=== PATIENT | female | born 1970 | race Caucasian/White ===

== ENCOUNTER 2019-07-05 15:54 | Emergency (ER) | payer OTHER, SELFPAY ==
--- NOTE | 2019-07-05 16:00 | ED.FEMALEGU ---
HPI - Female Genitourinary General Chief complaint: Urogenital-Female Stated complaint: lower back pain/burning urination Time Seen by Provider: 07/05/19 16:00 Source: patient and RN notes reviewed History of Present Illness HPI Narrative: Patient is a 48-year-old female that presents the urgent care with complaints of low back pain and burning with urination. Patient states she is also had intermittent nausea since Thursday. Patient does have a history of urosepsis pyelonephritis with hospitalization. Patient also has a history of kidney stones however removal was unnecessary and patient was able to pass them on her own while in the hospital. Patient denies any blood in the urine, vomiting, abdominal pain, fever. No other acute complaints. No acute distress noted. Patient aware of the plan of care. Related Data Home Medications Medication Instructions Recorded Confirmed lisinopril-hydrochlorothiazide tablet 07/05/19 Allergies Allergy/AdvReac Type Severity Reaction Status Date / Time azithromycin Allergy Unknown N/V Verified 04/20/18 15:54 Review of Systems Review of Systems: Narrative: CONSTITUTIONAL: Denies fever, chills, or sweats. EYES: Denies visual changes, redness, or discharge. ENT: Denies rhinorrhea, congestion, sore throat, or otalgia. CARDIOVASCULAR: Denies chest pain, palpitations, or edema. RESPIRATORY: Denies cough or dyspnea. GASTROINTESTINAL: Denies abdominal pain, nausea, vomiting, or diarrhea. GENITOURINARY: Reports of flank pain and dysuria SKIN: Denies rash or itching. MUSCULOSKELETAL: Denies back pain, joint pain, or myalgia. NEUROLOGIC: Denies headache, numbness, or weakness. All other systems reviewed are negative, except as documented in HPI. PMFSH Social History Social History Smoking status: Never smoker Second hand tobacco smoke exposure: No Smoking end date: 03/16/06 Alcohol intake: current Comments At the time of my signature, I reviewed and agree with the nursing past medical, surgical, social, and family history. There is no relevant family history pertinent to the patient complaint. Exam Narrative: Exam Narrative: GENERAL: This is a well-nourished, well-developed patient, in no apparent distress. HEAD: normocephalic, atraumatic. EYES: PERRL. Sclera clear/white. Vision is grossly intact. EARS: External ears normal NOSE: External nose normal with no obvious nasal discharge THROAT: Mucous membranes moist NECK: Neck supple CARDIOVASCULAR: Regular rate and rhythm without murmurs, gallops, or rubs. RESPIRATORY: Clear to auscultation. Breath sounds equal bilaterally. No wheezes, rales, or rhonchi. GASTROINTESTINAL: Abdomen soft, non-tender, nondistended. No guarding. SKIN: warm, intact with no suspicious lesions or rash, good texture and turgor. NEURO: awake, alert, and oriented to person, place and time. There were no obvious focal neurologic abnormalities. EXTREMITIES: No clubbing, cyanosis, or edema. BACK: Mild bilateral CVA tenderness Course Vital Signs Vital signs: Vital Signs Temperature 97.9 F 07/05/19 16:07 Pulse Rate 101 H 07/05/19 16:07 Respiratory Rate 18 07/05/19 16:07 Blood Pressure 143/79 H 07/05/19 16:07 Pulse Oximetry 97 07/05/19 16:07 Temperature 97.9 F 07/05/19 16:07 Pulse Rate 101 H 07/05/19 16:07 Respiratory Rate 18 07/05/19 16:07 Blood Pressure 143/79 H 07/05/19 16:07 Pulse Oximetry 97 07/05/19 16:07 Reviewed?patient is informed that they may have pre-hypertension or hypertension based on a blood pressure reading in the department. I recommend the patient call the primary care provider listed on their discharge instructions or a physician of their choice this week to arrange follow-up for further evaluation of possible pre-hypertension or hypertension. MDM - Female Genitourinary MDM Narrative Medical decision making narrative: Reviewed lab results the patient. She is aware that urine does not indicate any bacter
[2019-07-05 16:07] VITALS: BP 143/79; PULSE 101; RESP 18; TEMP 36.6; O2SAT 97
== END 2019-07-05 16:33 | disposition left against medical advice (07) ==
PROVIDERS: Emergency Provider Nurse Practitioner Family; PCP Family Medicine
DX: R30.0 Dysuria (principal); Z87.442 Personal history of urinary calculi
CPT/HCPCS: 81003; 87086; 99213; G0463

== ENCOUNTER 2020-07-10 12:34 | Emergency (ER) | payer OTHER, SELFPAY ==
[2020-07-10 12:40] VITALS: BP 124/88; PULSE 96; RESP 18; TEMP 36.7; O2SAT 98
--- NOTE | 2020-07-10 12:43 | ED.FEMALEGU ---
HPI - Female Genitourinary General Chief complaint: Urogenital-Female Stated complaint: lower back pain and blood in urine Time Seen by Provider: 07/10/20 12:43 Source: patient and RN notes reviewed History of Present Illness HPI Narrative: Patient is a 49-year-old female who presents the urgent care with complaints of 5-day intermittent nausea. Patient states that yesterday she started with blood in the urine as well as low back pain. Patient states she has a history of urinary tract infections as well as hospitalization for pyelonephritis. Patient has not seen her doctor regarding her current symptoms. States that she does have an at home supply of Zofran for intermittent nausea however, has not been taking her medication. Patient denies of any fever, chills, vomiting, abdominal pain. States that she is increased her water intake but denies of any use of Azo or other at home remedies. No other acute complaints. No acute distress noted. Patient aware of the plan of care. Some parts of this dictation were generated by voice recognition software and may contain typographical and/or grammatical inaccuracies. Related Data Home Medications Medication Instructions Recorded Confirmed lisinopril-hydrochlorothiazide 1 tablet PO BID 07/10/20 07/10/20 Allergies Allergy/AdvReac Type Severity Reaction Status Date / Time azithromycin AdvReac Unknown N/V Verified 07/10/20 12:46 Review of Systems Review of Systems: Narrative: CONSTITUTIONAL: Denies fever, chills, or sweats. EYES: Denies visual changes, redness, or discharge. ENT: Denies rhinorrhea, congestion, sore throat, or otalgia. CARDIOVASCULAR: Denies chest pain, palpitations, or edema. RESPIRATORY: Denies cough or dyspnea. GASTROINTESTINAL: Reports of nausea without vomiting, diarrhea or abdominal pain GENITOURINARY: Reports of flank pain and hematuria SKIN: Denies rash or itching. MUSCULOSKELETAL: Denies back pain, joint pain, or myalgia. NEUROLOGIC: Denies headache, numbness, or weakness. All other systems reviewed are negative, except as documented in HPI. [facility] Past Medical History Medical History Anxiety Depression Hypertension Insomnia Social History Social History Smoking status: Never smoker Second hand tobacco smoke exposure: No Smoking end date: 03/16/06 Alcohol intake: current Comments At the time of my signature, I reviewed and agree with the nursing past medical, surgical, social, and family history. There is no relevant family history pertinent to the patient complaint. Exam Narrative: Exam Narrative: GENERAL: This is a well-nourished, well-developed patient, in no apparent distress. HEAD: normocephalic, atraumatic. EYES: PERRL. Sclera clear/white. Vision is grossly intact. EARS: External ears normal NOSE: External nose normal with no obvious nasal discharge, nares without redness, no rhinorrhea. THROAT: Mucous membranes moist NECK: Neck supple CARDIOVASCULAR: Regular rate and rhythm without murmurs, gallops, or rubs. RESPIRATORY: Clear to auscultation. Breath sounds equal bilaterally. No wheezes, rales, or rhonchi. GASTROINTESTINAL: Abdomen soft, non-tender, nondistended. Bowel sounds are active. SKIN: warm, intact with no suspicious lesions or rash, good texture and turgor. NEURO: awake, alert, and oriented to person, place and time. There were no obvious focal neurologic abnormalities. EXTREMITIES: No clubbing, cyanosis, or edema. BACK: Denies bilateral CVA tenderness Course Vital Signs Vital signs: Vital Signs Temperature 98.1 F 07/10/20 12:40 Pulse Rate 96 07/10/20 12:40 Respiratory Rate 18 07/10/20 12:40 Blood Pressure 124/88 07/10/20 12:40 Pulse Oximetry 98 07/10/20 12:40 Temperature 98.1 F 07/10/20 12:47 Pulse Rate 96 07/10/20 12:47 Respiratory Rate 18 07/10/20 12:47 Blood Press
[2020-07-10 12:47] VITALS: BP 124/88; PULSE 96; RESP 18; TEMP 36.7; O2SAT 98
--- NOTE | 2020-07-10 13:41 | PC.NURSE ---
during stay pt unable to provide enough urine to send for culture, provider aware
--- NOTE | 2020-07-10 13:50 | PC.NURSE ---
NO URINE CULTURE PER PROVIDER, PT. AMA.
== END 2020-07-10 13:10 | disposition left against medical advice (07) ==
PROVIDERS: Emergency Provider Nurse Practitioner Family; PCP Family Medicine
DX: R11.0 Nausea (principal); R31.9 Hematuria, unspecified; I10 Essential (primary) hypertension; F41.9 Anxiety disorder, unspecified; F32.9 Major depressive disorder, single episode, unspecified
CPT/HCPCS: 81003; 99213; G0463

== ENCOUNTER 2020-07-17 15:42 | Outpatient (CLI) | payer OTHER, SELFPAY ==
--- NOTE | ~2020-07-17 | XR_ITS ---
EXAMINATION: XR hand LT 2V DATE: 07/17/2020 15:59 INDICATION: Left hand pain and difficulty bending. TECHNIQUE: Posteroanterior, oblique and lateral views of the left hand were obtained. COMPARISON: None. FINDINGS: Alignment is normal. No fracture. Joint spaces are normal. No erosions. Soft tissue swelling over the dorsum of the hand. IMPRESSION: 1. No osseous abnormality. Reviewed, dictated and finalized at location A. IMPRESSION: 1. No osseous abnormality.
== END 2020-07-17 15:43 | disposition home or self-care (01) ==
LOC: CHSIMG 15:44
PROVIDERS: PCP Family Medicine; Visit Provider Family Medicine
DX: M79.642 Pain in left hand (principal)
CPT/HCPCS: 73120

== ENCOUNTER 2020-07-26 09:01 | Outpatient (CLI) | payer OTHER, SELFPAY ==
--- NOTE | ~2020-07-26 | US_ITS ---
EXAMINATION: US right upper quadrant DATE: 07/26/2020 09:41 INDICATION: Abnormal liver function tests. TECHNIQUE: Multiple grayscale and Doppler ultrasound images of the abdomen were obtained. COMPARISON: CT abdomen and pelvis 07/17/2016 FINDINGS: The visualized portions of the head, body, and tail of the pancreas are normal. There is di ffuse hepatic steatosis. There is normal flow in main portal vein. The gallbladder is normal in size and contains sludge. No gallstones or gallbladder wall thickening. There was no sonographic [place] si gn. The common duct is normal and measures 5 mm. IMPRESSION: 1. Diffuse hepatic steatosis. 2. Gallbladder sludge. No evidence of acute cholecystitis. Reviewed, dictated and finalized at location B.
== END 2020-07-26 09:02 | disposition home or self-care (01) ==
LOC: CHSIMG 09:02
PROVIDERS: PCP Family Medicine; Visit Provider Physician Assistant
DX: R74.8 Abnormal levels of other serum enzymes (principal)
CPT/HCPCS: 76705

== ENCOUNTER 2021-09-07 15:00 | Emergency (ER) | payer OTHER, SELFPAY ==
[2021-09-07 15:06] VITALS: BP 122/77; PULSE 89; RESP 20; TEMP 37.1; O2SAT 98
[2021-09-07 15:17] VITALS: BP 122/77; PULSE 89; RESP 20; TEMP 37.1; O2SAT 98
--- NOTE | 2021-09-07 15:21 | ED.GENADULT ---
HPI - General Adult General Chief complaint: Extremity Injury, Lower Stated complaint: left knee injury Source: patient Mode of arrival: ambulatory Limitations: no limitations History of Present Illness HPI narrative: Patient presents for evaluation of her abrasions to her bilateral knees. She indicates she fell and scraped her knees eight days ago. Bleeding was controlled quickly. She states she has scabs to the anterior aspect of both knees now and is wondering what she should do to treat them. No fever, chills, nausea, vomiting. She is not diabetic. She does not smoke. She has been applying vaseline. She has some burning in the affected area but denies significant pain and does not feel she needs any x rays. Related Data Allergies Allergy/AdvReac Type Severity Reaction Status Date / Time azithromycin AdvReac Unknown N/V Verified 09/07/21 15:12 Review of Systems Review of Systems: CONSTITUTIONAL: Denies fever, chills, or sweats. EYES: Denies visual changes, redness, or discharge. ENT: Denies rhinorrhea, congestion, sore throat, or otalgia. CARDIOVASCULAR: Denies chest pain, palpitations, or edema. RESPIRATORY: Denies cough or dyspnea. GASTROINTESTINAL: Denies abdominal pain, nausea, vomiting, or diarrhea. GENITOURINARY: Denies dysuria or hematuria. SKIN: Reports abrasions to bilateral knees MUSCULOSKELETAL: Denies back pain, joint pain, or myalgia. NEUROLOGIC: Denies headache, numbness, dizziness, or weakness. PSYCHIATRIC: Denies anxiety or depression. [facility] Past Medical History Medical History Anxiety Arthritis Depression GERD (gastroesophageal reflux disease) Hepatitis Hypertension Insomnia Surgical History Surgical History History of tubal ligation Hx of breast augmentation Hx of section Family History Family History Father Hypertension Depression Mother Hypertension Son Depression Grandparent Alcoholism Cancer Grandparent Cancer Hypertension Social History Social History Smoking status: Never smoker Second hand tobacco smoke exposure: No Smoking end date: 03/16/06 Alcohol intake: current Exam Narrative: GENERAL: Well-appearing, well-nourished, and in no acute distress. HEAD: Normocephalic, atraumatic. EYES: PERRLA and EOMI. ENT: Nares clear, no rhinorrhea or epistaxis. Mucous membranes moist. Oropharynx without tonsillar hypertrophy exudate or other lesions. Bilateral TMs pearly elena nonbulging NECK: Supple. No adenopathy or masses. No carotid bruits or JVD CHEST: Clear to auscultation. No respiratory distress. No wheezes rales or rhonchi HEART: Regular rate and rhythm. No murmur heard. Normal peripheral pulses. ABDOMEN: Soft, nontender, nondistended, normal active bowel sounds. EXTREMITIES: Normal range of motion. No edema. SKIN: Approximately 1.5 cm abrasion noted to the anterior aspect of the right knee with dried sanguinous drainage noted. There is an approximately 1 cm scabbed lesion to the anterior aspect of the left knee and a 4 cm scabbed lesion to the left knee adjacent to that. There is no purulence, underlying fluctuance or induration. Skin as warm, dry, no rash. NEURO: No focal deficits. Alert and oriented x3. PSYCH: Normal mood and affect. Course Course Emergency Course: This is a 50-year-old female who presented with complaints of abrasions to bilateral knees. She has no loss of range of motion. She was advised on wound care including washing area with antibacterial soap and water and applying neosporin thereafter. She has no evidence of cellulitis. She declined x rays which seems very reasonable. She should follow-up outpatient and return for worsening symptoms. Patient agreed with plan of care kane Moore
== END 2021-09-07 15:20 | disposition home or self-care (01) ==
PROVIDERS: Emergency Provider Nurse Practitioner; PCP Family Medicine
DX: S80.211A Abrasion, right knee, initial encounter (principal); S80.212A Abrasion, left knee, initial encounter; W19.XXXA Unspecified fall, initial encounter; Z87.891 Personal history of nicotine dependence; M19.90 Unspecified osteoarthritis, unspecified site; K21.9 Gastro-esophageal reflux disease without esophagitis; I10 Essential (primary) hypertension; F41.9 Anxiety disorder, unspecified; F32.A Depression, unspecified
CPT/HCPCS: 99213; G0463

== ENCOUNTER 2022-06-07 16:44 | Emergency (ER) | payer OTHER, SELFPAY ==
[2022-06-07 16:48] VITALS: BP 131/82; PULSE 95; RESP 20; TEMP 37.2; O2SAT 97
--- NOTE | 2022-06-07 16:55 | ED.ALLEREA ---
HPI - Allergic Reaction General Chief complaint: Allergic Reaction Stated complaint: allergic reaction/face History of Present Illness HPI narrative: patient presents with swelling to her lips. Patient feels is a reaction to her lisinopril. Patient has been on lisinopril for the last 6 years with no problems. Patient has had this swelling started last night no shortness of breath no drooling no respiratory problems. Patient did not take her lisinopril this morning. Patient has taken 125 mg Benadryl at home and presents with lip swelling and no other complaints voiced. Related Data Allergies Allergy/AdvReac Type Severity Reaction Status Date / Time azithromycin AdvReac Unknown N/V Verified 04/23/22 11:34 Review of Systems Review of Systems: CONSTITUTIONAL: Denies fever, chills, or sweats. EYES: Denies visual changes, redness, or discharge. ENT: Denies rhinorrhea, congestion, sore throat, or otalgia. CARDIOVASCULAR: Denies chest pain, palpitations, or edema. RESPIRATORY: Denies cough or dyspnea. GASTROINTESTINAL: Denies abdominal pain, nausea, vomiting, or diarrhea. GENITOURINARY: Denies dysuria or hematuria. SKIN: Denies rash or itching. MUSCULOSKELETAL: Denies back pain, joint pain, or myalgia. NEUROLOGIC: Denies headache, numbness, or weakness. PSYCHIATRIC: Denies anxiety or depression. [facility] Past Medical History Medical History Anxiety Arthritis Depression GERD (gastroesophageal reflux disease) Hepatitis Hypertension Insomnia Surgical History Surgical History History of tubal ligation Hx of breast augmentation Hx of section Family History Family History Father Hypertension Depression Mother Hypertension Son Depression Grandparent Alcoholism Cancer Grandparent Cancer Hypertension Social History Social History (Updated 04/23/22 @ 11:43 by Prabha Hatch, [facility]) Social History: Pt smoked cigarettes socially for approx. 5 yrs. One pack would last her 2 weeks. Smoking status: Former smoker Second hand tobacco smoke exposure: No Smoking end date: 03/16/06 Alcohol intake: current Alcohol use details: seldom; socially Substance use: never Substance use type: does not use Comments At time of signature, agree with nursing past medical, surgical, social and family history. There is no relevant family history pertinent to the presenting complaint Exam Narrative: GENERAL: Well-appearing, well-nourished, and in no acute distress. HEAD: Normocephalic, atraumatic. EYES: PERRLA and EOMI. ENT: Nares clear, no rhinorrhea or epistaxis. Mucous membranes moist. Swelling to lips no angioedema lungs clear NECK: Supple. CHEST: Clear to auscultation. No respiratory distress. HEART: Regular rate and rhythm. No murmur heard. Normal peripheral pulses. ABDOMEN: Soft, nontender, nondistended, normal active bowel sounds. EXTREMITIES: Normal range of motion. No edema. SKIN: Warm, dry, no rash. NEURO: No focal deficits. Alert and oriented x3. Beth Coma Scale Eye Opening: Spontaneous 4 Beth Coma Scale Motor: Obeys Commands 6 [place] Coma Scale Verbal: Oriented 5 [place] Coma Scale Total 15 Course Course Level of Care: Express Care Visit Vital Signs Vital signs: Vital Signs Temperature 37.2 C 06/07/22 16:48 Pulse Rate 95 06/07/22 16:48 Respiratory Rate 20 06/07/22 16:48 Blood Pressure 131/82 06/07/22 16:48 Pulse Oximetry 97 06/07/22 16:48 Oxygen Delivery Room Air 06/07/22 16:48 Temperature 37.2 C 06/07/22 16:48 Pulse Rate 95 06/07/22 16:48 Respiratory Rate 20 06/07/22 16:48 Blood Pressure 131/82 06/07/22 16:48 Pulse Oximetry 97 06/07/22 16:48 Oxygen Delivery Room Air 06/07/22 16:48 I reviewed all medications, tests and and results of this visit w
[2022-06-07] MEDS: methylPREDNISolone SOD SUCC 125 MG VIAL IM (17:02)
== END 2022-06-07 17:20 | disposition home or self-care (01) ==
PROVIDERS: Emergency Provider Nurse Practitioner Family; PCP Family Medicine
DX: R22.0 Localized swelling, mass and lump, head (principal); T46.4X5A Adverse effect of angiotensin-converting-enzyme inhibitors, initial encounter; M19.90 Unspecified osteoarthritis, unspecified site; K21.9 Gastro-esophageal reflux disease without esophagitis; I10 Essential (primary) hypertension; Z87.891 Personal history of nicotine dependence
CPT/HCPCS: 96372; 99213; G0463; J2930

== ENCOUNTER 2022-12-16 10:09 | Emergency (ER) | payer OTHER, SELFPAY ==
--- NOTE | ~2022-12-16 | XR_ITS ---
XR chest 2V DATE: 12/16/2022 12:41 INDICATION: Cough TECHNIQUE: 2 views COMPARISON: April 20, 2018 PA and lateral chest FINDINGS: Normal heart size. No hilar or mediastinal enlargement. Slight focal infiltrate or atelectasis at the posterior left lung base. No pulmonary infiltrate or consolidation, pleural effusion or pulmonary vascular congestion or pneumo thorax is detected otherwise. IMPRESSION: Slight focal posterior left basilar infiltrate or atelectasis; otherwise no active cardio pulmonary disease Reviewed, dictated and finalized at location L. IMPRESSION: Slight focal posterior left basilar infiltrate or atelectasis; othe rwise no active cardiopulmonary disease
--- NOTE | ~2022-12-16 | CT_ITS ---
EXAMINATION: CT abdomen pelvis w con DATE: 12/16/2022 11:31 INDICATION: Right upper quadrant abdominal pain. TECHNIQUE: Computed tomography (CT) of the abdomen and pelvis was performed with 100 mL Omnipaque-350 intravenous contrast. Automated exposure control and iterative reconstruction technique were employe d. The dose-length product was 1177.61 mGy-cm. COMPARISON: 07/17/2016 FINDINGS: Mild dependent atelectasis in the bilateral lower lobes. Heart size is normal. No pericardial or pleu ral effusion. Partially visualized bilateral breast implants which are of indeterminate integrity. Th ere are few small calcified gallstones in the dependent aspect of the gallbladder. There is subtle in flammatory stranding between the gallbladder and the hepatic flexure of the colon with no gallbladder wall thickening or inflammatory stranding along the cephalad and left sides of the gallbladder to mo re specifically suggest acute cholecystitis. There is liver surface nodularity and subtle heterogeneo us attenuation/enhancement of the liver consistent with cirrhosis. This includes an approximately 1.9 cm ill-defined hypodense region in the right hepatic lobe. There is a recanalized umbilical vein berkley ng with a dilated but atretic collateral arising from the anterior left hepatic lobe consistent with secondary portal venous hypertension. Spleen, pancreas, bilateral adrenal glands and kidneys are norm al. Normal appendix. No bowel obstruction. Bladder, anteverted uterus and bilateral adnexa are unrema rkable. There is additional retroperitoneal stranding caudal to the root of the mesentery and along t he bilateral paracolic gutters extending into the perirectal fat at the deep pelvis. Minimal free flu id in the cul-de-sac which may be reactive or physiologic. No abscess or free intraperitoneal gas. Se veral mildly enlarged periportal, portacaval and upper abdominal aorta caval lymph nodes which along with mildly prominent but still normal-sized gastrohepatic and upper abdominal periaortic lymph nodes which are likely reactive. Bones are unremarkable. IMPRESSION: 1. Cirrhosis with few portosystemic collaterals consistent with secondary portal venous hypertension. 1.9 cm centrally hypodense region in the right hepatic lobe most likely related to cirrhosis but wou ld consider further evaluation with multiphase pre and postcontrast MRI to exclude neoplasm. 2. Cholelithiasis with mild stranding along one side of the otherwise normal-appearing gallbladder. T his could be related to acute cholecystitis however there is more extensive retroperitoneal stranding in the abdomen and pelvis and this could be related to liver disease, colitis or acute interstitial pancreatitis. Correlate with lipase levels and consider further evaluation with either HIDA scan or r ight upper quadrant ultrasound as clinically indicated. 3. Likely reactive mild upper abdominal lymphadenopathy. Reviewed, dictated and finalized at location A. IMPRESSION: 1. Cirrhosis with few portosystemic collaterals consistent with secondary milagros l venous hypertension. 1.9 cm centrally hypodense region in the right hepatic l obe most likely related to cirrhosis but would consider further evaluation with multiphase pre and postcontrast MRI to exclude neoplasm. 2. Cholelithiasis with mild stranding along one side of the otherwise normal-ap pearing gallbladder. This could be related to acute cholecystitis however there is more extensive retroperitoneal stranding in the abdomen and pelvis and this could be related to liver disease, colitis or acute interstitial pancreatitis. Correlate with lipase levels and consider further evaluation with either HIDA scan or right upper quadrant ultrasound as clinically indicated. 3. Likely reactive mild upper abdominal lymphadenopathy.
[2022-12-16 10:11] VITALS: BP 140/83; PULSE 84; RESP 18; TEMP 37.1; O2SAT 98
--- NOTE | 2022-12-16 10:34 | ED.ABDPAIN ---
HPI - Abdominal Pain General Chief Complaint: Abdominal Pain Stated Complaint: abdominal pain Time Seen by Provider: 12/16/22 10:17 Source: patient Mode of arrival: ambulatory Limitations: no limitations History of Present Illness HPI narrative: patient is a 52-year-old female with right upper quadrant pain started this morning when she woke up from sleep. She has associated nausea vomiting and diarrhea for the past 3 days. MD elicited complaint: abdominal pain ( Right upper quadrant) Pertinent past history: none Onset (ago): hour(s) Pain Consistency: constant Location: RUQ Severity: moderate Pain scale (0-10): 6 Quality: cramping and sharp Radiation: RUQ Migration to: no migration Exacerbating factors: nothing Relieving factors: nothing Associated symptoms: nausea, vomiting and diarrhea Related Data Patient : No Allergies Allergy/AdvReac Type Severity Reaction Status Date / Time lisinopril Allergy Intermediate Swelling Verified 12/16/22 10:18 of Lip/Tongue/Throat azithromycin AdvReac Unknown N/V Verified 12/16/22 10:18 Review of Systems Review of Systems: All systems reviewed & are unremarkable except as noted in HPI and below Constitutional: Constitutional: Reports no additional constitutional complaints Eyes: Eyes: Reports no additional eye complaints ENT: Reports system reviewed and no additional complaints, except as documented Cardiovascular: Cardiovascular: Reports no additional cardiovascular complaints Respiratory: Respiratory: Reports no additional respiratory complaints Gastrointestinal: Gastrointestinal: Reports no additional gastrointestinal complaints Genitourinary: Genitourinary: Reports no additional female genitourinary complaints Musculoskeletal: Musculoskeletal: Reports no additional musculoskeletal complaints Integumentary/Breasts: Skin/Breast: Reports system reviewed and no additional complaints, except as docu Neurologic: Reports system reviewed and no additional complaints, except as documented Psychiatric: Psychiatric: Reports no additional psychiatric complaints Endocrine: Endocrine: Reports no additional endocrine complaints Hematologic/Lymphatic: Hematologic/Lymphatic: Reports no additional hematologic/lymphatic complaints Allergic/Immunologic: Allergic/Immunologic: Reports no additional allergic/immunologic complaints PMFSH Past Medical History Medical History Anxiety Arthritis Depression GERD (gastroesophageal reflux disease) Hepatitis Hypertension Insomnia Surgical History Surgical History History of tubal ligation Hx of breast augmentation Hx of section Family History Family History Father Hypertension Depression Mother Hypertension Son Depression Grandparent Alcoholism Cancer Grandparent Cancer Hypertension Social History Social History Social History: Pt smoked cigarettes socially for approx. 5 yrs. One pack would last her 2 weeks. Smoking status: Former smoker Second hand tobacco smoke exposure: No Smoking end date: 03/16/06 Alcohol intake: current Alcohol use details: seldom; socially Substance use: never Substance use type: does not use Exam Const: General: healthy appearing Nutritional Appearance: well nourished Orientation/consciousness: patient oriented x3 HENMT: Head: normal to inspection Ears: external ears normal Face/Nose/Sinus: Normal external nose present Eyes: Conjunctivae: conjunctivae normal Pupils: Equal, round and reactive pupils present EOM: EOMs intact bilaterally Neck: Neck: normal visual inspection Chest: Chest palpation & inspection: normal inspection of the chest Resp: Effort & Inspection: normal respiratory effort Auscultation: clear to aus
[2022-12-16] MEDS: ONDANSETRON INJ 4 MG/2 ML VIAL IV PUSH (10:40)
[2022-12-16] MEDS: MORPHINE SULFATE (*CRX) 2 MG/ML INJ IV PUSH (10:40)
[2022-12-16] MEDS: SODIUM CHLORIDE 0.9% IV 1,000 ML 999 ML IV CONT (10:41)
[2022-12-16 10:55] LABS: Appearance Urine Clear (Clear); Bilirubin Urine Negative (Negative); Blood Urine 2+ (Negative); Color Urine Light Yellow (Yellow); Glucose Urine UA Negative (Negative); Ketones Urine Negative (Negative); Leukocyte Esterase Ur Negative LEU/UL (Negative); Nitrate Urine Negative (Negative); Protein Urine Negative (Negative); Specific Grav Ur 1.015 (1.010-1.020)
[2022-12-16 10:56] LABS: Basophils Absolute Auto 0.11 K/mm3 (0.00-0.10); Basophils Percent Auto 1.5 % (0.0-1.0); Eosinophils Absolute Auto 0.23 K/mm3 (0.02-0.50); Eosinophils Percent Auto 3.1 % (1.0-6.0); Hematocrit 41.3 % (35.0-49.0); Hemoglobin 13.3 g/dL (12.0-15.0); Immature Granulocyte Absolute 0.03 K/mm3 (0.00-0.00); Immature Granulocyte Percent A 0.4 % (0.0-0.0); Immature Platelet Fraction Pct 4.6 % (1.0-7.0); Lymphocytes Absolute Auto 1.44 K/mm3 (1.10-4.50); Lymphocytes Percent Auto 19.6 % (18.0-42.0); Mean Corpuscular HGB Conc 32.2 g/dL (32.0-36.0); Mean Corpuscular Volume 99.5 fL (78.0-102.0); Mean Platelet Volume 10.8 fl (9.2-11.8); Monocytes Absolute Auto 0.91 K/mm3 (0.10-0.90); Monocytes Percent Auto 12.4 % (2.0-11.0); Neutrophils Absolute Auto 4.6 K/mm3 (1.7-7.2); Platelet Count Result 141 K/mm3 (150-420); Red Blood Count 4.15 M/mm3 (4.20-5.40); Red Cell Distribution Width 15.9 % (11.6-14.4); White Blood Count 7.4 K/mm3 (4.8-10.8)
[2022-12-16 11:03] LABS: Add Urine Microscopic? YES; Bacteria Urine 1+ /hpf; Squamous Epithelial Cell Urine Moderate /hpf (Few); WBC Urine 0-3 /hpf (0-3)
[2022-12-16 11:09] LABS: Partial Thromboplastin Time 25.7 SEC (23.90-30.70); Prothrombin Time 11.4 Seconds (9.50-12.10)
[2022-12-16 11:10] LABS: Alanine Aminotransferase 40 U/L (14-59); Alkaline Phosphatase 114 U/L (46-116); Anion Gap 10 mmol/L (8-16); Aspartate Amino Transferase 73 U/L (15-37); Bilirubin,Total 0.5 mg/dL (0.00-1.00); Blood Urea Nitrogen 10 mg/dL (7-18); Calcium 8.9 mg/dL (8.5-10.1); Carbon Dioxide 27 mmol/L (21-32); Chloride 106 mmol/L (98-108); Estimated CRCL calculation 90 ml/min; Estimated Glomerular Filt Rate > 60; Glucose 99 mg/dL (70-99); Lipase 46 U/L (16-77); Osmolality Calculated 295 mOsm/kg (285-295); Potassium 3.6 mmol/L (3.5-5.1); Sodium 143 mmol/L (136-145); Total Protein 8.4 g/dL (6.4-8.2)
[2022-12-16 11:13] LABS: Lactic Acid Reflex 1.2 mmol/L (0.4-2.0)
--- NOTE | 2022-12-16 11:48 | PC.NURSE ---
pt has returned from ct, warm blanket provided. pt is awaiting results at this time. will continue to monitor.
[2022-12-16] MEDS: PIPERACILLN/TAZ 3.375GM/NS50ML 3.375 GM/50 ML BAG IVPB (12:12)
--- NOTE | 2022-12-16 12:25 | PC.NURSE ---
PT IS REQUESTING ICE CHIPS OR WATER, ADVISED NPO UNTIL TICO DECISION. PT AMBULATORY TO [facility] WITHOUT DISTRESS. PT IS REPOSITIONED ON STRETCHER, IV ABX ARE INFUSING ORDERED WITHOUT DIFFICULTY. NAD NOTED. WILL CONTINUE TO MONITOR.
[2022-12-16 12:26] VITALS: BP 153/82; PULSE 88; RESP 18; O2SAT 100
[2022-12-16 14:00] VITALS: BP 168/88; PULSE 100; RESP 18; O2SAT 99
--- NOTE | 2022-12-16 14:04 | PC.NURSE ---
pt has family at bedside. pt is awaiting return call from [facility] at this time. no change in pt status. will continue to monitor.
--- NOTE | 2022-12-16 14:35 | PC.NURSE ---
PT AMBULATORY TO WITHOUT DIFFICULTY, FAMILY AT BEDSIDE. PT HAS BEEN ACCEPTED TO [facility] AT THIS TIME IS AWAITING ROOM ASSIGNMENT. PT AND FAMILY ARE AWARE OF PLAN OF CARE. WILL CONTINUE TO MONITOR. NO CHANGE IN PT STATUS.
[2022-12-16 15:52] VITALS: BP 170/88; PULSE 100; RESP 18; TEMP 37; O2SAT 98
--- NOTE | 2022-12-22 12:43 | PC.NURSE ---
FINAL BLOOD CULTURE REPORT, NO GROWTH AFTER 5 DAYS, NO ACTION OR FURTHER TREATMENT NEEDED.
== END 2022-12-16 16:20 | disposition short-term general hospital (02) ==
PROVIDERS: Emergency Provider Emergency Medicine; PCP Family Medicine
DX: K85.90 Acute pancreatitis without necrosis or infection, unspecified (principal); J18.9 Pneumonia, unspecified organism; K81.0 Acute cholecystitis; K74.5 Biliary cirrhosis, unspecified; I10 Essential (primary) hypertension; K21.9 Gastro-esophageal reflux disease without esophagitis; G47.00 Insomnia, unspecified; F41.9 Anxiety disorder, unspecified; F32.A Depression, unspecified; Z87.891 Personal history of nicotine dependence; Z79.51 Long term (current) use of inhaled steroids
CPT/HCPCS: 36415; 71046; 74177; 80053; 81001; 83605; 83690; 85025; 85055; 85610; 85730; 87040; 96361; 96365; 96375; 99285; J2270; J2405; J2543; J7030; Q9967

== ENCOUNTER 2023-07-27 10:35 | Emergency (ER) | payer OTHER, SELFPAY ==
[2023-07-27 10:44] VITALS: BP 138/88; PULSE 95; RESP 20; TEMP 36.8; O2SAT 94
--- NOTE | 2023-07-27 11:09 | ED.URI ---
HPI - URI/Sore Throat General Chief Complaint: Upper Respiratory Infection Stated Complaint: cough/throat Time Seen by Provider: 07/27/23 10:58 Source: patient, RN notes reviewed and old records reviewed Mode of arrival: ambulatory Limitations: no limitations History of Present Illness HPI Narrative: 52 year old female who presents to [facility] care with complaints of 2 day history of of head congestion, post nasal drainage, productive cough and sore throat. Patient reports that she has coughed so much that she has vomited several times mucous and does feel some nausea. Patient reports that she has had some nasal congestion also, denies any fevers, chills or sweats reports that he ashley taken some Enriqueta [place] cold medication for her symptoms. MD elicited complaint: cough, sore throat, rhinorrhea and nasal congestion Onset (ago): day(s) (2) Pain scale (0-10): 5 Able to tolerate fluids by mouth: Yes Treatments prior to arrival: other (Enriqueta seltzer cough and cold) Related Data Home Medications Medication Instructions Recorded Confirmed alprazolam 0.5 mg tablet 0.5 mg PO BID PRN anxiety 07/27/23 07/27/23 losartan 50 mg-hydrochlorothiazide 1 tablet PO DAILY 07/27/23 07/27/23 12.5 mg tablet metoclopramide HCl 5 mg tablet 5 mg PO Q6H PRN nausea 07/27/23 07/27/23 (Reglan) quetiapine 25 mg tablet 25 mg PO HS 07/27/23 07/27/23 venlafaxine 75 mg capsule,extended 75 mg PO BID 07/27/23 07/27/23 release 24 hr Allergies Allergy/AdvReac Type Severity Reaction Status Date / Time lisinopril Allergy Intermediate Swelling Verified 07/27/23 10:44 of Lip/Tongue/Throat azithromycin AdvReac Unknown N/V Verified 07/27/23 10:44 Review of Systems Review of Systems: CONSTITUTIONAL: Denies malaise, chills, sweats, or fever. EYES: Denies visual changes, redness, or discharge. ENT: Reports rhinorrhea, congestion, sinus pain,pressure otalgia and sore throat. CARDIOVASCULAR: Denies chest pain, palpitations, or edema. RESPIRATORY: Reports cough.? Denies dyspnea. GASTROINTESTINAL: Denies abdominal pain, nausea, vomiting, diarrhea (vomiting with cough and some nausea) SKIN: Denies rash or itching. MUSCULOSKELETAL: Denies myalgia. NEUROLOGIC: Denies headache. All systems reviewed & are unremarkable except as noted in HPI and below PMFSH Past Medical History Medical History Anxiety Arthritis Depression Fatty liver Concern for hepatic cirrhosis GERD (gastroesophageal reflux disease) Hepatitis Hypertension Insomnia IPMN (intraductal papillary mucinous neoplasm) Surgical History Surgical History History of tubal ligation Hx of breast augmentation Hx of section x2 Family History Family History Father Hypertension Depression Mother Hypertension Son Depression Grandparent Alcoholism Cancer Grandparent Cancer Hypertension Social History Social History Social History: Pt smoked cigarettes socially for approx. 5 yrs. One pack would last her 2 weeks. Smoking status: Former smoker Second hand tobacco smoke exposure: No Smoking end date: 03/16/06 Alcohol intake: current Alcohol use details: seldom; socially Substance use: never Substance use type: does not use Comments At time of signature, agree with nursing past medical, surgical, social and family history. There is no relevant family history pertinent to the presenting complaint Exam Narrative: GENERAL: Well-appearing, well-nourished, and in no acute distress. HEAD: Normocephalic EYES: PERRLA, conjunctivae clear ENT: Nares clear, turbinates edematous and erythematous, clear discharge. Mucous membranes moist. TM pearly elena with dull light reflex bilaterally; no tragal tenderness. Oropharynx e
[2023-07-27 11:29] VITALS: BP 138/88; PULSE 95; TEMP 36.8; O2SAT 94
== END 2023-07-27 11:20 | disposition home or self-care (01) ==
PROVIDERS: Emergency Provider Registered Nurse; PCP Family Medicine
DX: J02.0 Streptococcal pharyngitis (principal); R05.1 Acute cough; R11.0 Nausea; Z87.891 Personal history of nicotine dependence; F41.9 Anxiety disorder, unspecified; F32.A Depression, unspecified; M19.90 Unspecified osteoarthritis, unspecified site; K76.0 Fatty (change of) liver, not elsewhere classified; I10 Essential (primary) hypertension
CPT/HCPCS: 87880; 99213; G0463

== ENCOUNTER 2023-08-26 15:39 | Emergency (ER) | payer OTHER, SELFPAY ==
[2023-08-26 15:45] VITALS: BP 130/75; PULSE 99; RESP 18; TEMP 36.2; O2SAT 98
--- NOTE | 2023-08-26 15:56 | ED.URI ---
HPI - URI/Sore Throat General Chief Complaint: Upper Respiratory Infection Stated Complaint: Cough Time Seen by Provider: 08/26/23 15:58 Source: patient Mode of arrival: ambulatory Limitations: no limitations History of Present Illness HPI Narrative: 52-year-old female presented for complaint of persistent cough for about 4 weeks. Cough is nonproductive but forceful, Endorses body hurts from coughing and endorses a runny nose.States she has had 3 rounds of antibiotics and a course of steroids. Last antibiotic was completed about 4 days ago. She denies shortness of breath, wheezing nausea, vomiting, diarrhea, fevers or chills. She has been using rescue inhaler and steroid inhaler as prescribed. Related Data Home Medications Medication Instructions Recorded Confirmed alprazolam 0.5 mg tablet 0.5 mg PO BID PRN anxiety 07/27/23 07/27/23 losartan 50 mg-hydrochlorothiazide 1 tablet PO DAILY 07/27/23 07/27/23 12.5 mg tablet metoclopramide HCl 5 mg tablet 5 mg PO Q6H PRN nausea 07/27/23 07/27/23 (Reglan) quetiapine 25 mg tablet 25 mg PO HS 07/27/23 07/27/23 venlafaxine 75 mg capsule,extended 75 mg PO BID 07/27/23 07/27/23 release 24 hr omeprazole 20 mg capsule,delayed mg 08/26/23 release Allergies Allergy/AdvReac Type Severity Reaction Status Date / Time lisinopril Allergy Intermediate Swelling Verified 08/26/23 15:55 of Lip/Tongue/Throat azithromycin AdvReac Unknown N/V Verified 08/26/23 15:55 Review of Systems Review of Systems: CONSTITUTIONAL: Denies body aches, fever, chills, or sweats. EYES: Denies visual changes, redness, or discharge. ENT: Reports rhinorrhea, Denies sore throat, or otalgia. CARDIOVASCULAR: Denies chest pain, palpitations, or edema. RESPIRATORY: Reports cough, denies sob, wheezing. GASTROINTESTINAL: Denies abdominal pain, nausea, vomiting, or diarrhea. SKIN: Denies rash, itching, or wounds. MUSCULOSKELETAL: Denies back pain, joint pain, or myalgia. NEUROLOGIC: Denies headache, numbness, tingling, or weakness. All systems reviewed & are unremarkable except as noted in HPI and below PMFSH Past Medical History Medical History Anxiety Arthritis Depression Fatty liver Concern for hepatic cirrhosis GERD (gastroesophageal reflux disease) Hepatitis Hypertension Insomnia IPMN (intraductal papillary mucinous neoplasm) Surgical History Surgical History History of tubal ligation Hx of breast augmentation Hx of section x2 Family History Family History Father Hypertension Depression Mother Hypertension Son Depression Grandparent Alcoholism Cancer Grandparent Cancer Hypertension Social History Social History Social History: Pt smoked cigarettes socially for approx. 5 yrs. One pack would last her 2 weeks. Smoking status: Former smoker Second hand tobacco smoke exposure: No Smoking end date: 03/16/06 Alcohol intake: current Alcohol use details: seldom; socially Substance use: never Substance use type: does not use Comments At time of signature, I have reviewed and agree with nursing past medical, surgical, social and family history unless otherwise noted. Please see nursing chart for further information. There is no relevant family history pertinent to the presenting complaint Exam Narrative: GENERAL: Well-appearing, in no acute distress. EYES: EOMI. No redness or drainage. Conjunctivae normal. ENT: Mucous membranes pink and moist. No rhinorrhea. TMs normal bilaterally. Throat normal. Uvula midline. NECK: Normal AROM. Supple. CHEST: No respiratory distress. lungs clear to all shaw. frequent nonproductive cough HEART: Regular rate and rhythm. No murmur appreciated. ABDOMEN: Soft, nonte
== END 2023-08-26 16:22 | disposition home or self-care (01) ==
PROVIDERS: Emergency Provider Nurse Practitioner Family; PCP Family Medicine
DX: J40 Bronchitis, not specified as acute or chronic (principal); Z87.891 Personal history of nicotine dependence; M19.90 Unspecified osteoarthritis, unspecified site; K76.0 Fatty (change of) liver, not elsewhere classified; K21.9 Gastro-esophageal reflux disease without esophagitis; I10 Essential (primary) hypertension; F41.9 Anxiety disorder, unspecified; F32.A Depression, unspecified
CPT/HCPCS: 99213; G0463

== ENCOUNTER 2023-11-24 16:13 | Outpatient (CLI) | payer OTHER, SELFPAY ==
--- NOTE | ~2023-11-24 | XR_ITS ---
EXAM: XR lumbar spine 2-3V DATE: 11/24/2023 17:24 HISTORY: lumbar radiculopathy non trauma . COMPARISON: None available. FINDINGS: 5 nonrib-bearing lumbar-type vertebral bodies. Pedicles intact. 2 mm retrolisthesis at L4- 5. Vertebral body heights preserved. Mild disc space narrowing and marginal osteophytosis at L2-3 thr ough L5-S1. Moderate facet arthropathy at L3-4 through L5-S1. No fracture or dislocation. IMPRESSION: Minimal grade 1 anterolisthesis at L4-5. Mild multilevel degenerative disc disease. Moder ate lower lumbar facet arthropathy. Reviewed, dictated and finalized at location K. IMPRESSION: Minimal grade 1 anterolisthesis at L4-5. Mild multilevel degenerati ve disc disease. Moderate lower lumbar facet arthropathy.
== END 2023-11-24 16:14 | disposition home or self-care (01) ==
LOC: CHSIMG 16:16
PROVIDERS: PCP Physician Assistant; Visit Provider Physician Assistant
DX: M54.16 Radiculopathy, lumbar region (principal); M51.36 Other intervertebral disc degeneration, lumbar region; M43.16 Spondylolisthesis, lumbar region
CPT/HCPCS: 72100

== ENCOUNTER 2023-12-27 11:37 | Emergency (ER) | payer OTHER, SELFPAY ==
[2023-12-27] VITALS (9 sets, daily range): BP systolic 116–148; BP diastolic 81–87; PULSE 82–103; RESP 16–20; TEMP 36.5–36.9; O2SAT 93–99
--- NOTE | ~2023-12-27 | XR_ITS ---
EXAMINATION: XR knee RT 3V DATE: 12/27/2023 11:59 INDICATION: Posterior right knee pain. TECHNIQUE: 3 views of right knee were obtained. COMPARISON: None. FINDINGS: Alignment is normal. No fracture. There is mild osteoarthritis of the patellofemoral compar tment characterized by a tiny osteophyte. No knee joint effusion. IMPRESSION: 1. Mild right knee osteoarthritis. Reviewed, dictated and finalized at location A.
--- NOTE | 2023-12-27 11:43 | ED.GENADULT ---
HPI - General Adult General Chief complaint: Extremity Problem,Nontraumatic Stated complaint: leg pain Time Seen by Provider: 12/27/23 11:42 Source: patient and family Mode of arrival: ambulatory Limitations: no limitations History of Present Illness HPI narrative: 53-year-old white female complains of right lower extremity pain behind her knee radiating up the back of her leg down to her calf for the past 3 days. She has a history of rheumatoid arthritis and normally has hand and ankle pain which she also has today. She says Naprosyn helps a little bit she just got started on salicylic acid for her rheumatoid arthritis 2 weeks ago. She denies any history of venous thromboembolism but she is worried that she might have a blood clot denies any shortness of breath cough fever difficulty breathing walking talking seeing or hearing eating or drinking voiding or stooling rash or itching swelling lumps or bumps bleeding or bruising dizziness or lightheadedness cough fever sore throat runny nose or any other complaints. She denies any history of venous thromboembolism. She is not on any blood thinners. Related Data Home Medications Medication Instructions Recorded Confirmed alprazolam 0.5 mg tablet 0.5 mg PO BID PRN anxiety 07/27/23 07/27/23 losartan 50 mg-hydrochlorothiazide 1 tablet PO DAILY 07/27/23 07/27/23 12.5 mg tablet metoclopramide HCl 5 mg tablet 5 mg PO Q6H PRN nausea 07/27/23 07/27/23 (Reglan) quetiapine 25 mg tablet 25 mg PO HS 07/27/23 07/27/23 venlafaxine 75 mg capsule,extended 75 mg PO BID 07/27/23 07/27/23 release 24 hr omeprazole 20 mg capsule,delayed mg 08/26/23 release Allergies Allergy/AdvReac Type Severity Reaction Status Date / Time lisinopril Allergy Intermediate Swelling Verified 12/27/23 11:38 of Lip/Tongue/Throat azithromycin AdvReac Unknown N/V Verified 12/27/23 11:38 Review of Systems Review of Systems: All systems reviewed & are unremarkable except as noted in HPI and below PMFSH Past Medical History Medical History Anxiety Arthritis Depression Fatty liver Concern for hepatic cirrhosis GERD (gastroesophageal reflux disease) Hepatitis Hypertension Insomnia IPMN (intraductal papillary mucinous neoplasm) Surgical History Surgical History History of tubal ligation Hx of breast augmentation Hx of section x2 Family History Family History Father Hypertension Depression Mother Hypertension Son Depression Grandparent Alcoholism Cancer Grandparent Cancer Hypertension Social History Social History Social History: Pt smoked cigarettes socially for approx. 5 yrs. One pack would last her 2 weeks. Smoking status: Former smoker Second hand tobacco smoke exposure: No Smoking end date: 03/16/06 Alcohol intake: current Alcohol use details: seldom; socially Substance use: never Substance use type: does not use Exam Narrative: White female patient with mild distress.? Head normocephalic, atraumatic.? Eyes conjunctiva pink sclera nonicteric.? Extraocular movements are intact.? Ears externally normal.? Oropharynx is clear with moist mucous membranes without exudates.? Neck is supple nontender no lymphadenopathy.? Back is nontender.? no CVA tenderness. Negative straight leg raise bilaterally Lungs are clear.? Heart is regular rate and rhythm without murmurs gallops or rubs.? Chest wall nontender. Abdomen is soft and nontender no hepatosplenomegaly or masses no CVA tenderness no abdominal bruits.? Extremities: no cyanosis clubbing or edema. Right knee full range of motion tenderness posterior knee and hamstrings. Stable to all forces negative Geno's test. Calf nontender negative Homans sign. She has full ra
[2023-12-27 12:10] LABS: Hematocrit 38.9 % (35.0-49.0); Hemoglobin 13.2 g/dL (12.0-15.0); Immature Platelet Fraction Pct 8.3 % (1.0-7.0); Mean Corpuscular HGB Conc 33.9 g/dL (32-36); Mean Corpuscular Hemoglobin 31.6 pg (27.0-31.0); Mean Corpuscular Volume 93.1 fL (78.0-102.0); Mean Platelet Volume 11.9 fl (9.2-11.8); Platelet Count Result 91 K/mm3 (150-420); Red Blood Count 4.18 M/mm3 (4.20-5.40); Red Cell Distribution Width 15.4 % (11.6-14.4); White Blood Count 5.5 K/mm3 (4.8-10.8)
[2023-12-27 12:23] LABS: INR 1.2; Partial Thromboplastin Time 25.6 Sec (23.9-30.70); Prothrombin Time 12.9 Seconds (9.50-12.1)
[2023-12-27 12:24] LABS: Alanine Aminotransferase 54 U/L (14-59); Albumin Level 2.8 g/dL (3.4-5.0); Alkaline Phosphatase 142 U/L (46-116); Anion Gap 11 mmol/L (4-12); Aspartate Amino Transferase 110 U/L (15-37); Bilirubin,Total 1.8 mg/dL (0.00-1.00); Blood Urea Nitrogen 9 mg/dL (7-18); Calcium 8.8 mg/dL (8.5-10.1); Carbon Dioxide 26 mmol/L (21-32); Chloride 99 mmol/L (98-108); Estimated CRCL calculation 67 ml/min; Estimated Glomerular Filt Rate 57; Glucose 105 mg/dL (70-99); Osmolality Calculated 280 mOsm/kg (285-295); Potassium 3.3 mmol/L (3.5-5.1); Sodium 136 mmol/L (136-145); Total Protein 7.9 g/dL (6.4-8.2)
[2023-12-27 12:30] LABS: D Dimer 0.56 mg/L (0.19-0.50)
--- NOTE | 2023-12-27 12:43 | PC.NURSE ---
patient ambulatory to bathroom with steady gait. no needs at this time.
[2023-12-27] MEDS: APIXABAN 2.5 MG TABLET 10 MG PO (13:43)
== END 2023-12-27 13:58 | disposition home or self-care (01) ==
PROVIDERS: Emergency Provider Emergency Medicine; PCP Physician Assistant
DX: M17.11 Unilateral primary osteoarthritis, right knee (principal); R79.89 Other specified abnormal findings of blood chemistry; I10 Essential (primary) hypertension; Z87.891 Personal history of nicotine dependence
CPT/HCPCS: 36415; 73562; 80053; 85027; 85055; 85380; 85610; 85730; 99283; A9270

== ENCOUNTER 2023-12-28 06:57 | Outpatient (CLI) | payer OTHER, SELFPAY ==
--- NOTE | ~2023-12-28 | US_ITS ---
EXAMINATION: US venous doppler LE RT DATE: 12/28/2023 07:23 INDICATION: Right lower limb pain TECHNIQUE: Grayscale ultrasound images without and with compression and Doppler ultrasound images of the right lower extremity veins were obtained. COMPARISON: None. FINDINGS: The visualized portions of right common femoral vein, profunda (deep) femoral vein, femoral vein, pop liteal vein, peroneal trunk, posterior tibial veins, peroneal veins, gastrocnemius vein and greater s aphenous vein outflow are patent. IMPRESSION: 1. No deep venous thrombosis in the right lower limb. Reviewed, dictated and finalized at location A.
== END 2023-12-28 06:58 | disposition home or self-care (01) ==
LOC: CHSIMG 07:00
PROVIDERS: PCP Physician Assistant; Visit Provider Emergency Medicine
DX: M79.604 Pain in right leg (principal)
CPT/HCPCS: 93971

== ENCOUNTER 2024-04-08 07:22 | Inpatient (IN) | payer OTHER, SELFPAY ==
[2024-04-08] VITALS (32 sets, daily range): BP systolic 106–139; BP diastolic 13–97; PULSE 104–126; RESP 9–22; TEMP 36–37; O2SAT 94–100
--- NOTE | ~2024-04-08 | CT_ITS ---
EXAMINATION: CTA abdomen pelvis DATE: 04/08/2024 10:24 INDICATION: Gastrointestinal bleed TECHNIQUE: Computed tomographic angiography (CTA) of the abdomen and pelvis was performed with 100 mL Omnipaque-350 intravenous contrast. Additional 3D reconstructions utilizing rotating maximum intensi ty projection (MIP) were performed. Automated exposure control and iterative reconstruction technique were employed. The dose-length product was 1242.05 mGy-cm. COMPARISON: 12/16/2022 FINDINGS: Lung bases are clear. Heart size normal. No pericardial or pleural effusion. Small sliding-type hiata l hernia. Nodular liver surface with heterogeneous decreased attenuation consistent with likely combi [place] of cirrhosis and diffuse hepatic steatosis. Multiple calcified gallstones in the dependent asp ect of the gallbladder. Small amount of ascites scattered throughout the abdomen and pelvis including along the liver and gallbladder. There is however no dilation of the gallbladder or pericholecystic inflammatory change to suggest acute cholecystitis. Spleen, pancreas, bilateral adrenal glands and ki dneys are normal. There is diffuse colonic wall thickening which appears predominantly due to increas ed intramural fat likely related to patient body habitus small bowel and appendix are normal. No evid ent foci of active contrast extravasation within the bowels. Bladder, anteverted uterus and bilateral adnexa are unremarkable. No abscess or free intraperitoneal gas. No pathologically enlarged abdomina l or pelvic lymphadenopathy. Abdominal aorta is normal in caliber with no hemodynamically significant stenosis. There is no celiac axis with separate aortic origins of the left hepatic, right hepatic an d splenic arteries. Mild degenerative skeletal changes in the pelvis and visualized spine. IMPRESSION: 1. Diffuse colonic wall thickening which appears to primarily to increased intramural fat likely rela ira to body habitus. No foci of active contrast extravasation within the bowels. 2. Cirrhosis with small amount of secondary ascites. 3. Cholelithiasis without findings of acute cholecystitis. 4. Small sliding-type hiatal hernia. Reviewed, dictated and finalized at location A. ICAL PROCESS PROJECT ENGINEER IMPRESSION: 1. Diffuse colonic wall thickening which appears to primarily to increased intr amural fat likely related to body habitus. No foci of active contrast extravasa tion within the bowels. 2. Cirrhosis with small amount of secondary ascites. 3. Cholelithiasis without findings of acute cholecystitis. 4. Small sliding-type hiatal hernia.
[2024-04-08] MEDS: SODIUM CHLORIDE 0.9% IV 1,000 ML 999 ML IV CONT (07:45)
[2024-04-08] MEDS: PANTOPRAZOLE SODIUM IV 40 MG VIAL IV PUSH ×2 (07:47→16:47)
[2024-04-08 08:10] LABS: Basophils Absolute Auto 0.1 K/mm3 (0.0-0.1); Basophils Percent Auto 0.8 % (0.2-1.2); Eosinophils Percent Auto 0.1 % (0-4.4); Hemoglobin 8.9 g/dL (12.0-15.0); Immature Granulocyte Absolute 0.44 K/mm3 (0.00-0.031); Immature Granulocyte Percent A 2.8 % (0-0.5); Lymphocytes Absolute Auto 1.94 K/mm3 (0.9-3.2); Lymphocytes Percent Auto 12.4 % (18.3-44.2); Mean Corpuscular HGB Conc 31.8 g/dl (32-36); Mean Corpuscular Hemoglobin 33.5 pg (26-34); Mean Corpuscular Volume 105.3 fl (80-100); Mean Platelet Volume 11.9 fl (7.4-10.4); Monocytes Absolute Auto 1.5 K/mm3 (0.1-0.6); Monocytes Percent Auto 9.4 % (2.6-8.5); Neutrophils Absolute Auto 11.7 K/mm3 (1.3-6.7); Neutrophils Percent Auto 74.5 % (45.5-73.1); Nucleated Red Blood Cells Perc 1.1 % (0.0-0.2); Platelet Count Result 165 k/mm3 (150-375); Red Blood Count 2.66 M/mm3 (4.2-5.4); Red Cell Distribution Width 21.1 % (11.5-14.5); White Blood Count 15.7 K/mm3 (4.5-10.0)
[2024-04-08 08:18] LABS: Alanine Aminotransferase 45 U/L (6-35); Alkaline Phosphatase 121 U/L (38-126); Anion Gap 15 mmol/L (4-12); Aspartate Amino Transferase 89 U/L (14-36); Bilirubin,Total 2.4 mg/dL (0.2-1.3); Blood Urea Nitrogen 31 mg/dL (7-17); Calcium 8.5 mg/dL (8.4-10.2); Carbon Dioxide 20 mmol/L (22-30); Chloride 101 mmol/L (98-107); Estimated CRCL calculation 70 ml/min; Estimated Glomerular Filt Rate 59; Glucose 100 mg/dL (65-110); Potassium 4.4 mmol/L (3.4-5.0); Sodium 136 mmol/L (137-145)
--- OUTSIDE RECORDS SUMMARY | 2024-04-08 08:29 | XMS_ITS | Data Portability ---
Author Organization [facility] and, [facility]) Address [address] [place] [address] Assessment Encounter Date Assessment Date Assessment LastModified by Organization Details LastModified Time 11/09/2018 11/09/2018 47 y/o female with symptomatic fibroids. She has quite atypical symptoms. I am not totally convinced that this is all related to fibroids. An MRI of the pelvis will be ordered to access the fibroids and see if there is an appreciable mass. After we get the results, we can decide how to proceed. I spent a total of 30 minutes with the patient and the majority of the service (>50%) was spent in counseling the patient on treatment options. [email or web address] Not available 11/09/2018 18:17:43 Plan of Treatment Reminders Order Date Submit Date Provider Last Modified By Organization Details Last Modified Time Details Appointments None recorded. Lab creatinin e, serum or plasma - as needed. Only if needed to do the test 2018 [email or web address] [place] [address] Imaging - Creatinine Order, [address] [place], [address], 9 16:29:48 Referral None recorded. Procedures None recorded. Surgeries None recorded. Imaging MRI, pelvis, w/wo contrast - Patient has a history of fibroids. She is being referred for MRI of the pelvis to assess for the extent of Uterine fibroids and the presence of adenomyos is or endometri osis 2018 019 [email or web address] [address] [facility] Imaging Administrative Office, [facility] [id number], [place], [address], 9 14:00:03 Medication Orders None recorded. Patient TargetsNo targets recorded. Patient InstructionsNo instructions recorded. Reason for Referral None Reported. Procedures Surgical History Date Name Laterality Status Provider Name and Address Organization Details Recorded Time 08/23/2017 [place] [address], [address], [facility] 11/09/2018 16:52:07 03/16/2007 [place] [address], [address], [facility] 11/09/2018 16:52:07 03/16/1995 Other completed Kiya Mcfarland MD [id number] [place] [address], [phone], [facility] and 11/09/2018 16:52:07 03/16/1990 Other completed Kiya [place]far[place] [id number] [place] [address], [phone], [facility] 11/09/2018 16:52:07 Imaging Results None recorded. Procedure Notes None recorded. Medical Equipment None Reported. Allergies No known drug allergies Medications Name Sig Start Date Stop Date Status Note LastModified by Organization Details LastModified Time carvedilol 25 mg tablet active Not Available Not Available Not Available venlafaxine ER 75 mg capsule,extended release 24 hr active Not Available Not Availabl e Not Available lisinopril 20 mg-hydrochlorothiaz dee dee 12.5 mg tablet active Not Available Not Meghan ilable Not Available azithromycin 250 mg tablet active Not Available Not Available Not Available nifedipine ER 90 mg tablet,extended release active Not Available Not Available Not Available fluconazole 150 mg tablet active Not Available Not Available Not Available sumatriptan 100 mg tablet active Not Available Not Available Not Available fluconazole 200 mg tablet active Not Available Not Available Not Available ondansetron HCl 4 mg tablet active Not Available Not Available No t Available potassium chloride ER 10 mEq tablet,extended release active Not Available Not Available Not Available sulfamethoxazole 800 mg-trimethoprim 160 mg tablet active Not Available Not Availabl e Not Available ondansetron 8 mg disintegrating tablet active Not Available Not Available Not Available alprazolam 0.5 mg tablet active Not Available Not Available Not Available chlordiazepoxide 5 mg capsule active Not Available Not Available N ot Available amlodipine 10 mg tablet active Not Available Not Available Not Available prednisone 50 mg tablet active Not Available Not Available Not Available folic acid 1 mg tablet active Not Available Not Available Not Available hydrochlorothiazide 25 mg tablet active Not Available Not Available Not Available mupirocin 2 % topical ointment active Not Available Not Avail able Not Available lisinopril 10 mg-hydrochlorothiaz dee dee 12.5 mg tablet active Not Available Not Meghan ilable Not Available methylprednisolone 4 mg tablets in a dose pack active Not Available Not Available No t Available labetalol 100 mg tablet active Not Available Not Available Not Available hydroxyzine HCl 10 mg tablet active Not Available Not Available No t Available ondansetron 4 mg disintegrating tablet active Not Available Not Available Not Available amoxicillin 875 mg-potassium clavulanate 125 mg tablet active Not Available Not Available Not Available ProAir HFA 90 mcg/actuation aerosol inhaler active Not Available Not Availa ble Not Available Zzu-Nz-Qcartucp 0.18 mg/0.215 mg/0.25 mg-25 mcg tablet active Not Available Not Available Not Available Vitals None Recorded Social History Question Answer Notes LastModified by Organizat ion Details LastModified Time Tobacco Smoking Status Never Smoker Not Available [facility] 01/17/2020 03:44:16 What Is Your Level Of Alcohol Consumption? Occasional [id number] Information not available 01/17/2020 Which Illicit Or Recreational Drugs Have You Used? None [id number] Information not available 01/17/2020 What Is The Highest Grade Or Level Of School You Have Completed Or The Highest Degree You Have Received? [id number] Information not available 01/17/2020 What Is Your Occupation? [id number] Information not available 01/17/2020 Live Alone Or With Others? With Others [email or web address] Information not available 11/09/2018 How Much Tobacco Do You Smoke? No [id number] Information not available 01/17/2020 Sex: Unknown Functional Status None recorded. Mental Status None recorded. Family History Nothing Reported. Medical History Condition Response Hypertension Y Gynecological History Statement/Question Response N Light 03/19/2018 Sexually Active? Y N N Duration of Flow (days) 0 08/23/2017 N Current Control Method Tubal Ligat ion Obstetrics History GPAL:G 0 P 0 0 0 0 Past Encounters Encounter ID Performer Location Encounter Start Date Encounter Closed Date Diagnosis/Indication Diagnosis SNOMED-CT Code Diagnosis ICD10 Code Diagnosis Note [id number] Kiya Mcfarland MD [facility] [address] [facility],[address] [address] 11/09/2018 16:41:03 11/10/2018 16:10:17 Uterine leiomyoma 34894419 D25.9 Health Concerns Section Related Observation LastModified by Organization Detai ls LastModified Time None Recorded Concern Status LastModified by Organization Details LastModified Time None Recorded Advance Directives Directive None Recorded Payers Encounter Date Sequence Insurance Name Policy Number Policy Bravo Covered Member ID Bravo Member ID Guarantor Name 11/09/2018 1 [employer] Xin Teixeira [id number] Xin Teixeira Notes Date Note Type Note Provider Name and Address Organization Details Recorded Time 11/09/2018 text/html [facility] HPI newReported bypatient.Duration Dx with fibroids, last year Main symptomsgenital: pelvic pressure; genital: pelvic pain; constipation; morning sickness, nausea and voming, fatigue, weight gain, bloating. She also gets a lot of UTIs. Quality:quantity of flow light Prior Evaluation:prior pap smear: with negative result; She has had lots of tests, and was told that there is nothing wrong. She had a history of tubal ligation. Associated Symptoms:fatigue;[place] [address] [facility], [place] [address], [place], [address], [facility] 11/09/2018 18:18:30 OBGyn Episode No OBEpisode recorded.
[2024-04-08 08:30] LABS: Platelet Estimate Adequate (Adequate); Schistocytes None Seen
[2024-04-08 08:31] LABS: Anisocytosis 2+; Hypochromasia 1+; Ovalocytes 1+
[2024-04-08 08:32] LABS: Polychromasia 1+
[2024-04-08 08:33] LABS: INR 1.5; Prothrombin Time 18.1 Seconds (11.1-14.7)
--- NOTE | 2024-04-08 11:42 | ED.GIBLEED ---
HPI - GI Bleed General Chief complaint: GI Bleed Stated complaint: coffee ground emesis, dark tarry stool x 12 hours Time Seen by Provider: 04/08/24 07:29 Source: patient Mode of arrival: EMS Limitations: no limitations History of Present Illness HPI Narrative: 53-year-old with a history of hypertension, anxiety and depression here with a complaint of coffee-ground emesis since last night along with black tarry stools since yesterday. Patient states that she has been taking Aleve on a daily basis for the past few days. She denies any previous episodes of GI bleed. She denies being lightheaded or dizzy is no abdominal pain at this time. MD complaint: coffee ground emesis Onset (ago): day(s) (1) Relieving factors: none Exacerbating factors: none Associated symptoms: denies other symptoms Related Data Home Medications ?Medication ?Instructions ?Recorded ?Confirmed ?Last Taken ?Type alprazolam 0.5 mg tablet 0.5 mg PO BID PRN anxiety 07/27/23 07/27/23 Unknown History losartan 50 mg-hydrochlorothiazide 1 tablet PO DAILY 07/27/23 07/27/23 Unknown History 12.5 mg tablet metoclopramide HCl 5 mg tablet 5 mg PO Q6H PRN nausea 07/27/23 07/27/23 Unknown History (Reglan) quetiapine 25 mg tablet 25 mg PO HS 07/27/23 07/27/23 Unknown History venlafaxine 75 mg capsule,extended 75 mg PO BID 07/27/23 07/27/23 Unknown History release 24 hr omeprazole 20 mg capsule,delayed mg 08/26/23 Unknown History release Allergies Allergy/AdvReac Type Severity Reaction Status Date / Time lisinopril Allergy Intermediate Swelling Verified 04/08/24 07:42 of Lip/Tongue/Throat azithromycin AdvReac Unknown N/V Verified 04/08/24 07:42 Review of Systems Review of Systems: All systems reviewed & are unremarkable except as noted in HPI and below Constitutional: Constitutional: Reports no additional constitutional complaints Eyes: Eyes: Reports no additional eye complaints ENT: Reports system reviewed and no additional complaints, except as documented Cardiovascular: Cardiovascular: Reports no additional cardiovascular complaints Respiratory: Respiratory: Reports no additional respiratory complaints Gastrointestinal: Gastrointestinal: Reports as per HPI Musculoskeletal: Musculoskeletal: Reports no additional musculoskeletal complaints Integumentary/Breasts: Skin/Breast: Reports system reviewed and no additional complaints, except as docu Neurologic: Reports system reviewed and no additional complaints, except as documented Psychiatric: Psychiatric: Reports no additional psychiatric complaints Endocrine: Endocrine: Reports no additional endocrine complaints Hematologic/Lymphatic: Hematologic/Lymphatic: Reports no additional hematologic/lymphatic complaints PMFSH Past Medical History Medical History IPMN (intraductal papillary mucinous neoplasm) Fatty liver Concern for hepatic cirrhosis Hepatitis GERD (gastroesophageal reflux disease) Arthritis Insomnia Anxiety Depression Hypertension Surgical History Surgical History Hx of breast augmentation Hx of section x2 History of tubal ligation Family History Family History Father Hypertension Depression Mother Hypertension Son Depression Grandparent Alcoholism Cancer Grandparent Cancer Hypertension Social History Social History Social History: Pt smoked cigarettes socially for approx. 5 yrs. One pack would last her 2 weeks. Smoking status: Former smoker Second hand tobacco smoke exposure: No Smoking end date: 03/16/06 Alcohol intake: current Alcohol use details: seldom; socially Substance use: never Substance use type: does not use Exam Narrative: GENERAL: Well-appearing, well-nourished, and in no acute distress, anxious HEAD: Normocephalic, atraumatic. EYES: PERRLA and EOMI. ENT: Nares clear, no rhinorrhea or epistaxis. Mucous membranes moist. NECK: Supple. CHEST: Clear to auscultation. No respiratory distress. HEART: Regular rate and rhythm. No murmur heard. Normal peripheral pulses. ABDOMEN: Soft, nontender, nondistended, normal active bowel sounds. EXTREMITIES: Normal range of motion. No edema. SKIN: Warm, dry, no rash. NEURO: No focal deficits. Alert and oriented x3. PSYCH: Normal mood and affect. Course Course Emergency Course: Patient had no further episodes of coffee-ground emesis here in the ER. I did inform her about her lab work and CT findings. Discussed with Dr. Loera will do EGD this afternoon. She is agreeable with admission. I discussed with the hospitalist accepted the patient Vital Signs Vital signs: Vital Signs Temperature 36.4 C 04/08/24 07:14 Pulse Rate 121 H 04/08/24 07:14 Respiratory Rate 19 04/08/24 07:14 Blood Pressure 117/97 H 04/08/24 07:14 Pulse Oximetry 99 04/08/24 07:14 Oxygen Delivery Room Air 04/08/24 07:14 Temperature 36.4 C 04/08/24 07:14 Pulse Rate 113 H 04/08/24 08:16 Respiratory Rate 15 04/08/24 08:01 Blood Pressure 110/87 04/08/24 09:16 Pulse Oximetry 100 04/08/24 09:16 Oxygen Delivery Room Air 04/08/24 07:14 MDM - GI Bleed Differential Diagnosis Differential diagnosis: Likely esophageal varices, gastritis and Upper gastrointestinal hemorrhage Medical Records Attestation: I reviewed the patient's medical records. Lab Data Attestation: I reviewed the patient's lab results. 04/08/24 07:51 04/08/24 07:51 Labs: Lab Results 04/08/24 Range/Units 07:51 WBC 15.7 H (4.5-10.0) K/mm3 RBC 2.66 L (4.2-5.4) M/mm3 Hgb 8.9 L (12.0-15.0) g/dL Hct 28.0 L (37.0-47.0) % MCV 105.3 H (80-100) fl MCH 33.5 (26-34) pg MCHC 31.8 L (32-36) g/dl RDW 21.1 H (11.5-14.5) % Plt Count 165 (150-375) k/mm3 MPV 11.9 H (7.4-10.4) fl Immature Gran % (Auto) 2.8 H (0-0.5) % Neut % (Auto) 74.5 H (45.5-73.1) % Lymph % (Auto) 12.4 L (18.3-44.2) % [place] % (Auto) 9.4 H (2.6-8.5) % Eos % (Auto) 0.1 (0-4.4) % Baso % (Auto) 0.8 (0.2-1.2) % Lymph # (Auto) 1.94 (0.9-3.2) K/mm3 [place] # (Auto) 1.5 H (0.1-0.6) K/mm3 Eos # (Auto) 0.0 (0-0.3) K/mm3 Baso # (Auto) 0.1 (0.0-0.1) K/mm3 Abs Immat Gran (auto) 0.44 H (0.00-0.031) K/mm3 Absolute Neuts (auto) 11.7 H (1.3-6.7) K/mm3 Absolute Nucleated RBC 0.170 H (0.0-0.012) K/mm3 Nucleated RBC % 1.1 H (0.0-0.2) % Platelet Estimate Adequate (Adequate) Polychromasia 1+ Hypochromasia 1+ Anisocytosis 2+ Ovalocytes 1+ Schistocytes None seen PT 18.1 H (11.1-14.7) Seconds INR 1.5 Sodium 136 L (137-145) mmol/L Potassium 4.4 (3.4-5.0) mmol/L Chloride 101 (98-107) mmol/L Carbon Dioxide 20 L (22-30) mmol/L Anion Gap 15 H (4-12) mmol/L BUN 31 H (7-17) mg/dL Creatinine 0.98 (0.7-1.0) mg/dL Estim Creat Clear Calc 70 ml/min Estimated GFR 59 (59 - ) Glucose 100 (65-110) mg/dL Calcium 8.5 (8.4-10.2) mg/dL Total Bilirubin 2.4 H (0.2-1.3) mg/dL AST 89 H (14-36) U/L ALT 45 H (6-35) U/L Alkaline Phosphatase 121 (38-126) U/L Total Protein 6.0 L (6.3-8.2) g/dL Albumin 3.0 L (3.5-5.1) g/dL Imaging Data Radiologist's impression: ITS Impressions Abdomen/Pelvis CTA 04/08/24 10:31 IMPRESSION: 1. Diffuse colonic wall thickening which appears to primarily to increased intramural fat likely related to body habitus. No foci of active contrast extravasation within the bowels. 2. Cirrhosis with small amount of secondary ascites. 3. Cholelithiasis without findings of acute cholecystitis. 4. Small sliding-type hiatal hernia. Discharge Plan Discharge Clinical Impression: Acute GI bleeding Patient Disposition: Still a Patient Condition: Stable Patient Language: Stateless Prescriptions: No Action Eliquis 5 mg tablet 10 mg PO ONCE Qty: 1 0RF Rx Instructions: at 2:00 a.m. alprazolam 0.5 mg tablet 0.5 mg PO BID PRN (Reason: anxiety) venlafaxine 75 mg capsule,extended release 24hr 75 mg PO BID quetiapine 25 mg tablet 25 mg PO HS metoclopramide HCl [Reglan] 5 mg tablet 5 mg PO Q6H PRN (Reason: nausea) losartan-hydrochlorothiazide 50-12.5 mg tablet 1 tablet PO DAILY omeprazole 20 mg capsule,delayed release(DR/EC) sumatriptan succinate 100 mg tablet See Rx Instructions PO .COMPLEX Qty: 9 5RF Rx Instructions: take 1 tab at onset of headache; if no relief, may repeat 1 tab after at least 2 hrs; max = 2 tabs/24 hrs PO albuterol sulfate 90 mcg/actuation HFA aerosol inhaler 1 inh inhalation Q4H PRN (Reason: shortness of breath or wheezing) Qty: 8.5 5RF bupropion HCl [Wellbutrin XL] 300 mg tablet extended release 24 hr 300 mg PO QAM Qty: 30 4RF Follow-up/Referrals: Lawrence,EDGAR Whatley [Primary Care Provider] - Time of Disposition: 11:49
--- NOTE | 2024-04-08 12:41 | PM.IMHP ---
H&P: HPI History of Present Illness Date/Time: 04/08/24 12:41 Chief Complaint: coffee ground emesis, dark tarry stool x 12 hours Narrative: 53-year-old female past medical history of anxiety, hypertension, GERD and fatty liver presents the hospital with coffee-ground emesis and dark tardy stools. Patient seen after EGD with banding. Patient states she is a little drowsy however no vomiting after EGD. She does state that she has heartburn like pain and that she received a GI cocktail earlier which helped. Patient states that she has had several doses of Aleve over the last few days and does drink alcohol wine and vodka 3 to 4 times a week. Patient states that she knew she had fatty liver however she did not know that she has cirrhosis or esophageal varices. Patient with anxiety after being told she would receive blood transfusion. Patient did caused herself to vomit, vomit was bilious, no bright red or coffee-ground emesis. Patient had EGD with banding. Review of Systems Review of Systems: 12 systems were reviewed and are negative except for as per HPI. [facility] Past Medical History Medical History (Updated 04/08/24 @ 14:26 by Cyrus Jones MD) Acute blood loss anemia Hematemesis Melena IPMN (intraductal papillary mucinous neoplasm) Fatty liver Concern for hepatic cirrhosis Hepatitis GERD (gastroesophageal reflux disease) Arthritis Insomnia Anxiety Depression Hypertension Surgical History Surgical History Hx of breast augmentation Hx of section x2 History of tubal ligation Family History Family History Father Hypertension Depression Mother Hypertension Son Depression Grandparent Alcoholism Cancer Grandparent Cancer Hypertension Social History Social History Social History: Pt smoked cigarettes socially for approx. 5 yrs. One pack would last her 2 weeks. Smoking status: Never smoker Second hand tobacco smoke exposure: No Smoking end date: 03/16/06 Alcohol intake: current Drinks per week: 2 Alcohol use details: seldom; socially Substance use: never Substance use type: does not use Spiritual care concerns: No Meds Home Medications and Allergies Home Medications ?Medication ?Instructions ?Recorded ?Confirmed ?Type sumatriptan succinate 100 mg tablet See Rx Instructions PO .COMPLEX #9 01/02/20 04/08/24 Rx tabs albuterol sulfate 90 mcg/actuation 1 inh inhalation Q4H PRN shortness 05/18/22 04/08/24 Rx aerosol inhaler of breath or wheezing #8.5 grams bupropion HCl 300 mg 24 hr tablet, 300 mg PO QAM #30 tabs 12/03/22 04/08/24 Rx extended release (Wellbutrin XL) alprazolam 0.5 mg tablet 0.5 mg PO BID PRN anxiety 07/27/23 04/08/24 History losartan 50 mg-hydrochlorothiazide 1 tablet PO DAILY 07/27/23 04/08/24 History 12.5 mg tablet metoclopramide HCl 5 mg tablet 5 mg PO Q6H PRN nausea 07/27/23 04/08/24 History (Reglan) quetiapine 25 mg tablet 25 mg PO HS 07/27/23 04/08/24 History venlafaxine 75 mg capsule,extended 75 mg PO BID 07/27/23 04/08/24 History release 24 hr omeprazole 20 mg capsule,delayed 20 mg PO DAILY 08/26/23 04/08/24 History release apixaban 5 mg tablet (Eliquis) 10 mg (2 x 5 mg) PO ONCE #1 tablet 12/27/23 04/08/24 Rx Allergies Allergy/AdvReac Type Severity Reaction Status Date / Time lisinopril Allergy Intermediate Swelling Verified 04/08/24 15:06 of Lip/Tongue/Throat azithromycin AdvReac Unknown N/V Verified 04/08/24 15:06 Vital Signs Vital Signs - 24 hr 04/08/24 07:14 04/08/24 07:49 04/08/24 08:01 Temperature 97.6 F Pulse Rate 121 H 116 H 119 H Respiratory Rate 19 15 15 Blood Pressure 117/97 H 136/85 Pulse Oximetry 99 98 98 Oxygen Delivery Room Air 04/08/24 08:16 04/08/24 08:30 04/08/24 08:31 Temperature Pulse Rate 113 H Respiratory Rate Blood Pressure 122/81 122/76 Pulse Oximetry 100 98 Oxygen Delivery 04/08/24 09:01 04/08/24 09:07 04/08/24 09:15 Temperature Pulse Rate Respiratory Rate Blood Pressure 128/81 Pulse Oximetry 100 98 Oxygen Delivery 04/08/24 09:16 04/08/24 09:28 04/08/24 09:30 Temperature Pulse Rate 126 H Respiratory Rate 19 Blood Pressure 110/87 Pulse Oximetry 100 94 Oxygen Delivery 04/08/24 09:31 04/08/24 09:45 04/08/24 09:46 Temperature Pulse Rate 121 H Respiratory Rate 18 Blood Pressure 108/67 107/50 L Pulse Oximetry 100 99 99 Oxygen Delivery 04/08/24 10:00 04/08/24 10:01 04/08/24 10:27 Temperature Pulse Rate Respiratory Rate Blood Pressure 121/64 Pulse Oximetry 99 97 100 Oxygen Delivery 04/08/24 10:31 04/08/24 11:13 04/08/24 11:15 Temperature Pulse Rate 106 H Respiratory Rate 14 9 L Blood Pressure 120/64 Pulse Oximetry 100 100 100 Oxygen Delivery 04/08/24 12:24 Temperature Pulse Rate 118 H Respiratory Rate 16 Blood Pressure 117/74 Pulse Oximetry 98 Oxygen Delivery Exam Narrative: General: well appearing, appears stated age. HEENT: normocephalic, atraumatic. Mucous membranes moist. EOMI, PERRLA, bilateral sclera anicteric, no conjunctival injection. Neck supple without JVD, lymphadenopathy, or bruit. Respiratory: clear to ascultation bilaterally. No rales/rhonic/wheezes. Cardiovascular: Regular rate and rhythm, normal S1-S2 upon ascultation. No murmurs, rubs, or clicks. PMI is nondisplaced, capillary refill less than 3 second. Abdomen: Soft, round, no pulsatile masses, nondistended and nontender. No rebound, no guarding. No CVA tenderness, no hepatosplenomegaly. Bowel sounds present to all four quadrants. No high pitch or tinkling sounds, resonant to percussion. Extremities: No cyanosis, clubbing, or edema present. Pulses are palpable 2/2. Active ROM to all four extremities. Neuro: Alert and orientated x 4. PERRLA. Cranial nerves 2-12 intact without focal deficit. Skin: Warm, dry, and intact, without rash, erythema, or lesion. Psych: pleasant, cooperative, normal speech, normal affect, no hallucinations, no dysarthia H&P: Results Labs Labs: Short CBC 04/08/24 Range/Units 07:51 WBC 15.7 H (4.5-10.0) K/mm3 Hgb 8.9 L (12.0-15.0) g/dL Hct 28.0 L (37.0-47.0) % Plt Count 165 (150-375) k/mm3 BMP 04/08/24 07:51 Sodium 136 L Potassium 4.4 Chloride 101 Carbon Dioxide 20 L BUN 31 H Creatinine 0.98 Glucose 100 Calcium 8.5 Liver Function 04/08/24 Range/Units 07:51 Total Bilirubin 2.4 H (0.2-1.3) mg/dL AST 89 H (14-36) U/L ALT 45 H (6-35) U/L Alkaline Phosphatase 121 (38-126) U/L Albumin 3.0 L (3.5-5.1) g/dL Assessment and Plan Assessment and plan (1) Acute GI bleeding: Code(s): K92.2 - Gastrointestinal hemorrhage, unspecified Status: Acute Assessment and Plan: Esophageal varices banding with GI 04/08/24 GI consulted Octreotide and Protonix avoid NSAIDs including Aleve Q.6 her H&H Okay for clear liquid diet per GI GI cocktail (2) Acute blood loss anemia: Code(s): D62 - Acute posthemorrhagic anemia Status: Acute Assessment and Plan: 1 unit of RBCs ordered on 04/09/2024 Hold Eliquis Hemoglobin q.6 Transfuse for hemoglobin less than 7 or symptomatic Patient does not have signs of acute bleeding at this time likely dropped prior to EGD Continue monitor (3) Anxiety: Code(s): F41.9 - Anxiety disorder, unspecified Status: Acute Assessment and Plan: Restart home medications (4) Hypertension: Qualifiers: Hypertension type: essential hypertension Qualified Code(s): I10 - Essential (primary) hypertension Code(s): I10 - Essential (primary) hypertension Status: Acute Assessment and Plan: Patient is normotensive will hold antihypertensives tonight (5) Leukocytosis: Code(s): D72.829 - Elevated white blood cell count, unspecified Status: Acute Assessment and Plan: Could be reactive, no signs of infection UA pending (6) Alcohol use: Code(s): F10.90 - Alcohol use, unspecified, uncomplicated Status: Acute Assessment and Plan: [facility] protocol [employer] p.r.n. Quality VTE Prophylaxis VTE prophylaxis: mechanical ordered If No VTE Prophylaxis Answer both mechanical and pharmacologic: Reason no pharmacologic proph: medical contraindication Hospitalist MIPS Advance Care Plan I have confirmed that the patient's Advanced Care Plan is present, code status is documented, or surrogate decision maker is listed in patient medical record.: Yes Medication Reconciliation I have utilized all available resources to obtain, update and review the patients current medications (includes all prescriptions, OTC, herbals, cannabis, and nutritional supplements).: Yes
[2024-04-08 12:43] LABS: Iron 52 ug/dL (37-170); Percent Iron Saturation 15 % (20-50)
[2024-04-08] MEDS: ONDANSETRON INJ 4 MG/2 ML VIAL IV PUSH (12:59)
--- NOTE | 2024-04-08 12:59 | P.PNAN_ITS ---
Anes - Initial Pre Proc Eval Procedure: Operation Date: 04/08/24 15:00 Proposed Procedures p Esophagogastroduodenoscopy - Cyrus Jones MD Date/Time: 04/08/24 12:59 Surgeon: Makenna Lopez MD Pre Op Diagnosis: GI Bleed Patient Data Age: 53 Gender: F Height: 1.63 m Weight: 107.5 kg Last Vital Signs Temp 36.0 C L 04/08/24 12:54 Pulse 115 H 04/08/24 12:54 Resp 20 04/08/24 12:54 BP 109/55 L 04/08/24 12:54 Pulse Ox 100 04/08/24 12:54 O2 Del Method Room Air 04/08/24 12:54 Allergies Allergy/AdvReac Type Severity Reaction Status Date / Time lisinopril Allergy Intermediate Swelling Verified 04/08/24 12:44 of Lip/Tongue/Throat azithromycin AdvReac Unknown N/V Verified 04/08/24 12:44 Home Medications ?Medication ?Instructions ?Recorded ?Confirmed ?Type sumatriptan succinate 100 mg tablet See Rx Instructions PO .COMPLEX #9 01/02/20 07/27/23 Rx tabs albuterol sulfate 90 mcg/actuation 1 inh inhalation Q4H PRN shortness 05/18/22 07/27/23 Rx aerosol inhaler of breath or wheezing #8.5 grams bupropion HCl 300 mg 24 hr tablet, 300 mg PO QAM #30 tabs 12/03/22 07/27/23 Rx extended release (Wellbutrin XL) alprazolam 0.5 mg tablet 0.5 mg PO BID PRN anxiety 07/27/23 07/27/23 History losartan 50 mg-hydrochlorothiazide 1 tablet PO DAILY 07/27/23 07/27/23 History 12.5 mg tablet metoclopramide HCl 5 mg tablet 5 mg PO Q6H PRN nausea 07/27/23 07/27/23 History (Reglan) quetiapine 25 mg tablet 25 mg PO HS 07/27/23 07/27/23 History venlafaxine 75 mg capsule,extended 75 mg PO BID 07/27/23 07/27/23 History release 24 hr omeprazole 20 mg capsule,delayed mg 08/26/23 History release apixaban 5 mg tablet (Eliquis) 10 mg (2 x 5 mg) PO ONCE #1 tablet 12/27/23 Rx Laboratory Tests 04/08/24 04/08/24 07:51 12:07 WBC 15.7 H K/mm3 (4.5-10.0) RBC 2.66 L M/mm3 (4.2-5.4) Hgb 8.9 L g/dL (12.0-15.0) Hct 28.0 L % (37.0-47.0) MCV 105.3 H fl (80-100) MCH 33.5 pg (26-34) MCHC 31.8 L g/dl (32-36) RDW 21.1 H % (11.5-14.5) Plt Count 165 k/mm3 (150-375) MPV 11.9 H fl (7.4-10.4) Immature Gran % (Auto) 2.8 H % (0-0.5) Neut % (Auto) 74.5 H % (45.5-73.1) Lymph % (Auto) 12.4 L % (18.3-44.2) [place] % (Auto) 9.4 H % (2.6-8.5) Eos % (Auto) 0.1 % (0-4.4) Baso % (Auto) 0.8 % (0.2-1.2) Lymph # (Auto) 1.94 K/mm3 (0.9-3.2) [place] # (Auto) 1.5 H K/mm3 (0.1-0.6) Eos # (Auto) 0.0 K/mm3 (0-0.3) Baso # (Auto) 0.1 K/mm3 (0.0-0.1) Abs Immat Gran (auto) 0.44 H K/mm3 (0.00-0.031) Absolute Neuts (auto) 11.7 H K/mm3 (1.3-6.7) Absolute Nucleated RBC 0.170 H K/mm3 (0.0-0.012) Nucleated RBC % 1.1 H % (0.0-0.2) Platelet Estimate Adequate (Adequate) Polychromasia 1+ Hypochromasia 1+ Anisocytosis 2+ Ovalocytes 1+ Schistocytes None seen PT 18.1 H Seconds (11.1-14.7) INR 1.5 Sodium 136 L mmol/L (137-145) Potassium 4.4 mmol/L (3.4-5.0) Chloride 101 mmol/L (98-107) Carbon Dioxide 20 L mmol/L (22-30) Anion Gap 15 H mmol/L (4-12) BUN 31 H mg/dL (7-17) Creatinine 0.98 mg/dL (0.7-1.0) Estim Creat Clear Calc 70 ml/min Estimated GFR 59 (59 - ) Glucose 100 mg/dL (65-110) Calcium 8.5 mg/dL (8.4-10.2) Iron 52 ug/dL (37-170) TIBC 344 ug/dL (261-462) % Saturation 15 L % (20-50) Total Bilirubin 2.4 H mg/dL (0.2-1.3) AST 89 H U/L (14-36) ALT 45 H U/L (6-35) Alkaline Phosphatase 121 U/L (38-126) Total Protein 6.0 L g/dL (6.3-8.2) Albumin 3.0 L g/dL (3.5-5.1) Blood Type Pending Antibody Screen Pending Patient hx anesthesia problems: post op nausea/vomiting Family hx anesthesia problems: none Results Review: All pre-operative results and documents have been reviewed as part of the pre- operative evaluation. [facility] Past Medical History Medical History IPMN (intraductal papillary mucinous neoplasm) Fatty liver Concern for hepatic cirrhosis Hepatitis GERD (gastroesophageal reflux disease) Arthritis Insomnia Anxiety Depression Hypertension Surgical History Surgical History Hx of breast augmentation Hx of section x2 History of tubal ligation Family History Family History Father Hypertension Depression Mother Hypertension Son Depression Grandparent Alcoholism Cancer Grandparent Cancer Hypertension Social History Social History Social History: Pt smoked cigarettes socially for approx. 5 yrs. One pack would last her 2 weeks. Smoking status: Former smoker Second hand tobacco smoke exposure: No Smoking end date: 03/16/06 Alcohol intake: current Alcohol use details: seldom; socially Substance use: never Substance use type: does not use Anes - Eval Final PreProcedure Day of Procedure 04/08/24 12:59 Patient weight: morbidly obese Heart: regular rate and rhythm Lungs: clear to auscultation Airway: Mallampati scale class III Neurological: alert and oriented Last oral intake: >/= 8 hours ASA classification: III Emergent: yes Anesthetic plan: proceed Anesthesia type and monitoring: general ETT and standard monitoring Results Review: All pre-operative results and documents have been reviewed as part of the pre- operative evaluation. Informed Consent: The patient's anesthetic plan and its attendant risks and benefits were discussed with the patient/family/POA. Questions were solicited and answers provided to the satisfaction of the patient/family/POA.
[2024-04-08] MEDS: LACTATED RINGERS 1,000 ML 150 ML IV CONT (13:02)
[2024-04-08] MEDS: SCOPOLAMINE 1 MG PATCH 1 PATCH TRANSDERM (13:25)
[2024-04-08 13:42] LABS: Hematocrit 24.5 % (37.0-47.0); Hemoglobin 7.7 g/dL (12.0-15.0)
--- NOTE | 2024-04-08 13:48 | P.CONGI_ITS ---
Assessment and Plan Assessment and plan (1) Acute GI bleeding: Code(s): K92.2 - Gastrointestinal hemorrhage, unspecified Status: Acute Assessment and Plan: probably esophageal varices given history of cirrhosis, will do urgent EGD iv octreotide, antibiotics and protonix also assess if ulcer, esophagitis, etc more recommendations after egd (2) Melena: Code(s): K92.1 - Melena Status: Acute (3) Hematemesis: Code(s): K92.0 - Hematemesis Status: Acute Assessment and Plan: monitor h/h and transfuse if hgb<7 (4) Cirrhosis: Qualifiers: Hepatic cirrhosis type: unspecified hepatic cirrhosis Ascites presence: unspecified Qualified Code(s): K74.60 - Unspecified cirrhosis of liver Code(s): K74.60 - Unspecified cirrhosis of liver Status: Acute Assessment and Plan: report of HBV but will confirm with serology, also will complete work up for other chronic liver conditions ? [facility] (5) Hypertension: Qualifiers: Hypertension type: essential hypertension Qualified Code(s): I10 - Essential (primary) hypertension Code(s): I10 - Essential (primary) hypertension Status: Acute (6) Acute blood loss anemia: Code(s): D62 - Acute posthemorrhagic anemia Status: Acute GI Consult Note Consult date/time: 04/08/24 13:48 Reason for consult: melena, cirrhosis, hematemesis HPI: Xin Teixeira is a 53 year old female with h/o HTN, obesity (BMI 40), depression here with new onset of hematemesis several times that started yesterday and today noted dart tarry stool, no abdominal pain, denies previous episode. She has been told that has cirrhosis at least 2 years ago but never had formal evaluation, she drinks but socially and had fatty liver by previous imaging. Hgb 8.9 previously 13, bun 31, bili 2.4, transaminases 40-80. CT scan showed cirrhosis. Never had EGD, colonoscopy many years ago. I read in records about questionable history of HBV. Review of Systems 2 Constitutional: Constitutional: Reports weakness Eyes: Eyes: Denies blurry vision ENT: Reports Normal hearing present Cardiovascular: Cardiovascular: Denies chest pain Respiratory: Respiratory: Denies cough Gastrointestinal: Gastrointestinal: Reports melena and Reports hematemesis Genitourinary: Genitourinary: Denies hematuria Musculoskeletal: Musculoskeletal: Denies neck pain Integumentary/Breasts: Skin/Breast: Denies rash Neurologic: Denies confusion Psychiatric: Psychiatric: Denies behavioral changes [facility] Past Medical History Medical History (Updated 04/08/24 @ 14:26 by Cyrus Jones MD) Acute blood loss anemia Hematemesis Melena IPMN (intraductal papillary mucinous neoplasm) Fatty liver Concern for hepatic cirrhosis Hepatitis GERD (gastroesophageal reflux disease) Arthritis Insomnia Anxiety Depression Hypertension Surgical History Surgical History Hx of breast augmentation Hx of section x2 History of tubal ligation Family History Family History Father Hypertension Depression Mother Hypertension Son Depression Grandparent Alcoholism Cancer Grandparent Cancer Hypertension Social History Social History Social History: Pt smoked cigarettes socially for approx. 5 yrs. One pack would last her 2 weeks. Smoking status: Former smoker Second hand tobacco smoke exposure: No Smoking end date: 03/16/06 Alcohol intake: current Alcohol use details: seldom; socially Substance use: never Substance use type: does not use Meds Home Medications and Allergies Home Medications ?Medication ?Instructions ?Recorded ?Confirmed ?Type sumatriptan succinate 100 mg tablet See Rx Instructions PO .COMPLEX #9 01/02/20 07/27/23 Rx tabs albuterol sulfate 90 mcg/actuation 1 inh inhalation Q4H PRN shortness 05/18/22 07/27/23 Rx aerosol inhaler of breath or wheezing #8.5 grams bupropion HCl 300 mg 24 hr tablet, 300 mg PO QAM #30 tabs 12/03/22 07/27/23 Rx extended release (Wellbutrin XL) alprazolam 0.5 mg tablet 0.5 mg PO BID PRN anxiety 07/27/23 07/27/23 History losartan 50 mg-hydrochlorothiazide 1 tablet PO DAILY 07/27/23 07/27/23 History 12.5 mg tablet metoclopramide HCl 5 mg tablet 5 mg PO Q6H PRN nausea 07/27/23 07/27/23 History (Reglan) quetiapine 25 mg tablet 25 mg PO HS 07/27/23 07/27/23 History venlafaxine 75 mg capsule,extended 75 mg PO BID 07/27/23 07/27/23 History release 24 hr omeprazole 20 mg capsule,delayed mg 08/26/23 History release apixaban 5 mg tablet (Eliquis) 10 mg (2 x 5 mg) PO ONCE #1 tablet 12/27/23 Rx Allergies Allergy/AdvReac Type Severity Reaction Status Date / Time lisinopril Allergy Intermediate Swelling Verified 04/08/24 12:44 of Lip/Tongue/Throat azithromycin AdvReac Unknown N/V Verified 04/08/24 12:44 Vital Signs Vital Signs - 24 hr 04/08/24 07:14 04/08/24 07:49 04/08/24 08:01 Temperature 97.6 F Pulse Rate 121 H 116 H 119 H Respiratory Rate 19 15 15 Blood Pressure 117/97 H 136/85 Pulse Oximetry 99 98 98 Oxygen Delivery Room Air 04/08/24 08:16 04/08/24 08:30 04/08/24 08:31 Temperature Pulse Rate 113 H Respiratory Rate Blood Pressure 122/81 122/76 Pulse Oximetry 100 98 Oxygen Delivery 04/08/24 09:01 04/08/24 09:07 04/08/24 09:15 Temperature Pulse Rate Respiratory Rate Blood Pressure 128/81 Pulse Oximetry 100 98 Oxygen Delivery 04/08/24 09:16 04/08/24 09:28 04/08/24 09:30 Temperature Pulse Rate 126 H Respiratory Rate 19 Blood Pressure 110/87 Pulse Oximetry 100 94 Oxygen Delivery 04/08/24 09:31 04/08/24 09:45 04/08/24 09:46 Temperature Pulse Rate 121 H Respiratory Rate 18 Blood Pressure 108/67 107/50 L Pulse Oximetry 100 99 99 Oxygen Delivery 04/08/24 10:00 04/08/24 10:01 04/08/24 10:27 Temperature Pulse Rate Respiratory Rate Blood Pressure 121/64 Pulse Oximetry 99 97 100 Oxygen Delivery 04/08/24 10:31 04/08/24 11:13 04/08/24 11:15 Temperature Pulse Rate 106 H Respiratory Rate 14 9 L Blood Pressure 120/64 Pulse Oximetry 100 100 100 Oxygen Delivery 04/08/24 12:24 04/08/24 12:54 Temperature 96.8 F L Pulse Rate 118 H 115 H Respiratory Rate 16 20 Blood Pressure 117/74 109/55 L Pulse Oximetry 98 100 Oxygen Delivery Room Air Exam 2 Narrative: obese Const: General: no acute distress Other: she is sick of her stomach HENMT: Face/Nose/Sinus: Normal nares present Eyes: Other: notice icteric sclerae Neck: Neck: supple Resp: Auscultation: clear to auscultation bilaterally Cardio: Rate: regular rate Rhythm: regular rhythm GI: Inspection: non-distended GI Palp: Yes Soft to palpation and No Tenderness to palpation present (GI) Auscultation: normal bowel sounds Skin: Wounds: no wounds Neuro: Speech: normal speech Motor exam (neuro): 5/5 motor strength present throughout Extrem: General: normal to inspection Psych: Mental Status: mental status grossly normal Results Labs 04/08/24 12:06 04/08/24 07:51 Labs: Short CBC 04/08/24 04/08/24 Range/Units 07:51 12:06 WBC 15.7 H (4.5-10.0) K/mm3 Hgb 8.9 L 7.7 L (12.0-15.0) g/dL Hct 28.0 L 24.5 L (37.0-47.0) % Plt Count 165 (150-375) k/mm3 BMP 04/08/24 07:51 Sodium 136 L Potassium 4.4 Chloride 101 Carbon Dioxide 20 L BUN 31 H Creatinine 0.98 Glucose 100 Calcium 8.5 Liver Function 04/08/24 Range/Units 07:51 Total Bilirubin 2.4 H (0.2-1.3) mg/dL AST 89 H (14-36) U/L ALT 45 H (6-35) U/L Alkaline Phosphatase 121 (38-126) U/L Albumin 3.0 L (3.5-5.1) g/dL
[2024-04-08] MEDS: SODIUM CHLORIDE 0.9% IV 1,000 ML 125 ML IV CONT (15:47)
--- NOTE | 2024-04-08 16:25 | ECG_ITS ---
Test Date: 2024-04-08 16:41:18 Measurements Intervals [place] Rate: 106 P: 8 WI: 143 QRS: 15 QRSD: 94 T: 2 QT: 348 QTc: 463 Interpretive Statements SINUS TACHYCARDIA POSSIBLE ANTERIOR MYOCARDIAL INFARCTION , PROBABLY OLD [30 ms Q WAVE IN V3/V4, OR R < 0.2 mV IN V4] ABNORMAL RHYTHM ECG No previous ECG available for comparison Electronically Signed On 04-08-2024 23:51:32 [employer] by Tamiko Rizvi M.D.
[2024-04-08] MEDS: VENLAFAXINE HCL XR 75 MG CAP.ER.24H PO (16:47)
[2024-04-08] MEDS: ACETAMINOPHEN 325 MG TABLET 650 MG PO (16:48)
[2024-04-08] MEDS: OCTREOTIDE ACETATE 500 MCG in SODIUM CHLORIDE 0.9% IV 99 ML 10 MCG IV CONT (16:48)
[2024-04-08] MEDS: ALPRAZolam (*CRX) 0.5 MG TABLET PO (16:49)
[2024-04-08 17:10] LABS: Troponin I < 0.012 ng/mL (0.000-0.034)
--- NOTE | 2024-04-08 17:44 | ADMGEN ---
This patient, Xin Teixeira, was admitted to [facility] Surg Room 306-02 at 1530. Report received from [facility]. Patient/family oriented to hospital policies and general routines including ID bracelet, bed and alarms, visiting hours, pain management, procedures, bathroom and other care routines, personal items, smoking policy, room service/diet, and visiting hours. Information on how to activate the Rapid Response Team has been discussed. Patient/Family are encouraged to report perceived risks to care and to ask questions if they do not understand what they are told or what they should do.
[2024-04-08] MEDS: oxyCODONE HCL (*CRX) 5 MG TAB IR PO (20:44)
[2024-04-08] MEDS: SODIUM POLYSTYRENE SULFONONATE 15 GM/60 ML BTL PO (20:44)
[2024-04-08 22:20] LABS: Hematocrit 21.8 % (37.0-47.0)
[2024-04-08 22:26] LABS: Hemoglobin 6.6 g/dL (12.0-15.0)
[2024-04-09] VITALS (14 sets, daily range): BP systolic 106–151; BP diastolic 53–93; PULSE 80–103; RESP 12–20; TEMP 36.3–37.3; O2SAT 91–99
[2024-04-09] MEDS: ONDANSETRON INJ 4 MG/2 ML VIAL IV PUSH ×3 (00:02→09:44)
[2024-04-09] MEDS: MAG HYDROX/AL HYDROX/SIMETH 30 ML UDC (00:28)
[2024-04-09] MEDS: TUBING, BLOOD PLUM PUMP TUBING 1 EACH XX (00:28)
[2024-04-09] MEDS: LIDOCAINE 2% VISC SOLN 15 ML UDC (00:28)
[2024-04-09] MEDS: SODIUM CHLORIDE 0.9% IV 1,000 ML 125 ML IV CONT ×2 (06:54→16:47)
[2024-04-09 08:07] LABS: Basophils Absolute Auto 0.1 K/mm3 (0.0-0.1); Basophils Percent Auto 0.3 % (0.2-1.2); Hematocrit 28.3 % (37.0-47.0); Hemoglobin 9.1 g/dL (12.0-15.0); Immature Granulocyte Absolute 0.62 K/mm3 (0.00-0.031); Immature Granulocyte Percent A 4.3 % (0-0.5); Lymphocytes Absolute Auto 1.35 K/mm3 (0.9-3.2); Lymphocytes Percent Auto 9.3 % (18.3-44.2); Mean Corpuscular HGB Conc 32.2 g/dl (32-36); Mean Corpuscular Hemoglobin 31.8 pg (26-34); Mean Platelet Volume 12.2 fl (7.4-10.4); Monocytes Absolute Auto 2.3 K/mm3 (0.1-0.6); Monocytes Percent Auto 15.9 % (2.6-8.5); Neutrophils Absolute Auto 10.2 K/mm3 (1.3-6.7); Neutrophils Percent Auto 70.2 % (45.5-73.1); Nucleated Red Blood Cells Perc 1.3 % (0.0-0.2); Platelet Count Result 111 k/mm3 (150-375); Red Blood Count 2.86 M/mm3 (4.2-5.4); Red Cell Distribution Width 21.5 % (11.5-14.5); White Blood Count 14.6 K/mm3 (4.5-10.0)
[2024-04-09 08:16] LABS: Anion Gap 7 mmol/L (4-12); Blood Urea Nitrogen 36 mg/dL (7-17); Calcium 7.6 mg/dL (8.4-10.2); Carbon Dioxide 28 mmol/L (22-30); Chloride 99 mmol/L (98-107); Estimated CRCL calculation 62 ml/min; Estimated Glomerular Filt Rate 51; Glucose 123 mg/dL (65-110); Magnesium 1.8 mg/dL (1.6-2.3); Potassium 4.6 mmol/L (3.4-5.0); Sodium 134 mmol/L (137-145)
[2024-04-09 08:31] LABS: INR 1.4; Prothrombin Time 17.8 Seconds (11.1-14.7)
--- NOTE | 2024-04-09 09:17 | WPDGIPROGNO ---
Progress Note: A&P Assessment and Plan (1) Cirrhosis: Qualifiers: Hepatic cirrhosis type: unspecified hepatic cirrhosis Ascites presence: unspecified Qualified Code(s): K74.60 - Unspecified cirrhosis of liver Code(s): K74.60 - Unspecified cirrhosis of liver Status: Acute Assessment and Plan: work up in progress (? 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 (2) Esophageal varices with bleeding: Code(s): I85.01 - Esophageal varices with bleeding Status: Acute Assessment and Plan: treated with EGD with ligation of varices iv octreotide and antibiotic will monitor for more signs of bleeding, low threshold to repeat EGD and if more obvious bleeding even TIPS evaluation at another hospital when no more bleeding then will consider non-selective b-francoise egd in 6 weeks to reassess (3) Melena: Code(s): K92.1 - Melena Status: Acute (4) Hematemesis: Code(s): K92.0 - Hematemesis Status: Acute (5) Acute blood loss anemia: Code(s): D62 - Acute posthemorrhagic anemia Status: Acute Assessment and Plan: hgb up to 9 after transfusion monitor for more bleeding (6) Elevated liver enzymes: Code(s): R74.8 - Abnormal levels of other serum enzymes Status: Acute Assessment and Plan: from cirrhosis, w/u pending Subjective Date/time seen: 04/09/24 09:17 Interval history: egd yesterday with EV that had oozing, treated with banding x4 last night had episode of emesis with blood she is feeling better now on iv octreotide Review of Systems Review of Systems: All systems reviewed & are unremarkable except as noted in HPI and below Exam Narrative: obese Const: General: no acute distress HENMT: Face/Nose/Sinus: Normal nares present Eyes: Other: noted icteric sclerae Neck: Neck: supple Resp: Auscultation: clear to auscultation bilaterally Cardio: Rate: regular rate Rhythm: regular rhythm GI: Inspection: non-distended GI Palp: Yes Soft to palpation and No Tenderness to palpation present (GI) Auscultation: normal bowel sounds Skin: Wounds: no wounds Neuro: Speech: normal speech Motor exam (neuro): 5/5 motor strength present throughout Extrem: Other: trace leg edema Psych: Mental Status: mental status grossly normal Objective Data Vital Signs Vital Signs: Vital Signs - 24 hr 04/08/24 09:28 04/08/24 09:30 04/08/24 09:31 Temperature Pulse Rate 126 H 121 H Respiratory Rate 19 18 Blood Pressure 108/67 Pulse Oximetry 94 100 Oxygen Delivery Oxygen Flow Rate 04/08/24 09:45 04/08/24 09:46 04/08/24 10:00 Temperature Pulse Rate Respiratory Rate Blood Pressure 107/50 L Pulse Oximetry 99 99 99 Oxygen Delivery Oxygen Flow Rate 04/08/24 10:01 04/08/24 10:27 04/08/24 10:31 Temperature Pulse Rate Respiratory Rate Blood Pressure 121/64 Pulse Oximetry 97 100 100 Oxygen Delivery Oxygen Flow Rate 04/08/24 11:13 04/08/24 11:15 04/08/24 12:24 Temperature Pulse Rate 106 H 118 H Respiratory Rate 14 9 L 16 Blood Pressure 120/64 117/74 Pulse Oximetry 100 100 98 Oxygen Delivery Oxygen Flow Rate 04/08/24 12:54 04/08/24 14:28 04/08/24 14:38 Temperature 96.8 F L 97.7 F Pulse Rate 115 H 112 H 109 H Respiratory Rate 20 17 19 Blood Pressure 109/55 L 106/54 L 116/49 L Pulse Oximetry 100 100 100 Oxygen Delivery Room Air Simple Face Mask Simple Face Mask Oxygen Flow Rate 10 6 04/08/24 14:48 04/08/24 14:58 04/08/24 15:08 Temperature Pulse Rate 111 H 109 H 108 H Respiratory Rate 19 19 17 Blood Pressure 110/56 L 106/46 L 109/55 L Pulse Oximetry 96 98 96 Oxygen Delivery Room Air Room Air Room Air Oxygen Flow Rate 04/08/24 15:18 04/08/24 16:00 04/08/24 20:00 Temperature 97.7 F 98.6 F Pulse Rate 107 H 111 H 109 H Respiratory Rate 17 22 H 18 Blood Pressure 113/71 133/13 L 124/63 Pulse Oximetry 99 100 95 Oxygen Delivery Room Air Oxygen Flow Rate 04/08/24 23:25 04/09/24 00:31 04/09/24 00:50 Temperature 98.4 F 98.8 F 98.7 F Pulse Rate 104 H 95 102 H Respiratory Rate 20 16 16 Blood Pressure 139/85 123/59 L 106/53 L Pulse Oximetry 100 95 92 Oxygen Delivery Oxygen Flow Rate 04/09/24 01:55 04/09/24 02:55 04/09/24 03:20 Temperature 97.3 F L 98.5 F 98.1 F Pulse Rate 103 H 102 H 101 H Respiratory Rate 18 20 18 Blood Pressure 123/58 L 143/93 H 127/78 Pulse Oximetry 91 99 99 Oxygen Delivery Oxygen Flow Rate 04/09/24 03:55 04/09/24 04:08 04/09/24 04:50 Temperature 98.7 F 98.3 F 98.8 F Pulse Rate 96 100 102 H Respiratory Rate 12 16 20 Blood Pressure 151/70 H 131/75 124/77 Pulse Oximetry 97 94 95 Oxygen Delivery Oxygen Flow Rate 04/09/24 05:11 04/09/24 06:15 04/09/24 06:40 Temperature 99.1 F 98.4 F 98.3 F Pulse Rate 100 94 100 Respiratory Rate 14 18 16 Blood Pressure 129/66 140/82 129/66 Pulse Oximetry 96 97 96 Oxygen Delivery Oxygen Flow Rate Intake/Output Intake/Output: Intake & Output 04/06/24 04/07/24 04/08/24 04/09/24 23:59 23:59 23:59 23:59 Intake Total 2500 1892 Output Total 400 Balance 2500 1492 Meds/Results Medications: Active Medications Generic Name Dose Route Start Last Admin Trade Name Freq PRN Reason Stop Dose Admin Acetaminophen 650 mg 04/08/24 13:18 04/08/24 16:48 Acetaminophen 325 Mg Tablet PO 650 mg Q4H PRN Administration Mild Pain (1-3) or Fever Albuterol 1 puff 04/09/24 00:31 Albuterol Sulfate (*Sp) Aerosol 1 Puff INHALATION Q4H PRN shortness of breath or wheezing Alprazolam 0.5 mg 04/08/24 16:24 04/08/24 16:49 Alprazolam (*Crx) 0.5 Mg Tablet PO 0.5 mg BID PRN Administration anxiety Bupropion HCl 300 mg 04/09/24 09:00 Bupropion Hcl Xl (24 Hr) 150 Mg Tabcr PO QAM RAJESH Chlordiazepoxide HCl 25 mg 04/09/24 00:33 Chlordiazepoxide (*Crx) 25 Mg Capsule PO Q6H PRN Withdrawal Sodium Chloride 1,000 mls @ 100 mls/hr 04/08/24 11:55 04/09/24 06:54 Normal Saline Iv IV CONT 125 mls/hr .Q10H RAJESH Administration Octreotide Acetate 500 mcg/ 100 mls @ 10 mls/hr 04/08/24 16:00 04/08/24 16:48 Sodium Chloride IV CONT 50 mcg/hr .Q10H RAJESH 10 mls/hr Administration 50 MCG/HR Ceftriaxone Sodium 1 gm in 50 mls @ 100 mls/hr 04/08/24 16:00 04/08/24 15:47 Rocephin 1 Gm/Ns 50 Ml IVPB 100 mls/hr Q24H RAJESH Administration Magnesium Sulfate 2 gm in 50 mls @ 25 mls/hr 04/09/24 09:00 Magnesium Sulf 2 Gm/Water 50ml IVPB 04/09/24 10:59 ONCE ONE Lorazepam 2 mg 04/09/24 00:33 Lorazepam Inj (*Crx) 2 Mg/Ml Vial IV PUSH Q4H PRN CIWA 8-15 Ondansetron HCl 4 mg 04/08/24 11:51 04/09/24 05:33 Ondansetron Inj 4 Mg/2 Ml Vial IV PUSH 4 mg Q4H PRN Administration Nausea Pantoprazole Sodium 40 mg 04/08/24 17:00 04/08/24 16:47 Pantoprazole Sodium Iv 40 Mg Vial IV PUSH 40 mg BID RAJESH Administration Quetiapine Fumarate 25 mg 04/09/24 21:00 Quetiapine Fumarate 25 Mg Tablet PO HS RAJESH Sumatriptan Succinate 25 mg 04/09/24 00:35 Sumatriptan Succinate 25 Mg Tablet PO PRN PRN Migraine Headache Venlafaxine HCl 75 mg 04/08/24 17:00 04/08/24 16:47 Venlafaxine Hcl Xr 75 Mg Cap.Er.24h PO 75 mg BID RAJESH Administration Radiology Results: ITS Impressions Abdomen/Pelvis CTA 04/08/24 10:31 IMPRESSION: 1. Diffuse colonic wall thickening which appears to primarily to increased intramural fat likely related to body habitus. No foci of active contrast extravasation within the bowels. 2. Cirrhosis with small amount of secondary ascites. 3. Cholelithiasis without findings of acute cholecystitis. 4. Small sliding-type hiatal hernia. Labs Labs: Laboratory Results - last 24 hr 04/08/24 04/08/24 04/08/24 12:06 12:07 16:37 WBC RBC Hgb 7.7 L Hct 24.5 L MCV MCH MCHC RDW Plt Count MPV Immature Gran % (Auto) Neut % (Auto) Lymph % (Auto) [place] % (Auto) Eos % (Auto) Baso % (Auto) Lymph # (Auto) [place] # (Auto) Eos # (Auto) Baso # (Auto) Abs Immat Gran (auto) Absolute Neuts (auto) Absolute Nucleated RBC Nucleated RBC % PT INR Sodium Potassium Chloride Carbon Dioxide Anion Gap BUN Creatinine Estim Creat Clear Calc Estimated GFR Glucose Calcium Magnesium Iron 52 TIBC 344 % Saturation 15 L Troponin I < 0.012 Blood Type A Positive Antibody Screen Negative Crossmatch See Detail 04/08/24 04/09/24 22:15 07:42 WBC 14.6 H RBC 2.86 L Hgb 6.6 L* 9.1 L Hct 21.8 L 28.3 L MCV 99.0 D MCH 31.8 D MCHC 32.2 RDW 21.5 H Plt Count 111 L MPV 12.2 H Immature Gran % (Auto) 4.3 H Neut % (Auto) 70.2 Lymph % (Auto) 9.3 L [place] % (Auto) 15.9 H Eos % (Auto) 0.0 Baso % (Auto) 0.3 Lymph # (Auto) 1.35 [place] # (Auto) 2.3 H Eos # (Auto) 0.0 Baso # (Auto) 0.1 Abs Immat Gran (auto) 0.62 H Absolute Neuts (auto) 10.2 H Absolute Nucleated RBC 0.190 H Nucleated RBC % 1.3 H PT 17.8 H INR 1.4 Sodium 134 L Potassium 4.6 Chloride 99 Carbon Dioxide 28 Anion Gap 7 BUN 36 H Creatinine 1.11 H Estim Creat Clear Calc 62 Estimated GFR 51 L Glucose 123 H Calcium 7.6 L Magnesium 1.8 Iron TIBC % Saturation Troponin I Blood Type Antibody Screen Crossmatch
[2024-04-09] MEDS: OCTREOTIDE ACETATE 500 MCG in SODIUM CHLORIDE 0.9% IV 99 ML 10 MCG IV CONT ×2 (09:44→18:27)
[2024-04-09] MEDS: ALPRAZolam (*CRX) 0.5 MG TABLET PO (09:44)
[2024-04-09] MEDS: PANTOPRAZOLE SODIUM IV 40 MG VIAL IV PUSH ×2 (09:45→16:48)
[2024-04-09] MEDS: VENLAFAXINE HCL XR 75 MG CAP.ER.24H PO ×2 (09:45→16:48)
[2024-04-09] MEDS: buPROPion HCL XL (24 HR) 150 MG TABCR 300 MG PO (09:45)
[2024-04-09] MEDS: MAGNESIUM SULF 2 GM/WATER 50ML 2 GM/50 ML BAG IVPB (09:46)
[2024-04-09 09:50] LABS: Hepatitis B Surface Antigen Negative (Negative)
[2024-04-09 09:57] LABS: HAV RESULT Negative (Negative); Hepatitis B Core IgM Result Negative (Negative)
[2024-04-09 10:08] LABS: Hepatitis C Virus Antibody Negative (Negative)
[2024-04-09 12:11] LABS: Glucose Point of Care 119 mg/dl (65-105)
--- NOTE | 2024-04-09 13:46 | ECG_ITS ---
Test Date: 2024-04-09 14:23:16 Measurements Intervals [place] Rate: 88 P: 29 ID: [id number] QRS: 27 QRSD: 96 T: 14 QT: 380 QTc: 460 Interpretive Statements SINUS RHYTHM Compared to ECG 04/08/2024 16:41:18 Sinus tachycardia no longer present Myocardial infarct finding no longer present Electronically Signed On 04-09-2024 21:26:25 SPRAY MACHINE TENDER by Tamiko Rizvi M.D.
--- NOTE | 2024-04-09 13:48 | PM.IMPN ---
Progress Note: A&P Assessment and Plan (1) Acute GI bleeding: Code(s): K92.2 - Gastrointestinal hemorrhage, unspecified Status: Acute Assessment and Plan: Esophageal varices banding with GI 04/08/24 GI consulted Octreotide and Protonix avoid NSAIDs including Aleve Q.6 her H&H Okay for clear liquid diet per GI GI cocktail 04/09: Hematemesis overnight, non-bloody emesis this morning with persistent nausea EKG for QTC monitoring with mild improvement from 477 to 460 Restart home metoclopramide PRN QID for Nausea (2) Acute blood loss anemia: Code(s): D62 - Acute posthemorrhagic anemia Status: Acute Assessment and Plan: 1 unit of RBCs ordered on 04/09/2024 Hold Eliquis Hemoglobin q.6 Transfuse for hemoglobin less than 7 or symptomatic Patient does not have signs of acute bleeding at this time likely dropped prior to EGD Continue monitor 04/09: Stable on AM labs, repeat H&H at 1500 and CBC again in AM (3) Anxiety: Code(s): F41.9 - Anxiety disorder, unspecified Status: Acute Assessment and Plan: Restart home medications (4) Hypertension: Qualifiers: Hypertension type: essential hypertension Qualified Code(s): I10 - Essential (primary) hypertension Code(s): I10 - Essential (primary) hypertension Status: Acute Assessment and Plan: Patient is normotensive will hold antihypertensives tonight (5) Leukocytosis: Code(s): D72.829 - Elevated white blood cell count, unspecified Status: Acute Assessment and Plan: Could be reactive, no signs of infection UA pending 04/09: UA with contamination but not likely infection (6) Alcohol use: Code(s): F10.90 - Alcohol use, unspecified, uncomplicated Status: Acute Assessment and Plan: [facility] Time Spent With Patient Time with patient: 25 - 35 minutes Subjective Date/time seen: 04/09/24 13:48 Interval history: Patient admitted for GI bleeding and is s/p esophageal banding x4. New diagnosis of cirrhosis and esophageal varices. Patient had hematemesis last night and more vomiting without zoey blood this morning. She remains on IV fluids and unable to tolerate clear liquid diet. patient has history of ETOH abuse reported. Initial EKG with slightly prolonged QTC of 477 and patient has already received IV Zofran a few times. Ordered EKG for QTC monitoring and result improved at 460. Patient sleeping through much of the day today. Anxiety (which is baseline) and nausea/emesis are only potential withdrawal symptoms at this time. Patient remains on octreotide drip (72 hours planned per GI note) and getting IV Protonix twice a day. Review of Systems Review of Systems: All systems reviewed & are unremarkable except as noted in HPI and below Exam Narrative: General: Drowsy, mildly anxious when awake HEENT: normocephalic, atraumatic. Mucous membranes moist. EOMI, PERRLA, bilateral sclera anicteric, no conjunctival injection. Neck supple without JVD, lymphadenopathy, or bruit. Respiratory: clear to auscultation bilaterally. Cardiovascular: Regular rate and rhythm Abdomen: Soft, non-distended, non-tender Extremities: No cyanosis, clubbing, or edema present. Neuro: Alert and orientated when awake. PERRLA. Skin: Warm, dry, and intact, without rash, erythema, or lesion. Psych: anxious affect Objective Data Vital Signs Vital Signs: Vital Signs - 24 hr 04/08/24 14:28 04/08/24 14:38 04/08/24 14:48 Temperature 36.5 C Pulse Rate 112 H 109 H 111 H Respiratory Rate 17 19 19 Blood Pressure 106/54 L 116/49 L 110/56 L Pulse Oximetry 100 100 96 Oxygen Delivery Simple Face Mask Simple Face Mask Room Air Oxygen Flow Rate 10 6 04/08/24 14:58 04/08/24 15:08 04/08/24 15:18 Temperature Pulse Rate 109 H 108 H 107 H Respiratory Rate 19 17 17 Blood Pressure 106/46 L 109/55 L 113/71 Pulse Oximetry 98 96 99 Oxygen Delivery Room Air Room Air Room Air Oxygen Flow Rate 04/08/24 16:00 04/08/24 20:00 04/08/24 23:25 Temperature 36.5 C 37.0 C 36.9 C Pulse Rate 111 H 109 H 104 H Respiratory Rate 22 H 18 20 Blood Pressure 133/13 L 124/63 139/85 Pulse Oximetry 100 95 100 Oxygen Delivery Oxygen Flow Rate 04/09/24 00:31 04/09/24 00:50 04/09/24 01:55 Temperature 37.1 C 37.1 C 36.3 C L Pulse Rate 95 102 H 103 H Respiratory Rate 16 16 18 Blood Pressure 123/59 L 106/53 L 123/58 L Pulse Oximetry 95 92 91 Oxygen Delivery Oxygen Flow Rate 04/09/24 02:55 04/09/24 03:20 04/09/24 03:55 Temperature 36.9 C 36.7 C 37.1 C Pulse Rate 102 H 101 H 96 Respiratory Rate 20 18 12 Blood Pressure 143/93 H 127/78 151/70 H Pulse Oximetry 99 99 97 Oxygen Delivery Oxygen Flow Rate 04/09/24 04:08 04/09/24 04:50 04/09/24 05:11 Temperature 36.8 C 37.1 C 37.3 C Pulse Rate 100 102 H 100 Respiratory Rate 16 20 14 Blood Pressure 131/75 124/77 129/66 Pulse Oximetry 94 95 96 Oxygen Delivery Oxygen Flow Rate 04/09/24 06:15 04/09/24 06:40 04/09/24 10:51 Temperature 36.9 C 36.8 C 36.5 C Pulse Rate 94 100 93 Respiratory Rate 18 16 18 Blood Pressure 140/82 129/66 114/74 Pulse Oximetry 97 96 94 Oxygen Delivery Oxygen Flow Rate Intake/Output Intake/Output: Intake & Output 04/06/24 04/07/24 04/08/24 04/09/24 23:59 23:59 23:59 23:59 Intake Total 2500 1992 Output Total 400 Balance 2500 1592 Meds/Results Medications: Active Medications Generic Name Dose Route Start Last Admin Trade Name Freq PRN Reason Stop Dose Admin Acetaminophen 650 mg 04/08/24 13:18 04/08/24 16:48 Acetaminophen 325 Mg Tablet PO 650 mg Q4H PRN Administration Mild Pain (1-3) or Fever Albuterol 1 puff 04/09/24 00:31 Albuterol Sulfate (*Sp) Aerosol 1 Puff INHALATION Q4H PRN shortness of breath or wheezing Alprazolam 0.5 mg 04/08/24 16:24 04/09/24 09:44 Alprazolam (*Crx) 0.5 Mg Tablet PO 0.5 mg BID PRN Administration anxiety Bupropion HCl 300 mg 04/09/24 09:00 04/09/24 09:45 Bupropion Hcl Xl (24 Hr) 150 Mg Tabcr PO 300 mg QAM RAJESH Administration Chlordiazepoxide HCl 25 mg 04/09/24 00:33 Chlordiazepoxide (*Crx) 25 Mg Capsule PO Q6H PRN Withdrawal Sodium Chloride 1,000 mls @ 100 mls/hr 04/08/24 11:55 04/09/24 06:54 Normal Saline Iv IV CONT 125 mls/hr .Q10H RAJESH Administration Octreotide Acetate 500 mcg/ 100 mls @ 10 mls/hr 04/08/24 16:00 04/09/24 12:44 Sodium Chloride IV CONT Not Given .Q10H RAJESH 50 MCG/HR Ceftriaxone Sodium 1 gm in 50 mls @ 100 mls/hr 04/08/24 16:00 04/08/24 15:47 Rocephin 1 Gm/Ns 50 Ml IVPB 100 mls/hr Q24H RAJESH Administration Lorazepam 2 mg 04/09/24 00:33 Lorazepam Inj (*Crx) 2 Mg/Ml Vial IV PUSH Q4H PRN CIWA 8-15 Ondansetron HCl 4 mg 04/08/24 11:51 04/09/24 09:44 Ondansetron Inj 4 Mg/2 Ml Vial IV PUSH 4 mg Q4H PRN Administration Nausea Pantoprazole Sodium 40 mg 04/08/24 17:00 04/09/24 09:45 Pantoprazole Sodium Iv 40 Mg Vial IV PUSH 40 mg BID RAJESH Administration Quetiapine Fumarate 25 mg 04/09/24 21:00 Quetiapine Fumarate 25 Mg Tablet PO HS RAJESH Scopolamine 1 patch 04/09/24 13:50 Scopolamine 1 Mg Patch TRANSDERM Q72HR RAJESH Sumatriptan Succinate 25 mg 04/09/24 00:35 Sumatriptan Succinate 25 Mg Tablet PO PRN PRN Migraine Headache Venlafaxine HCl 75 mg 04/08/24 17:00 04/09/24 09:45 Venlafaxine Hcl Xr 75 Mg Cap.Er.24h PO 75 mg BID RAJESH Administration Radiology Results: ITS Impressions Abdomen/Pelvis CTA 04/08/24 10:31 IMPRESSION: 1. Diffuse colonic wall thickening which appears to primarily to increased intramural fat likely related to body habitus. No foci of active contrast extravasation within the bowels. 2. Cirrhosis with small amount of secondary ascites. 3. Cholelithiasis without findings of acute cholecystitis. 4. Small sliding-type hiatal hernia. Labs Labs: Laboratory Results - last 24 hr 04/08/24 04/08/24 04/08/24 12:07 16:37 22:15 WBC RBC Hgb 6.6 L* Hct 21.8 L MCV MCH MCHC RDW Plt Count MPV Immature Gran % (Auto) Neut % (Auto) Lymph % (Auto) [place] % (Auto) Eos % (Auto) Baso % (Auto) Lymph # (Auto) [place] # (Auto) Eos # (Auto) Baso # (Auto) Abs Immat Gran (auto) Absolute Neuts (auto) Absolute Nucleated RBC Nucleated RBC % PT INR Sodium Potassium Chloride Carbon Dioxide Anion Gap BUN Creatinine Estim Creat Clear Calc Estimated GFR Glucose POC Capillary Glucose Calcium Magnesium Ferritin Troponin I < 0.012 Hepatitis A IgM Ab Hep Bs Antigen Hep B Core IgM Ab Hepatitis C Ab Screen Blood Type A Positive Antibody Screen Negative Crossmatch See Detail 04/09/24 04/09/24 07:42 12:09 WBC 14.6 H RBC 2.86 L Hgb 9.1 L Hct 28.3 L MCV 99.0 D MCH 31.8 D MCHC 32.2 RDW 21.5 H Plt Count 111 L MPV 12.2 H Immature Gran % (Auto) 4.3 H Neut % (Auto) 70.2 Lymph % (Auto) 9.3 L [place] % (Auto) 15.9 H Eos % (Auto) 0.0 Baso % (Auto) 0.3 Lymph # (Auto) 1.35 [place] # (Auto) 2.3 H Eos # (Auto) 0.0 Baso # (Auto) 0.1 Abs Immat Gran (auto) 0.62 H Absolute Neuts (auto) 10.2 H Absolute Nucleated RBC 0.190 H Nucleated RBC % 1.3 H PT 17.8 H INR 1.4 Sodium 134 L Potassium 4.6 Chloride 99 Carbon Dioxide 28 Anion Gap 7 BUN 36 H Creatinine 1.11 H Estim Creat Clear Calc 62 Estimated GFR 51 L Glucose 123 H POC Capillary Glucose 119 H Calcium 7.6 L Magnesium 1.8 Ferritin 28.40 Troponin I Hepatitis A IgM Ab Negative Hep Bs Antigen Negative Hep B Core IgM Ab Negative Hepatitis C Ab Screen Negative Blood Type Antibody Screen Crossmatch Pulse Oximetry SpO2 results: 93-97% on room air Attestation: I personally reviewed and interpreted this pulse oximetry as follows: Interpretation: no need for supplemental oxygenation at this time Quality VTE Prophylaxis VTE prophylaxis: mechanical ordered Hospitalist MIPS Advance Care Plan I have confirmed that the patient's Advanced Care Plan is present, code status is documented, or surrogate decision maker is listed in patient medical record.: Yes Medication Reconciliation I have utilized all available resources to obtain, update and review the patients current medications (includes all prescriptions, OTC, herbals, cannabis, and nutritional supplements).: Yes
[2024-04-09] MEDS: ACETAMINOPHEN 325 MG TABLET 650 MG PO ×2 (16:48→20:58)
[2024-04-09 17:35] LABS: Hematocrit 28.1 % (37.0-47.0)
[2024-04-09 18:01] LABS: Glucose Point of Care 121 mg/dl (65-105)
[2024-04-09] MEDS: QUEtiapine FUMARATE 25 MG TABLET PO (20:02)
[2024-04-10 00:35] VITALS: BP 121/79; PULSE 81; RESP 20; TEMP 36.4; O2SAT 94
[2024-04-10 00:35] LABS: Glucose Point of Care 106 mg/dl (65-105)
[2024-04-10] MEDS: ONDANSETRON INJ 4 MG/2 ML VIAL IV PUSH ×2 (00:36→21:28)
[2024-04-10 05:05] VITALS: BP 115/70; PULSE 69; RESP 20; TEMP 36.2; O2SAT 96
[2024-04-10 05:27] LABS: Glucose Point of Care 104 mg/dl (65-105)
[2024-04-10] MEDS: OCTREOTIDE ACETATE 500 MCG in SODIUM CHLORIDE 0.9% IV 99 ML 10 MCG IV CONT ×2 (05:50→17:37)
[2024-04-10] MEDS: SODIUM CHLORIDE 0.9% IV 1,000 ML 100 ML IV CONT ×2 (05:50→12:59)
[2024-04-10 06:38] LABS: Ceruloplasmin 20 mg/dL (14-48)
[2024-04-10 06:57] LABS: Basophils Percent Auto 0.3 % (0.2-1.2); Eosinophils Percent Auto 0.1 % (0-4.4); Hematocrit 26.5 % (37.0-47.0); Hemoglobin 8.3 g/dL (12.0-15.0); Immature Granulocyte Absolute 0.13 K/mm3 (0.00-0.031); Immature Granulocyte Percent A 1.8 % (0-0.5); Lymphocytes Absolute Auto 1.19 K/mm3 (0.9-3.2); Lymphocytes Percent Auto 16.2 % (18.3-44.2); Mean Corpuscular HGB Conc 31.3 g/dl (32-36); Mean Corpuscular Hemoglobin 31.6 pg (26-34); Mean Corpuscular Volume 100.8 fl (80-100); Monocytes Absolute Auto 1.1 K/mm3 (0.1-0.6); Monocytes Percent Auto 14.5 % (2.6-8.5); Neutrophils Absolute Auto 4.9 K/mm3 (1.3-6.7); Neutrophils Percent Auto 67.1 % (45.5-73.1); Nucleated Red Blood Cells Perc 0.7 % (0.0-0.2); Platelet Count Result 88 k/mm3 (150-375); Red Blood Count 2.63 M/mm3 (4.2-5.4); Red Cell Distribution Width 21.9 % (11.5-14.5); White Blood Count 7.3 K/mm3 (4.5-10.0)
[2024-04-10 07:11] LABS: Alanine Aminotransferase 50 U/L (6-35); Albumin Level 2.6 g/dL (3.5-5.1); Alkaline Phosphatase 86 U/L (38-126); Anion Gap 7 mmol/L (4-12); Aspartate Amino Transferase 108 U/L (14-36); Bilirubin,Total 1.6 mg/dL (0.2-1.3); Blood Urea Nitrogen 30 mg/dL (7-17); Calcium 6.7 mg/dL (8.4-10.2); Carbon Dioxide 24 mmol/L (22-30); Chloride 102 mmol/L (98-107); Estimated CRCL calculation 75 ml/min; Estimated Glomerular Filt Rate > 60; Glucose 95 mg/dL (65-110); INR 1.6; Prothrombin Time 19.5 Seconds (11.1-14.7); Sodium 133 mmol/L (137-145)
[2024-04-10] MEDS: buPROPion HCL XL (24 HR) 150 MG TABCR 300 MG PO (08:16)
[2024-04-10] MEDS: VENLAFAXINE HCL XR 75 MG CAP.ER.24H PO ×2 (08:16→17:35)
[2024-04-10] MEDS: PANTOPRAZOLE SODIUM IV 40 MG VIAL IV PUSH ×2 (08:16→17:35)
[2024-04-10 08:18] LABS: Anisocytosis 1+; Burr Cells 1+; Hypochromasia 1+; Macrocytosis 1+ (NORMAL); Ovalocytes 1+; Platelet Estimate Decreased (Adequate); Polychromasia 1+
[2024-04-10 08:19] LABS: Schistocytes Rare
[2024-04-10 10:11] VITALS: BP 120/85; PULSE 74; RESP 18; TEMP 36.6; O2SAT 100
--- NOTE | 2024-04-10 11:26 | P.PNGI_ITS ---
Progress Note: A&P Assessment and Plan (1) Cirrhosis: Qualifiers: Hepatic cirrhosis type: unspecified hepatic cirrhosis Ascites presence: unspecified Qualified Code(s): K74.60 - Unspecified cirrhosis of liver Code(s): K74.60 - Unspecified cirrhosis of liver Status: Acute Assessment and Plan: work up in progress (HBV negative) MELD score 12 (2) Esophageal varices with bleeding: Code(s): I85.01 - Esophageal varices with bleeding Status: Acute Assessment and Plan: treated with EGD with ligation of varices complete total of 3 days of iv octreotide on iv antibiotic no more signs of bleeding but continue to monitor start non-selective b-francoise soon egd in 6 weeks to reassess (3) Melena: Code(s): K92.1 - Melena Status: Acute (4) Hematemesis: Code(s): K92.0 - Hematemesis Status: Acute Assessment and Plan: no more bleeding, some nausea diet as tolerated (5) Acute blood loss anemia: Code(s): D62 - Acute posthemorrhagic anemia Status: Acute Assessment and Plan: relatively stable monitor for more bleeding (6) Elevated liver enzymes: Code(s): R74.8 - Abnormal levels of other serum enzymes Status: Acute Assessment and Plan: from cirrhosis, w/u pending Subjective Date/time seen: 04/10/24 11:26 Interval history: no more bleeding, still some nausea but she is feeling better, some discomfort in epigastric Review of Systems Review of Systems: All systems reviewed & are unremarkable except as noted in HPI and below Exam Narrative: obese Const: General: no acute distress HENMT: Face/Nose/Sinus: Normal nares present Eyes: Other: noted icteric sclerae Neck: Neck: supple Resp: Auscultation: clear to auscultation bilaterally Cardio: Rate: regular rate Rhythm: regular rhythm GI: Inspection: non-distended GI Palp: Yes Soft to palpation and No Tenderness to palpation present (GI) Auscultation: normal bowel sounds Skin: Wounds: no wounds Neuro: Speech: normal speech Motor exam (neuro): 5/5 motor strength present throughout Extrem: Other: trace leg edema Psych: Mental Status: mental status grossly normal Objective Data Vital Signs Vital Signs: Vital Signs - 24 hr 04/09/24 15:25 04/09/24 20:50 04/10/24 00:35 Temperature 97.6 F 98 F 97.6 F Pulse Rate 88 80 81 Respiratory Rate 18 18 20 Blood Pressure 134/82 137/84 121/79 Pulse Oximetry 93 97 94 04/10/24 05:05 04/10/24 10:11 Temperature 97.1 F L 97.9 F Pulse Rate 69 74 Respiratory Rate 20 18 Blood Pressure 115/70 120/85 Pulse Oximetry 96 100 Intake/Output Intake/Output: Intake & Output 04/07/24 04/08/24 04/09/24 04/10/24 23:59 23:59 23:59 23:59 Intake Total 2550 3759.2 1967 Output Total 400 Balance 2550 3359.2 1967 Meds/Results Medications: Active Medications Generic Name Dose Route Start Last Admin Trade Name Freq PRN Reason Stop Dose Admin Acetaminophen 650 mg 04/08/24 13:18 04/09/24 20:58 Acetaminophen 325 Mg Tablet PO 650 mg Q4H PRN Administration Mild Pain (1-3) or Fever Albuterol 1 puff 04/09/24 00:31 Albuterol Sulfate (*Sp) Aerosol 1 Puff INHALATION Q4H PRN shortness of breath or wheezing Alprazolam 0.5 mg 04/08/24 16:24 04/09/24 09:44 Alprazolam (*Crx) 0.5 Mg Tablet PO 0.5 mg BID PRN Administration anxiety Bupropion HCl 300 mg 04/09/24 09:00 04/10/24 08:16 Bupropion Hcl Xl (24 Hr) 150 Mg Tabcr PO 300 mg QAM RAJESH Administration Chlordiazepoxide HCl 25 mg 04/09/24 00:33 Chlordiazepoxide (*Crx) 25 Mg Capsule PO Q6H PRN Withdrawal Sodium Chloride 1,000 mls @ 100 mls/hr 04/08/24 11:55 04/10/24 10:02 Normal Saline Iv IV CONT Not Given .Q10H RAJESH Octreotide Acetate 500 mcg/ 100 mls @ 10 mls/hr 04/08/24 16:00 04/10/24 05:50 Sodium Chloride IV CONT 50 mcg/hr .Q10H RAJESH 10 mls/hr Administration 50 MCG/HR Ceftriaxone Sodium 1 gm in 50 mls @ 100 mls/hr 04/08/24 16:00 04/09/24 17:17 Rocephin 1 Gm/Ns 50 Ml IVPB Infused Q24H RAJESH Infusion Lorazepam 2 mg 04/09/24 00:33 Lorazepam Inj (*Crx) 2 Mg/Ml Vial IV PUSH Q4H PRN CIWA 8-15 Metoclopramide HCl 5 mg 04/09/24 18:17 Metoclopramide Hcl 5 Mg Tablet PO QID PRN nausea Ondansetron HCl 4 mg 04/08/24 11:51 04/10/24 00:36 Ondansetron Inj 4 Mg/2 Ml Vial IV PUSH 4 mg Q4H PRN Administration Nausea Pantoprazole Sodium 40 mg 04/08/24 17:00 04/10/24 08:16 Pantoprazole Sodium Iv 40 Mg Vial IV PUSH 40 mg BID RAJESH Administration Quetiapine Fumarate 25 mg 04/09/24 21:00 04/09/24 20:02 Quetiapine Fumarate 25 Mg Tablet PO 25 mg HS RAJESH Administration Scopolamine 1 patch 04/11/24 13:00 Scopolamine 1 Mg Patch TRANSDERM Q72H RAJESH Sumatriptan Succinate 25 mg 04/09/24 00:35 Sumatriptan Succinate 25 Mg Tablet PO PRN PRN Migraine Headache Venlafaxine HCl 75 mg 04/08/24 17:00 04/10/24 08:16 Venlafaxine Hcl Xr 75 Mg Cap.Er.24h PO 75 mg BID RAJESH Administration Radiology Results: ITS Impressions Abdomen/Pelvis CTA 04/08/24 10:31 IMPRESSION: 1. Diffuse colonic wall thickening which appears to primarily to increased intramural fat likely related to body habitus. No foci of active contrast extravasation within the bowels. 2. Cirrhosis with small amount of secondary ascites. 3. Cholelithiasis without findings of acute cholecystitis. 4. Small sliding-type hiatal hernia. Labs Labs: Laboratory Results - last 24 hr 04/09/24 04/09/24 04/09/24 07:42 12:09 16:45 WBC RBC Hgb 9.0 L Hct 28.1 L MCV MCH MCHC RDW Plt Count MPV Immature Gran % (Auto) Neut % (Auto) Lymph % (Auto) [place] % (Auto) Eos % (Auto) Baso % (Auto) Lymph # (Auto) [place] # (Auto) Eos # (Auto) Baso # (Auto) Abs Immat Gran (auto) Absolute Neuts (auto) Absolute Nucleated RBC Nucleated RBC % Platelet Estimate Polychromasia Hypochromasia Anisocytosis Macrocytosis Ovalocytes [place] Cells Schistocytes PT INR Sodium Potassium Chloride Carbon Dioxide Anion Gap BUN Creatinine Estim Creat Clear Calc Estimated GFR Glucose POC Capillary Glucose 119 H Calcium Total Bilirubin AST ALT Alkaline Phosphatase Total Protein Albumin Ceruloplasmin 20 04/09/24 04/10/24 04/10/24 17:59 00:30 05:25 WBC RBC Hgb Hct MCV MCH MCHC RDW Plt Count MPV Immature Gran % (Auto) Neut % (Auto) Lymph % (Auto) [place] % (Auto) Eos % (Auto) Baso % (Auto) Lymph # (Auto) [place] # (Auto) Eos # (Auto) Baso # (Auto) Abs Immat Gran (auto) Absolute Neuts (auto) Absolute Nucleated RBC Nucleated RBC % Platelet Estimate Polychromasia Hypochromasia Anisocytosis Macrocytosis Ovalocytes [place] Cells Schistocytes PT INR Sodium Potassium Chloride Carbon Dioxide Anion Gap BUN Creatinine Estim Creat Clear Calc Estimated GFR Glucose POC Capillary Glucose 121 H 106 H 104 Calcium Total Bilirubin AST ALT Alkaline Phosphatase Total Protein Albumin Ceruloplasmin 04/10/24 06:40 WBC 7.3 RBC 2.63 L Hgb 8.3 L Hct 26.5 L MCV 100.8 H MCH 31.6 MCHC 31.3 L RDW 21.9 H Plt Count 88 L MPV 12.0 H Immature Gran % (Auto) 1.8 H Neut % (Auto) 67.1 Lymph % (Auto) 16.2 L [place] % (Auto) 14.5 H Eos % (Auto) 0.1 Baso % (Auto) 0.3 Lymph # (Auto) 1.19 [place] # (Auto) 1.1 H Eos # (Auto) 0.0 Baso # (Auto) 0.0 Abs Immat Gran (auto) 0.13 H Absolute Neuts (auto) 4.9 Absolute Nucleated RBC 0.050 H Nucleated RBC % 0.7 H Platelet Estimate Decreased Polychromasia 1+ Hypochromasia 1+ Anisocytosis 1+ Macrocytosis 1+ Ovalocytes 1+ [place] Cells 1+ Schistocytes Rare PT 19.5 H INR 1.6 Sodium 133 L Potassium 4.0 Chloride 102 Carbon Dioxide 24 Anion Gap 7 BUN 30 H Creatinine 0.91 Estim Creat Clear Calc 75 Estimated GFR > 60 Glucose 95 POC Capillary Glucose Calcium 6.7 L Total Bilirubin 1.6 H AST 108 H ALT 50 H Alkaline Phosphatase 86 Total Protein 6.0 L Albumin 2.6 L Ceruloplasmin
[2024-04-10 12:05] LABS: Glucose Point of Care 102 mg/dl (65-105)
--- NOTE | 2024-04-10 12:36 | PM.IMPN ---
Progress Note: A&P Assessment and Plan (1) Acute GI bleeding: Code(s): K92.2 - Gastrointestinal hemorrhage, unspecified Status: Acute Assessment and Plan: Esophageal varices banding with GI 04/08/24 GI consulted Octreotide and Protonix avoid NSAIDs including Aleve Q.6 her H&H Okay for clear liquid diet per GI GI cocktail 04/09: Hematemesis overnight, non-bloody emesis this morning with persistent nausea EKG for QTC monitoring with mild improvement from 477 to 460 Restart home metoclopramide PRN QID for Nausea 04/10: Full liquid diet, no further hematemesis, stop IV fluids, recheck labs in AM (2) Acute blood loss anemia: Code(s): D62 - Acute posthemorrhagic anemia Status: Acute Assessment and Plan: 1 unit of RBCs ordered on 04/09/2024 Hold Eliquis Hemoglobin q.6 Transfuse for hemoglobin less than 7 or symptomatic Patient does not have signs of acute bleeding at this time likely dropped prior to EGD Continue monitor 04/09: Stable on AM labs, repeat H&H at 1500 and CBC again in AM 04/10: Hemoglobin 8.3 this morning, down from 9 yesterday, repeat in AM (3) Anxiety: Code(s): F41.9 - Anxiety disorder, unspecified Status: Acute Assessment and Plan: Restart home medications (4) Hypertension: Qualifiers: Hypertension type: essential hypertension Qualified Code(s): I10 - Essential (primary) hypertension Code(s): I10 - Essential (primary) hypertension Status: Acute Assessment and Plan: Patient is normotensive will hold antihypertensives (5) Leukocytosis: Code(s): D72.829 - Elevated white blood cell count, unspecified Status: Acute Assessment and Plan: Could be reactive, no signs of infection UA pending 04/09: UA with contamination but not likely infection 04/10: WBC 7.3 this AM, Rocephin continuing per GI (6) Alcohol use: Code(s): F10.90 - Alcohol use, unspecified, uncomplicated Status: Acute Assessment and Plan: [facility] protocol Ativan/Librium p.r.n. Time Spent With Patient Time with patient: 25 - 35 minutes Subjective Date/time seen: 04/10/24 12:36 Interval history: Patient remains on octreotide drip, mild epigastric pain and persistent nausea but no further emesis. Will discontinue IV fluids as patient tolerating PO intake. Full liquid diet ordered. Initiate metoprolol 12.5 mg Q12 HR and titrate as tolerated for esophageal varices. Review of Systems Review of Systems: All systems reviewed & are unremarkable except as noted in HPI and below Exam Narrative: General: Awakens easily to voice, feels a bit better HEENT: normocephalic, atraumatic. Mucous membranes moist. EOMI, PERRLA, bilateral sclera anicteric, no conjunctival injection. Neck supple without JVD, lymphadenopathy, or bruit. Respiratory: clear to auscultation bilaterally. Cardiovascular: Regular rate and rhythm Abdomen: Soft, non-distended, mild epigastric tenderness Extremities: No cyanosis, clubbing, or edema present. Neuro: Alert and orientated when awake. PERRLA. Skin: Warm, dry, and intact, without rash, erythema, or lesion. Psych: calm and cooperative Objective Data Vital Signs Vital Signs: Vital Signs - 24 hr 04/09/24 15:25 04/09/24 20:50 04/10/24 00:35 Temperature 36.4 C 36.6 C 36.4 C Pulse Rate 88 80 81 Respiratory Rate 18 18 20 Blood Pressure 134/82 137/84 121/79 Pulse Oximetry 93 97 94 04/10/24 05:05 04/10/24 10:11 Temperature 36.2 C L 36.6 C Pulse Rate 69 74 Respiratory Rate 20 18 Blood Pressure 115/70 120/85 Pulse Oximetry 96 100 Intake/Output Intake/Output: Intake & Output 04/07/24 04/08/24 04/09/24 04/10/24 23:59 23:59 23:59 23:59 Intake Total 2550 3759.2 1967 Output Total 400 Balance 2550 3359.2 1967 Meds/Results Medications: Active Medications Generic Name Dose Route Start Last Admin Trade Name Freq PRN Reason Stop Dose Admin Acetaminophen 650 mg 04/08/24 13:18 04/09/24 20:58 Acetaminophen 325 Mg Tablet PO 650 mg Q4H PRN Administration Mild Pain (1-3) or Fever Albuterol 1 puff 04/09/24 00:31 Albuterol Sulfate (*Sp) Aerosol 1 Puff INHALATION Q4H PRN shortness of breath or wheezing Alprazolam 0.5 mg 04/08/24 16:24 04/09/24 09:44 Alprazolam (*Crx) 0.5 Mg Tablet PO 0.5 mg BID PRN Administration anxiety Bupropion HCl 300 mg 04/09/24 09:00 04/10/24 08:16 Bupropion Hcl Xl (24 Hr) 150 Mg Tabcr PO 300 mg QAM RAJESH Administration Chlordiazepoxide HCl 25 mg 04/09/24 00:33 Chlordiazepoxide (*Crx) 25 Mg Capsule PO Q6H PRN Withdrawal Sodium Chloride 1,000 mls @ 100 mls/hr 04/08/24 11:55 04/10/24 10:02 Normal Saline Iv IV CONT Not Given .Q10H RAJESH Octreotide Acetate 500 mcg/ 100 mls @ 10 mls/hr 04/08/24 16:00 04/10/24 05:50 Sodium Chloride IV CONT 50 mcg/hr .Q10H RAJESH 10 mls/hr Administration 50 MCG/HR Ceftriaxone Sodium 1 gm in 50 mls @ 100 mls/hr 04/08/24 16:00 04/09/24 17:17 Rocephin 1 Gm/Ns 50 Ml IVPB Infused Q24H RAJESH Infusion Lorazepam 2 mg 04/09/24 00:33 Lorazepam Inj (*Crx) 2 Mg/Ml Vial IV PUSH Q4H PRN CIWA 8-15 Metoclopramide HCl 5 mg 04/09/24 18:17 Metoclopramide Hcl 5 Mg Tablet PO QID PRN nausea Ondansetron HCl 4 mg 04/08/24 11:51 04/10/24 00:36 Ondansetron Inj 4 Mg/2 Ml Vial IV PUSH 4 mg Q4H PRN Administration Nausea Pantoprazole Sodium 40 mg 04/08/24 17:00 04/10/24 08:16 Pantoprazole Sodium Iv 40 Mg Vial IV PUSH 40 mg BID RAJESH Administration Quetiapine Fumarate 25 mg 04/09/24 21:00 04/09/24 20:02 Quetiapine Fumarate 25 Mg Tablet PO 25 mg HS RAJESH Administration Scopolamine 1 patch 04/11/24 13:00 Scopolamine 1 Mg Patch TRANSDERM Q72H RAJESH Sumatriptan Succinate 25 mg 04/09/24 00:35 Sumatriptan Succinate 25 Mg Tablet PO PRN PRN Migraine Headache Venlafaxine HCl 75 mg 04/08/24 17:00 04/10/24 08:16 Venlafaxine Hcl Xr 75 Mg Cap.Er.24h PO 75 mg BID RAJESH Administration Radiology Results: ITS Impressions Abdomen/Pelvis CTA 04/08/24 10:31 IMPRESSION: 1. Diffuse colonic wall thickening which appears to primarily to increased intramural fat likely related to body habitus. No foci of active contrast extravasation within the bowels. 2. Cirrhosis with small amount of secondary ascites. 3. Cholelithiasis without findings of acute cholecystitis. 4. Small sliding-type hiatal hernia. Labs Labs: Laboratory Results - last 24 hr 04/09/24 04/09/24 04/09/24 07:42 16:45 17:59 WBC RBC Hgb 9.0 L Hct 28.1 L MCV MCH MCHC RDW Plt Count MPV Immature Gran % (Auto) Neut % (Auto) Lymph % (Auto) [place] % (Auto) Eos % (Auto) Baso % (Auto) Lymph # (Auto) [place] # (Auto) Eos # (Auto) Baso # (Auto) Abs Immat Gran (auto) Absolute Neuts (auto) Absolute Nucleated RBC Nucleated RBC % Platelet Estimate Polychromasia Hypochromasia Anisocytosis Macrocytosis Ovalocytes [place] Cells Schistocytes PT INR Sodium Potassium Chloride Carbon Dioxide Anion Gap BUN Creatinine Estim Creat Clear Calc Estimated GFR Glucose POC Capillary Glucose 121 H Calcium Total Bilirubin AST ALT Alkaline Phosphatase Total Protein Albumin Ceruloplasmin 04/10/24 04/10/24 04/10/24 00:30 05:25 06:40 WBC 7.3 RBC 2.63 L Hgb 8.3 L Hct 26.5 L MCV 100.8 H MCH 31.6 MCHC 31.3 L RDW 21.9 H Plt Count 88 L MPV 12.0 H Immature Gran % (Auto) 1.8 H Neut % (Auto) 67.1 Lymph % (Auto) 16.2 L [place] % (Auto) 14.5 H Eos % (Auto) 0.1 Baso % (Auto) 0.3 Lymph # (Auto) 1.19 [place] # (Auto) 1.1 H Eos # (Auto) 0.0 Baso # (Auto) 0.0 Abs Immat Gran (auto) 0.13 H Absolute Neuts (auto) 4.9 Absolute Nucleated RBC 0.050 H Nucleated RBC % 0.7 H Platelet Estimate Decreased Polychromasia 1+ Hypochromasia 1+ Anisocytosis 1+ Macrocytosis 1+ Ovalocytes 1+ [place] Cells 1+ Schistocytes Rare PT 19.5 H INR 1.6 Sodium 133 L Potassium 4.0 Chloride 102 Carbon Dioxide 24 Anion Gap 7 BUN 30 H Creatinine 0.91 Estim Creat Clear Calc 75 Estimated GFR > 60 Glucose 95 POC Capillary Glucose 106 H 104 Calcium 6.7 L Total Bilirubin 1.6 H AST 108 H ALT 50 H Alkaline Phosphatase 86 Total Protein 6.0 L Albumin 2.6 L Ceruloplasmin 04/10/24 12:02 WBC RBC Hgb Hct MCV MCH MCHC RDW Plt Count MPV Immature Gran % (Auto) Neut % (Auto) Lymph % (Auto) [place] % (Auto) Eos % (Auto) Baso % (Auto) Lymph # (Auto) [place] # (Auto) Eos # (Auto) Baso # (Auto) Abs Immat Gran (auto) Absolute Neuts (auto) Absolute Nucleated RBC Nucleated RBC % Platelet Estimate Polychromasia Hypochromasia Anisocytosis Macrocytosis Ovalocytes [place] Cells Schistocytes PT INR Sodium Potassium Chloride Carbon Dioxide Anion Gap BUN Creatinine Estim Creat Clear Calc Estimated GFR Glucose POC Capillary Glucose 102 Calcium Total Bilirubin AST ALT Alkaline Phosphatase Total Protein Albumin Ceruloplasmin Pulse Oximetry SpO2 results: 93-100% on room air Attestation: I personally reviewed and interpreted this pulse oximetry as follows: Interpretation: no need for supplemental oxygenation at this time Quality VTE Prophylaxis VTE prophylaxis: mechanical ordered
[2024-04-10 15:24] VITALS: BP 125/74; PULSE 73; RESP 18; TEMP 36.9; O2SAT 100
[2024-04-10 20:00] VITALS: BP 107/68; PULSE 80; RESP 16; TEMP 37.1; O2SAT 95
[2024-04-10 21:18] VITALS: PULSE 72
[2024-04-10] MEDS: QUEtiapine FUMARATE 25 MG TABLET PO (21:18)
[2024-04-10] MEDS: METOPROLOL TARTRATE 12.5 MG TABLET PO (21:18)
[2024-04-10] MEDS: ACETAMINOPHEN 325 MG TABLET 650 MG PO (21:24)
[2024-04-11] VITALS: BP 93/55; PULSE 64; RESP 16; TEMP 36.9; O2SAT 92
[2024-04-11] MEDS: OCTREOTIDE ACETATE 500 MCG in SODIUM CHLORIDE 0.9% IV 99 ML 10 MCG IV CONT ×3 (03:08→23:53)
[2024-04-11 04:00] VITALS: BP 98/58; PULSE 65; RESP 16; TEMP 36.9; O2SAT 92
[2024-04-11 08:00] VITALS: BP 100/70; PULSE 91; RESP 18; TEMP 36.1; O2SAT 100
[2024-04-11] MEDS: PANTOPRAZOLE SODIUM IV 40 MG VIAL IV PUSH ×2 (08:32→16:52)
[2024-04-11] MEDS: buPROPion HCL XL (24 HR) 150 MG TABCR 300 MG PO (08:32)
[2024-04-11] MEDS: VENLAFAXINE HCL XR 75 MG CAP.ER.24H PO ×2 (08:32→16:52)
[2024-04-11 09:27] LABS: Hematocrit 28.4 % (37.0-47.0); Hemoglobin 8.8 g/dL (12.0-15.0); Immature Platelet Fraction Pct 9.7 % (0.9-11.2); Mean Corpuscular Volume 103.3 fl (80-100); Mean Platelet Volume 11.8 fl (7.4-10.4); Platelet Count Result 91 k/mm3 (150-375); Red Blood Count 2.75 M/mm3 (4.2-5.4); Red Cell Distribution Width 20.8 % (11.5-14.5); White Blood Count 5.9 K/mm3 (4.5-10.0)
[2024-04-11 09:33] LABS: Alanine Aminotransferase 79 U/L (6-35); Albumin Level 2.4 g/dL (3.5-5.1); Alkaline Phosphatase 87 U/L (38-126); Anion Gap 6 mmol/L (4-12); Aspartate Amino Transferase 185 U/L (14-36); Bilirubin,Total 1.8 mg/dL (0.2-1.3); Blood Urea Nitrogen 23 mg/dL (7-17); Calcium 6.9 mg/dL (8.4-10.2); Carbon Dioxide 23 mmol/L (22-30); Chloride 103 mmol/L (98-107); Estimated CRCL calculation 78 ml/min; Estimated Glomerular Filt Rate > 60; Glucose 82 mg/dL (65-110); Potassium 3.7 mmol/L (3.4-5.0); Sodium 132 mmol/L (137-145)
--- NOTE | 2024-04-11 11:31 | P.PNIM_ITS ---
Progress Note: A&P Assessment and Plan (1) Acute GI bleeding: Code(s): K92.2 - Gastrointestinal hemorrhage, unspecified Status: Acute Assessment and Plan: -GI consulted -Esophageal varices banding with GI 04/08/24 -Octreotide x3 days, on day 3 -Protonix 40 mg IV BID -avoid NSAIDs including Aleve -Clear liquid diet per GI. Advance per GI recommendations -EKG for QTC monitoring with improvement -Restart home metoclopramide PRN QID for Nausea -H&H stable (2) Acute blood loss anemia: Code(s): D62 - Acute posthemorrhagic anemia Status: Acute Assessment and Plan: -1 unit of RBCs ordered on 04/09/2024 -Hold Eliquis -Transfuse for hemoglobin less than 7 or symptomatic -Continue to monitor H&H (3) Anxiety: Code(s): F41.9 - Anxiety disorder, unspecified Status: Acute Assessment and Plan: Restart home medications (4) Hypertension: Qualifiers: Hypertension type: essential hypertension Qualified Code(s): I10 - Essential (primary) hypertension Code(s): I10 - Essential (primary) hypertension Status: Acute Assessment and Plan: Continue Metoprolol 12.5 mg BID (5) Leukocytosis: Code(s): D72.829 - Elevated white blood cell count, unspecified Status: Acute Assessment and Plan: -UA with contamination -WBC back to normal. -resolved. (6) Alcohol use: Code(s): F10.90 - Alcohol use, unspecified, uncomplicated Status: Acute Assessment and Plan: -[facility] protocol -Ativan/Librium p.r.n. Subjective Date/time seen: 04/11/24 11:31 Interval history: Patient on day 3 of octreotide drip. States that she still has some mild epigastric pain and nausea. She is tolerating her diet. Will advance diet per GIs recommendations. Will plan on discharge once cleared for discharge per GI Exam Narrative: GENERAL: Comfortable, no acute distress HENMT: moist mucous membranes EYES: EOM intact b/l RESPIRATORY: clear to auscultation, no increased respiratory effort CARDIO: Regular rate and rhythm GI: soft, nontender, bowel sounds present SKIN/EXTREMITIES: no rashes, no edema, no redness or tenderness NEURO: PROM intact, answers questions appropriately, A&O x4 Objective Data Vital Signs Vital Signs: Vital Signs - 24 hr 04/10/24 15:24 04/10/24 20:00 04/10/24 20:00 Temperature 98.5 F 98.8 F Pulse Rate 73 80 Respiratory Rate 18 16 Blood Pressure 125/74 107/68 Pulse Oximetry 100 95 Oxygen Delivery Room Air 04/10/24 21:18 04/11/24 00:00 04/11/24 04:00 Temperature 98.4 F 98.4 F Pulse Rate 72 64 65 Respiratory Rate 16 16 Blood Pressure 93/55 L 98/58 L Pulse Oximetry 92 92 Oxygen Delivery 04/11/24 08:00 04/11/24 08:30 Temperature 96.9 F L Pulse Rate 91 Respiratory Rate 18 Blood Pressure 100/70 Pulse Oximetry 100 Oxygen Delivery Room Air Intake/Output Intake/Output: Intake & Output 04/08/24 04/09/24 04/10/24 04/11/24 23:59 23:59 23:59 23:59 Intake Total 2550 3759.2 3522 95.2 Output Total 400 Balance 2550 3359.2 3522 95.2 Meds/Results Medications: Active Medications Generic Name Dose Route Start Last Admin Trade Name Freq PRN Reason Stop Dose Admin Acetaminophen 650 mg 04/08/24 13:18 04/10/24 21:24 Acetaminophen 325 Mg Tablet PO 650 mg Q4H PRN Administration Mild Pain (1-3) or Fever Albuterol 1 puff 04/09/24 00:31 Albuterol Sulfate (*Sp) Aerosol 1 Puff INHALATION Q4H PRN shortness of breath or wheezing Alprazolam 0.5 mg 04/08/24 16:24 04/09/24 09:44 Alprazolam (*Crx) 0.5 Mg Tablet PO 0.5 mg BID PRN Administration anxiety Bupropion HCl 300 mg 04/09/24 09:00 04/11/24 08:32 Bupropion Hcl Xl (24 Hr) 150 Mg Tabcr PO 300 mg QAM RAJESH Administration Chlordiazepoxide HCl 25 mg 04/09/24 00:33 Chlordiazepoxide (*Crx) 25 Mg Capsule PO Q6H PRN Withdrawal Octreotide Acetate 500 mcg/ 100 mls @ 10 mls/hr 04/08/24 16:00 04/11/24 03:08 Sodium Chloride IV CONT 50 mcg/hr .Q10H RAJESH 10 mls/hr Administration 50 MCG/HR Ceftriaxone Sodium 1 gm in 50 mls @ 100 mls/hr 04/08/24 16:00 04/10/24 15:53 Rocephin 1 Gm/Ns 50 Ml IVPB 100 mls/hr Q24H RAJESH Administration Lorazepam 2 mg 04/09/24 00:33 Lorazepam Inj (*Crx) 2 Mg/Ml Vial IV PUSH Q4H PRN CIWA 8-15 Metoclopramide HCl 5 mg 04/09/24 18:17 Metoclopramide Hcl 5 Mg Tablet PO QID PRN nausea Metoprolol Tartrate 12.5 mg 04/10/24 21:00 04/11/24 08:33 Metoprolol Tartrate 12.5 Mg Tablet PO Not Given Q12HR RAJESH Ondansetron HCl 4 mg 04/08/24 11:51 04/10/24 21:28 Ondansetron Inj 4 Mg/2 Ml Vial IV PUSH 4 mg Q4H PRN Administration Nausea Pantoprazole Sodium 40 mg 04/08/24 17:00 04/11/24 08:32 Pantoprazole Sodium Iv 40 Mg Vial IV PUSH 40 mg BID RAJESH Administration Quetiapine Fumarate 25 mg 04/09/24 21:00 04/10/24 21:18 Quetiapine Fumarate 25 Mg Tablet PO 25 mg HS RAJESH Administration Scopolamine 1 patch 04/11/24 13:00 Scopolamine 1 Mg Patch TRANSDERM Q72H RAJESH Sumatriptan Succinate 25 mg 04/09/24 00:35 Sumatriptan Succinate 25 Mg Tablet PO PRN PRN Migraine Headache Venlafaxine HCl 75 mg 04/08/24 17:00 04/11/24 08:32 Venlafaxine Hcl Xr 75 Mg Cap.Er.24h PO 75 mg BID RAJESH Administration Radiology Results: ITS Impressions Abdomen/Pelvis CTA 04/08/24 10:31 IMPRESSION: 1. Diffuse colonic wall thickening which appears to primarily to increased intramural fat likely related to body habitus. No foci of active contrast extravasation within the bowels. 2. Cirrhosis with small amount of secondary ascites. 3. Cholelithiasis without findings of acute cholecystitis. 4. Small sliding-type hiatal hernia. Labs Labs: Laboratory Results - last 24 hr 04/10/24 04/11/24 12:02 08:51 WBC 5.9 RBC 2.75 L Hgb 8.8 L Hct 28.4 L MCV 103.3 H MCH 32.0 MCHC 31.0 L RDW 20.8 H Plt Count 91 L MPV 11.8 H % Immature Plt Fraction 9.7 Sodium 132 L Potassium 3.7 Chloride 103 Carbon Dioxide 23 Anion Gap 6 BUN 23 H Creatinine 0.87 Estim Creat Clear Calc 78 Estimated GFR > 60 Glucose 82 POC Capillary Glucose 102 Calcium 6.9 L Total Bilirubin 1.8 H AST 185 H ALT 79 H Alkaline Phosphatase 87 Total Protein 6.0 L Albumin 2.4 L
[2024-04-11 12:00] VITALS: BP 98/59; PULSE 68; RESP 18; TEMP 35.9; O2SAT 96
[2024-04-11] MEDS: SCOPOLAMINE 1 MG PATCH 1 PATCH TRANSDERM (12:24)
--- NOTE | 2024-04-11 15:04 | WPDGIPROGNO ---
Progress Note: A&P Assessment and Plan (1) Cirrhosis: Qualifiers: Hepatic cirrhosis type: unspecified hepatic cirrhosis Ascites presence: unspecified Qualified Code(s): K74.60 - Unspecified cirrhosis of liver Code(s): K74.60 - Unspecified cirrhosis of liver Status: Acute Assessment and Plan: work up in progress (HBV negative) she will need follow-up in office in few more weeks (2) Esophageal varices with bleeding: Code(s): I85.01 - Esophageal varices with bleeding Status: Acute Assessment and Plan: treated with EGD with ligation of varices complete total of 3 days of iv octreotide- ok to discontinue tomorrow and probably can go home also on iv antibiotic as prophylaxis will start non-selective b-francoise egd in 6 weeks to reassess (3) Melena: Code(s): K92.1 - Melena Status: Acute Assessment and Plan: resolved (4) Hematemesis: Code(s): K92.0 - Hematemesis Status: Acute Assessment and Plan: no more bleeding, some nausea diet as tolerated (5) Acute blood loss anemia: Code(s): D62 - Acute posthemorrhagic anemia Status: Acute Assessment and Plan: relatively stable monitor for more bleeding (6) Elevated liver enzymes: Code(s): R74.8 - Abnormal levels of other serum enzymes Status: Acute Assessment and Plan: from cirrhosis, w/u pending Subjective Date/time seen: 04/11/24 15:04 Interval history: overall better, no more episodes of gib comfortable, eating more Review of Systems Review of Systems: All systems reviewed & are unremarkable except as noted in HPI and below Exam Narrative: obese Const: General: no acute distress HENMT: Face/Nose/Sinus: Normal nares present Neck: Neck: supple Resp: Auscultation: clear to auscultation bilaterally Cardio: Rate: regular rate Rhythm: regular rhythm GI: Inspection: non-distended GI Palp: Yes Soft to palpation and No Tenderness to palpation present (GI) Auscultation: normal bowel sounds Skin: Wounds: no wounds Neuro: Speech: normal speech Motor exam (neuro): 5/5 motor strength present throughout Extrem: Other: trace leg edema Psych: Mental Status: mental status grossly normal Objective Data Vital Signs Vital Signs: Vital Signs - 24 hr 04/10/24 15:24 04/10/24 20:00 04/10/24 20:00 Temperature 98.5 F 98.8 F Pulse Rate 73 80 Respiratory Rate 18 16 Blood Pressure 125/74 107/68 Pulse Oximetry 100 95 Oxygen Delivery Room Air 04/10/24 21:18 04/11/24 00:00 04/11/24 04:00 Temperature 98.4 F 98.4 F Pulse Rate 72 64 65 Respiratory Rate 16 16 Blood Pressure 93/55 L 98/58 L Pulse Oximetry 92 92 Oxygen Delivery 04/11/24 08:00 04/11/24 08:30 04/11/24 12:00 Temperature 96.9 F L 96.7 F L Pulse Rate 91 68 Respiratory Rate 18 18 Blood Pressure 100/70 98/59 L Pulse Oximetry 100 96 Oxygen Delivery Room Air Intake/Output Intake/Output: Intake & Output 04/08/24 04/09/24 04/10/24 04/11/24 23:59 23:59 23:59 23:59 Intake Total 2550 3759.2 3522 427.2 Output Total 400 Balance 2550 3359.2 3522 427.2 Meds/Results Medications: Active Medications Generic Name Dose Route Start Last Admin Trade Name Freq PRN Reason Stop Dose Admin Acetaminophen 650 mg 04/08/24 13:18 04/10/24 21:24 Acetaminophen 325 Mg Tablet PO 650 mg Q4H PRN Administration Mild Pain (1-3) or Fever Albuterol 1 puff 04/09/24 00:31 Albuterol Sulfate (*Sp) Aerosol 1 Puff INHALATION Q4H PRN shortness of breath or wheezing Alprazolam 0.5 mg 04/08/24 16:24 04/09/24 09:44 Alprazolam (*Crx) 0.5 Mg Tablet PO 0.5 mg BID PRN Administration anxiety Bupropion HCl 300 mg 04/09/24 09:00 04/11/24 08:32 Bupropion Hcl Xl (24 Hr) 150 Mg Tabcr PO 300 mg QAM RAJESH Administration Chlordiazepoxide HCl 25 mg 04/09/24 00:33 Chlordiazepoxide (*Crx) 25 Mg Capsule PO Q6H PRN Withdrawal Octreotide Acetate 500 mcg/ 100 mls @ 10 mls/hr 04/08/24 16:00 04/11/24 12:20 Sodium Chloride IV CONT 50 mcg/hr .Q10H RAJESH 10 mls/hr Administration 50 MCG/HR Ceftriaxone Sodium 1 gm in 50 mls @ 100 mls/hr 04/08/24 16:00 04/10/24 15:53 Rocephin 1 Gm/Ns 50 Ml IVPB 100 mls/hr Q24H RAJESH Administration Lorazepam 2 mg 04/09/24 00:33 Lorazepam Inj (*Crx) 2 Mg/Ml Vial IV PUSH Q4H PRN CIWA 8-15 Metoclopramide HCl 5 mg 04/09/24 18:17 Metoclopramide Hcl 5 Mg Tablet PO QID PRN nausea Metoprolol Tartrate 12.5 mg 04/10/24 21:00 04/11/24 08:33 Metoprolol Tartrate 12.5 Mg Tablet PO Not Given Q12HR RAJESH Ondansetron HCl 4 mg 04/08/24 11:51 04/10/24 21:28 Ondansetron Inj 4 Mg/2 Ml Vial IV PUSH 4 mg Q4H PRN Administration Nausea Pantoprazole Sodium 40 mg 04/08/24 17:00 04/11/24 08:32 Pantoprazole Sodium Iv 40 Mg Vial IV PUSH 40 mg BID RAJESH Administration Quetiapine Fumarate 25 mg 04/09/24 21:00 04/10/24 21:18 Quetiapine Fumarate 25 Mg Tablet PO 25 mg HS RAJESH Administration Scopolamine 1 patch 04/11/24 13:00 04/11/24 12:24 Scopolamine 1 Mg Patch TRANSDERM 1 patch Q72H RAJESH Administration Sumatriptan Succinate 25 mg 04/09/24 00:35 Sumatriptan Succinate 25 Mg Tablet PO PRN PRN Migraine Headache Venlafaxine HCl 75 mg 04/08/24 17:00 04/11/24 08:32 Venlafaxine Hcl Xr 75 Mg Cap.Er.24h PO 75 mg BID RAJESH Administration Radiology Results: ITS Impressions Abdomen/Pelvis CTA 04/08/24 10:31 IMPRESSION: 1. Diffuse colonic wall thickening which appears to primarily to increased intramural fat likely related to body habitus. No foci of active contrast extravasation within the bowels. 2. Cirrhosis with small amount of secondary ascites. 3. Cholelithiasis without findings of acute cholecystitis. 4. Small sliding-type hiatal hernia. Labs Labs: Laboratory Results - last 24 hr 04/11/24 08:51 WBC 5.9 RBC 2.75 L Hgb 8.8 L Hct 28.4 L MCV 103.3 H MCH 32.0 MCHC 31.0 L RDW 20.8 H Plt Count 91 L MPV 11.8 H % Immature Plt Fraction 9.7 Sodium 132 L Potassium 3.7 Chloride 103 Carbon Dioxide 23 Anion Gap 6 BUN 23 H Creatinine 0.87 Estim Creat Clear Calc 78 Estimated GFR > 60 Glucose 82 Calcium 6.9 L Total Bilirubin 1.8 H AST 185 H ALT 79 H Alkaline Phosphatase 87 Total Protein 6.0 L Albumin 2.4 L
[2024-04-11 16:00] VITALS: BP 93/54; PULSE 64; RESP 16; TEMP 36.3; O2SAT 96
[2024-04-11 20:00] VITALS: BP 101/63; PULSE 64; RESP 18; TEMP 36.6; O2SAT 95
[2024-04-11] MEDS: QUEtiapine FUMARATE 25 MG TABLET PO (21:02)
[2024-04-12] VITALS: BP 110/62; PULSE 63; RESP 18; TEMP 37.1; O2SAT 94
[2024-04-12 04:00] VITALS: BP 116/78; PULSE 61; RESP 18; TEMP 37.1; O2SAT 100
[2024-04-12 06:06] LABS: Basophils Percent Auto 0.4 % (0.2-1.2); Eosinophils Absolute Auto 0.2 K/mm3 (0-0.3); Eosinophils Percent Auto 3.1 % (0-4.4); Hematocrit 26.9 % (37.0-47.0); Hemoglobin 8.4 g/dL (12.0-15.0); Immature Granulocyte Absolute 0.03 K/mm3 (0.00-0.031); Immature Granulocyte Percent A 0.6 % (0-0.5); Lymphocytes Absolute Auto 1.06 K/mm3 (0.9-3.2); Lymphocytes Percent Auto 20.4 % (18.3-44.2); Mean Corpuscular HGB Conc 31.2 g/dl (32-36); Mean Corpuscular Hemoglobin 32.1 pg (26-34); Mean Corpuscular Volume 102.7 fl (80-100); Mean Platelet Volume 13.2 fl (7.4-10.4); Monocytes Absolute Auto 0.8 K/mm3 (0.1-0.6); Monocytes Percent Auto 14.6 % (2.6-8.5); Neutrophils Absolute Auto 3.2 K/mm3 (1.3-6.7); Neutrophils Percent Auto 60.9 % (45.5-73.1); Nucleated Red Blood Cells Perc 0.8 % (0.0-0.2); Platelet Count Result 84 k/mm3 (150-375); Red Blood Count 2.62 M/mm3 (4.2-5.4); Red Cell Distribution Width 19.9 % (11.5-14.5); White Blood Count 5.2 K/mm3 (4.5-10.0)
[2024-04-12 06:52] LABS: Alanine Aminotransferase 70 U/L (6-35); Albumin Level 2.2 g/dL (3.5-5.1); Alkaline Phosphatase 101 U/L (38-126); Anion Gap 5 mmol/L (4-12); Aspartate Amino Transferase 140 U/L (14-36); Bilirubin,Total 1.5 mg/dL (0.2-1.3); Blood Urea Nitrogen 20 mg/dL (7-17); Calcium 6.9 mg/dL (8.4-10.2); Carbon Dioxide 26 mmol/L (22-30); Chloride 104 mmol/L (98-107); Estimated CRCL calculation 78 ml/min; Estimated Glomerular Filt Rate > 60; Glucose 97 mg/dL (65-110); Sodium 135 mmol/L (137-145)
[2024-04-12 07:25] LABS: Hypochromasia 1+; Platelet Estimate Decreased (Adequate)
[2024-04-12 07:26] LABS: Anisocytosis 1+; Burr Cells 1+; Macrocytosis 1+ (NORMAL); Schistocytes None Seen; Target Cells 1+
[2024-04-12 08:00] VITALS: BP 100/68; PULSE 59; RESP 18; TEMP 35.7; O2SAT 99
[2024-04-12] MEDS: OCTREOTIDE ACETATE 500 MCG in SODIUM CHLORIDE 0.9% IV 99 ML 10 MCG IV CONT (10:14)
[2024-04-12] MEDS: PANTOPRAZOLE SODIUM IV 40 MG VIAL IV PUSH (10:14)
[2024-04-12 10:15] VITALS: PULSE 59
[2024-04-12] MEDS: nadoloL 10 MG TABLET PO (10:15)
[2024-04-12 10:18] VITALS: PULSE 60
[2024-04-12] MEDS: buPROPion HCL XL (24 HR) 150 MG TABCR 300 MG PO (10:18)
[2024-04-12] MEDS: VENLAFAXINE HCL XR 75 MG CAP.ER.24H PO (10:21)
[2024-04-12 12:00] VITALS: BP 103/59; PULSE 63; RESP 16; TEMP 35.9; O2SAT 95
--- NOTE | 2024-04-12 13:21 | P.DS_ITS ---
DS: Admitting Diagnosis Discharge Date 04/12/24 Admitting Diagnosis GI Bleed DS: Discharge Diagnosis Discharge Diagnosis (1) Acute GI bleeding: Code(s): K92.2 - Gastrointestinal hemorrhage, unspecified Status: Acute Assessment and Plan: -GI consulted -Esophageal varices banding with GI 04/08/24 -Octreotide x3 days, on day 3 -Protonix 40 mg IV BID -avoid NSAIDs including Aleve -Clear liquid diet per GI. Advance per GI recommendations -EKG for QTC monitoring with improvement -Restart home metoclopramide PRN QID for Nausea -H&H stable 04/12/24: * OK to stop octreotide. * No further evidence of hematemesis or lower GI bleed. * Tolerating regular diet. * Continue Reglan. * Avoid any NSAIDs * H&H stable without further drop * GI OK for discharge. Will follow up as outpt. (2) Acute blood loss anemia: Code(s): D62 - Acute posthemorrhagic anemia Status: Acute Assessment and Plan: -1 unit of RBCs ordered on 04/09/2024 -Hold Eliquis -Transfuse for hemoglobin less than 7 or symptomatic -Continue to monitor H&H 04/12/24: * Stable for discharge. * No further decline in H&H and no further bleeding. (3) Anxiety: Code(s): F41.9 - Anxiety disorder, unspecified Status: Acute Assessment and Plan: Restart home medications 04/12/24: * Continue home meds (4) Hypertension: Qualifiers: Hypertension type: essential hypertension Qualified Code(s): I10 - Essential (primary) hypertension Code(s): I10 - Essential (primary) hypertension Status: Acute Assessment and Plan: Continue Metoprolol 12.5 mg BID 04/12/24: * Continue home meds (5) Leukocytosis: Code(s): D72.829 - Elevated white blood cell count, unspecified Status: Resolved Assessment and Plan: -UA with contamination -WBC back to normal. -resolved. (6) Alcohol use: Code(s): F10.90 - Alcohol use, unspecified, uncomplicated Status: Acute Assessment and Plan: -[facility] protocol -Ativan/Librium p.r.n. 04/12/24: * Pt counseled for cessation of alcohol use. DS: Summary Hospital Course Reason for hospitalization: GI Bleed Hospital Course: This 53 year old female pt with past medical history of anxiety, hypertension, GERD and fatty liver presented to the hospital on 04/08/24 with coffee-ground emesis and dark tarry stools s/p Esophageal banding. She had reported that she had taken Aleve for several days. She was admitted to the hospital for continued workup and treatment. She had a large emesis of approximately 400 mls after admission. GI was consulted and the ordered IV Octreotide, abx and protonix. The y suggested to continue all other acute treatments. GI followed while here and advised repeat EGD in 6 weeks. Her MELD score is 12. Pt has otherwise had an unremarkable hospital course and is tolerating oral intake and hydration and is stable for discharge to home today per GI. Status at Discharge Cognitive/behavioral status at discharge: At baseline Functional status at discharge: independent ambulation Overall status at discharge: patient is back to baseline Time Spent with Patient Time attestation: Total time spent providing and/or coordinating discharge services: Time spent: Greater than 30 minutes Specific discharge activities: Medications, follow up Exam Narrative: GENERAL: Comfortable, no acute distress HENMT: moist mucous membranes EYES: EOM intact b/l RESPIRATORY: clear to auscultation, no increased respiratory effort CARDIO: Regular rate and rhythm GI: soft, nontender, bowel sounds present SKIN/EXTREMITIES: no rashes, no edema, no redness or tenderness NEURO: PROM intact, answers questions appropriately, A&O x4 DS: Data Data Completed and Pending Completed studies during hospitalization: ITS Impressions Abdomen/Pelvis CTA 04/08/24 10:31 IMPRESSION: 1. Diffuse colonic wall thickening which appears to primarily to increased intramural fat likely related to body habitus. No foci of active contrast extravasation within the bowels. 2. Cirrhosis with small amount of secondary ascites. 3. Cholelithiasis without findings of acute cholecystitis. 4. Small sliding-type hiatal hernia. Labs on day of discharge: Labs from last 24 hours 04/12/24 05:34 WBC 5.2 RBC 2.62 L Hgb 8.4 L Hct 26.9 L MCV 102.7 H MCH 32.1 MCHC 31.2 L RDW 19.9 H Plt Count 84 L MPV 13.2 H Immature Gran % (Auto) 0.6 H Neut % (Auto) 60.9 Lymph % (Auto) 20.4 [place] % (Auto) 14.6 H Eos % (Auto) 3.1 Baso % (Auto) 0.4 Lymph # (Auto) 1.06 [place] # (Auto) 0.8 H Eos # (Auto) 0.2 Baso # (Auto) 0.0 Abs Immat Gran (auto) 0.03 Absolute Neuts (auto) 3.2 Absolute Nucleated RBC 0.040 H Nucleated RBC % 0.8 H Platelet Estimate Decreased Hypochromasia 1+ Anisocytosis 1+ Macrocytosis 1+ Target Cells 1+ [place] Cells 1+ Schistocytes None seen Sodium 135 L Potassium 4.0 Chloride 104 Carbon Dioxide 26 Anion Gap 5 BUN 20 H Creatinine 0.88 Estim Creat Clear Calc 78 Estimated GFR > 60 Glucose 97 Calcium 6.9 L Total Bilirubin 1.5 H AST 140 H ALT 70 H Alkaline Phosphatase 101 Total Protein 5.0 L Albumin 2.2 L Discharge Plan Discharge Attending physician on discharge: Candy Carrillo Consulting providers: Cyrus Jones Discharging Clinician: Candy Carrillo Anticipated Discharge Date/Time: 04/12/24 13:35 Patient Disposition: Home, Self-Care Activity: as tolerated Diet: bland Discharge Instructions: Follow up with PCP, and GI as ordered. Eat a bland diet and nothing hot, spicy, fried. In addition avoid ALL ALCOHOL, NSAIDS, or SMOKING. NSAIDS includes Motrin, Ibuprofen, Aleve, Naproxen, Naprosyn or Aspirin. If you have any new or worsening symptoms, please return to the ER. Patient Language: Iranian Stand Alone Forms: General Discharge Information Follow-up/Referrals: Lawrence,EDGAR Whatley [Primary Care Provider] - Call for Appointment Cyrus Jones MD [Physician] - Call for Appointment (Follow up in 2-4 weeks) Discharge Medications: New metoprolol tartrate 25 mg tablet 12.5 mg PO BID Qty: 15 0RF Continued alprazolam 0.5 mg tablet 0.5 mg PO BID PRN (Reason: anxiety) venlafaxine 75 mg capsule,extended release 24hr 75 mg PO BID quetiapine 25 mg tablet 25 mg PO HS metoclopramide HCl [Reglan] 5 mg tablet 5 mg PO Q6H PRN (Reason: nausea) losartan-hydrochlorothiazide 50-12.5 mg tablet 1 tablet PO DAILY omeprazole 20 mg capsule,delayed release(DR/EC) 20 mg PO DAILY sumatriptan succinate 100 mg tablet See Rx Instructions PO .COMPLEX Qty: 9 5RF Patient Comments: Pt not taking Rx Instructions: take 1 tab at onset of headache; if no relief, may repeat 1 tab after at least 2 hrs; max = 2 tabs/24 hrs PO albuterol sulfate 90 mcg/actuation HFA aerosol inhaler 1 inh inhalation Q4H PRN (Reason: shortness of breath or wheezing) Qty: 8.5 5RF bupropion HCl [Wellbutrin XL] 300 mg tablet extended release 24 hr 300 mg PO QAM Qty: 30 4RF Discontinued Eliquis 5 mg tablet 10 mg PO ONCE Qty: 1 0RF Rx Instructions: at 2:00 a.m. Date of admission: 04/08/24 11:51 Primary Care Provider: LawrenceChacorta Admitting Provider: Makenna Lopez Attending physician on admission: Candy Carrillo Condition: Stable Quality VTE Prophylaxis VTE prophylaxis: mechanical ordered Hospitalist MIPS Heart Failure (Exclusion) Patient has history of Heart Transplant or Left Ventricular Assistive Device?: No IF YES, STOP HERE Heart Failure (Qualifier) Patient has current or prior documentation of LVEF less than or equal to 40%, or mod/servere depressed LVSF?: No IF NO, STOP HERE
--- NOTE | 2024-04-12 13:22 | P.PNGI_ITS ---
Progress Note: A&P Assessment and Plan (1) Cirrhosis: Qualifiers: Hepatic cirrhosis type: unspecified hepatic cirrhosis Ascites presence: unspecified Qualified Code(s): K74.60 - Unspecified cirrhosis of liver Code(s): K74.60 - Unspecified cirrhosis of liver Status: Acute Assessment and Plan: work up in progress (HBV negative) MELD score 15 on admission ? MASH related no more gib and stable ok to go home and follow-up office 2-4 weeks (2) Esophageal varices with bleeding: Code(s): I85.01 - Esophageal varices with bleeding Status: Acute Assessment and Plan: treated with EGD with ligation of varices completed octreotide gtt and also abx started on non-selective b-francoise as prophylaxis egd in 6 weeks to reassess (3) Melena: Code(s): K92.1 - Melena Status: Acute Assessment and Plan: resolved (4) Hematemesis: Code(s): K92.0 - Hematemesis Status: Acute Assessment and Plan: no more bleeding diet as tolerated (5) Acute blood loss anemia: Code(s): D62 - Acute posthemorrhagic anemia Status: Acute Assessment and Plan: no more bleeding (6) Elevated liver enzymes: Code(s): R74.8 - Abnormal levels of other serum enzymes Status: Acute Assessment and Plan: from cirrhosis, w/u pending Subjective Date/time seen: 04/12/24 13:22 Interval history: doing well, some minimal discomfort in epigastric after egd but comfortable and tolerating diet Review of Systems Review of Systems: All systems reviewed & are unremarkable except as noted in HPI and below Exam Narrative: obese Const: General: no acute distress HENMT: Face/Nose/Sinus: Normal nares present Neck: Neck: supple Resp: Auscultation: clear to auscultation bilaterally Cardio: Rate: regular rate Rhythm: regular rhythm GI: Inspection: non-distended GI Palp: Yes Soft to palpation and No Tenderness to palpation present (GI) Auscultation: normal bowel sounds Skin: Wounds: no wounds Neuro: Speech: normal speech Motor exam (neuro): 5/5 motor strength present throughout Extrem: Other: trace leg edema Psych: Mental Status: mental status grossly normal Objective Data Vital Signs Vital Signs: Vital Signs - 24 hr 04/11/24 16:00 04/11/24 20:00 04/11/24 20:00 Temperature 97.4 F L 97.8 F Pulse Rate 64 64 Respiratory Rate 16 18 Blood Pressure 93/54 L 101/63 Pulse Oximetry 96 95 Oxygen Delivery Room Air 04/12/24 00:00 04/12/24 04:00 04/12/24 08:00 Temperature 98.7 F 98.7 F 96.3 F L Pulse Rate 63 61 59 L Respiratory Rate 18 18 18 Blood Pressure 110/62 116/78 100/68 Pulse Oximetry 94 100 99 Oxygen Delivery 04/12/24 10:15 04/12/24 10:18 04/12/24 12:00 Temperature 96.7 F L Pulse Rate 59 L 60 63 Respiratory Rate 16 Blood Pressure 103/59 L Pulse Oximetry 95 Oxygen Delivery Intake/Output Intake/Output: Intake & Output 04/09/24 04/10/24 04/11/24 04/12/24 23:59 23:59 23:59 23:59 Intake Total 3759.2 3572 1053.2 540 Output Total 400 Balance 3359.2 3572 1053.2 540 Meds/Results Medications: Active Medications Generic Name Dose Route Start Last Admin Trade Name Freq PRN Reason Stop Dose Admin Acetaminophen 650 mg 04/08/24 13:18 04/10/24 21:24 Acetaminophen 325 Mg Tablet PO 650 mg Q4H PRN Administration Mild Pain (1-3) or Fever Albuterol 1 puff 04/09/24 00:31 Albuterol Sulfate (*Sp) Aerosol 1 Puff INHALATION Q4H PRN shortness of breath or wheezing Alprazolam 0.5 mg 04/08/24 16:24 04/09/24 09:44 Alprazolam (*Crx) 0.5 Mg Tablet PO 0.5 mg BID PRN Administration anxiety Bupropion HCl 300 mg 04/09/24 09:00 04/12/24 10:18 Bupropion Hcl Xl (24 Hr) 150 Mg Tabcr PO 300 mg QAM RAJESH Administration Chlordiazepoxide HCl 25 mg 04/09/24 00:33 Chlordiazepoxide (*Crx) 25 Mg Capsule PO Q6H PRN Withdrawal Octreotide Acetate 500 mcg/ 100 mls @ 10 mls/hr 04/08/24 16:00 04/12/24 10:14 Sodium Chloride IV CONT 50 mcg/hr .Q10H RAJESH 10 mls/hr Administration 50 MCG/HR Ceftriaxone Sodium 1 gm in 50 mls @ 100 mls/hr 04/08/24 16:00 04/11/24 16:03 Rocephin 1 Gm/Ns 50 Ml IVPB Infused Q24H RAJESH Infusion Lorazepam 2 mg 04/09/24 00:33 Lorazepam Inj (*Crx) 2 Mg/Ml Vial IV PUSH Q4H PRN CIWA 8-15 Metoclopramide HCl 5 mg 04/09/24 18:17 Metoclopramide Hcl 5 Mg Tablet PO QID PRN nausea Metoprolol Tartrate 12.5 mg 04/10/24 21:00 04/12/24 10:18 Metoprolol Tartrate 12.5 Mg Tablet PO Not Given Q12HR RAJESH Nadolol 10 mg 04/12/24 09:00 04/12/24 10:15 Nadolol 10 Mg Tablet PO 10 mg QAM RAJESH Administration Ondansetron HCl 4 mg 04/08/24 11:51 04/10/24 21:28 Ondansetron Inj 4 Mg/2 Ml Vial IV PUSH 4 mg Q4H PRN Administration Nausea Pantoprazole Sodium 40 mg 04/08/24 17:00 04/12/24 10:14 Pantoprazole Sodium Iv 40 Mg Vial IV PUSH 40 mg BID RAJESH Administration Quetiapine Fumarate 25 mg 04/09/24 21:00 04/11/24 21:02 Quetiapine Fumarate 25 Mg Tablet PO 25 mg HS RAJESH Administration Scopolamine 1 patch 04/11/24 13:00 04/11/24 12:24 Scopolamine 1 Mg Patch TRANSDERM 1 patch Q72H RAJESH Administration Sumatriptan Succinate 25 mg 04/09/24 00:35 Sumatriptan Succinate 25 Mg Tablet PO PRN PRN Migraine Headache Venlafaxine HCl 75 mg 04/08/24 17:00 04/12/24 10:21 Venlafaxine Hcl Xr 75 Mg Cap.Er.24h PO 75 mg BID RAJESH Administration Radiology Results: ITS Impressions Abdomen/Pelvis CTA 04/08/24 10:31 IMPRESSION: 1. Diffuse colonic wall thickening which appears to primarily to increased intramural fat likely related to body habitus. No foci of active contrast extravasation within the bowels. 2. Cirrhosis with small amount of secondary ascites. 3. Cholelithiasis without findings of acute cholecystitis. 4. Small sliding-type hiatal hernia. Labs Labs: Laboratory Results - last 24 hr 04/12/24 05:34 WBC 5.2 RBC 2.62 L Hgb 8.4 L Hct 26.9 L MCV 102.7 H MCH 32.1 MCHC 31.2 L RDW 19.9 H Plt Count 84 L MPV 13.2 H Immature Gran % (Auto) 0.6 H Neut % (Auto) 60.9 Lymph % (Auto) 20.4 [place] % (Auto) 14.6 H Eos % (Auto) 3.1 Baso % (Auto) 0.4 Lymph # (Auto) 1.06 [place] # (Auto) 0.8 H Eos # (Auto) 0.2 Baso # (Auto) 0.0 Abs Immat Gran (auto) 0.03 Absolute Neuts (auto) 3.2 Absolute Nucleated RBC 0.040 H Nucleated RBC % 0.8 H Platelet Estimate Decreased Hypochromasia 1+ Anisocytosis 1+ Macrocytosis 1+ Target Cells 1+ [place] Cells 1+ Schistocytes None seen Sodium 135 L Potassium 4.0 Chloride 104 Carbon Dioxide 26 Anion Gap 5 BUN 20 H Creatinine 0.88 Estim Creat Clear Calc 78 Estimated GFR > 60 Glucose 97 Calcium 6.9 L Total Bilirubin 1.5 H AST 140 H ALT 70 H Alkaline Phosphatase 101 Total Protein 5.0 L Albumin 2.2 L
[2024-04-12 17:14] LABS: Hepatitis B DNA PCR NOT DETECTED (NOT DETECTED); Hepatitis B DNA PCR NOT DETECTED Log IU/mL (NOT DETECTED)
[2024-04-19 09:48] LABS: Mitochondrial (M2) Ab (IgG) <20.0 U
== END 2024-04-12 15:53 | disposition home or self-care (01) ==
LOC: ANHED 11:50 → ANH3MEDSUR 12:11
PROVIDERS: Internal Medicine Critical Care Medicine; Internal Medicine Gastroenterology; Nurse Practitioner; Nurse Practitioner Gerontology; Admitting Provider Internal Medicine; Emergency Provider Family Medicine; PCP Physician Assistant; Visit Provider Nurse Practitioner Adult Health
PROC: 0DJ08ZZ Inspection of Upper Intestinal Tract, Via Natural or Artificial Opening Endoscopic (ICD-10-PCS; principal; 2024-04-08 15:00)
DX: K74.60 Unspecified cirrhosis of liver (principal); I85.11 Secondary esophageal varices with bleeding; K76.0 Fatty (change of) liver, not elsewhere classified; K92.0 Hematemesis; K92.1 Melena; K29.70 Gastritis, unspecified, without bleeding; K21.9 Gastro-esophageal reflux disease without esophagitis; D62 Acute posthemorrhagic anemia; I10 Essential (primary) hypertension; M19.90 Unspecified osteoarthritis, unspecified site; F10.90 Alcohol use, unspecified, uncomplicated; F41.9 Anxiety disorder, unspecified; F32.A Depression, unspecified; Z87.891 Personal history of nicotine dependence; Z79.01 Long term (current) use of anticoagulants
CPT/HCPCS: 36415; 36430; 74174; 80048; 80053; 80074; 82104; 82390; 82728; 82948; 83520; 83540; 83550; 83735; 84484; 85014; 85018; 85025; 85027; 85055; 85610; 86364; 86850; 86900; 86901; 86923; 87517; 93005; 96361; 96374; 96375; 99285; A9270; J0330; J0696; J1100; J2003; J2354; J2405; J2470; J2704; J3475; J7030; J7120; P9016; Q9967

== ENCOUNTER 2024-05-20 02:35 | Day surgery (SDC) | payer OTHER, SELFPAY ==
[2024-05-19 15:16] VITALS: BMI 37.0
--- OUTSIDE RECORDS SUMMARY | 2024-05-20 02:43 | XMS_ITS | Clinical Summary ---
Author Organization [id number] Tensed Address [address] [place] [id number] Care Team Providers Care Solution Specialist Name Role Phone Leesa Vidales MD Unavailable [phone] Drew Mason MD Primary Care Provider Allergies Active Allergy Reactions Criticality Noted Date Comments Azithromycin Nausea & Vomiting Low 02/18/2018 Medications ALPRAZolam (XANAX) 0.25 mg tabletIndications:a nxiety Take 0.5 mg by mouth 3 (three) times a day. Active venlafaxine (EFFEXOR) 75 mg tabletIndications:G eneralized Anxiety Disorder Take 75 mg by mouth daily. Active carvedilol (COREG) 25 mg tablet Take 1 tablet (25 mg total) by mouth 2 (two) times a day with meals. 60 tablet 8 Active folic acid (FOLVITE) 1 mg tablet Take 1 tablet (1 mg total) by mouth daily. 30 tablet 8 Active NIFEdipine (PROCARDIA XL/ADALAT CC) 90 mg 24 hr tablet Take 1 tablet (90 mg total) by mouth daily. 30 tablet 8 Active ondansetron ODT (ZOFRAN-ODT) 4 mg disintegrating tablet Dissolve 1 tablet for mild to moderate nausea or vomiting or 2 tablets for severe nausea or vomiting oral twice a day as needed. 15 tablet 0 Active lisinopril-hydroCHL OROthiazide (ZESTORETIC) 20-12.5 mg per tabletIndications:h ypertension Take 1 tablet by mouth daily Pt takes half a tablet a day. Active potassium chloride ER (potassium chloride ER) 10 mEq CR tablet Take 10 mEq by mouth daily Active multivitamin tablet,chewable Take 1 tablet/chew tab by mouth daily Active pantoprazole DR (PROTONIX) 40 mg EC tablet Take 1 tablet (40 mg total) by mouth daily 30 tablet 11 0 Active ondansetron ODT (ZOFRAN-ODT) 4 mg disintegrating tablet Take 1 tablet (4 mg total) by mouth every 8 (eight) hours as needed for nausea or vomiting 20 tablet 3 Active ALPRAZolam (XANAX) 0.5 mg tablet Take 0.5 tablets (0.25 mg total) by mouth nightly as needed for anxiety 12 tablet 3 Active Active Problems Problem Noted Date Diagnosed Date Functional dyspepsia 10/11/2019 Intractable vomiting with nausea 10/08/2019 Assessment & Plan (10/08/2019 10:14 PM CDT): Exact etiology unclear. Patient has elevated LFTs that are slightly worse than prior. Patient has hepatic steatosis and also has a history of alcohol abuse. Will continue with supportive care. P.r.n. Zofran. IV fluids. Elevated LFTs 10/08/2019 Assessment & Plan (10/08/2019 10:14 PM CDT): Acute on chronic. Will check acute hepatitis panel. Patient has a history of alcohol abuse. Will continue to monitor. Avoid any hepatotoxins. Alcohol use 10/08/2019 Assessment & Plan (10/08/2019 10:15 PM CDT): Patient states she drinks 3 to 4 times a month 5-6 drinks each time. Patient has a history of alcohol withdrawals in 2018. Patient is on multivitamin which has been resumed. Will add folic acid and thiamine. Will monitor for alcohol withdrawals. Anxiety 10/08/2019 Assessment & Plan (10/08/2019 10:15 PM CDT): Continue Effexor and p.r.n. Xanax. Sepsis 02/19/2018 Assessment & Plan (02/19/2018 3:37 AM GUEST SERVICE MANAGER): Patient meets the criteria for sepsis with elevated lactic acid levels and source of infection. Started empirically on broad-spectrum of antibiotics with vanc Zosyn and Levaquin. Blood cultures are pending Urine cultures were obtained Will get ID consult given the history of MDR/ESBL Will obtain wound cultures as well. Acute cystitis with hematuria 02/19/2018 Assessment & Plan (02/19/2018 3:37 AM GUEST SERVICE MANAGER): Urinalysis is consistent with a UTI. Patient currently on broad-spectrum antibiotics Alcohol abuse 02/19/2018 Assessment & Plan (02/19/2018 3:40 AM GUEST SERVICE MANAGER): Patient reports chronic alcohol use at least 3-4 times a week. Reported last alcohol use about a week ago however blood alcohol levels are still elevated. Patient currently is having tremors with elevated blood pressure which is concerning for alcohol with oral. Will start on DT prophylaxis per Librium protocol. Seizure precautions Fall precautions Lactic acidosis 02/19/2018 Assessment & Plan (10/08/2019 10:12 PM CDT): Likely secondary to volume depletion from vomiting. Patient receiving IV fluids. Will continue to monitor. Assessment & Plan (02/19/2018 3:41 AM GUEST SERVICE MANAGER): Trend lactic acid and CBC. Colitis 02/19/2018 Assessment & Plan (02/19/2018 3:42 AM GUEST SERVICE MANAGER): CT of the abdomen was consistent with colitis. Patient is currently on broad-spectrum antibiotics with vanc, Zosyn and Levaquin. Consider adding Flagyl. Patient with history of of MDR/ESBL Will get ID consult Hepatic steatosis 02/19/2018 Assessment & Plan (10/08/2019 10:14 PM CDT): Noted on CT scan. Assessment & Plan (02/19/2018 3:42 AM GUEST SERVICE MANAGER): Hepatic steatosis noted on CT. Discussed and encouraged to stop drinking Ruptured left breast implant 02/19/2018 Assessment & Plan (02/19/2018 3:43 AM GUEST SERVICE MANAGER): Incidental finding on the CT. Patient will need a follow up outpatient with PCP Uterine fibroid 02/19/2018 Assessment & Plan (02/19/2018 3:44 AM GUEST SERVICE MANAGER): Incidental finding. Otherwise patient is asymptomatic. Alcohol withdrawal syndrome with complication Assessment & Plan (02/19/2018 3:45 AM GUEST SERVICE MANAGER): Patient currently is a tremors and elevated blood pressure. This is highly concerning for alcohol withdrawal. Start on Librium protocol Hydralazine and clonidine as needed for blood pressure control. Acute diffuse otitis externa of left ear 018 Assessment & Plan (02/19/2018 3:54 AM GUEST SERVICE MANAGER): Patient with a history of of MDR and ESBL. Currently presents with purulent otitis externa. Will obtain wound cultures. Patient was started on broad-spectrum antibiotics with vanc Zosyn and Levaquin. Septic workup is in progress. Will get ENT and ID consult Trend CBC, lactic acid and closely monitor kidney function with daily BMP. Replete electrolytes as needed Acute superficial gastritis without hemorrhage Surgical History Surgery Date Site/Laterality Comments TUBAL LIGATION 03/16/1999 - 03/15/2000 Medical History Medical History Date Comments Hypertension Social History Tobacco Use Types Packs/Day Years Used Date Smoking Tobacco: Never Smokeless Tobacco: Never Alcohol Use Standard Drinks/Week Comments Yes 6 (1 standard drink = 0.6 oz pur e alcohol) 2 x a month PHQ-2 Answer Date Recorded PHQ-2 Total Score (If total score is 3 or more points, staff should administer the PHQ-9) 0 10/08/2019 Personal Safety Answer Date Recorded Getting School Help Needed Not on file 09/29 Comments No Sex and Gender Information Value Date Recorded Sex Assigned at Not on file Legal Sex Female 2:28 AM GUEST SERVICE MANAGER Gender Identity Not on file Sexual Orientation Not on file Obstetrics History Last Filed Vital Signs Vital Sign Reading Time Taken Comments Blood Pressure 137/85 09/26/2022 6:13 PM CDT Pulse 88 09/26/2022 6:13 PM CDT Temperature 37 C (98.6 F) 09/26/2022 1:43 PM CDT Respiratory Rate 15 09/26/2022 6:13 PM CDT Oxygen Saturation 99% 09/26/2022 6:13 PM CDT Inhaled Oxygen Concentration - - Weight 93.9 kg (207 lb) 09/26/2022 1:43 PM CDT Height 165.1 cm (5' 5 ) 10/08/2019 3:24 PM CDT Body Mass Index 34.45 10/08/2019 3:24 PM CDT Plan of Treatment Health Maintenance Due Date Last Done Comments Breast Cancer Screening-Mammogram 1970 Colon Cancer Screening-Colonoscopy 1970 DTaP/Tdap/Td Vaccine (1 - Tdap) 1981 Hepatitis B Screening 1988 Regular Well Visit/Exam 18-64 1988 Pneumococcal vaccine <65 (1 of 2 - PCV) 1989 Depression Screening 10/07/2020 10/08/2019 Zoster Vaccine (1 of 2) 2020 Covid-19 Vaccine (2 - season) 2023 Influenza Vaccine (#1) 2023 Hepatitis C Screening Completed 10/11/2019, 020 Procedures Procedure Name Priority Date/Time Associated Diagnosis Comments HEPATITIS PANEL, ACUTE Routine 10/11/2019 5:12 AM CDT from Last 3 Months or Most Recently Relevant to Health Maintenance Results * Hepatitis panel, acute (10/11/2019 5:12 AM CDT) Hep A IgM Nonreactive Nonreactive [facility] ([facility]) Comment: Interpretive Data: If Hep A IgM Ab is reported as Equivocal, a new sample should be drawn in two weeks for testing. Current interpretive data was last revised on 19. Testing performed by: [facility], [address] [place] [address], [place]., [id number] Hep B core IgM Nonreactive Nonreactive [facility] ([place]) Comment: Interpretive Data If HepB Core IgM Ab is reported as Equivocal, a new sample should be drawn in two weeks for testing. Current interpretive data was last revised on 19. Testing performed by: [facility], [address] [place] [address], [place]., [id number] Hep C Ab Nonreactive Nonreactive [facility] ([facility]) Comment: Interpretive Data Nonreactive: Antibodies to HCV not detected. Does NOT exclude the possibility of recent exposure to HCV. Equivocal: Equivocal for HCV antibodies. Supplemental molecular testing will be automatically performed to determine infection status in accordance with current CDC screening recommendations. Reactive: Positive for HCV antibodies. This may represent current or past HCV infection. Supplemental molecular testing will be automatically performed to determine current infection status in accordance with current CDC screening recommendations. Interpretive data was last revised on 2019. Testing performed by: [facility], [address] [place] [address]., [id number] HepBsAg Nonreactive Nonreactive [facility] ([place]) Comment:Testing performed by : [facility], [address] [place] [address]., [id number] Blood specimen (specimen) 10/11/2019 5:12 AM CDT 10/11/2019 9:34 AM CDT Leesa Vidales MD LAB MICROBIOLOGY - GENERAL ORDERABLES Final Result [facility] ([place]) [facility] Department [place] [address] from Last 3 Months or Most Recently Relevant to Health Maintenance Additional Health Concerns Infection Onset Date Last Indicated MDR gram neg/ESBL Comment:02/26/15 Urine E. coli ESBL+ (MDRO) 02/27/2015 02/27/2015 Insurance Advance Directives For more information, please contact: [phone] * Full Code (Latest Code Status on File) Date Activated Date Inactivated Comments 10/11/2019 11:10 AM 10/11/2019 11:17 PM * Full Code Date Activated Date Inactivated Comments 10/11/2019 11:10 AM 10/11/2019 11:10 AM * Full Code Date Activated Date Inactivated Comments 10/08/2019 10:11 PM 10/11/2019 11:10 AM * Full Code Date Activated Date Inactivated Comments 10/08/2019 3:33 PM 10/08/2019 10:11 PM * Full Code Date Activated Date Inactivated Comments 02/18/2018 10:19 PM 02/25/2018 6:41 PM Care Teams Solution Specialist Relationship Specialty Start Date End Date Drew Mason MD [address] [place] [id number] PCP - General Family Medicine 03/04/24 Leesa Vidales MD Consulting Physician Gastroenterology 10/11/19
--- OUTSIDE RECORDS SUMMARY | 2024-05-20 02:43 | XMS_ITS | Clinical Summary ---
Author Organization [facility] Address [facility] [place] [address] Care Team Providers Care Roll Weigher Name Role Phone Allyson Amato MD Primary Care Provider [phone] Allergies Active Allergy Reactions Criticality Noted Date Comments Lisinopril Unknown 12/16/2022 Azithromycin Nausea Only 12/16/2022 Medications metoclopramide (REGLAN) 5 MG tablet Take 1 tablet (5 mg total) by mouth 4 (four) times daily. Active zolpidem (AMBIEN) 5 MG tablet Take 1 tablet (5 mg total) by mouth nightly as needed for Sleep. Active ALPRAZolam (XANAX) 0.5 MG tablet Take 1 tablet (0.5 mg total) by mouth 3 (three) times daily as needed for Sleep. Active buPROPion XL (WELLBUTRIN XL) 300 MG 24 hr tablet Take 1 tablet (300 mg total) by mouth daily. Active venlafaxine XR (EFFEXOR-XR) 75 MG 24 hr capsule Take 1 capsule (75 mg total) by mouth daily. Active losartan-hydroC HLOROthiazide (HYZAAR) 50-12.5 MG tablet Take 1 tablet by mouth daily. Active fluticasone-jose meterol (ADVAIR HFA) 115-21 MCG/ACT inhaler Inhale 2 puffs into the lungs 2 (two) times daily. Active esomeprazole (NEXIUM) 20 MG capsule Take 1 capsule (20 mg total) by mouth every morning before breakfast. Active Active Problems Problem Noted Date Diagnosed Date Cholecystitis 12/16/2022 Abdominal pain 12/16/2022 Family History Medical History Relation Comments Hypertension Father Hypertension Mother Relation Status Comments Father Mother Social History Tobacco Use Types Packs/Day Years Used Date Smoking Tobacco: Never Passive Smoke Exposure: Never Smokeless Tobacco: Never Alcohol Use Standard Drinks/Week Comments Not Currently 0 (1 standard drink = 0.6 oz pur e alcohol) occasionally drinks Humiliation, Afraid, Rape, and Kick questionnair e Answer Date Recorded Within the last year, have y ou been afraid of your partner or ex-partner? No 12/19/2022 Within the last year, have y ou been humiliated or emotionally abused in other ways by your partner or ex-partner? No Within the last year, have y ou been kicked, hit, slapped, or otherwise physically hurt by your partner or ex-partner? No 12/19/2022 Within the last year, have y ou been raped or forced to have any kind of sexual activity by your partner or ex-partner? No 12/19/2022 Overall Financial Resource Strain (CARDIA) Answe r Date Recorded How hard is it for you to pa y for the very basics like food, housing, medical care, and heating? Very hard 12/19/2022 Hunger Vital Sign Answer Date Recorded Within the past 12 months, y ou worried that your food would run out before you got the money to buy more. Often true 12/20/19 23 Within the past 12 months, t he food you bought just didn't last and you didn't have money to get more. Often true 12/19/2022 PRAPARE - Transportation Answer Date Re corded In the past 12 months, has l ack of transportation kept you from medical appointments or from getting medications? Yes 08/2022 In the past 12 months, has l ack of transportation kept you from meetings, work, or from getting things needed for daily living? Yes 12/19/2022 Housing Stability Vital Sign Answer Michael e Recorded In the last 12 months, was t here a time when you were not able to pay the mortgage or rent on time? Yes 12/19/2022 In the last 12 months, how many places have you lived? 1 12/19/2022 In the last 12 months, was t here a time when you did not have a steady place to sleep or slept in a custodial (including now)? No 12/19/2022 Education Answer Date Recorded What is the highest level of school you have completed or the highest degree you have received? 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 Not on file Not on file Last Filed Vital Signs Vital Sign Reading Time Taken Comments Blood Pressure 119/58 12/20/2022 7:41 AM CDT Pulse 71 12/20/2022 7:41 AM CDT Temperature 36.8 C (98.2 F) 12/20/2022 7:41 AM CDT Respiratory Rate 18 12/20/2022 7:41 AM CDT Oxygen Saturation 99% 12/20/2022 7:41 AM CDT Inhaled Oxygen Concentration - - Weight 100.2 kg (221 lb) 12/16/2022 5:42 PM CDT Height 167.6 cm (5' 6 ) 12/16/2022 5:42 PM CDT Body Mass Index 35.67 12/16/2022 5:42 PM CDT Plan of Treatment Health Maintenance Due Date Last Done Comments Cervical Cancer Screening Pa p Smear (Age 30 to 64) Every 3 Years 1970 Colorectal Cancer Screening Colonoscopy (10 Years) 1970 Annual Physical 1973 Hepatitis C 1988 DTaP, Tdap and Td Vaccines ( 1 - Tdap) 1989 Hepatitis B Vaccines (1 of 3 - 19+ 3-dose series) 1989 Cervical Cancer Screening Pa p with HPV Testing (Age 30 to 64) Every 5 Years 2000 Cervical Cancer Screening with HPV 2000 Mammogram Screening 2010 Zoster Vaccines (1 of 2) 2020 COVID-19 Vaccine (2 - 2023-2 5 season) 2023 01/28/2021 Influenza Adult (#1) 2023 Meningococcal B Vaccine Aged Out No l onger eligible based on patient's age to complete this topic Meningococcal Vaccine Aged Out No rogerio anni eligible based on patient's age to complete this topic Pneumococcal Vaccine: Pediat rics (0 to 5 Years) and At-Risk Patients (6 to 64 Years) Aged Out No longer eligi ble based on patient's age to complete this topic RSV Immunizations Under 20 Months Aged Out No longer eligible based on patient's age to complete this topic Goals Goal Patient Goal Type Associated Problems Recent Progress Patient-Stated? Author Patient will return to prior living situation and remain independent in ADLs upon discharge from hospital Lifestyle Pat San, RN Insurance [facility] Advance Directives * Full Code (Latest Code Status on File) Date Activated Date Inactivated Comments 12/16/2022 5:30 PM 12/20/2022 6:30 PM Care Teams Roll Weigher Relationship Specialty Start Date End Date Allyson Amato MD [address] [place] [address] PCP - General FAMILY PRACTICE 12/16/22
--- OUTSIDE RECORDS SUMMARY | 2024-05-20 02:43 | XMS_ITS | Continuity of Care Document ---
Author Organization [facility] Address [address] [place] [address] [place] [address] Phone Care Team Providers Care Belt Molder Name Role Phone Harjit Houston MD Unavailable Unavailable Allergies, Adverse Reactions, Alerts Substance Reaction Status Criticality No Known Allergies Active No Inform ation Medications Medication Instructions Dosage Effective Dates (start - stop) Status Comments propranolol 40 mg tablet take 1 tablet by oral route 2 times every day 40 MG - Active Wellbutrin XL 300 mg 24 hr tablet, extended release take 1 tablet by oral route every morning 300 MG - Active Librax (with clidinium) 5 mg-2.5 mg capsule take 1 capsule by oral route 2 times every day before meals 1 capsule - Active avoid driving or operaet machines Procedures Procedure Date OFFICE/OUTPATIENT VISIT, EST OFFICE/OUTPATIENT VISIT, EST OFFICE/OUTPATIENT VISIT, EST OFFICE/OUTPATIENT VISIT, EST PREV VISIT, NEW, AGE 40-64 Advance Directives Directive Yes / No Effective Date File Name No Information Encounters Encounter Description Practice Location Reason(s) For Visit Diagnoses Date Provider Providers Copied on Encounter [facility], [address] [place], [address], [place] tel:[phone] [facility] No Information 5 Celso Lombardi. [address], [address] , [place]. tel:[phone] Referring Provider: Harjit Houston, [address], [place], [place], [address]. tel:[phone] OFFICE/OUTPA TIENT VISIT, [facility], [address], [place], [place], [address], [place] [phone] [facility] MCV (chief complaint) headache1 (chief complaint) RA (chief complaint) Rheumatoid arthritisChronic migraine without aura, not intractable, without status migrainosusAbnormal red-cell morphology 5 Celso Lombardi. [address], [place], [place], [address] , [place]. tel:[phone] Referring Provider: Payal Mireles [address], [place], [place], [address]. tel:[phone] OFFICE/OUTPA TIENT VISIT, [facility], [address], [place], [place], [address], [place] [phone] [facility] headache (chief complaint) anxiety (chief complaint) HeadacheDepressive disorder, not elsewhere classifiedBP - High blood pressure Sep- 5 Celso Lombardi. [address], [place], [place], [address] , [place]. [phone] Referring Provider: Payal Mireles [address], [place], [place], [address]. tel:[phone] OFFICE/OUTPA TIENT VISIT, [facility], [address], [place], [place], [address], [place] tel:[phone] [facility] headache (chief complaint) depression (chief complaint) IBS (chief complaint) HeadacheChronic depressionFatigueIr ritable bowel Oct- 5 Celso Lombardi. [address], [place], [place], [address] , [place]. tel:[phone] Referring Provider: Payal Mireles [address], [place], [place], [address]. tel:[phone] OFFICE/OUTPA TIENT VISIT, [facility], [address], [place], [place], [address], [place] tel:[phone] [facility] fatigue (chief complaint) headache (chief complaint) insomnia (chief complaint) depression (chief complaint) HeadacheFatigueChro petros depression 5 Celso Lombardi. [address], [place], [place], [address] , . tel:[phone] Referring Provider: Harjit Houston, [address], [place], [place], [address]. tel:[phone] PREV VISIT, NEW, AGE 40-64 [facility], [address], [place], [place], [address], [place] tel:[phone] [facility] PHysical (chief complaint) Routine medical exam 5 Celso Lombardi. [address], [place], [place], [address] , [place]. tel: [phone] Family History Family Member Type Diagnosis Age At Onset Father Problem (finding) Alive and well Mother Problem (finding) Hypertension Sister Problem (finding) Alive and well Payers Payer name Insurance type Covered democrat ID Authoriza tion(s) No Information Social History Type Description Quantity Date Captured Comments Alcohol Use Details Unknown Caffeine Use Details Unknown Tobacco Use Status No Information Smoking Status No Information Sex Female Chief Complaint And Reason For Visit No Information Plan Of Treatment Date Type Action Status Referral Ordered: Hematology (related to Rheumatoid arthritis) ordered Referral Ordered: Shama Rondon (related to Rheumatoid arthritis) ordered Referral Ordered: Referrals: Hematology. Evaluate and treat ordered Referral Referred To: Shama Rondon [address]
[facility] [address] [place], [phone] Ordered: Referrals: Shama Rondon. Evaluate and treat ordered Referral Ordered: MRI BRAIN W/O DYE ordered History Of Present Illness Encounter Date Complaint History Of Prese nt Illness MCV Pt has large MCV on recent lab. Pt has normal b12 and folate Pt is not anemic Pt only drinks alcohol socially headache1 Pt has chronic h eadache with photophobia and nausea. Pt has headache for 20 years. Pt has headache on average 10 times per month. Pt denies any head injury. Pt states that only imitrex helped. Pt could not tolerate topamax or amitriptyline. RA Pt has persistet nly elevated RA Pt has some vague hand and feet pain. Pt denies any injury. headache Pertinent negati ves include memory loss or vomiting. Additional information: Pt c/o throbbing headache with nauea and photophobia about 1-2 per week now for years. Pt states that wellbutrin made her to have less frequent headache but she still has headache. Imitrex does help. Pt dnenies any head injiury/ Pt failed topamax and amitriptyline, Pt denies any worsening headache. anxiety The patient pres ents with anxious/fearful thoughts but denies fatigue. The anxiety is associated with headache. The patient denies any nausea, vomiting and weight gain. Additional information: Pt has chronic anxiety and depression. Pt denies any suicdial thought. Pt states that wellbutrin higher dose if working very well to leve her mood. Pt feels happier and better mood. headache Additional infor mation: Pt unable to tolearte amitriptyline. Pt states that since she stated wellburin, her headache is much better. Pt denies any head injury. depression Additional infor mation: Pt has noticed much better in terms of her mood with wellbutrin, and her fatigue also improved with wellbutrin. Pt denies any suicidasl thought Pt feels emotional when wellbutrin wears off. IBS Associated sympt oms include anxiety and fatigue. Pertinent negatives include abdominal pain, fever and vomiting. Additional information: Pt has IBS and some nausea. Pt takes zofran and librex and doing ok. Pt has constipation. No diarrhea fatigue Additional infor mation: Pt feels very fatigue chronically. Pt feels like sleep all the time. Pt denies any sOB or chest pain. Pt feels exhausted all the time. headache Additional infor mation: Pt has chronic headache. Pt states that she could not tolerate topamax which made her feel like a zombie. Pt had stomach cramp with topmax. insomnia The patient pres ents for insomnia. Relevant history: a BMI of 26.61. The patient has the following risk factors for insomnia: use of alcohol. Additional information: [employer] works. pt denies any snoring or any trouble with breathing at night. Pt has on average 7 hours at night. depression The patient pres ents with fatigue but denies anxious/fearful thoughts. The depression is associated with headache. The patient denies any nausea, urinary frequency, vomiting and weight gain. Additional information: Pt feels depressed. Pt does not have any interestes for any activity. Pt feels agitated. Pt has no motivation. Pt has difficulty with focus. pt denies any suiciadl thought. PHysical PT needs annual physical. Pt has chornic migrane headache. Pt has headache frequently, worse around period. Pt has headache once per week. pt c/o throbbing and pressure headache. Pt has photophboia and nausea with headache. Pt takes imitrex PRN for headache. Pt has chronic IBS symptoms Pt has bloating, gas, constipation, nauea, No vomiting or diarrhea. Pt had colonoscopy about 5 years ago. pt had negative upper GI. Pt has insomnia and trazodone is not working Instructions Date Instruction Additional Infor mae No Information Assessments Type Assessment Date No Information
--- OUTSIDE RECORDS SUMMARY | 2024-05-20 02:43 | XMS_ITS | Data Portability ---
[facility] Address [address] [place] [address] Assessment No assessment recorded. Plan of Treatment Reminders Order Date Submit Date Provider Last Modified By Organization Details Last Modified Time Details Appointments None record ed. Lab None record ed. Referral None record ed. Procedures None record ed. Surgeries None record ed. Imaging None record ed. Medication Orders None record ed. Patient TargetsNo targets recorded. Patient Instructions Encounter Date Encounter Id Patient Instructions Last Modified By Organization Details Last Modified Time 11/19/2016 [id number] uterine fibroids : care instructions [email or web address] Not available 11/19/2016 16:15:04 Reason for Referral None Reported. Results Created Date Observation Date Name Description Value Unit Range Abnormal Flag Note LastModifiedBy Organization Detail LastModifiedTime 11/19/19 17 11/06/2016 , peldilip s, compl ete No observ ation record ed. [email or web address] Not Available 2016 09:43:52 11/19/19 17 11/06/2016 [place], peldilip s, compl ete No observ ation record ed. [email or web address] Not Available 2016 09:43:19 Result Notes None recorded. Procedures Surgical History Date Name Laterality Status Provider Name and Address Organization Details Recorded Time Tubal Ligation completed Kellen Ferguson MA [facility] 11/19/2016 15:16:03 delivery completed Kellen Ferguson MA [facility] 11/19/2016 15:16:27 Imaging Results Imaging Date Name Status LastModified by Organ [facility] Details LastModified Time 11/06/2016 US, pelvis, complete completed Information not available 11/20/2016 09:43:52 11/06/2016 US, pelvis, complete completed Information not available 11/20/2016 09:43:19 Procedure Notes None recorded. Medical Equipment None Reported. Allergies No known drug allergies Medications Name Sig Start Date Stop Date Status Note LastModified by Organization Details LastModified Time venlafaxine ER 75 mg capsule,extende d release 24 hr active Not Available Not Availa ble Not Available azithromycin 250 mg tablet active Not Available Not Availabl e Not Available sumatriptan 100 mg tablet active Not Available Not Available No t Available ondansetron HCl 4 mg tablet active Not Available Not Available Not Available topiramate 25 mg tablet active Not Available Not Available No t Available amitriptyline 10 mg tablet active Not Available Not Available Not Available Ventolin HFA 90 mcg/actuation aerosol inhaler active Not Available Not Availa ble Not Available bupropion HCl XL 300 mg 24 hr tablet, extended release active Not Available Not Available Not Available venlafaxine ER 75 mg tablet,extended release 24 hr active Not Available Not Availabl e Not Available Virtussin AC 10 mg-100 mg/5 mL oral liquid active Not Available Not Available Not Available TriNessa Lo 0.18 mg/0.215 mg/0.25 mg-25 mcg tablet active Not Available Not Available N ot Available Vitals Date Recorded Body height Body mass index (BMI) Body weight Systolic blood pressure Diastolic blood pressure Provider Name and Address Organization Details Last Updated DateTime 11/19/2016 165.1 cm 30.7 kg/m2 98866.43 g 142 mm[Hg] 98 mm[Hg] Kellen Ferguson MA [facility] 7 15:10:50 Social History Question Answer Notes LastModified by Organizat ion Details LastModified Time Tobacco Smoking Status Former Smoker Kellen Ferguson MA null, [facility] 11/19/2016 15:15:31 What Was The Date Of Your Most Recent Tobacco Screening? 11/19/2016 Information n ot available 10/07/2018 How Many Years Have You Smoked Tobacco? 15 mtitusma Information not available 11/19/2016 Sex: Unknown Functional Status None recorded. Mental Status None recorded. Family History Nothing Reported. Medical History Condition Response Headaches/Migraines Y Acid Reflux (GERD) Y GI Problems Y Gynecological History Statement/Question Response Abnormal Pap N Flow Heavy Sexually Active? Y Menses Monthly Y STIs/STDs N Duration of Flow (days) 4 Sexual Problems? Y Age at Menarche 14 Age at First Child 20 LMP Approximate Obstetrics History GPAL:G 2 P 2 0 0 2 Type Value Full Term 2 Living 2 Total 2 Past Encounters Encounter ID Performer Location Encounter Start Date Encounter Closed Date Diagnosis/Indication Diagnosis SNOMED-CT Code Diagnosis ICD10 Code Diagnosis Note [id number] MD K[facility] ([facility] [address]) 2 [facility] [address] [place] [address] 11/19/2016 14:53:57 11/19/2016 16:18:24 Uterine leiomyoma 66554002 D25.9 - Pt would like definitive treatment with a hysterecto my. Will schedule with another physician that can perform the surgery at another hospital other than [facility]. Health Concerns Section Related Observation LastModified by Organization Detai ls LastModified Time None Recorded Concern Status LastModified by Organization Details LastModified Time None Recorded Advance Directives Directive None Recorded Payers Encounter Date Sequence Insurance Name Policy Number Policy Bravo Covered Member ID Bravo Member ID Guarantor Name 11/19/2016 1 [facility] - DOS PRIOR TO 2020 (MEDICAID REPLACEMENT - HMO) Xin Teixeira [id number] Xin Teixeira Notes Date Note Type Note Provider Name and Address Organization Details Recorded Time 11/19/2016 text/html Patient presents to discuss pelvic sonogram results which showed multiple uterine leiomyoma with the largest measuring 2.1cm. She states she does have heavy menstrual bleeding that causes her to change pads 2-3 times a hour and states she feels very weak during this time. She admits to generalized SOB no chest pain or syncopal episodes. She desires definitive treatment with a hysterectomy. Benson Richmond MD Attn: Accounting,[address] [facility], [place], [address], [facility] 11/19/2016 15:33:32 OBGyn Episode No OBEpisode recorded.
--- OUTSIDE RECORDS SUMMARY | 2024-05-20 02:43 | XMS_ITS | Data Portability ---
Author Organization [facility], [facility] Address [address] [place] [address] [address] Assessment Encounter Date Assessment Date Assessment LastModified [...] to do the test 2018 [email or web address] [place] [address] Imaging - Creatinine Order, [address] [place], [address], 9 16:29:48 Referral None recorded. Procedures None recorded. Surgeries None recorded. Imaging MRI, pelvis, w/wo contrast - Patient has a history of fibroids. She is being referred for MRI of the pelvis to assess for the extent of Uterine fibroids and the presence of adenomyos is or endometri osis 2018 019 [email or web address] [address] [facility] Imaging Administrative Office, [facility] [address], [place], [address], 9 14:00:03 Medication Orders None recorded. Patient TargetsNo targets recorded. Patient InstructionsNo instructions recorded. Reason for Referral None Reported. Procedures Surgical History Date Name Laterality Status Provider Name and Address Organization Details Recorded Time 08/23/2017 [place] [address], [address], [facility] 11/09/2018 16:52:07 03/16/2007 [place] [address], [address], [facility] and 11/09/2018 16:52:07 03/16/1995 Other completed Kiya Mcfarland [place] [address] [place] [address], [phone], [facility] and 11/09/2018 16:52:07 03/16/1990 Other completed Kiya Mcfarland [place] [address] [place] [address], [phone], [facility] and 11/09/2018 16:52:07 Imaging Results [...] Not Available Not Availa ble Not Available Oxg-Jv-Mgmswbdw 0.18 mg/0.215 mg/0.25 mg-25 mcg tablet active Not Available Not Available Not Available Vitals None Recorded Social History Question Answer Notes LastModified by Organizat ion Details LastModified Time Tobacco Smoking Status Never Smoker Not Available [facility] 01/17/2020 03:44:16 What Is Your Level Of Alcohol Consumption? Occasional [id number] Information not available 01/17/2020 Which Illicit Or Recreational Drugs Have You Used? None [id number] Information not available 01/17/2020 What Is The Highest Grade Or Level Of School You Have Completed Or The Highest Degree You Have Received? GS54070-3 [id number] Information not available 01/17/2020 What Is Your Occupation? [id number] Information not available 01/17/2020 Live Alone Or With Others? With Others [email or web address] Information not available 11/09/2018 How Much Tobacco Do You Smoke? No [id number] Information not available 01/17/2020 Sex: Unknown Functional [...] MD [facility] [address] [facility],[address] [address] 11/09/2018 16:41:03 11/10/2018 16:10:17 Uterine leiomyoma 86042301 D25.9 Health Concerns Section Related Observation LastModified by Organization Detai ls LastModified Time None Recorded Concern Status LastModified by Organization Details LastModified Time None Recorded Advance Directives Directive None Recorded Payers Encounter Date Sequence Insurance Name Policy Number Policy Bravo Covered Member ID Bravo Member ID Guarantor Name 11/09/2018 1 [employer] Xin Teixeira [id number] Xin Teixeira Notes Date Note Type Note [...] ligation. Associated Symptoms:fatigue;[place] [address] [facility], [address] [address], [place], [address], [facility] 11/09/2018 18:18:30 OBGyn Episode No OBEpisode recorded.
--- OUTSIDE RECORDS SUMMARY | 2024-05-20 02:43 | XMS_ITS | Referral Summary ---
Author Organization [facility] [address] Address [address] [place] [address] Care Team Providers Care Wireless Field Technician Name Role Phone Leesa Vidales MD Unavailable [phone] Drew Mason MD Primary Care Provider Allergies [...] 02/19/2018 Assessment & Plan (02/19/2018 3:37 AM COOKING CASING AND DRYING SUPERVISOR): Patient meets the criteria for sepsis with elevated lactic acid levels and source of infection. Started empirically on broad-spectrum of antibiotics with vanc Zosyn and Levaquin. Blood cultures are pending Urine cultures were obtained Will get ID consult given the history of MDR/ESBL Will obtain wound cultures as well. Acute cystitis with hematuria 02/19/2018 Assessment & Plan (02/19/2018 3:37 AM COOKING CASING AND DRYING SUPERVISOR): Urinalysis is consistent with a UTI. Patient currently on broad-spectrum antibiotics Alcohol abuse 02/19/2018 Assessment & Plan (02/19/2018 3:40 AM COOKING CASING AND DRYING SUPERVISOR): Patient reports chronic alcohol use at least [...] monitor. Assessment & Plan (02/19/2018 3:41 AM COOKING CASING AND DRYING SUPERVISOR): Trend lactic acid and CBC. Colitis 02/19/2018 Assessment & Plan (02/19/2018 3:42 AM COOKING CASING AND DRYING SUPERVISOR): CT of the abdomen was consistent with colitis. Patient is currently on broad-spectrum antibiotics with vanc, Zosyn and Levaquin. Consider adding Flagyl. Patient with history of of MDR/ESBL Will get ID consult Hepatic steatosis 02/19/2018 Assessment & Plan (10/08/2019 10:14 PM CDT): Noted on CT scan. Assessment & Plan (02/19/2018 3:42 AM COOKING CASING AND DRYING SUPERVISOR): Hepatic steatosis noted on CT. Discussed and encouraged to stop drinking Ruptured left breast implant 02/19/2018 Assessment & Plan (02/19/2018 3:43 AM COOKING CASING AND DRYING SUPERVISOR): Incidental finding on the CT. Patient will need a follow up outpatient with PCP Uterine fibroid 02/19/2018 Assessment & Plan (02/19/2018 3:44 AM COOKING CASING AND DRYING SUPERVISOR): Incidental finding. Otherwise patient is asymptomatic. Alcohol withdrawal syndrome with complication Assessment & Plan (02/19/2018 3:45 AM COOKING CASING AND DRYING SUPERVISOR): Patient currently is a tremors and elevated blood pressure. This is highly concerning for alcohol withdrawal. Start on Librium protocol Hydralazine and clonidine as needed for blood pressure control. Acute diffuse otitis externa of left ear 018 Assessment & Plan (02/19/2018 3:54 AM COOKING CASING AND DRYING SUPERVISOR): Patient with a history of of MDR and ESBL. Currently presents with purulent otitis externa. Will obtain wound cultures. Patient was started on broad-spectrum antibiotics with vanc Zosyn and Levaquin. Septic workup is in progress. Will get ENT and ID consult Trend CBC, lactic acid and closely monitor kidney function with daily BMP. Replete electrolytes as needed Acute superficial gastritis without hemorrhage Social History Tobacco Use Types Packs/Day Years [...] on file Legal Sex Female 2:28 AM COOKING CASING AND DRYING SUPERVISOR Gender Identity Not on file Sexual Orientation Not on file Last Filed Vital Signs [...] 10/08/2019 3:24 PM CDT Plan of Treatment Not on file Procedures Procedure Name Priority Date/Time Associated Diagnosis [...] last revised on 19. Testing performed by: [address] [address] Hep B core IgM Nonreactive Nonreactive C [facility] (MIKE) Comment: Interpretive Data If HepB Core IgM Ab is reported as Equivocal, a new sample should be drawn in two weeks for testing. Current interpretive data was last revised on 19. Testing performed by: [address] [address] Hep C Ab Nonreactive Nonreactive [facility] ([place]) Comment: Interpretive Data Nonreactive: Antibodies to [...] last revised on 2019. Testing performed by: [address] [address] HepBsAg Nonreactive Nonreactive [facility] ([place]KE) Comment:Testing performed by : [address] [address] Blood specimen (specimen) 10/11/2019 5:12 AM CDT 10/11/2019 9:34 AM CDT Leesa Vidales MD LAB MICROBIOLOGY - GENERAL ORDERABLES Final Result [facility] ([place]) 1 [facility] Department [place] [address] from Last 3 Months or Most Recently Relevant to Health Maintenance Additional Health Concerns Infection Onset Date Last Indicated MDR gram neg/ESBL Comment:02/26/15 Urine E. coli ESBL+ (MDRO) 02/27/2015 02/27/2015 Insurance [facility] Advance Directives For more information, please contact: [phone] * Full Code (Latest Code Status on [...] 10:19 PM 02/25/2018 6:41 PM Care Teams Wireless Field Technician Relationship Specialty Start Date End Date Drew Mason MD [address] [place] [address] PCP - General Family Medicine 03/04/24 Leesa Vidales MD Consulting Physician Gastroenterology 10/11/19
[2024-05-20 08:31] VITALS: BP 111/76; PULSE 104; RESP 20; TEMP 36.8; O2SAT 97
[2024-05-20 08:33] VITALS: BMI 38.9
[2024-05-20] MEDS: LACTATED RINGERS 1,000 ML 150 ML IV CONT (08:39)
--- NOTE | 2024-05-20 08:47 | PM.HPGS ---
History of Present Illness History of Present Illness Consent: Risks, benefits, and alternatives have been discussed and questions answered. Patient agrees to proceed with procedure. 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 Review of Systems Review of Systems: All systems reviewed & are unremarkable except as noted in HPI and below PMFSH Past Medical History Medical History (Updated 05/20/24 @ 08:48 by Cyrus Jones MD) History of esophageal varices with bleeding Elevated liver enzymes Esophageal varices with bleeding Acute blood loss anemia Hematemesis Melena IPMN (intraductal papillary mucinous neoplasm) Fatty liver Concern for hepatic cirrhosis Hepatitis GERD (gastroesophageal reflux disease) Arthritis Insomnia Anxiety Depression Hypertension Surgical History Surgical History Hx of breast augmentation Hx of section x2 History of tubal ligation Family History Family History Father Hypertension Depression Mother Hypertension Son Depression Grandparent Alcoholism Cancer Grandparent Cancer Hypertension Social History Social History Social History: Pt smoked cigarettes socially for approx. 5 yrs. One pack would last her 2 weeks. Smoking status: Never smoker Second hand tobacco smoke exposure: No Smoking end date: 03/16/06 Alcohol intake: current Drinks per week: 2 Alcohol use details: seldom; socially Substance use: never Substance use type: does not use Spiritual care concerns: No Meds Home Medications and Allergies Home Medications ?Medication ?Instructions ?Recorded ?Confirmed ?Type sumatriptan succinate 100 mg tablet See Rx Instructions PO .COMPLEX #9 01/02/20 05/19/24 Rx tabs albuterol sulfate 90 mcg/actuation 1 inh inhalation Q4H PRN shortness 05/18/22 05/19/24 Rx aerosol inhaler of breath or wheezing #8.5 grams bupropion HCl 300 mg 24 hr tablet, 300 mg PO QAM #30 tabs 12/03/22 05/20/24 Rx extended release (Wellbutrin XL) alprazolam 0.5 mg tablet 0.5 mg PO BID PRN anxiety 07/27/23 05/19/24 History losartan 50 mg-hydrochlorothiazide 1 tablet PO DAILY 07/27/23 05/20/24 History 12.5 mg tablet metoclopramide HCl 5 mg tablet 5 mg PO Q6H PRN nausea 07/27/23 05/19/24 History (Reglan) quetiapine 25 mg tablet 25 mg PO HS 07/27/23 05/20/24 History venlafaxine 75 mg capsule,extended 75 mg PO BID 07/27/23 05/20/24 History release 24 hr omeprazole 20 mg capsule,delayed 20 mg PO DAILY 08/26/23 05/20/24 History release metoprolol tartrate 25 mg tablet 12.5 mg (1/2 x 25 mg) PO BID #15 04/12/24 05/20/24 Rx tabs Allergies Allergy/AdvReac Type Severity Reaction Status Date / Time lisinopril Allergy Intermediate Swelling Verified 05/20/24 08:30 of Lip/Tongue/Throat azithromycin AdvReac Unknown N/V Verified 05/20/24 08:30 Vital Signs Vital Signs - 24 hr 05/20/24 08:31 Temperature 98.2 F Pulse Rate 104 H Respiratory Rate 20 Blood Pressure 111/76 Pulse Oximetry 97 Oxygen Delivery Room Air Exam Const: General: comfortable and no acute distress HENMT: Face/Nose/Sinus: Normal nares present Eyes: General: appearance normal, both eyes and all related structures Neck: Neck: no JVD Resp: Auscultation: clear to auscultation bilaterally Cardio: Rate: regular rate Rhythm: regular rhythm GI: Inspection: non-distended GI Palp: Yes Soft to palpation Skin: General skin exam: normal color Neuro: Speech: normal speech Extrem: General: normal to inspection Psych: Mental Status: mental status grossly normal Assessment and Plan Assessment and plan (1) Cirrhosis: Qualifiers: Hepatic cirrhosis type: unspecified hepatic cirrhosis Ascites presence: unspecified Qualified Code(s): K74.60 - Unspecified cirrhosis of liver Code(s): K74.60 - Unspecified cirrhosis of liver Status: Acute Assessment and Plan: possible MASH related (2) History of esophageal varices with bleeding: Code(s): Z87.19 - Personal history of other diseases of the digestive system Status: Acute Assessment and Plan: will assess with egd again also will prescribe non-selective b-francoise
--- NOTE | 2024-05-20 08:48 | P.PNAN_ITS ---
Anes - Initial Pre Proc Eval Procedure: Operation Date: 05/20/24 09:30 Proposed Procedures p Esophagogastroduodenoscopy EGD - Cyrus Jones MD Date/Time: 05/20/24 08:48 Surgeon: Cyrus Jones MD Pre Op Diagnosis: Esophageal varices with bleeding, Gastritis Patient Data Age: 53 Gender: F Height: 1.6 m Weight: 99.9 kg Last Vital Signs Temp 98.2 F 05/20/24 08:31 Pulse 104 H 05/20/24 08:31 Resp 20 05/20/24 08:31 BP 111/76 05/20/24 08:31 Pulse Ox 97 05/20/24 08:31 O2 Del Method Room Air 05/20/24 08:31 Allergies Allergy/AdvReac Type Severity Reaction Status Date / Time lisinopril Allergy Intermediate Swelling Verified 05/20/24 08:30 of Lip/Tongue/Throat azithromycin AdvReac Unknown N/V Verified 05/20/24 08:30 Home Medications ?Medication ?Instructions ?Recorded ?Confirmed ?Type sumatriptan succinate 100 mg tablet See Rx Instructions PO .COMPLEX #9 01/02/20 05/19/24 Rx tabs albuterol sulfate 90 mcg/actuation 1 inh inhalation Q4H PRN shortness 05/18/22 05/19/24 Rx aerosol inhaler of breath or wheezing #8.5 grams bupropion HCl 300 mg 24 hr tablet, 300 mg PO QAM #30 tabs 12/03/22 05/20/24 Rx extended release (Wellbutrin XL) alprazolam 0.5 mg tablet 0.5 mg PO BID PRN anxiety 07/27/23 05/19/24 History losartan 50 mg-hydrochlorothiazide 1 tablet PO DAILY 07/27/23 05/20/24 History 12.5 mg tablet metoclopramide HCl 5 mg tablet 5 mg PO Q6H PRN nausea 07/27/23 05/19/24 History (Reglan) quetiapine 25 mg tablet 25 mg PO HS 07/27/23 05/20/24 History venlafaxine 75 mg capsule,extended 75 mg PO BID 07/27/23 05/20/24 History release 24 hr omeprazole 20 mg capsule,delayed 20 mg PO DAILY 08/26/23 05/20/24 History release metoprolol tartrate 25 mg tablet 12.5 mg (1/2 x 25 mg) PO BID #15 04/12/24 05/20/24 Rx tabs Patient hx anesthesia problems: none Family hx anesthesia problems: none Results Review: All pre-operative results and documents have been reviewed as part of the pre- operative evaluation. PMFSH Past Medical History Medical History Elevated liver enzymes Esophageal varices with bleeding Acute blood loss anemia Hematemesis Melena IPMN (intraductal papillary mucinous neoplasm) Fatty liver Concern for hepatic cirrhosis Hepatitis GERD (gastroesophageal reflux disease) Arthritis Insomnia Anxiety Depression Hypertension Surgical History Surgical History Hx of breast augmentation Hx of section x2 History of tubal ligation Family History Family History Father Hypertension Depression Mother Hypertension Son Depression Grandparent Alcoholism Cancer Grandparent Cancer Hypertension Social History Social History Social History: Pt smoked cigarettes socially for approx. 5 yrs. One pack would last her 2 weeks. Smoking status: Never smoker Second hand tobacco smoke exposure: No Smoking end date: 03/16/06 Alcohol intake: current Drinks per week: 2 Alcohol use details: seldom; socially Substance use: never Substance use type: does not use Spiritual care concerns: No Anes - Eval Final PreProcedure Day of Procedure 05/20/24 08:48 Patient weight: obese Lungs: normal air movement Airway: Mallampati scale and special considerations poor dentition Neurological: alert and oriented Last oral intake: >/= 8 hours ASA classification: III Emergent: no Anesthetic plan: proceed Anesthesia type and monitoring: general GIVS and standard monitoring Results Review: All pre-operative results and documents have been reviewed as part of the pre- operative evaluation. Hx Hep B, cirrhosis, ex smoker, HTN, w anemia. Informed Consent: The patient's anesthetic plan and its attendant risks and benefits were discussed with the patient/family/POA. Questions were solicited and answers provided to the satisfaction of the patient/family/POA.
[2024-05-20 09:03] VITALS: BP 116/72; PULSE 96; RESP 20; O2SAT 93
[2024-05-20 09:13] VITALS: BP 112/69; PULSE 82; RESP 14; O2SAT 98
[2024-05-20 09:23] VITALS: BP 128/83; PULSE 88; RESP 14; O2SAT 98
== END 2024-05-20 09:28 | disposition home or self-care (01) ==
PROVIDERS: PCP Physician Assistant; Referring Provider Internal Medicine Gastroenterology; Visit Provider Internal Medicine Gastroenterology
PROC: 0DJ08ZZ Inspection of Upper Intestinal Tract, Via Natural or Artificial Opening Endoscopic (ICD-10-PCS; CPT 43235; principal; 2024-05-20 09:30)
DX: I85.00 Esophageal varices without bleeding (principal); K31.84 Gastroparesis; K21.9 Gastro-esophageal reflux disease without esophagitis; K74.60 Unspecified cirrhosis of liver; I10 Essential (primary) hypertension; G47.00 Insomnia, unspecified; D62 Acute posthemorrhagic anemia; F41.9 Anxiety disorder, unspecified; F32.A Depression, unspecified; M19.90 Unspecified osteoarthritis, unspecified site; E66.9 Obesity, unspecified; Z68.39 Body mass index [BMI] 39.0-39.9, adult; Z79.51 Long term (current) use of inhaled steroids; Z98.890 Other specified postprocedural states; Z98.51 Tubal ligation status; Z87.891 Personal history of nicotine dependence; Z85.07 Personal history of malignant neoplasm of pancreas; Z87.19 Personal history of other diseases of the digestive system; Z80.9 Family history of malignant neoplasm, unspecified
CPT/HCPCS: 43235; J2704; J7120

== ENCOUNTER 2024-05-31 12:19 | Outpatient (CLI) | payer OTHER, SELFPAY ==
--- NOTE | ~2024-05-31 | US_ITS ---
US arterial ankle brachial ind INDICATION: Pins and needle sensation both legs TECHNIQUE: Segmental pressures and plethysmographic and Doppler waveforms of the brachial and lower e xtremity arteries were obtained. COMPARISON: None. FINDINGS: Right and left brachial artery pressures of 114 mm Hg and 1:15 mm Hg, respectively, are concordant (n ormal difference <= 30 mmHg). There are biphasic flow in both dorsalis pedis and posterior tibial art eries. The right ankle-brachial index (DILIA) is 1.15 (normal >= 0.9-1.0). The right great toe-brachial index (TBI) is 1.07 (normal >= 0.60). The left DILIA is 1.23. The left TBI is 1.07. IMPRESSION: 1. Normal ankle-brachial indices. Reviewed, dictated and finalized at location B.
--- OUTSIDE RECORDS SUMMARY | 2024-05-31 13:43 | XMS_ITS | Continuity of Care Document ---
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 [address] [address], [place], [address] , [place]. tel:[phone] Referring Provider: Harjit Houston, [address], [place], [place], [address]. tel:[phone] OFFICE/OUTPA TIENT VISIT, [facility], [address], [place], [place], [address], [place] [phone] [facility] MCV (chief complaint) headache1 (chief complaint) RA (chief complaint) Rheumatoid arthritisChronic migraine without aura, not intractable, without status migrainosusAbnormal red-cell morphology 5 Celso Lombardi. [address], [place], [place], [address] , [place]. [phone] Referring Provider: Payal Mireles [address], [place], [place], [address]. tel:[phone] OFFICE/OUTPA TIENT VISIT, [facility], [address], [place], [place], [address], [place] [phone] [facility] headache (chief complaint) anxiety (chief complaint) HeadacheDepressive disorder, not elsewhere classifiedBP - High blood pressure Sep- 5 Celso Lombardi. [address], [place], [place], [address] , [place]. [phone] Referring Provider: Payal Mireles [address], [place], [place], [address]. tel:[phone] OFFICE/OUTPA TIENT VISIT, [facility], [address], [place], [place], [address], [place] tel:[phone] [facility] headache (chief complaint) depression (chief complaint) IBS (chief complaint) HeadacheChronic depressionFatigueIr ritable bowel Oct- 5 Celso Lombardi. [address], [place], [place], [address] , [place]. tel:[phone] Referring Provider: Payal Mireles [address], [place], [place], [address]. tel:[phone] OFFICE/OUTPA TIENT VISIT, [facility], [address], [place], [place], [address], [place] tel:[phone] [facility] fatigue (chief complaint) headache (chief complaint) insomnia (chief complaint) depression (chief complaint) HeadacheFatigueChro petros depression 5 Celso Lmobardi. [address], [place], [place], [address] , . tel:[phone] Referring Provider: Harjit Houston [address], [place], [place], [address]. tel:[phone] PREV VISIT, NEW, AGE 40-64 [facility], [address], [place], [place], [address], [place] tel:[phone] [facility] PHysical (chief complaint) Routine medical exam 5 Celso Lombardi. [address], [place], [place], [address] , [place]. [phone] Family History Family Member Type Diagnosis Age At Onset Father Problem (finding) Alive and well Mother Problem (finding) Hypertension Sister Problem (finding) Alive and well Payers Payer name Insurance type Covered green party ID Authoriza tion(s) No Information Social History [...] treat ordered Referral Ref[facility]: [facility]ondon [address] [facility] [address] [place], [phone] Ordered: Referrals: Shama Rondon. Evaluate and treat ordered Referral Ordered: MRI BRAIN W/O DYE ordered History Of Present Illness Encounter Date Complaint History Of Prese nt Illness RA Pt has persistet nly elevated RA Pt has some vague hand and feet pain. Pt denies any injury. headache1 Pt has chronic h eadache with photophobia and nausea. Pt has headache for 20 years. Pt has headache on average 10 times per month. Pt denies any head injury. Pt states that only imitrex helped. Pt could not tolerate topamax or amitriptyline. MCV Pt has large MCV on recent lab. Pt has normal b12 and folate Pt is not anemic Pt only drinks alcohol socially anxiety The patient pres ents with anxious/fearful thoughts but denies fatigue. The anxiety is associated with headache. The patient denies any nausea, vomiting and weight gain. Additional information: Pt has chronic anxiety and depression. Pt denies any suicdial thought. Pt states that wellbutrin higher dose if working very well to leve her mood. Pt feels happier and better mood. headache Pertinent negati ves include memory loss or vomiting. Additional information: Pt c/o throbbing headache with nauea and photophobia about 1-2 per week now for years. Pt states that wellbutrin made her to have less frequent headache but she still has headache. Imitrex does help. Pt dnenies any head injiury/ Pt failed topamax and amitriptyline, Pt denies any worsening headache. IBS Associated sympt oms include anxiety and fatigue. Pertinent negatives include abdominal pain, fever and vomiting. Additional information: Pt has IBS and some nausea. Pt takes zofran and librex and doing ok. Pt has constipation. No diarrhea depression Additional infor mation: Pt has noticed much better in terms of her mood with wellbutrin, and her fatigue also improved with wellbutrin. Pt denies any suicidasl thought Pt feels emotional when wellbutrin wears off. headache Additional infor mation: Pt unable to tolearte amitriptyline. Pt states that since she stated wellburin, her headache is much better. Pt denies any head injury. depression The patient pres ents with fatigue but denies anxious/fearful thoughts. The depression is associated with headache. The patient denies any nausea, urinary frequency, vomiting and weight gain. Additional information: Pt feels depressed. Pt does not have any interestes for any activity. Pt feels agitated. Pt has no motivation. Pt has difficulty with focus. pt denies any suiciadl thought. insomnia The patient pres ents for insomnia. Relevant history: a BMI of 26.61. The patient has the following risk factors for insomnia: use of alcohol. 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 pt denies any snoring or any trouble with breathing at night. Pt has on average 7 hours at night. headache Additional infor mation: Pt has chronic headache. Pt states that she could not tolerate topamax which made her feel like a zombie. Pt had stomach cramp with topmax. fatigue Additional infor mation: Pt feels very fatigue chronically. Pt feels like sleep all the time. Pt denies any sOB or chest pain. Pt feels exhausted all the time. PHysical PT needs annual physical. Pt has [...] not working Instructions Date Instruction Additional Infor mation No Information Assessments Type Assessment Date No Information"
--- OUTSIDE RECORDS SUMMARY | 2024-05-31 13:43 | XMS_ITS | Clinical Summary ---
Author Organization [id number] [place] Address [address] [place] [id number] Care Team Providers Care Manager Equity Name Role Phone Leesa Vidales MD Unavailable [phone] Drew Mason MD Primary Care Provider Allergies [...] 02/19/2018 Assessment & Plan (02/19/2018 3:37 AM HEAD SHIPPER): Patient meets the criteria for sepsis with elevated lactic acid levels and source of infection. Started empirically on broad-spectrum of antibiotics with vanc Zosyn and Levaquin. Blood cultures are pending Urine cultures were obtained Will get ID consult given the history of MDR/ESBL Will obtain wound cultures as well. Acute cystitis with hematuria 02/19/2018 Assessment & Plan (02/19/2018 3:37 AM HEAD SHIPPER): Urinalysis is consistent with a UTI. Patient currently on broad-spectrum antibiotics Alcohol abuse 02/19/2018 Assessment & Plan (02/19/2018 3:40 AM HEAD SHIPPER): Patient reports chronic alcohol use at least [...] monitor. Assessment & Plan (02/19/2018 3:41 AM HEAD SHIPPER): Trend lactic acid and CBC. Colitis 02/19/2018 Assessment & Plan (02/19/2018 3:42 AM HEAD SHIPPER): CT of the abdomen was consistent with colitis. Patient is currently on broad-spectrum antibiotics with vanc, Zosyn and Levaquin. Consider adding Flagyl. Patient with history of of MDR/ESBL Will get ID consult Hepatic steatosis 02/19/2018 Assessment & Plan (10/08/2019 10:14 PM CDT): Noted on CT scan. Assessment & Plan (02/19/2018 3:42 AM HEAD SHIPPER): Hepatic steatosis noted on CT. Discussed and encouraged to stop drinking Ruptured left breast implant 02/19/2018 Assessment & Plan (02/19/2018 3:43 AM HEAD SHIPPER): Incidental finding on the CT. Patient will need a follow up outpatient with PCP Uterine fibroid 02/19/2018 Assessment & Plan (02/19/2018 3:44 AM HEAD SHIPPER): Incidental finding. Otherwise patient is asymptomatic. Alcohol withdrawal syndrome with complication Assessment & Plan (02/19/2018 3:45 AM HEAD SHIPPER): Patient currently is a tremors and elevated blood pressure. This is highly concerning for alcohol withdrawal. Start on Librium protocol Hydralazine and clonidine as needed for blood pressure control. Acute diffuse otitis externa of left ear 018 Assessment & Plan (02/19/2018 3:54 AM HEAD SHIPPER): Patient with a history of of MDR [...] on file Legal Sex Female 2:28 AM HEAD SHIPPER Gender Identity Not on file Sexual Orientation [...] last revised on 19. Testing performed by: [facility], [address] [place] [address], [place]., [address] Hep B core IgM Nonreactive Nonreactive Nga CRAIG ([place]) Comment: Interpretive Data If HepB Core IgM Ab is reported as Equivocal, a new sample should be drawn in two weeks for testing. Current interpretive data was last revised on 19. Testing performed by: [facility], [address] [place] [address], [place]., [address] Hep C Ab Nonreactive Nonreactive DEONTE CRAIG [...] last revised on 2019. Testing performed by: [facility], [address] [place] [address]., [address] HepBsAg Nonreactive Nonreactive [facility] ([place]) Comment:Testing performed by : [facility], [address] [place] [address]., [address] Blood specimen (specimen) 10/11/2019 5:12 AM CDT 10/11/2019 9:34 AM CDT Leesa Vidales MD LAB MICROBIOLOGY - GENERAL ORDERABLES Final Result DEONTE CRAIG ([place]) 1 [facility] Department [place] [address] from Last 3 Months or Most Recently Relevant to Health Maintenance Additional Health Concerns Infection Onset Date Last Indicated MDR gram neg/ESBL Comment:02/26/15 Urine E. coli ESBL+ (MDRO) 02/27/2015 02/27/2015 Insurance Advance Directives For more information, please contact: [phone] * Full Code (Latest Code Status on [...] 10:19 PM 02/25/2018 6:41 PM Care Teams Manager Equity Relationship Specialty Start Date End Date Drew Mason MD [address] [place] [address] PCP - General Family Medicine 03/04/24 Leesa Vidales MD Consulting Physician Gastroenterology 10/11/19
--- OUTSIDE RECORDS SUMMARY | 2024-05-31 13:43 | XMS_ITS | Clinical Summary ---
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 No 12/19/2022 Education Answer Date [...] 5:30 PM 12/20/2022 6:30 PM Care Teams Linoleum Tile Floor Layer Relationship Specialty Start Date End Date Allyson Amato MD [address] [place] [address] PCP - General FAMILY PRACTICE 12/16/22
--- OUTSIDE RECORDS SUMMARY | 2024-05-31 13:43 | XMS_ITS | Referral Summary ---
Author Organization [facility] [address] Address [address] [place] [id number] Care Team Providers Care Program Counselor Name Role Phone Leesa Vidales MD Unavailable [phone] Drew Mason MD Primary Care Provider Allergies [...] 02/19/2018 Assessment & Plan (02/19/2018 3:37 AM SHIPPING SUPPORT CLERK): Patient meets the criteria for sepsis with elevated lactic acid levels and source of infection. Started empirically on broad-spectrum of antibiotics with vanc Zosyn and Levaquin. Blood cultures are pending Urine cultures were obtained Will get ID consult given the history of MDR/ESBL Will obtain wound cultures as well. Acute cystitis with hematuria 02/19/2018 Assessment & Plan (02/19/2018 3:37 AM SHIPPING SUPPORT CLERK): Urinalysis is consistent with a UTI. Patient currently on broad-spectrum antibiotics Alcohol abuse 02/19/2018 Assessment & Plan (02/19/2018 3:40 AM SHIPPING SUPPORT CLERK): Patient reports chronic alcohol use at least [...] monitor. Assessment & Plan (02/19/2018 3:41 AM SHIPPING SUPPORT CLERK): Trend lactic acid and CBC. Colitis 02/19/2018 Assessment & Plan (02/19/2018 3:42 AM SHIPPING SUPPORT CLERK): CT of the abdomen was consistent with colitis. Patient is currently on broad-spectrum antibiotics with vanc, Zosyn and Levaquin. Consider adding Flagyl. Patient with history of of MDR/ESBL Will get ID consult Hepatic steatosis 02/19/2018 Assessment & Plan (10/08/2019 10:14 PM CDT): Noted on CT scan. Assessment & Plan (02/19/2018 3:42 AM SHIPPING SUPPORT CLERK): Hepatic steatosis noted on CT. Discussed and encouraged to stop drinking Ruptured left breast implant 02/19/2018 Assessment & Plan (02/19/2018 3:43 AM SHIPPING SUPPORT CLERK): Incidental finding on the CT. Patient will need a follow up outpatient with PCP Uterine fibroid 02/19/2018 Assessment & Plan (02/19/2018 3:44 AM SHIPPING SUPPORT CLERK): Incidental finding. Otherwise patient is asymptomatic. Alcohol withdrawal syndrome with complication Assessment & Plan (02/19/2018 3:45 AM SHIPPING SUPPORT CLERK): Patient currently is a tremors and elevated blood pressure. This is highly concerning for alcohol withdrawal. Start on Librium protocol Hydralazine and clonidine as needed for blood pressure control. Acute diffuse otitis externa of left ear 018 Assessment & Plan (02/19/2018 3:54 AM SHIPPING SUPPORT CLERK): Patient with a history of of MDR [...] on file Legal Sex Female 2:28 AM SHIPPING SUPPORT CLERK Gender Identity Not on file Sexual Orientation [...] last revised on 19. Testing performed by: [address] [address] Hep B core IgM Nonreactive Nonreactive C ERNER KIARA ([place]) Comment: Interpretive Data If HepB Core IgM Ab is reported as Equivocal, a new sample should be drawn in two weeks for testing. Current interpretive data was last revised on 19. Testing performed by: [address] [address] Hep C Ab Nonreactive Nonreactive [facility] [...] last revised on 2019. Testing performed by: [address] [address] HepBsAg Nonreactive Nonreactive [facility] ([place]) Comment:Testing performed by : [address] [address] Blood specimen (specimen) 10/11/2019 5:12 AM CDT 10/11/2019 9:34 AM CDT Leesa Vidales MD LAB MICROBIOLOGY - GENERAL ORDERABLES Final Result [facility] ([place]) 1 [facility] [place] [address] from Last 3 Months or Most Recently Relevant to Health Maintenance Additional Health Concerns Infection Onset Date Last Indicated MDR gram neg/ESBL Comment:02/26/15 Urine E. coli ESBL+ (MDRO) 02/27/2015 02/27/2015 Insurance [facility] Advance Directives For more information, please contact: [phone] * Full Code (Latest Code Status on [...] 10:19 PM 02/25/2018 6:41 PM Care Teams Program Counselor Relationship Specialty Start Date End Date Drew Mason MD [address] [place] [id number] PCP - General Family Medicine 03/04/24 Leesa Vidales MD Consulting Physician Gastroenterology 10/11/19
--- OUTSIDE RECORDS SUMMARY | 2024-05-31 13:43 | XMS_ITS | Data Portability ---
[facility] Address [address] [place] [address] Assessment No assessment recorded. Plan of Treatment [...] By Organization Details Last Modified Time 11/19/2016 [id number] uterine fibroids : care instructions bgarvinma Not [...] Time Tubal Ligation completed Kellen Ferguson MA [facility] 11/19/2016 15:16:03 delivery completed Kellen Ferguson MA [facility] 11/19/2016 15:16:27 Imaging Results Imaging Date Name Status LastModified by [facility] Details LastModified Time 11/06/2016 US, pelvis, complete [...] Updated DateTime 11/19/2016 165.1 cm 30.7 kg/m2 93092.43 g 142 mm[Hg] 98 mm[Hg] Kellen Ferguson MA [facility] 7 15:10:50 Social History Question Answer Notes LastModified by Organizat ion Details LastModified Time Tobacco Smoking Status Former Smoker Kellen Ferguson MA null, [facility] 11/19/2016 15:15:31 What Was The Date Of Your Most Recent Tobacco Screening? 11/19/2016 Information n ot available 10/07/2018 How Many Years Have You Smoked Tobacco? 15 mtitusma Information not available 11/19/2016 Sex: Unknown Functional Status None recorded. Mental Status None recorded. Family History Nothing Reported. Medical History Condition Response GI Problems Y Headaches/Migraines Y Acid Reflux (GERD) Y Gynecological History Statement/Question Response Abnormal Pap [...] SNOMED-CT Code Diagnosis ICD10 Code Diagnosis Note [id number] MD Kota Brice Womens (MAKENNA 122) 2 [facility] [address] [place] [address] 11/19/2016 14:53:57 11/19/2016 16:18:24 Uterine leiomyoma 43075123 D25.9 - Pt would like definitive treatment with a hysterecto my. Will schedule with another physician that can perform the surgery at another hospital other than [facility]. Health Concerns Section Related Observation LastModified by Organization Detai ls LastModified Time None Recorded Concern Status LastModified by Organization Details LastModified Time None Recorded Advance Directives Directive None Recorded Payers Encounter Date Sequence Insurance Name Policy Number Policy Bravo Covered Member ID Bravo Member ID Guarantor Name 11/19/2016 1 [facility] - DOS PRIOR TO 2020 (MEDICAID REPLACEMENT - HMO) Xin Teixeira [id number] Xin Teixeira Notes Date Note Type Note [...] hysterectomy. Benson Richmond MD Attn: Accounting,[address] [facility], [place], [address], [facility] 11/19/2016 15:33:32 OBGyn Episode No OBEpisode recorded.
== END 2024-05-31 12:20 | disposition home or self-care (01) ==
PROVIDERS: PCP Physician Assistant; Visit Provider Physician Assistant
DX: I73.9 Peripheral vascular disease, unspecified (principal)
CPT/HCPCS: 93922

== ENCOUNTER 2024-08-04 15:11 | Emergency (ER) | payer OTHER, SELFPAY ==
--- NOTE | ~2024-08-04 | XR_ITS ---
EXAMINATION: XR foot LT min 3V DATE: 08/04/2024 15:26 INDICATION: Left foot injury TECHNIQUE: Dorsoplantar, two oblique and lateral views of the left foot were obtained. COMPARISON: None. FINDINGS: Oblique extra-articular fracture at the proximal metadiaphyseal fracture of the left fourth proximal phalanx. There is 1.5 mm plantar/medial displacement and 15 degrees dorsal/lateral angulation. No oth er fractures identified. Joint spaces are normal. Soft tissue swelling about the forefoot. IMPRESSION: 1. Mildly displaced and angulated extra-articular fracture at the left fourth proximal phalanx. Reviewed, dictated and finalized at location A. IMPRESSION: 1. Mildly displaced and angulated extra-articular fracture at the left fourth p roximal phalanx.
[2024-08-04 15:13] VITALS: BP 185/105; PULSE 98; RESP 16; TEMP 37.2; O2SAT 99
--- NOTE | 2024-08-04 15:14 | ED.LOWEXIN ---
HPI - Extremity Injury (Lower) General Chief Complaint: Extremity Injury, Lower Stated Complaint: left foot injury Time Seen by Provider: 08/04/24 15:13 Source: patient and family Mode of arrival: ambulatory Limitations: no limitations History of Present Illness HPI Narrative: this is a 53-year-old female with history of neuropathy and depression stubbed her toe 2 nights ago and then from a injuring her left 3rd toe with some pain tenderness mild bruising has good range of motion in her foot and ankle but decreased range of motion in her 4th toe secondary to pain and swelling, no numbness or tingling. complaint: foot injury Onset (ago): day(s) Injury: Left: foot ( tender 3rd left toe) Type of Injury: blunt Place: home Severity: moderate Severity scale (1-10): 7 Relieving factors: nothing Exacerbating factors: weight bearing and movement Related Data Home Medications ?Medication ?Instructions ?Recorded ?Confirmed ?Last Taken ?Type alprazolam 0.5 mg tablet 0.5 mg PO BID PRN anxiety 07/27/23 05/19/24 Unknown History losartan 50 mg-hydrochlorothiazide 1 tablet PO DAILY 07/27/23 05/20/24 05/19/24 History 12.5 mg tablet metoclopramide HCl 5 mg tablet 5 mg PO Q6H PRN nausea 07/27/23 05/19/24 Unknown History (Reglan) quetiapine 25 mg tablet 25 mg PO HS 07/27/23 05/20/24 05/19/24 History venlafaxine 75 mg capsule,extended 75 mg PO BID 07/27/23 05/20/24 05/19/24 History release 24 hr omeprazole 20 mg capsule,delayed 20 mg PO DAILY 08/26/23 05/20/24 05/19/24 History release Allergies Allergy/AdvReac Type Severity Reaction Status Date / Time lisinopril Allergy Intermediate Swelling Verified 08/04/24 15:14 of Lip/Tongue/Throat azithromycin AdvReac Unknown N/V Verified 08/04/24 15:14 Review of Systems Review of Systems: All systems reviewed & are unremarkable except as noted in HPI and below PMFSH Past Medical History Medical History History of esophageal varices with bleeding Elevated liver enzymes Esophageal varices with bleeding Acute blood loss anemia Hematemesis Melena IPMN (intraductal papillary mucinous neoplasm) Fatty liver Concern for hepatic cirrhosis Hepatitis GERD (gastroesophageal reflux disease) Arthritis Insomnia Anxiety Depression Hypertension Surgical History Surgical History Hx of breast augmentation Hx of section x2 History of tubal ligation Family History Family History Father Hypertension Depression Mother Hypertension Son Depression Grandparent Alcoholism Cancer Grandparent Cancer Hypertension Social History Social History Social History: Pt smoked cigarettes socially for approx. 5 yrs. One pack would last her 2 weeks. Smoking status: Never smoker Second hand tobacco smoke exposure: No Smoking end date: 03/16/06 Alcohol intake: current Drinks per week: 2 Alcohol use details: seldom; socially Substance use: never Substance use type: does not use Spiritual care concerns: No Exam Const: General: healthy appearing, no acute distress and alert Nutritional Appearance: well nourished and obese Orientation/consciousness: patient oriented x3 Limitations: no limitations Neck: Neck: normal visual inspection and no lymphadenopathy Chest: Chest palpation & inspection: normal inspection of the chest Resp: Effort & Inspection: normal respiratory effort Cardio: Rate: regular rate Rhythm: regular rhythm GI: GI Palp: Yes Soft to palpation Auscultation: normal bowel sounds : General: Yes bladder normal to palpation Skin: General skin exam: normal color Rashes: no rashes Wounds: no wounds Neuro: General: patient oriented x3, moves all extremities, no meningeal signs and no focal motor deficits Extrem: Other: Tenderness left 3rd toe with movement and palpation Course Course Emergency Course: x-ray performed and reviewed with patient and family has a mildly displaced 4th left toe, patient received 60mg IM Toradol and pain level has improved after injection. Vital Signs Vital signs: Vital Signs Temperature 37.2 C 08/04/24 15:13 Pulse Rate 98 08/04/24 15:13 Respiratory Rate 16 08/04/24 15:13 Blood Pressure 185/105 H 08/04/24 15:13 Pulse Oximetry 99 08/04/24 15:13 Oxygen Delivery Room Air 08/04/24 15:13 Temperature 37.2 C 08/04/24 15:13 Pulse Rate 98 08/04/24 15:13 Respiratory Rate 16 08/04/24 15:13 Blood Pressure 185/105 H 08/04/24 15:13 Pulse Oximetry 99 08/04/24 15:13 Oxygen Delivery Room Air 08/04/24 15:13 Discharge Plan Discharge Clinical Impression: Fracture, toe Qualifiers: Encounter type: initial encounter Toe: lesser toe Fracture type: closed Phalanx: distal Fracture alignment: displaced Laterality: left Qualified Code(s): S92.532A - Displaced fracture of distal phalanx of left lesser toe(s), initial encounter for closed fracture Patient Disposition: Home Condition: Stable Instructions: Antibiotic Form Patient Language: Upper Sorbian Prescriptions: New tramadol 50 mg tablet 50 mg PO Q6H PRN (Reason: pain) Qty: 20 0RF oxycodone-acetaminophen [Percocet] 5-325 mg tablet 1 tablet PO Q6H PRN (Reason: pain) Qty: 14 0RF No Action alprazolam 0.5 mg tablet 0.5 mg PO BID PRN (Reason: anxiety) venlafaxine 75 mg capsule,extended release 24hr 75 mg PO BID quetiapine 25 mg tablet 25 mg PO HS metoclopramide HCl [Reglan] 5 mg tablet 5 mg PO Q6H PRN (Reason: nausea) losartan-hydrochlorothiazide 50-12.5 mg tablet 1 tablet PO DAILY Patient Comments: not taking omeprazole 20 mg capsule,delayed release(DR/EC) 20 mg PO DAILY sumatriptan succinate 100 mg tablet See Rx Instructions PO .COMPLEX Qty: 9 5RF Patient Comments: Pt not taking Rx Instructions: take 1 tab at onset of headache; if no relief, may repeat 1 tab after at least 2 hrs; max = 2 tabs/24 hrs PO albuterol sulfate 90 mcg/actuation HFA aerosol inhaler 1 inh inhalation Q4H PRN (Reason: shortness of breath or wheezing) Qty: 8.5 5RF bupropion HCl [Wellbutrin XL] 300 mg tablet extended release 24 hr 300 mg PO QAM Qty: 30 4RF nadolol 20 mg tablet 20 mg PO ONCE Qty: 30 5RF Follow-up/Referrals: Lawrence,EDGAR Whatley [Primary Care Provider] - Time of Disposition: 15:54
--- OUTSIDE RECORDS SUMMARY | 2024-08-04 15:14 | XMS_ITS | Clinical Summary ---
Author Organization [place] [id number] [place] Address [address] [place] [address] Care Team Providers Care Shipyard Painter Apprentice Name Role Phone Leesa Vidales MD Unavailable [phone] Drew Mason MD Primary Care Provider Allergies [...] 02/19/2018 Assessment & Plan (02/19/2018 3:37 AM NYLON MENDER): Patient meets the criteria for sepsis with elevated lactic acid levels and source of infection. Started empirically on broad-spectrum of antibiotics with vanc Zosyn and Levaquin. Blood cultures are pending Urine cultures were obtained Will get ID consult given the history of MDR/ESBL Will obtain wound cultures as well. Acute cystitis with hematuria 02/19/2018 Assessment & Plan (02/19/2018 3:37 AM NYLON MENDER): Urinalysis is consistent with a UTI. Patient currently on broad-spectrum antibiotics Alcohol abuse 02/19/2018 Assessment & Plan (02/19/2018 3:40 AM NYLON MENDER): Patient reports chronic alcohol use at least [...] monitor. Assessment & Plan (02/19/2018 3:41 AM NYLON MENDER): Trend lactic acid and CBC. Colitis 02/19/2018 Assessment & Plan (02/19/2018 3:42 AM NYLON MENDER): CT of the abdomen was consistent with colitis. Patient is currently on broad-spectrum antibiotics with vanc, Zosyn and Levaquin. Consider adding Flagyl. Patient with history of of MDR/ESBL Will get ID consult Hepatic steatosis 02/19/2018 Assessment & Plan (10/08/2019 10:14 PM CDT): Noted on CT scan. Assessment & Plan (02/19/2018 3:42 AM NYLON MENDER): Hepatic steatosis noted on CT. Discussed and encouraged to stop drinking Ruptured left breast implant 02/19/2018 Assessment & Plan (02/19/2018 3:43 AM NYLON MENDER): Incidental finding on the CT. Patient will need a follow up outpatient with PCP Uterine fibroid 02/19/2018 Assessment & Plan (02/19/2018 3:44 AM NYLON MENDER): Incidental finding. Otherwise patient is asymptomatic. Alcohol withdrawal syndrome with complication Assessment & Plan (02/19/2018 3:45 AM NYLON MENDER): Patient currently is a tremors and elevated blood pressure. This is highly concerning for alcohol withdrawal. Start on Librium protocol Hydralazine and clonidine as needed for blood pressure control. Acute diffuse otitis externa of left ear 018 Assessment & Plan (02/19/2018 3:54 AM NYLON MENDER): Patient with a history of of MDR [...] on file Legal Sex Female 2:28 AM NYLON MENDER Gender Identity Not on file Sexual Orientation [...] last revised on 19. Testing performed by: [facility], [address] [place] [address], [place]., [address] Hep B core IgM Nonreactive Nonreactive Nga CRAIG (MIKE) Comment: Interpretive Data If HepB Core IgM Ab is reported as Equivocal, a new sample should be drawn in two weeks for testing. Current interpretive data was last revised on 19. Testing performed by: [facility], [address] [place] [address], [place]., [address] Hep C Ab Nonreactive Nonreactive DEONTE CRAIG [...] last revised on 2019. Testing performed by: [facility], [address] [place] [address]., [address] HepBsAg Nonreactive Nonreactive [facility] ([facility] Comment:Testing performed by : [facility], [address] [place] [address]., [address] Blood specimen (specimen) 10/11/2019 5:12 AM CDT 10/11/2019 9:34 AM CDT Leesa Vidales MD LAB MICROBIOLOGY - GENERAL ORDERABLES Final Result DEONTE CRAIG (MIKE) 1 [facility] Department [place] [address] from Last 3 Months or Most Recently Relevant to Health Maintenance Additional Health Concerns Infection Onset Date Last Indicated MDR gram neg/ESBL Comment:02/26/15 Urine E. coli ESBL+ (MDRO) 02/27/2015 02/27/2015 Insurance Advance Directives For more information, please contact: [phone] * Full Code (Latest Code Status on [...] 10:19 PM 02/25/2018 6:41 PM Care Teams Shipyard Painter Apprentice Relationship Specialty Start Date End Date Drew Mason MD [address] [place] [address] PCP - General Family Medicine 03/04/24 Leesa Vidales MD Consulting Physician Gastroenterology 10/11/19
--- OUTSIDE RECORDS SUMMARY | 2024-08-04 15:14 | XMS_ITS | Continuity of Care Document ---
Author Organization [facility] Address [address] [place] [address] [place] [address] Phone Care Team Providers Care Wheat Buyer Name Role Phone Harjit Houston MD Unavailable [...] Diagnoses Date Provider Providers Copied on Encounter [facility], [address] [place], [place], [id number], [place] tel:[phone] [facility] No Information 5 Celso Lombardi. [address] [place], [place], [address] , [place]. tel:[phone] Referring Provider: Harjit Houston, [address], [place], [place], [id number]. tel:[phone] OFFICE/OUTPA TIENT VISIT, [facility], [address], [place], [place], [address], [place] [phone] [facility] MCV (chief complaint) headache1 (chief complaint) RA (chief complaint) Rheumatoid arthritisChronic migraine without aura, not intractable, without status migrainosusAbnormal red-cell morphology 5 Celso Lombardi. [address], [place], [place], [address] , [place]. [phone] Referring Provider: Payal Mireles [address], [place], [place], [address]. tel:[phone] OFFICE/OUTPA TIENT VISIT, [facility], [address], [place], [place], [address], [place] [phone] [facility] headache (chief complaint) anxiety (chief complaint) HeadacheDepressive disorder, not elsewhere classifiedBP - High blood pressure Sep- 5 Celso Lombardi. [address], [place], [place], [address] , [place]. [phone] Referring Provider: Payal Mireles [address], [place], [place], [address]. tel:[phone] OFFICE/OUTPA TIENT VISIT, [facility], [address], [place], [place], [address], [place] tel:[phone] [facility] headache (chief complaint) depression (chief complaint) IBS (chief complaint) HeadacheChronic depressionFatigueIr ritable bowel Oct- 5 Celso Lombardi. [address], [place], [place], [address] , [place]. tel:[phone] Referring Provider: Payal Mireles [address], [place], [place], [address]. tel:[phone] OFFICE/OUTPA TIENT VISIT, [facility], [address], [place], [place], [address], [place] tel:[phone] [facility] fatigue (chief complaint) headache (chief complaint) insomnia (chief complaint) depression (chief complaint) HeadacheFatigueChro petros depression 5 Celso Lombardi. [address], [place], [place], [address] , . tel:[phone] Referring Provider: Harjit Houston, [address], [place], [place], [address]. tel:[phone] PREV VISIT, NEW, AGE 40-64 [facility], [address], [place], [place], [address], [place] tel:[phone] [facility] PHysical (chief complaint) Routine medical exam 5 Celso Lombardi. [address], [place], [place], [address] , [place]. [phone] Family History Family Member Type Diagnosis Age At Onset Father Problem (finding) Alive and well Mother Problem (finding) Hypertension Sister Problem (finding) Alive and well Payers Payer name Insurance type Covered republican ID Authoriza tion(s) No Information Social History [...] treat ordered Referral Referred To: Shama Rondon [address]
[facility] [address] [place], [phone] Ordered: Referrals: Shama Rondon. Evaluate and treat [...] for insomnia: use of alcohol. Additional information: [employer] works. pt denies any snoring or any [...]
--- OUTSIDE RECORDS SUMMARY | 2024-08-04 15:14 | XMS_ITS | Data Portability ---
[facility] Address [address] [place] [address] Assessment No assessment recorded. Plan of Treatment [...] By Organization Details Last Modified Time 11/19/2016 [id number] uterine fibroids : care instructions bgarvinma Not [...] Time Tubal Ligation completed Kellen Ferguson MA [facility] 11/19/2016 15:16:03 delivery completed Kellen Ferguson MA [facility] 11/19/2016 15:16:27 Imaging Results Imaging Date Name [...] Updated DateTime 11/19/2016 165.1 cm 30.7 kg/m2 28301.43 g 142 mm[Hg] 98 mm[Hg] Kellen Ferguson MA [facility] 7 15:10:50 Social History Question Answer Notes LastModified by Organizat ion Details LastModified Time Tobacco Smoking Status Former Smoker Kellen Ferguson MA null, [facility] 11/19/2016 15:15:31 What Was The Date Of Your Most Recent Tobacco Screening? 11/19/2016 Information n ot available 10/07/2018 How Many Years Have You Smoked Tobacco? 15 mtitusma Information not available 11/19/2016 Sex: Unknown Functional Status None recorded. Mental Status None recorded. Family History Nothing Reported. Medical History Condition Response Acid Reflux (GERD) Y Headaches/Migraines Y GI Problems Y Gynecological History Statement/Question [...] SNOMED-CT Code Diagnosis ICD10 Code Diagnosis Note [id number] MD Kota Brice Womens (MAKENNA 122) 2 [facility] [address] [place] [address] 11/19/2016 14:53:57 11/19/2016 16:18:24 Uterine leiomyoma [id number] D25.9 - Pt would like definitive treatment with a hysterecto my. Will schedule with another physician that can perform the surgery at another hospital other than [facility]. Health Concerns Section Related Observation LastModified by Organization Detai ls LastModified Time None Recorded Concern Status LastModified by Organization Details LastModified Time None Recorded Advance Directives Directive None Recorded Payers Encounter Date Sequence Insurance Name Policy Number Policy Bravo Covered Member ID Bravo Member ID Guarantor Name 11/19/2016 1 [facility] - DOS PRIOR TO 2020 (MEDICAID REPLACEMENT - HMO) Xin Teixeira [id number] Xin Teixeira Notes Date Note Type Note [...] hysterectomy. Benson Richmond MD Attn: Accounting,[address] [facility], [place], [address], [facility] 11/19/2016 15:33:32 OBGyn Episode No OBEpisode recorded.
--- OUTSIDE RECORDS SUMMARY | 2024-08-04 15:14 | XMS_ITS | Referral Summary ---
Author Organization [facility] [address] Address [address] [place] [address] Care Team Providers Care Sample Shoe Inspector And Reworker Name Role Phone Leesa Vidales MD Unavailable [phone] Drew Mason MD Primary Care Provider Allergies [...] 02/19/2018 Assessment & Plan (02/19/2018 3:37 AM BLEACH PLANT OPERATOR): Patient meets the criteria for sepsis with elevated lactic acid levels and source of infection. Started empirically on broad-spectrum of antibiotics with vanc Zosyn and Levaquin. Blood cultures are pending Urine cultures were obtained Will get ID consult given the history of MDR/ESBL Will obtain wound cultures as well. Acute cystitis with hematuria 02/19/2018 Assessment & Plan (02/19/2018 3:37 AM BLEACH PLANT OPERATOR): Urinalysis is consistent with a UTI. Patient currently on broad-spectrum antibiotics Alcohol abuse 02/19/2018 Assessment & Plan (02/19/2018 3:40 AM BLEACH PLANT OPERATOR): Patient reports chronic alcohol use at least [...] monitor. Assessment & Plan (02/19/2018 3:41 AM BLEACH PLANT OPERATOR): Trend lactic acid and CBC. Colitis 02/19/2018 Assessment & Plan (02/19/2018 3:42 AM BLEACH PLANT OPERATOR): CT of the abdomen was consistent with colitis. Patient is currently on broad-spectrum antibiotics with vanc, Zosyn and Levaquin. Consider adding Flagyl. Patient with history of of MDR/ESBL Will get ID consult Hepatic steatosis 02/19/2018 Assessment & Plan (10/08/2019 10:14 PM CDT): Noted on CT scan. Assessment & Plan (02/19/2018 3:42 AM BLEACH PLANT OPERATOR): Hepatic steatosis noted on CT. Discussed and encouraged to stop drinking Ruptured left breast implant 02/19/2018 Assessment & Plan (02/19/2018 3:43 AM BLEACH PLANT OPERATOR): Incidental finding on the CT. Patient will need a follow up outpatient with PCP Uterine fibroid 02/19/2018 Assessment & Plan (02/19/2018 3:44 AM BLEACH PLANT OPERATOR): Incidental finding. Otherwise patient is asymptomatic. Alcohol withdrawal syndrome with complication Assessment & Plan (02/19/2018 3:45 AM BLEACH PLANT OPERATOR): Patient currently is a tremors and elevated blood pressure. This is highly concerning for alcohol withdrawal. Start on Librium protocol Hydralazine and clonidine as needed for blood pressure control. Acute diffuse otitis externa of left ear 018 Assessment & Plan (02/19/2018 3:54 AM BLEACH PLANT OPERATOR): Patient with a history of of MDR [...] on file Legal Sex Female 2:28 AM BLEACH PLANT OPERATOR Gender Identity Not on file Sexual Orientation [...] last revised on 19. Testing performed by: [address] [address] Hep B core IgM Nonreactive Nonreactive C ERNER KIARA (MIKE) Comment: Interpretive Data If HepB Core IgM Ab is reported as Equivocal, a new sample should be drawn in two weeks for testing. Current interpretive data was last revised on 19. Testing performed by: [address] [address] Hep C Ab Nonreactive Nonreactive [facility] [...] last revised on 2019. Testing performed by: [address] [address] HepBsAg Nonreactive Nonreactive [facility] (MIKE) Comment:Testing performed by : [address] [address] Blood specimen (specimen) 10/11/2019 5:12 AM CDT 10/11/2019 9:34 AM CDT Leesa Vidales MD LAB MICROBIOLOGY - GENERAL ORDERABLES Final Result [facility]TE [facility] ([place]) 1 [facility] Department [place] [address] from Last 3 Months or Most Recently Relevant to Health Maintenance Additional Health Concerns Infection Onset Date Last Indicated MDR gram neg/ESBL Comment:02/26/15 Urine E. coli ESBL+ (MDRO) 02/27/2015 02/27/2015 Insurance [facility] Advance Directives For more information, please contact: [phone] * Full Code (Latest Code Status on [...] 10:19 PM 02/25/2018 6:41 PM Care Teams Sample Shoe Inspector And Reworker Relationship Specialty Start Date End Date Drew Mason MD [address] [place] [address] PCP - General Family Medicine 03/04/24 Leesa Vidales MD Consulting Physician Gastroenterology 10/11/19
[2024-08-04] MEDS: KETOROLAC (*BKC) 60 MG/2 ML VIAL IM (15:25)
--- OUTSIDE RECORDS SUMMARY | 2024-08-04 15:58 | XMS_ITS | Continuity of Care Document ---
Author Organization [facility] Address [address] [place] [address] [place] [address] Phone Care Team Providers Care Technical Artist Name Role Phone Harjit Houston MD Unavailable [...] Diagnoses Date Provider Providers Copied on Encounter [facility], [address] [place], [address], [place] tel:[phone] [facility] No Information 5 Celso Lombardi. [address] [employer] [facility] [place], [address] , [place]. tel:[phone] Referring Provider: Harjit Houston, [address], [place], [place], [address]. tel:[phone] OFFICE/OUTPA TIENT VISIT, [facility], [address], [place], [place], [address], [place] [phone] [facility] MCV (chief complaint) headache1 (chief complaint) RA (chief complaint) Rheumatoid arthritisChronic migraine without aura, not intractable, without status migrainosusAbnormal red-cell morphology 5 Celso Lombardi. [address], [place], [place], [address] , [place]. tel:[phone] Referring Provider: Payal Mireles [address], [place], [place], [address]. tel:[phone] OFFICE/OUTPA TIENT VISIT, [facility], [address], [place], [place], [address], [place] [phone] [facility] headache (chief complaint) anxiety (chief complaint) HeadacheDepressive disorder, not elsewhere classifiedBP - High blood pressure Sep- 5 Celso Lombardi. [address], [place], [place], [address] , [place]. [phone] Referring Provider: Payal Mireles [address], [place], [place], [address]. tel:[phone] OFFICE/OUTPA TIENT VISIT, [facility], [address], [place], [place], [address], [place] tel:[phone] [facility] headache (chief complaint) depression (chief complaint) IBS (chief complaint) HeadacheChronic depressionFatigueIr ritable bowel Oct- 5 Celso Lombardi. [address], [place], [place], [address] , [place]. tel:[phone] Referring Provider: Payal Mireles [address], [place], [place], [address]. tel:[phone] OFFICE/OUTPA TIENT VISIT, [facility], [address], [place], [place], [address], [place] tel:[phone] [facility] fatigue (chief complaint) headache (chief complaint) insomnia (chief complaint) depression (chief complaint) HeadacheFatigueChro petros depression 5 Celso Lombardi. [address], [place], [place], [address] , . tel:[phone] Referring Provider: Harjit Houston, [address], [place], [place], [address]. tel:[phone] PREV VISIT, NEW, AGE 40-64 [facility], [address], [place], [place], [address], [place] tel:[phone] [facility] PHysical (chief complaint) Routine medical exam 5 Celso Lombardi. [address], [place], [place], [address] , [place]. [phone] Family History Family Member Type Diagnosis Age [...] Treatment Date Type Action Status Referral Ordered: Shama Rondon (related to Rheumatoid arthritis) ordered Referral Ordered: Hematology (related to Rheumatoid arthritis) ordered Referral Ordered: Referrals: Hematology. Evaluate and treat ordered Referral Referred To: Shama Rondon [address]
[facility] [address] [place], [phone] Ordered: Referrals: Shama Rondon. Evaluate and treat [...] for insomnia: use of alcohol. Additional information: [employer] works. pt denies any snoring or any [...]
--- OUTSIDE RECORDS SUMMARY | 2024-08-04 15:58 | XMS_ITS | Data Portability ---
Author Organization [facility] and, [facility]) Address [address] [place] [place] [address] Assessment Encounter Date Assessment Date Assessment LastModified [...] to do the test 2018 [email or web address] [place] [address] Imaging - Creatinine Order, [address] [place], [address], 9 16:29:48 Referral None recorded. Procedures None recorded. Surgeries None recorded. Imaging MRI, pelvis, w/wo contrast - Patient has a history of fibroids. She is being referred for MRI of the pelvis to assess for the extent of Uterine fibroids and the presence of adenomyos is or endometri osis 2018 019 [email or web address] [address] [facility] Imaging Administrative Office, [facility] [address], [place], [address], 9 14:00:03 Medication Orders None recorded. Patient TargetsNo targets recorded. Patient InstructionsNo instructions recorded. Reason for Referral None Reported. Procedures Surgical History Date Name Laterality Status Provider Name and Address Organization Details Recorded Time 08/23/2017 [place] [address], [address], [facility] and 11/09/2018 16:52:07 03/16/2007 [place] [address], [address], [facility] and 11/09/2018 16:52:07 03/16/1995 Other completed Kiya Mcfarland MD [address] [place] [address], [address], [facility] and 11/09/2018 16:52:07 03/16/1990 Other completed Kiya Mcfarland [place] [address] [place] [address], [address], [facility] and 11/09/2018 16:52:07 Imaging Results [...] 12.5 mg tablet active Not Available Not Megahn ilable Not Available methylprednisolone 4 mg tablets [...] Not Available Not Availa ble Not Available Ern-Fl-Wbbxqpuf 0.18 mg/0.215 mg/0.25 mg-0.025 mg tablet active Not Available Not Available Not Available Vitals None Recorded Social History Question Answer Notes LastModified by Organizat ion Details LastModified Time Tobacco Smoking Status Never Smoker Not Available [facility] 01/17/2020 03:44:16 Which Illicit Or Recreational Drugs Have You Used? None [id number] Information not available 01/17/2020 What Is The Highest Grade Or Level Of School You Have Completed Or The Highest Degree You Have Received? [id number] Information not available 01/17/2020 Live Alone Or With Others? With Others [email or web address] Information not available 11/09/2018 How Much Tobacco Do You Smoke? No [id number] Information not available 01/17/2020 Sex: Unknown Functional Status Question Answer Note LastModified by Organizat ion Details LastModified Time What is your level of alcohol consumption? 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 Family History Nothing [...] MD [facility] [address] [facility] [address] [place] [address] 11/09/2018 16:41:03 11/10/2018 16:10:17 Uterine leiomyoma [id number] D25.9 Health Concerns Section Related Observation LastModified by Organization Detai ls LastModified Time None Recorded Concern Status LastModified by Organization Details LastModified Time None Recorded Advance Directives Directive None Recorded Payers Encounter Date Sequence Insurance Name Policy Number Policy Bravo Covered Member ID Bravo Member ID Guarantor Name 11/09/2018 1 [employer] Xin Teixeira [id number] Xin Teixeira Notes Date Note Type Note [...] ligation. Associated Symptoms:fatigue;[place] [address] [facility], [address] [place] [address], [place], [address], [facility] and 11/09/2018 18:18:30 OBGyn Episode No OBEpisode recorded.
--- OUTSIDE RECORDS SUMMARY | 2024-08-04 15:58 | XMS_ITS | Clinical Summary ---
Author Organization [id number] Address [address] [place] [address] Care Team Providers Care Resolution Rep Name Role Phone Leesa Vidales MD Unavailable [phone] Drew Mason MD Primary Care Provider Allergies [...] 02/19/2018 Assessment & Plan (02/19/2018 3:37 AM NURSE CONSULTANT): Patient meets the criteria for sepsis with elevated lactic acid levels and source of infection. Started empirically on broad-spectrum of antibiotics with vanc Zosyn and Levaquin. Blood cultures are pending Urine cultures were obtained Will get ID consult given the history of MDR/ESBL Will obtain wound cultures as well. Acute cystitis with hematuria 02/19/2018 Assessment & Plan (02/19/2018 3:37 AM NURSE CONSULTANT): Urinalysis is consistent with a UTI. Patient currently on broad-spectrum antibiotics Alcohol abuse 02/19/2018 Assessment & Plan (02/19/2018 3:40 AM NURSE CONSULTANT): Patient reports chronic alcohol use at least [...] monitor. Assessment & Plan (02/19/2018 3:41 AM NURSE CONSULTANT): Trend lactic acid and CBC. Colitis 02/19/2018 Assessment & Plan (02/19/2018 3:42 AM NURSE CONSULTANT): CT of the abdomen was consistent with colitis. Patient is currently on broad-spectrum antibiotics with vanc, Zosyn and Levaquin. Consider adding Flagyl. Patient with history of of MDR/ESBL Will get ID consult Hepatic steatosis 02/19/2018 Assessment & Plan (10/08/2019 10:14 PM CDT): Noted on CT scan. Assessment & Plan (02/19/2018 3:42 AM NURSE CONSULTANT): Hepatic steatosis noted on CT. Discussed and encouraged to stop drinking Ruptured left breast implant 02/19/2018 Assessment & Plan (02/19/2018 3:43 AM NURSE CONSULTANT): Incidental finding on the CT. Patient will need a follow up outpatient with PCP Uterine fibroid 02/19/2018 Assessment & Plan (02/19/2018 3:44 AM NURSE CONSULTANT): Incidental finding. Otherwise patient is asymptomatic. Alcohol withdrawal syndrome with complication Assessment & Plan (02/19/2018 3:45 AM NURSE CONSULTANT): Patient currently is a tremors and elevated blood pressure. This is highly concerning for alcohol withdrawal. Start on Librium protocol Hydralazine and clonidine as needed for blood pressure control. Acute diffuse otitis externa of left ear 018 Assessment & Plan (02/19/2018 3:54 AM NURSE CONSULTANT): Patient with a history of of MDR [...] on file Legal Sex Female 2:28 AM NURSE CONSULTANT Gender Identity Not on file Sexual Orientation [...] last revised on 19. Testing performed by: [facility], [address] [place] [address], [place]., [address] Hep B core IgM Nonreactive Nonreactive Nga CRAIG ([place]) Comment: Interpretive Data If HepB Core IgM Ab is reported as Equivocal, a new sample should be drawn in two weeks for testing. Current interpretive data was last revised on 19. Testing performed by: [facility], [address] [place] [address], [place]., [address] Hep C Ab Nonreactive Nonreactive DEONTE CRAIG [...] last revised on 2019. Testing performed by: [facility], [address] [place] [address]., [address] HepBsAg Nonreactive Nonreactive [facility] ([place]) Comment:Testing performed by : [facility], [address] [place] [address]., [address] Blood specimen (specimen) 10/11/2019 5:12 AM CDT 10/11/2019 9:34 AM CDT Leesa Vidales MD LAB MICROBIOLOGY - GENERAL ORDERABLES Final Result DEONTE CRAIG ([place]) 1 [facility] Department [place] [address] from Last 3 Months or Most Recently Relevant to Health Maintenance Additional Health Concerns Infection Onset Date Last Indicated MDR gram neg/ESBL Comment:02/26/15 Urine E. coli ESBL+ (MDRO) 02/27/2015 02/27/2015 Insurance Advance Directives For more information, please contact: [phone] * Full Code (Latest Code Status on [...] 10:19 PM 02/25/2018 6:41 PM Care Teams Resolution Rep Relationship Specialty Start Date End Date Drew Mason MD [address] [place] [address] PCP - General Family Medicine 03/04/24 Leesa Vidales MD Consulting Physician Gastroenterology 10/11/19
--- OUTSIDE RECORDS SUMMARY | 2024-08-04 15:58 | XMS_ITS | Referral Summary ---
Author Organization [facility] [address] Address [address] [place] [address] Care Team Providers Care Electrical Lineman Name Role Phone Leesa Vidales MD Unavailable [phone] Drew Mason MD Primary Care Provider Allergies [...] 02/19/2018 Assessment & Plan (02/19/2018 3:37 AM SHEARING SHED HAND): Patient meets the criteria for sepsis with elevated lactic acid levels and source of infection. Started empirically on broad-spectrum of antibiotics with vanc Zosyn and Levaquin. Blood cultures are pending Urine cultures were obtained Will get ID consult given the history of MDR/ESBL Will obtain wound cultures as well. Acute cystitis with hematuria 02/19/2018 Assessment & Plan (02/19/2018 3:37 AM SHEARING SHED HAND): Urinalysis is consistent with a UTI. Patient currently on broad-spectrum antibiotics Alcohol abuse 02/19/2018 Assessment & Plan (02/19/2018 3:40 AM SHEARING SHED HAND): Patient reports chronic alcohol use at least [...] monitor. Assessment & Plan (02/19/2018 3:41 AM SHEARING SHED HAND): Trend lactic acid and CBC. Colitis 02/19/2018 Assessment & Plan (02/19/2018 3:42 AM SHEARING SHED HAND): CT of the abdomen was consistent with colitis. Patient is currently on broad-spectrum antibiotics with vanc, Zosyn and Levaquin. Consider adding Flagyl. Patient with history of of MDR/ESBL Will get ID consult Hepatic steatosis 02/19/2018 Assessment & Plan (10/08/2019 10:14 PM CDT): Noted on CT scan. Assessment & Plan (02/19/2018 3:42 AM SHEARING SHED HAND): Hepatic steatosis noted on CT. Discussed and encouraged to stop drinking Ruptured left breast implant 02/19/2018 Assessment & Plan (02/19/2018 3:43 AM SHEARING SHED HAND): Incidental finding on the CT. Patient will need a follow up outpatient with PCP Uterine fibroid 02/19/2018 Assessment & Plan (02/19/2018 3:44 AM SHEARING SHED HAND): Incidental finding. Otherwise patient is asymptomatic. Alcohol withdrawal syndrome with complication Assessment & Plan (02/19/2018 3:45 AM SHEARING SHED HAND): Patient currently is a tremors and elevated blood pressure. This is highly concerning for alcohol withdrawal. Start on Librium protocol Hydralazine and clonidine as needed for blood pressure control. Acute diffuse otitis externa of left ear 018 Assessment & Plan (02/19/2018 3:54 AM SHEARING SHED HAND): Patient with a history of of MDR [...] on file Legal Sex Female 2:28 AM SHEARING SHED HAND Gender Identity Not on file Sexual Orientation [...] last revised on 19. Testing performed by: [address] [address] Hep B core IgM Nonreactive Nonreactive C ERNER KIARA ([place]) Comment: Interpretive Data If HepB Core IgM Ab is reported as Equivocal, a new sample should be drawn in two weeks for testing. Current interpretive data was last revised on 19. Testing performed by: [address] [address] Hep C Ab Nonreactive Nonreactive [facility] [...] last revised on 2019. Testing performed by: [address] [address] HepBsAg Nonreactive Nonreactive [facility] ([place]) Comment:Testing performed by : [address] [address] Blood specimen (specimen) 10/11/2019 5:12 AM CDT 10/11/2019 9:34 AM CDT Leesa Vidales MD LAB MICROBIOLOGY - GENERAL ORDERABLES Final Result [facility] ([place]) 1 [facility] [place] [address] from Last 3 Months or Most Recently Relevant to Health Maintenance Additional Health Concerns Infection Onset Date Last Indicated MDR gram neg/ESBL Comment:02/26/15 Urine E. coli ESBL+ (MDRO) 02/27/2015 02/27/2015 Insurance [facility] Advance Directives For more information, please contact: [phone] * Full Code (Latest Code Status on [...] 10:19 PM 02/25/2018 6:41 PM Care Teams Electrical Lineman Relationship Specialty Start Date End Date Drew Mason MD [address] [place] [address] PCP - General Family Medicine 03/04/24 Leesa Vidales MD Consulting Physician Gastroenterology 10/11/19
== END 2024-08-04 16:10 | disposition home or self-care (01) ==
LOC: CHSED 15:56
PROVIDERS: Emergency Provider Emergency Medicine; PCP Physician Assistant
DX: S92.532A Displaced fracture of distal phalanx of left lesser toe(s), initial encounter for closed fracture (principal); W22.09XA Striking against other stationary object, initial encounter; Z87.891 Personal history of nicotine dependence
CPT/HCPCS: 73630; 96372; 99284; J1885

== ENCOUNTER 2024-09-18 10:44 | Emergency (ER) | payer OTHER, SELFPAY ==
[2024-09-18 10:45] VITALS: BP 160/92; PULSE 96; RESP 18; TEMP 37.1; O2SAT 97
--- OUTSIDE RECORDS SUMMARY | 2024-09-18 10:45 | XMS_ITS | Clinical Summary ---
Author Organization [facility] Address [facility] [place] [address] Care Team Providers Care Smoke Jumper Supervisor Name Role Phone Allyson Amato MD Primary Care Provider [phone] Allergies Active Allergy Reactions Criticality Noted Date [...] place to sleep or slept in a skilled nursing (including now)? No 12/19/2022 Education Answer Date [...] 5:42 PM CDT Height 167.6 cm (5' 6) 12/16/2022 5:42 PM CDT Body Mass Index [...] Screening with HPV 2000 Mammogram Screening 2010 Pneumococcal Vaccine: 50+ Ye ars (1 of 1 - PCV) 2020 Zoster Vaccines (1 of 2) 2020 COVID-19 Vaccine (2 - 2023-2 5 season) 2023 01/28/2021 Meningococcal B Vaccine Aged Out No l [...] from hospital Lifestyle Pat San, RN Insurance Advance Directives * Full Code (Latest Code Status on File) Date Activated Date Inactivated Comments 12/16/2022 5:30 PM 12/20/2022 6:30 PM Care Teams Smoke Jumper Supervisor Relationship Specialty Start Date End Date Allyson Amato MD [address] [place] [address] PCP - General FAMILY PRACTICE 12/16/22
--- OUTSIDE RECORDS SUMMARY | 2024-09-18 10:45 | XMS_ITS | Referral Summary ---
Author Organization [facility] [address] Address [address] [place] [address] Care Team Providers Care Shore Hand Dredge Or Barge Name Role Phone Leesa Vidales MD Unavailable [phone] Drew Mason MD Primary Care Provider Allergies [...] 02/19/2018 Assessment & Plan (02/19/2018 3:37 AM SATELLITE DISH REPAIRER): Patient meets the criteria for sepsis with elevated lactic acid levels and source of infection. Started empirically on broad-spectrum of antibiotics with vanc Zosyn and Levaquin. Blood cultures are pending Urine cultures were obtained Will get ID consult given the history of MDR/ESBL Will obtain wound cultures as well. Acute cystitis with hematuria 02/19/2018 Assessment & Plan (02/19/2018 3:37 AM SATELLITE DISH REPAIRER): Urinalysis is consistent with a UTI. Patient currently on broad-spectrum antibiotics Alcohol abuse 02/19/2018 Assessment & Plan (02/19/2018 3:40 AM SATELLITE DISH REPAIRER): Patient reports chronic alcohol use at least [...] monitor. Assessment & Plan (02/19/2018 3:41 AM SATELLITE DISH REPAIRER): Trend lactic acid and CBC. Colitis 02/19/2018 Assessment & Plan (02/19/2018 3:42 AM SATELLITE DISH REPAIRER): CT of the abdomen was consistent with colitis. Patient is currently on broad-spectrum antibiotics with vanc, Zosyn and Levaquin. Consider adding Flagyl. Patient with history of of MDR/ESBL Will get ID consult Hepatic steatosis 02/19/2018 Assessment & Plan (10/08/2019 10:14 PM CDT): Noted on CT scan. Assessment & Plan (02/19/2018 3:42 AM SATELLITE DISH REPAIRER): Hepatic steatosis noted on CT. Discussed and encouraged to stop drinking Ruptured left breast implant 02/19/2018 Assessment & Plan (02/19/2018 3:43 AM SATELLITE DISH REPAIRER): Incidental finding on the CT. Patient will need a follow up outpatient with PCP Uterine fibroid 02/19/2018 Assessment & Plan (02/19/2018 3:44 AM SATELLITE DISH REPAIRER): Incidental finding. Otherwise patient is asymptomatic. Alcohol withdrawal syndrome with complication Assessment & Plan (02/19/2018 3:45 AM SATELLITE DISH REPAIRER): Patient currently is a tremors and elevated blood pressure. This is highly concerning for alcohol withdrawal. Start on Librium protocol Hydralazine and clonidine as needed for blood pressure control. Acute diffuse otitis externa of left ear 018 Assessment & Plan (02/19/2018 3:54 AM SATELLITE DISH REPAIRER): Patient with a history of of MDR [...] on file Legal Sex Female 2:28 AM SATELLITE DISH REPAIRER Gender Identity Not on file Sexual Orientation [...] 1:43 PM CDT Height 165.1 cm (5' 5) 10/08/2019 3:24 PM CDT Body Mass Index [...] last revised on 19. Testing performed by: [address] [address] Hep B core IgM Nonreactive Nonreactive C ERNER KIARA ([place]) Comment: Interpretive Data If HepB Core IgM Ab is reported as Equivocal, a new sample should be drawn in two weeks for testing. Current interpretive data was last revised on 19. Testing performed by: [address] [address] Hep C Ab Nonreactive Nonreactive [facility] [...] last revised on 2019. Testing performed by: [address] [address] HepBsAg Nonreactive Nonreactive [facility] ([place]) Comment:Testing performed by : [address] [address] Blood specimen (specimen) 10/11/2019 5:12 AM CDT 10/11/2019 9:34 AM CDT Leesa Vidales MD LAB MICROBIOLOGY - GENERAL ORDERABLES Final Result [facility] ([place]) 1 [facility] Department [place] [address] from Last 3 Months or Most Recently Relevant to Health Maintenance Additional Health Concerns Infection Onset Date Last Indicated MDR gram neg/ESBL Comment:02/26/15 Urine E. coli ESBL+ (MDRO) 02/27/2015 02/27/2015 Insurance [facility] Advance Directives For more information, please contact: [phone] * Full Code (Latest Code Status on [...] 10:19 PM 02/25/2018 6:41 PM Care Teams Shore Hand Dredge Or Barge Relationship Specialty Start Date End Date Drew Mason MD [address] [place] [address] PCP - General Family Medicine 03/04/24 Leesa Vidales MD Consulting Physician Gastroenterology 10/11/19
--- OUTSIDE RECORDS SUMMARY | 2024-09-18 10:45 | XMS_ITS | Clinical Summary ---
Author Organization [facility] [id number] Address [address] [place] [address] Care Team Providers Care Health Administration Teacher Name Role Phone Leesa Vidales MD Unavailable [phone] Drew Mason MD Primary Care Provider Allergies [...] 02/19/2018 Assessment & Plan (02/19/2018 3:37 AM CHEESE FACTORY WORKER): Patient meets the criteria for sepsis with elevated lactic acid levels and source of infection. Started empirically on broad-spectrum of antibiotics with vanc Zosyn and Levaquin. Blood cultures are pending Urine cultures were obtained Will get ID consult given the history of MDR/ESBL Will obtain wound cultures as well. Acute cystitis with hematuria 02/19/2018 Assessment & Plan (02/19/2018 3:37 AM CHEESE FACTORY WORKER): Urinalysis is consistent with a UTI. Patient currently on broad-spectrum antibiotics Alcohol abuse 02/19/2018 Assessment & Plan (02/19/2018 3:40 AM CHEESE FACTORY WORKER): Patient reports chronic alcohol use at least [...] monitor. Assessment & Plan (02/19/2018 3:41 AM CHEESE FACTORY WORKER): Trend lactic acid and CBC. Colitis 02/19/2018 Assessment & Plan (02/19/2018 3:42 AM CHEESE FACTORY WORKER): CT of the abdomen was consistent with colitis. Patient is currently on broad-spectrum antibiotics with vanc, Zosyn and Levaquin. Consider adding Flagyl. Patient with history of of MDR/ESBL Will get ID consult Hepatic steatosis 02/19/2018 Assessment & Plan (10/08/2019 10:14 PM CDT): Noted on CT scan. Assessment & Plan (02/19/2018 3:42 AM CHEESE FACTORY WORKER): Hepatic steatosis noted on CT. Discussed and encouraged to stop drinking Ruptured left breast implant 02/19/2018 Assessment & Plan (02/19/2018 3:43 AM CHEESE FACTORY WORKER): Incidental finding on the CT. Patient will need a follow up outpatient with PCP Uterine fibroid 02/19/2018 Assessment & Plan (02/19/2018 3:44 AM CHEESE FACTORY WORKER): Incidental finding. Otherwise patient is asymptomatic. Alcohol withdrawal syndrome with complication Assessment & Plan (02/19/2018 3:45 AM CHEESE FACTORY WORKER): Patient currently is a tremors and elevated blood pressure. This is highly concerning for alcohol withdrawal. Start on Librium protocol Hydralazine and clonidine as needed for blood pressure control. Acute diffuse otitis externa of left ear 018 Assessment & Plan (02/19/2018 3:54 AM CHEESE FACTORY WORKER): Patient with a history of of MDR [...] on file Legal Sex Female 2:28 AM CHEESE FACTORY WORKER Gender Identity Not on file Sexual Orientation [...] Vaccine (2 - season) 2023 Influenza Vaccine (Season Ended) 2024 Hepatitis C Screening Completed 10/11/2019, 020 Procedures [...] last revised on 19. Testing performed by: [facility], [address] [place] [address], [place]., [address] Hep B core IgM Nonreactive Nonreactive Nga CRAIG ([place]) Comment: Interpretive Data If HepB Core IgM Ab is reported as Equivocal, a new sample should be drawn in two weeks for testing. Current interpretive data was last revised on 19. Testing performed by: [facility], [address] [place] [address], [place]., [address] Hep C Ab Nonreactive Nonreactive DEONTE CRAIG [...] last revised on 2019. Testing performed by: [facility], [address] [place] [address]., [address] HepBsAg Nonreactive Nonreactive [facility] ([place] Comment:Testing performed by : [facility], [address] [place] [address]., [address] Blood specimen (specimen) 10/11/2019 5:12 AM CDT 10/11/2019 9:34 AM CDT Leesa Vidales MD LAB MICROBIOLOGY - GENERAL ORDERABLES Final Result DEONTE CRAIG ([place]) 1 [facility] Department [place] [address] from Last 3 Months or Most Recently Relevant to Health Maintenance Additional Health Concerns Infection Onset Date Last Indicated MDR gram neg/ESBL Comment:02/26/15 Urine E. coli ESBL+ (MDRO) 02/27/2015 02/27/2015 Insurance Advance Directives For more information, please contact: [phone] * Full Code (Latest Code Status on [...] 10:19 PM 02/25/2018 6:41 PM Care Teams Health Administration Teacher Relationship Specialty Start Date End Date Drew Mason MD [address] [place] [id number] PCP - General Family Medicine 03/04/24 Leesa Vidales MD Consulting Physician Gastroenterology 10/11/19
--- OUTSIDE RECORDS SUMMARY | 2024-09-18 10:45 | XMS_ITS ---
Author Organization Unknown Plan of Treatment Description Planned Activity Planned Timing [facility] is a provider organization who partners directly with Health Plans and provides integrated primary care, behavioral health, and social security specialist for an attributed population Letter encounter to patientTelephone encounter Sep 08, 2024Jul 2024 Patient Care team information Name Category Status Period Participants - - Proposed period not known -
--- OUTSIDE RECORDS SUMMARY | 2024-09-18 10:45 | XMS_ITS | Data Portability ---
[facility] Address [address] [place] [address] Assessment No assessment recorded. Plan of Treatment [...] By Organization Details Last Modified Time 11/19/2016 [id number] uterine fibroids : care instructions [email or web address] Not available 11/19/2016 16:15:04 Reason for Referral None Reported. Results Created Date Observation Date Name Description Value Unit Range Abnormal Flag Note LastModifiedBy Organization Detail LastModifiedTime 11/19/19 17 11/06/2016 , ky maria compl ete No observ ation record ed. [email or web address] Not Available 2016 09:43:52 11/19/19 17 11/06/2016 ky ALLEN s compl ete No observ ation record ed. [email or web address] Not Available 2016 09:43:19 Result Notes None recorded. Procedures Surgical History Date Name Laterality Status Provider Name and Address Organization Details Recorded Time Tubal Ligation completed Kellen Ferguson MA [facility] 11/19/2016 15:16:03 delivery completed Kellen Ferguson MA [facility] 11/19/2016 15:16:27 Imaging Results None recorded. Procedure Notes None [...] Body mass index (BMI) Body weight Systolic And Diastolic Provider Name and Address Organization Details Last Updated DateTime 11/19/2016 165.1 cm 30.7 kg/m2 27129.43 g 142/98 mm[Hg] Kellen Ferguson MA [facility] 11/19/2016 15:10:50 Social History Question Answer Notes LastModified by Organizat ion Details LastModified Time Tobacco Smoking Status Former Smoker Kellen Ferguson MA null, [facility] 11/19/2016 15:15:31 What Was The Date Of [...] SNOMED-CT Code Diagnosis ICD10 Code Diagnosis Note [id number] Benson Richmond MD [facility] ([address]) 2 [facility] [address] [place] [address] 11/19/2016 14:53:57 11/19/2016 16:18:24 Uterine leiomyoma 44128515 D25.9 - Pt would like definitive treatment with a hysterecto my. Will schedule with another physician that can perform the surgery at another hospital other than [facility]. Health Concerns Section Related Observation LastModified by Organization Detai ls LastModified Time None Recorded Concern Status LastModified by Organization Details LastModified Time None Recorded Advance Directives Directive None Recorded Payers Insurance Date Sequence Insurance Name Policy Number Policy Bravo Covered Member ID Bravo Member ID Guarantor Name 11/19/2016 1 [facility] PRIOR TO 2020 (MEDICAID REPLACEMENT - HMO) Xin Teixeira [id number] Xin Teixeira Notes Date Note Type Note [...] hysterectomy. Benson Richmond MD Attn: Accounting,[address] [place], [address], [facility] 11/19/2016 15:33:32 OBGyn Episode No OBEpisode recorded.
--- OUTSIDE RECORDS SUMMARY | 2024-09-18 10:46 | XMS_ITS | Continuity of Care Document ---
Author Organization [facility] Address [address] [place] [address] [place] [address] Phone Care Team Providers Care Carry All Driver Name Role Phone Harjit Houston MD Unavailable [...] Diagnoses Date Provider Providers Copied on Encounter [facility], [address] [place], [place], [address], [place] tel:[phone] [facility] No Information 5 Celso Lombardi. [address] [place], [place], [address] , [place]. tel:[phone] Referring Provider: Harjit Houston, [address], [place], [place], [address]. tel:[phone] OFFICE/OUTPA TIENT VISIT, [facility], [address], [place], [place], [address], [place] [phone] [facility] MCV (chief complaint) headache1 (chief complaint) RA (chief complaint) Rheumatoid arthritisChronic migraine without aura, not intractable, without status migrainosusAbnormal red-cell morphology 5 Celso Lombardi. [address], [place], [place], [address] , [place]. tel:[phone] Referring Provider: Payal Mireles [address], [place], [place], [address]. tel:[phone] OFFICE/OUTPA TIENT VISIT, [facility], [address], [place], [place], [address], [place] [phone] [facility] headache (chief complaint) anxiety (chief complaint) HeadacheDepressive disorder, not elsewhere classifiedBP - High blood pressure Sep- 5 Celso Lombardi. [address], [place], [place], [address] , [place]. [phone] Referring Provider: Payal Mire[address], [place], [place], [address]. tel:[phone] OFFICE/OUTPA TIENT VISIT, [facility], [address], [place], [place], [address], [place] tel:[phone] [facility] headache (chief complaint) depression (chief complaint) IBS (chief complaint) HeadacheChronic depressionFatigueIr ritable bowel Oct- 5 Celso Lombardi. [address], [place], [place], [address] , [place]. tel:[phone] Referring Provider: Payal Mire[address], [place], [place], [address]. tel:[phone] OFFICE/OUTPA TIENT VISIT, [facility], [address], [place], [place], [address], [place] tel:[phone] [facility] fatigue (chief complaint) headache (chief complaint) insomnia (chief complaint) depression (chief complaint) HeadacheFatigueChro petros depression 5 Celso Lombardi. [address], [place], [place], [address] , . tel:[phone] Referring Provider: Harjti Houston [address], [place], [place], [address]. tel:[phone] PREV VISIT, NEW, AGE 40-64 [facility], [address], [place], [place], [address], [place] tel:[phone] [facility] PHysical (chief complaint) Routine medical exam 5 Celso Lombardi. [address], [place], [place], [address] , [place]. [phone] Family History Family Member Type Diagnosis Age [...] treat ordered Referral Referred To: Shama Rondon [address] [facility] [address]
[facility] [address] [place], [phone] Ordered: Referrals: Shama Rondon. Evaluate and treat [...]
--- OUTSIDE RECORDS SUMMARY | 2024-09-18 10:46 | XMS_ITS | Data Portability ---
Author Organization [facility] St Fibroid and, [facility]) Address [address] [place] [address] [place] [address] Assessment Encounter Date Assessment Date Assessment LastModified [...] in counseling the patient on treatment options. [email or web address] Not available 11/09/2018 18:17:43 Plan of Treatment Reminders Order Date Submit Date Provider Last Modified By Organization Details Last Modified Time Details Appointments None recorded. Lab creatinin e, serum or plasma - as needed. Only if needed to do the test 2018 [email or web address] [place] [address] Imaging - Creatinine Order, [address] [place], [address], 9 16:29:48 Referral None recorded. Procedures None recorded. Surgeries None recorded. Imaging MRI, pelvis, w/wo contrast - Patient has a history of fibroids. She is being referred for MRI of the pelvis to assess for the extent of Uterine fibroids and the presence of adenomyos is or endometri osis 2018 019 [email or web address] [address] [facility] Imaging Administrative Office, [address], [place], [address], 14:00:03 Medication Orders None recorded. Patient TargetsNo targets recorded. Patient InstructionsNo instructions recorded. Reason for Referral None Reported. Procedures Surgical History Date Name Laterality Status Provider Name and Address Organization Details Recorded Time 08/23/2017 [place] [address], [address], [facility] and 11/09/2018 16:52:07 03/16/2007 [place] [address], [address], [facility] and 11/09/2018 16:52:07 03/16/1995 [place] [address], [address], [facility] and 11/09/2018 16:52:07 03/16/1990 [place] [address], [address], [facility] and 11/09/2018 16:52:07 Imaging Results [...] Not Available Not Availa ble Not Available Aqs-Ho-Eeksssub 0.18 mg/0.215 mg/0.25 mg-0.025 mg tablet active Not Available Not Available Not Available Vitals None Recorded Social History Question Answer Notes LastModified by Lysandaizat ion Details LastModified Time Tobacco Smoking Status Never Smoker Not Available [facility] 01/17/2020 03:44:16 Which Illicit Or Recreational Drugs Have You Used? None [id number] Information not available 01/17/2020 What Is The Highest Grade Or Level Of School You Have Completed Or The Highest Degree You Have Received? [id number] Information not available 01/17/2020 Live Alone Or With Others? With Others [email or web address] Information not available 11/09/2018 How Much Tobacco Do You Smoke? No [id number] Information not available 01/17/2020 Sex: Unknown Functional Status Question Answer Note LastModified by Organizat ion Details LastModified Time What is your level of alcohol consumption? 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 [id number] Information not available 01/17/2020 Mental Status None [...] 458 Kiya Mcfarland MD [facility] ( [facility] ) [address] [facility] ,[address] [place] [address] 11/09/2018 16:41:03 11/10/2018 16:10:17 Uterine leiomyoma 96141552 D25.9 Health Concerns Section Related Observation LastModified by Organization Detai ls LastModified Time None Recorded Concern Status LastModified by Organization Details LastModified Time None Recorded Advance Directives Directive None Recorded Payers Insurance Date Sequence Insurance Name Policy Number Policy Bravo Covered Member ID Bravo Member ID Guarantor Name 11/10/2018 1 [facility] Xin Lluvia [id number] Xin Lluvia 11/10/2018 1 [facility] PRIOR TO 09/13/2020 (MEDICAID REPLACEMENT - HMO) Xin Lluvia [id number] Xin Lluvia 11/10/2018 1 [employer] [facility] Xin Lluvia [id number] Xin Lluvia 11/10/2018 1 [facility] PRIOR TO 09/13/2020 (MEDICAID REPLACEMENT - HMO) Xin Lluvia [id number] Xin Lluvia 08/02/2019 2 [place] [facility] Xin Lluvia [id number] Xin Lluvia Notes Date Note Type Note Provider Name [...] a history of tubal ligation. Associated Symptoms:fatigue;[place] [address] [facility], [address], [address], [facility] and 11/09/2018 18:18:30 OBGyn Episode No OBEpisode recorded.
--- NOTE | 2024-09-18 10:53 | ED_ITS ---
HPI - URI/Sore Throat General Chief Complaint: Upper Respiratory Infection Stated Complaint: sore throat Time Seen by Provider: 09/18/24 10:52 Source: patient Mode of arrival: ambulatory Limitations: no limitations History of Present Illness HPI Narrative: patient is a 53-year-old female with a sore throat and desires a strep test. She has had a sore throat for the past 2 days. MD elicited complaint: sore throat Pertinent past history: other ( None) Onset (ago): day(s) ( 2) Consistency: constant Severity: mild Pain scale (0-10): 1 Description of mucous: clear Able to tolerate fluids by mouth: Yes Exacerbating factors: nothing Relieving factors: nothing Context: other ( patient has a sore throat and came to the ER for a strep test at this time) Associated symptoms: denies other symptoms Treatments prior to arrival: none Related Data Home Medications ?Medication ?Instructions ?Recorded ?Confirmed ?Last Taken ?Type alprazolam 0.5 mg tablet 0.5 mg PO BID PRN anxiety 07/27/23 05/19/24 Unknown History losartan 50 mg-hydrochlorothiazide 1 tablet PO DAILY 07/27/23 05/20/24 05/19/24 History 12.5 mg tablet metoclopramide HCl 5 mg tablet 5 mg PO Q6H PRN nausea 07/27/23 05/19/24 Unknown History (Reglan) quetiapine 25 mg tablet 25 mg PO HS 07/27/23 05/20/24 05/19/24 History venlafaxine 75 mg capsule,extended 75 mg PO BID 07/27/23 05/20/24 05/19/24 History release 24 hr omeprazole 20 mg capsule,delayed 20 mg PO DAILY 08/26/23 05/20/24 05/19/24 History release Allergies Allergy/AdvReac Type Severity Reaction Status Date / Time lisinopril Allergy Intermediate Swelling Verified 09/18/24 10:46 of Lip/Tongue/Throat azithromycin AdvReac Unknown N/V Verified 09/18/24 10:46 Review of Systems Review of Systems: All systems reviewed & are unremarkable except as noted in HPI and below Constitutional: Constitutional: Reports no additional constitutional complaints Eyes: Eyes: Reports no additional eye complaints ENT: Reports system reviewed and no additional complaints, except as documented Cardiovascular: Cardiovascular: Reports no additional cardiovascular complaints Respiratory: Respiratory: Reports no additional respiratory complaints Gastrointestinal: Gastrointestinal: Reports no additional gastrointestinal complaints Genitourinary: Genitourinary: Reports no additional female genitourinary complaints Musculoskeletal: Musculoskeletal: Reports no additional musculoskeletal complaints Integumentary/Breasts: Skin/Breast: Reports system reviewed and no additional complaints, except as docu Neurologic: Reports system reviewed and no additional complaints, except as documented Psychiatric: Psychiatric: Reports no additional psychiatric complaints Endocrine: Endocrine: Reports no additional endocrine complaints Hematologic/Lymphatic: Hematologic/Lymphatic: Reports no additional hematologic/lymphatic complaints Allergic/Immunologic: Allergic/Immunologic: Reports no additional allergic/immunologic complaints PMFSH Past Medical History Medical History History of esophageal varices with bleeding Elevated liver enzymes Esophageal varices with bleeding Acute blood loss anemia Hematemesis Melena IPMN (intraductal papillary mucinous neoplasm) Fatty liver Concern for hepatic cirrhosis Hepatitis GERD (gastroesophageal reflux disease) Arthritis Insomnia Anxiety Depression Hypertension Surgical History Surgical History Hx of breast augmentation Hx of section x2 History of tubal ligation Family History Family History Father Hypertension Depression Mother Hypertension Son Depression Grandparent Alcoholism Cancer Grandparent Cancer Hypertension Social History Social History Social History: Pt smoked cigarettes socially for approx. 5 yrs. One pack would last her 2 weeks. Smoking status: Never smoker Second hand tobacco smoke exposure: No Smoking end date: 03/16/06 Alcohol intake: current Drinks per week: 2 Alcohol use details: seldom; socially Substance use: never Substance use type: does not use Spiritual care concerns: No Course Vital Signs Vital signs: Vital Signs Temperature 37.1 C 09/18/24 10:45 Pulse Rate 96 09/18/24 10:45 Respiratory Rate 18 09/18/24 10:45 Blood Pressure 160/92 H 09/18/24 10:45 Pulse Oximetry 97 09/18/24 10:45 Oxygen Delivery Room Air 09/18/24 10:45 Temperature 37.1 C 09/18/24 10:45 Pulse Rate 88 09/18/24 11:51 Respiratory Rate 20 09/18/24 11:51 Blood Pressure 150/90 H 09/18/24 11:51 Pulse Oximetry 100 09/18/24 11:51 Oxygen Delivery Room Air 09/18/24 11:51 MDM - URI/Sore Throat MDM Narrative Medical decision making narrative: Patient is a 53-year-old female with a sore throat and desires a strep test. We will do a strep test at this time. Lab Data Attestation: I reviewed the patient's lab results. Labs: Lab Results 09/18/24 Range/Units 10:52 Group A Strep (PCR) Not detected (Negative) Discharge Plan Discharge Clinical Impression: Viral pharyngitis Patient Disposition: Home Condition: Stable Instructions: Viral Syndrome (ED) Patient Language: New Zealander Prescriptions: No Action tramadol 50 mg tablet 50 mg PO Q6H PRN (Reason: pain) Qty: 20 0RF oxycodone-acetaminophen [Percocet] 5-325 mg tablet 1 tablet PO Q6H PRN (Reason: pain) Qty: 14 0RF alprazolam 0.5 mg tablet 0.5 mg PO BID PRN (Reason: anxiety) venlafaxine 75 mg capsule,extended release 24hr 75 mg PO BID quetiapine 25 mg tablet 25 mg PO HS metoclopramide HCl [Reglan] 5 mg tablet 5 mg PO Q6H PRN (Reason: nausea) losartan-hydrochlorothiazide 50-12.5 mg tablet 1 tablet PO DAILY Patient Comments: not taking omeprazole 20 mg capsule,delayed release(DR/EC) 20 mg PO DAILY sumatriptan succinate 100 mg tablet See Rx Instructions PO .COMPLEX Qty: 9 5RF Patient Comments: Pt not taking Rx Instructions: take 1 tab at onset of headache; if no relief, may repeat 1 tab after at least 2 hrs; max = 2 tabs/24 hrs PO albuterol sulfate 90 mcg/actuation HFA aerosol inhaler 1 inh inhalation Q4H PRN (Reason: shortness of breath or wheezing) Qty: 8.5 5RF bupropion HCl [Wellbutrin XL] 300 mg tablet extended release 24 hr 300 mg PO QAM Qty: 30 4RF nadolol 20 mg tablet 20 mg PO ONCE Qty: 30 5RF Follow-up/Referrals: Lawrence,Chacorta, PA-C [Primary Care Provider] - Time of Disposition: 11:45
[2024-09-18 11:18] LABS: Strep Group A RT-PCR NOT DETECTED (Negative)
[2024-09-18 11:51] VITALS: BP 150/90; PULSE 88; RESP 20; O2SAT 100
--- OUTSIDE RECORDS SUMMARY | 2024-09-18 11:54 | XMS_ITS | Clinical Summary ---
Author Organization [place] [id number] [place] Address [address] [place] [address] Care Team Providers Care Acoustic Intelligence Specialist Name Role Phone Leesa Vidales MD Unavailable [phone] Drew Mason MD Primary Care Provider Allergies [...] 02/19/2018 Assessment & Plan (02/19/2018 3:37 AM RAILROAD SIGNAL OPERATOR): Patient meets the criteria for sepsis with elevated lactic acid levels and source of infection. Started empirically on broad-spectrum of antibiotics with vanc Zosyn and Levaquin. Blood cultures are pending Urine cultures were obtained Will get ID consult given the history of MDR/ESBL Will obtain wound cultures as well. Acute cystitis with hematuria 02/19/2018 Assessment & Plan (02/19/2018 3:37 AM RAILROAD SIGNAL OPERATOR): Urinalysis is consistent with a UTI. Patient currently on broad-spectrum antibiotics Alcohol abuse 02/19/2018 Assessment & Plan (02/19/2018 3:40 AM RAILROAD SIGNAL OPERATOR): Patient reports chronic alcohol use at [...] monitor. Assessment & Plan (02/19/2018 3:41 AM RAILROAD SIGNAL OPERATOR): Trend lactic acid and CBC. Colitis 02/19/2018 Assessment & Plan (02/19/2018 3:42 AM RAILROAD SIGNAL OPERATOR): CT of the abdomen was consistent with colitis. Patient is currently on broad-spectrum antibiotics with vanc, Zosyn and Levaquin. Consider adding Flagyl. Patient with history of of MDR/ESBL Will get ID consult Hepatic steatosis 02/19/2018 Assessment & Plan (10/08/2019 10:14 PM CDT): Noted on CT scan. Assessment & Plan (02/19/2018 3:42 AM RAILROAD SIGNAL OPERATOR): Hepatic steatosis noted on CT. Discussed and encouraged to stop drinking Ruptured left breast implant 02/19/2018 Assessment & Plan (02/19/2018 3:43 AM RAILROAD SIGNAL OPERATOR): Incidental finding on the CT. Patient will need a follow up outpatient with PCP Uterine fibroid 02/19/2018 Assessment & Plan (02/19/2018 3:44 AM RAILROAD SIGNAL OPERATOR): Incidental finding. Otherwise patient is asymptomatic. Alcohol withdrawal syndrome with complication Assessment & Plan (02/19/2018 3:45 AM RAILROAD SIGNAL OPERATOR): Patient currently is a tremors and elevated blood pressure. This is highly concerning for alcohol withdrawal. Start on Librium protocol Hydralazine and clonidine as needed for blood pressure control. Acute diffuse otitis externa of left ear 018 Assessment & Plan (02/19/2018 3:54 AM RAILROAD SIGNAL OPERATOR): Patient with a history of of [...] on file Legal Sex Female 2:28 AM RAILROAD SIGNAL OPERATOR Gender Identity Not on file Sexual [...] (2 - season) 2023 Influenza Vaccine (#1) 2024 Hepatitis C Screening Completed 10/11/2019, 020 [...] last revised on 19. Testing performed by: [facility], [address] [place] [address], [place]., [address] Hep B core IgM Nonreactive Nonreactive Nga CRAIG (MIKE) Comment: Interpretive Data If HepB Core IgM Ab is reported as Equivocal, a new sample should be drawn in two weeks for testing. Current interpretive data was last revised on 19. Testing performed by: [facility], [address] [place] [address], [place]., [address] Hep C Ab Nonreactive Nonreactive DEONTE CRAIG [...] last revised on 2019. Testing performed by: [facility], [address] [place] [address]., [address] HepBsAg Nonreactive Nonreactive [facility] ([facility] Comment:Testing performed by : [facility], [address] [place] [address]., [address] Blood specimen (specimen) 10/11/2019 5:12 AM CDT 10/11/2019 9:34 AM CDT Leesa Vidales MD LAB MICROBIOLOGY - GENERAL ORDERABLES Final Result DEONTE CRAIG (MIKE) 1 [facility] Department [place] [address] from Last 3 Months or Most Recently Relevant to Health Maintenance Additional Health Concerns Infection Onset Date Last Indicated MDR gram neg/ESBL Comment:02/26/15 Urine E. coli ESBL+ (MDRO) 02/27/2015 02/27/2015 Insurance Advance Directives For more information, please contact: [phone] * Full Code (Latest Code Status on [...] 10:19 PM 02/25/2018 6:41 PM Care Teams Acoustic Intelligence Specialist Relationship Specialty Start Date End Date Drew Mason MD [address] [place] [address] PCP - General Family Medicine 03/04/24 Leesa Vidales MD Consulting Physician Gastroenterology 10/11/19
--- OUTSIDE RECORDS SUMMARY | 2024-09-18 11:54 | XMS_ITS | Referral Summary ---
Author Organization [facility] [address] [place] Address [address] [place] [address] Care Team Providers Care Shank Maker Name Role Phone Leesa Vidales MD Unavailable [phone] Drew Mason MD Primary Care Provider Allergies [...] 02/19/2018 Assessment & Plan (02/19/2018 3:37 AM SHAFT MECHANIC): Patient meets the criteria for sepsis with elevated lactic acid levels and source of infection. Started empirically on broad-spectrum of antibiotics with vanc Zosyn and Levaquin. Blood cultures are pending Urine cultures were obtained Will get ID consult given the history of MDR/ESBL Will obtain wound cultures as well. Acute cystitis with hematuria 02/19/2018 Assessment & Plan (02/19/2018 3:37 AM SHAFT MECHANIC): Urinalysis is consistent with a UTI. Patient currently on broad-spectrum antibiotics Alcohol abuse 02/19/2018 Assessment & Plan (02/19/2018 3:40 AM SHAFT MECHANIC): Patient reports chronic alcohol use at least [...] monitor. Assessment & Plan (02/19/2018 3:41 AM SHAFT MECHANIC): Trend lactic acid and CBC. Colitis 02/19/2018 Assessment & Plan (02/19/2018 3:42 AM SHAFT MECHANIC): CT of the abdomen was consistent with colitis. Patient is currently on broad-spectrum antibiotics with vanc, Zosyn and Levaquin. Consider adding Flagyl. Patient with history of of MDR/ESBL Will get ID consult Hepatic steatosis 02/19/2018 Assessment & Plan (10/08/2019 10:14 PM CDT): Noted on CT scan. Assessment & Plan (02/19/2018 3:42 AM SHAFT MECHANIC): Hepatic steatosis noted on CT. Discussed and encouraged to stop drinking Ruptured left breast implant 02/19/2018 Assessment & Plan (02/19/2018 3:43 AM SHAFT MECHANIC): Incidental finding on the CT. Patient will need a follow up outpatient with PCP Uterine fibroid 02/19/2018 Assessment & Plan (02/19/2018 3:44 AM SHAFT MECHANIC): Incidental finding. Otherwise patient is asymptomatic. Alcohol withdrawal syndrome with complication Assessment & Plan (02/19/2018 3:45 AM SHAFT MECHANIC): Patient currently is a tremors and elevated blood pressure. This is highly concerning for alcohol withdrawal. Start on Librium protocol Hydralazine and clonidine as needed for blood pressure control. Acute diffuse otitis externa of left ear 018 Assessment & Plan (02/19/2018 3:54 AM SHAFT MECHANIC): Patient with a history of of MDR [...] on file Legal Sex Female 2:28 AM SHAFT MECHANIC Gender Identity Not on file Sexual Orientation [...] last revised on 19. Testing performed by: [address] [address] Hep B core IgM Nonreactive Nonreactive C ERNER KIARA (MIKE) Comment: Interpretive Data If HepB Core IgM Ab is reported as Equivocal, a new sample should be drawn in two weeks for testing. Current interpretive data was last revised on 19. Testing performed by: [address] [address] Hep C Ab Nonreactive Nonreactive [facility] [...] last revised on 2019. Testing performed by: [address] [address] HepBsAg Nonreactive Nonreactive [facility] (MIKE) Comment:Testing performed by : [address] [address] Blood specimen (specimen) 10/11/2019 5:12 AM CDT 10/11/2019 9:34 AM CDT Leesa Vidales MD LAB MICROBIOLOGY - GENERAL ORDERABLES Final Result [facility] ([place]) 1 [facility] Department [place] [address] from Last 3 Months or Most Recently Relevant to Health Maintenance Additional Health Concerns Infection Onset Date Last Indicated MDR gram neg/ESBL Comment:02/26/15 Urine E. coli ESBL+ (MDRO) 02/27/2015 02/27/2015 Insurance [facility] Advance Directives For more information, please contact: [phone] * Full Code (Latest Code Status on [...] 10:19 PM 02/25/2018 6:41 PM Care Teams Shank Maker Relationship Specialty Start Date End Date Drew Mason MD [address] [place] [address] PCP - General Family Medicine 03/04/24 Leesa Vidales MD Consulting Physician Gastroenterology 10/11/19
--- OUTSIDE RECORDS SUMMARY | 2024-09-18 11:54 | XMS_ITS | Clinical Summary ---
Author Organization [facility] Address [facility] [place] [address] Care Team Providers Care Custom Marine Canvas Fabricator Name Role Phone Allyson Amato MD Primary Care Provider [phone] Allergies Active Allergy Reactions Criticality Noted Date [...] place to sleep or slept in a jail (including now)? No 12/19/2022 Education Answer Date [...] 5:30 PM 12/20/2022 6:30 PM Care Teams Custom Marine Canvas Fabricator Relationship Specialty Start Date End Date Allyson Amato MD [address] [place] [address] PCP - General FAMILY PRACTICE 12/16/22
--- OUTSIDE RECORDS SUMMARY | 2024-09-18 11:54 | XMS_ITS | Continuity of Care Document ---
Author Organization [facility] Address [address] [address] [place] [address] Phone Care Team Providers Care Oakes Machine Operator Name Role Phone Harjit Houston MD Unavailable [...] Diagnoses Date Provider Providers Copied on Encounter [facility], [address], [place], [address], [place] tel:[phone] [facility] No Information 5 Celso Lombardi. [address], [place], [address] , [place]. tel:[phone] Referring Provider: Harjit Houston, [address], [place], [place], [id number]. tel:[phone] OFFICE/OUTPA TIENT VISIT, [facility], [address], [place], [place], [address], [place] [phone] [facility] MCV (chief complaint) headache1 (chief complaint) RA (chief complaint) Rheumatoid arthritisChronic migraine without aura, not intractable, without status migrainosusAbnormal red-cell morphology 5 Celso Lombardi. [address], [place], [place], [address] , [place]. tel:[phone] Referring Provider: Payal Mireles [address], [place], [place], [address]. tel:[phone] OFFICE/OUTPA TIENT VISIT, [facility], [address], [place], [place], [address], [place] [phone] [facility] headache (chief complaint) anxiety (chief complaint) HeadacheDepressive disorder, not elsewhere classifiedBP - High blood pressure Sep- 5 Celso Lombardi. [address], [place], [place], [address] , [place]. [phone] Referring Provider: Payal Mireles [address], [place], [place], [address]. tel:[phone] OFFICE/OUTPA TIENT VISIT, [facility], [address], [place], [place], [address], [place] tel:[phone] [facility] headache (chief complaint) depression (chief complaint) IBS (chief complaint) HeadacheChronic depressionFatigueIr ritable bowel Oct- 5 Celso Lombardi. [address], [place], [place], [address] , [place]. tel:[phone] Referring Provider: Payal Mireles [address], [place], [place], [address]. tel:[phone] OFFICE/OUTPA TIENT VISIT, [facility], [address], [place], [place], [address], [place] tel:[phone] [facility] fatigue (chief complaint) headache (chief complaint) insomnia (chief complaint) depression (chief complaint) HeadacheFatigueChro petros depression 5 Celso Lombardi. [address], [place], [place], [address] , . tel:[phone] Referring Provider: Harjit Houston, [address], [place], [place], [address]. tel:[phone] PREV VISIT, NEW, AGE 40-64 [facility], [address], [place], [place], [address], [place] tel:[phone] [facility] PHysical (chief complaint) Routine medical exam 5 Celso Lombardi. [address], [place], [place], [address] , [place]. [phone] Family History Family Member Type Diagnosis Age At Onset Father Problem (finding) Alive and well Mother Problem (finding) Hypertension Sister Problem (finding) Alive and well Payers Payer name Insurance type Covered constitution party ID Authoriza tion(s) No Information Social [...] treat ordered Referral Referred To: Shama Rondon [address]
[facility] [address] [place], [phone] Ordered: Referrals: Shama Rondon. Evaluate and treat [...] for insomnia: use of alcohol. Additional information: [employer] works. pt denies any snoring or any [...]
--- OUTSIDE RECORDS SUMMARY | 2024-09-18 11:55 | XMS_ITS ---
Author Organization Unknown Plan of Treatment Description Planned Activity Planned Timing [facility] is a provider organization who partners directly with Health Plans and provides integrated primary care, behavioral health, and social sciences instructor for an attributed population Letter encounter to patientTelephone encounter Sep 08, 2024Jul 2024 Patient Care team information Name Category Status Period Participants - - Proposed period not known -
== END 2024-09-18 11:51 | disposition home or self-care (01) ==
LOC: CHSED 11:52
PROVIDERS: Emergency Provider Emergency Medicine; PCP Physician Assistant
DX: J02.8 Acute pharyngitis due to other specified organisms (principal); I10 Essential (primary) hypertension; Z87.891 Personal history of nicotine dependence
CPT/HCPCS: 87651; 99283

== ENCOUNTER 2024-10-07 12:02 | Day surgery (SDC) | payer OTHER, SELFPAY ==
[2024-10-07] VITALS (10 sets, daily range): BP systolic 123–173; BP diastolic 61–104; PULSE 81–103; RESP 13–20; TEMP 36.6–36.7; O2SAT 97–99; BMI 37.5
--- OUTSIDE RECORDS SUMMARY | 2024-10-07 12:10 | XMS_ITS | Clinical Summary ---
Author Organization [place] [id number] [place] Address [address] [place] [address] Care Team Providers Care Soil Analyst Name Role Phone Leesa iVdales MD Unavailable [phone] Drew Mason MD Primary Care Provider Allergies [...] 02/19/2018 Assessment & Plan (02/19/2018 3:37 AM RETAIL KEY HOLDER): Patient meets the criteria for sepsis with elevated lactic acid levels and source of infection. Started empirically on broad-spectrum of antibiotics with vanc Zosyn and Levaquin. Blood cultures are pending Urine cultures were obtained Will get ID consult given the history of MDR/ESBL Will obtain wound cultures as well. Acute cystitis with hematuria 02/19/2018 Assessment & Plan (02/19/2018 3:37 AM RETAIL KEY HOLDER): Urinalysis is consistent with a UTI. Patient currently on broad-spectrum antibiotics Alcohol abuse 02/19/2018 Assessment & Plan (02/19/2018 3:40 AM RETAIL KEY HOLDER): Patient reports chronic alcohol use at least [...] monitor. Assessment & Plan (02/19/2018 3:41 AM RETAIL KEY HOLDER): Trend lactic acid and CBC. Colitis 02/19/2018 Assessment & Plan (02/19/2018 3:42 AM RETAIL KEY HOLDER): CT of the abdomen was consistent with colitis. Patient is currently on broad-spectrum antibiotics with vanc, Zosyn and Levaquin. Consider adding Flagyl. Patient with history of of MDR/ESBL Will get ID consult Hepatic steatosis 02/19/2018 Assessment & Plan (10/08/2019 10:14 PM CDT): Noted on CT scan. Assessment & Plan (02/19/2018 3:42 AM RETAIL KEY HOLDER): Hepatic steatosis noted on CT. Discussed and encouraged to stop drinking Ruptured left breast implant 02/19/2018 Assessment & Plan (02/19/2018 3:43 AM RETAIL KEY HOLDER): Incidental finding on the CT. Patient will need a follow up outpatient with PCP Uterine fibroid 02/19/2018 Assessment & Plan (02/19/2018 3:44 AM RETAIL KEY HOLDER): Incidental finding. Otherwise patient is asymptomatic. Alcohol withdrawal syndrome with complication Assessment & Plan (02/19/2018 3:45 AM RETAIL KEY HOLDER): Patient currently is a tremors and elevated blood pressure. This is highly concerning for alcohol withdrawal. Start on Librium protocol Hydralazine and clonidine as needed for blood pressure control. Acute diffuse otitis externa of left ear 018 Assessment & Plan (02/19/2018 3:54 AM RETAIL KEY HOLDER): Patient with a history of of MDR [...] on file Legal Sex Female 2:28 AM RETAIL KEY HOLDER Gender Identity Not on file Sexual Orientation [...] revised on 19. Testing performed by: [facility], [address] [place] [address], [place]., [address] Hep B core IgM Nonreactive Nonreactive Nga CRAIG (MIKE) Comment: Interpretive Data If HepB Core IgM Ab is reported as Equivocal, a new sample should be drawn in two weeks for testing. Current interpretive data was last revised on 19. Testing performed by: [facility], [address] [place] [address], [place]., [address] Hep C Ab Nonreactive Nonreactive DEONTE CRAIG [...] revised on 2019. Testing performed by: [facility], [address] [place] [address]., [address] HepBsAg Nonreactive Nonreactive [facility] Comment:Testing performed by : [facility], [address] [place] [address]., [address] Blood specimen (specimen) 10/11/2019 5:12 AM CDT 10/11/2019 9:34 AM CDT Leesa Vidales MD LAB MICROBIOLOGY - GENERAL ORDERABLES Final Result DEONTE CRAIG (MIKE) 1 [facility] Department [place] [address] from Last 3 Months or Most Recently Relevant to Health Maintenance Additional Health Concerns Infection Onset Date Last Indicated MDR gram neg/ESBL Comment:02/26/15 Urine E. coli ESBL+ (MDRO) 02/27/2015 02/27/2015 Insurance Advance Directives For more information, please contact: [phone] * Full Code (Latest Code Status on [...] 10:19 PM 02/25/2018 6:41 PM Care Teams Soil Analyst Relationship Specialty Start Date End Date Drew Mason MD [address] [place] [address] PCP - General Family Medicine 03/04/24 Leesa Vidales MD Consulting Physician Gastroenterology 10/11/19
--- OUTSIDE RECORDS SUMMARY | 2024-10-07 12:10 | XMS_ITS | Data Portability ---
Author Organization [facility] Address [address] [place] [address] Assessment No assessment recorded. Plan of Treatment [...] By Organization Details Last Modified Time 11/19/2016 [id number] uterine fibroids : care instructions [email or web address] Not available 11/19/2016 16:15:04 Reason for Referral None Reported. Results Created Date Observation Date Name Description Value Unit Range Abnormal Flag Note LastModifiedBy Organization Detail LastModifiedTime 11/19/19 17 11/06/2016 ky ALLEN compl ete No observ ation record ed. [email or web address] Not Available 2016 09:43:52 11/19/19 17 11/06/2016 [place] ALLEN s compl ete No observ ation record ed. [email or web address] Not Available 2016 09:43:19 Result Notes None recorded. Procedures Surgical History Date Name Laterality Status Provider Name and Address Organization Details Recorded Time Tubal Ligation completed Kellen Ferguson MA [facility] 11/19/2016 15:16:03 delivery completed Kellen Ferguson MA [facility] 11/19/2016 15:16:27 Imaging Results None recorded. Procedure [...] Updated DateTime 11/19/2016 165.1 cm 30.7 kg/m2 37499.43 g 142/98 mm[Hg] Kellen Ferguson MA [facility] 11/19/2016 15:10:50 Social History Question Answer Notes LastModified by Organizat ion Details LastModified Time Tobacco Smoking Status Former Smoker Kellen Ferguson MA null, [facility] 11/19/2016 15:15:31 What Was The Date Of [...] SNOMED-CT Code Diagnosis ICD10 Code Diagnosis Note [id number] Benson Richmond MD [facility] ([facility] [address]) 2 [facility] [address] [place] [address] 11/19/2016 14:53:57 11/19/2016 16:18:24 Uterine leiomyoma [id number] D25.9 - Pt would like definitive treatment with a hysterecto my. Will schedule with another physician that can perform the surgery at another hospital other than [facility]. Health Concerns Section Related Observation LastModified by Organization Detai ls LastModified Time None Recorded Concern Status LastModified by Organization Details LastModified Time None Recorded Advance Directives Directive None Recorded Payers Insurance Date Sequence Insurance Name Policy Number Policy Braov Covered Member ID Bravo Member ID Guarantor Name 11/19/2016 1 [employer] - DOS PRIOR TO 2020 (MEDICAID REPLACEMENT - HMO) Xin Teixeira [id number] Xin Teixeira Notes Date Note Type Note Provider Name and Address Organization Details Recorded Time 11/19/2016 text/html ROS as noted in the HPI Patient presents to discuss pelvic sonogram results [...] hysterectomy. Benson Richmond MD Attn: [address] [place], [address], [place] [facility] 11/19/2016 15:33:32 OBGyn Episode No OBEpisode recorded.
--- OUTSIDE RECORDS SUMMARY | 2024-10-07 12:10 | XMS_ITS | Clinical Summary ---
Author Organization [facility] Address [facility] [place] [address] Care Team Providers Care Broke Man Name Role Phone Allyson Amato MD Primary Care Provider [phone] Allergies Active Allergy Reactions Criticality Noted Date [...] place to sleep or slept in a half-way (including now)? No 12/19/2022 Education Answer Date [...] 5:30 PM 12/20/2022 6:30 PM Care Teams Broke Man Relationship Specialty Start Date End Date Allyson Amato MD [address] [place] [address] PCP - General FAMILY PRACTICE 12/16/22
--- OUTSIDE RECORDS SUMMARY | 2024-10-07 12:10 | XMS_ITS | Referral Summary ---
Author Organization [facility] [address] [place] Address [address] [place] [address] Care Team Providers Care Sales Professional Bilingual Name Role Phone Leesa Vidales MD Unavailable [phone] Drew Mason MD Primary Care Provider [phone] Allergies Active Allergy Reactions Criticality Noted Date [...] 02/19/2018 Assessment & Plan (02/19/2018 3:37 AM MARKER MACHINE ATTENDANT): Patient meets the criteria for sepsis with elevated lactic acid levels and source of infection. Started empirically on broad-spectrum of antibiotics with vanc Zosyn and Levaquin. Blood cultures are pending Urine cultures were obtained Will get ID consult given the history of MDR/ESBL Will obtain wound cultures as well. Acute cystitis with hematuria 02/19/2018 Assessment & Plan (02/19/2018 3:37 AM MARKER MACHINE ATTENDANT): Urinalysis is consistent with a UTI. Patient currently on broad-spectrum antibiotics Alcohol abuse 02/19/2018 Assessment & Plan (02/19/2018 3:40 AM MARKER MACHINE ATTENDANT): Patient reports chronic alcohol use at least [...] monitor. Assessment & Plan (02/19/2018 3:41 AM MARKER MACHINE ATTENDANT): Trend lactic acid and CBC. Colitis 02/19/2018 Assessment & Plan (02/19/2018 3:42 AM MARKER MACHINE ATTENDANT): CT of the abdomen was consistent with colitis. Patient is currently on broad-spectrum antibiotics with vanc, Zosyn and Levaquin. Consider adding Flagyl. Patient with history of of MDR/ESBL Will get ID consult Hepatic steatosis 02/19/2018 Assessment & Plan (10/08/2019 10:14 PM CDT): Noted on CT scan. Assessment & Plan (02/19/2018 3:42 AM MARKER MACHINE ATTENDANT): Hepatic steatosis noted on CT. Discussed and encouraged to stop drinking Ruptured left breast implant 02/19/2018 Assessment & Plan (02/19/2018 3:43 AM MARKER MACHINE ATTENDANT): Incidental finding on the CT. Patient will need a follow up outpatient with PCP Uterine fibroid 02/19/2018 Assessment & Plan (02/19/2018 3:44 AM MARKER MACHINE ATTENDANT): Incidental finding. Otherwise patient is asymptomatic. Alcohol withdrawal syndrome with complication Assessment & Plan (02/19/2018 3:45 AM MARKER MACHINE ATTENDANT): Patient currently is a tremors and elevated blood pressure. This is highly concerning for alcohol withdrawal. Start on Librium protocol Hydralazine and clonidine as needed for blood pressure control. Acute diffuse otitis externa of left ear 018 Assessment & Plan (02/19/2018 3:54 AM MARKER MACHINE ATTENDANT): Patient with a history of of MDR [...] on file Legal Sex Female 2:28 AM MARKER MACHINE ATTENDANT Gender Identity Not on file Sexual Orientation [...] last revised on 19. Testing performed by: [address] [address] Hep B core IgM Nonreactive Nonreactive C ERNER KIARA (MIKE) Comment: Interpretive Data If HepB Core IgM Ab is reported as Equivocal, a new sample should be drawn in two weeks for testing. Current interpretive data was last revised on 19. Testing performed by: [address] [address] Hep C Ab Nonreactive Nonreactive [facility] [...] last revised on 2019. Testing performed by: [address] [address] HepBsAg Nonreactive Nonreactive [facility] (MIKE) Comment:Testing performed by : [address] [address] Blood specimen (specimen) 10/11/2019 5:12 AM CDT 10/11/2019 9:34 AM CDT Leesa Vidales MD LAB MICROBIOLOGY - GENERAL ORDERABLES Final Result [facility] (RUSO) 1 [facility] Department [place] [address] from Last 3 Months or Most Recently Relevant to Health Maintenance Additional Health Concerns Infection Onset Date Last Indicated MDR gram neg/ESBL Comment:02/26/15 Urine E. coli ESBL+ (MDRO) 02/27/2015 02/27/2015 Insurance [facility] Advance Directives For more information, please contact: [phone] * Full Code (Latest Code Status on [...] 10:19 PM 02/25/2018 6:41 PM Care Teams Sales Professional Bilingual Relationship Specialty Start Date End Date Drew Mason MD [address] [place] [id number] PCP - General Family Medicine 03/04/24 Leesa Vidales MD Consulting Physician Gastroenterology 10/11/19
--- OUTSIDE RECORDS SUMMARY | 2024-10-07 12:10 | XMS_ITS | Continuity of Care Document ---
Author Organization [facility] Address [address] [place] [address] [place] [address] Phone Care Team Providers Care Recruitment Officer Name Role Phone Harjit Houston MD Unavailable [...] Diagnoses Date Provider Providers Copied on Encounter [facility], [address] [place], [place], [address], [place] tel:[phone] [facility] No Information 5 Celso Lombardi. [address] [place], [address] , [place]. tel:[phone] Referring Provider: Harjit Houston, [address], [place], [place], [address]. tel:[phone] OFFICE/OUTPA TIENT VISIT, [facility], [address], [place], [place], [address], [place] [phone] [facility] MCV (chief complaint) headache1 (chief complaint) RA (chief complaint) Rheumatoid arthritisChronic migraine without aura, not intractable, without status migrainosusAbnormal red-cell morphology 5 Celso Lombardi. [address], [place], [place], [address] , [place]. [phone] Referring Provider: Payal Mireles [address], [place], [place], [address]. tel:[phone] OFFICE/OUTPA TIENT VISIT, [facility], [address], [place], [place], [address], [place] [phone] [facility] headache (chief complaint) anxiety (chief complaint) HeadacheDepressive disorder, not elsewhere classifiedBP - High blood pressure Sep- 5 Celso Lombardi. [address], [place], [place], [address] , [place]. [phone] Referring Provider: Payal Mireles [address], [place], [place], [address]. tel:[phone] OFFICE/OUTPA TIENT VISIT, [facility], [address], [place], [place], [address], [place] tel:[phone] [facility] headache (chief complaint) depression (chief complaint) IBS (chief complaint) HeadacheChronic depressionFatigueIr ritable bowel Oct- 5 Celso Lombardi. [address], [place], [place], [address] , [place]. tel:[phone] Referring Provider: Payal Mireles [address], [place], [place], [address]. tel:[phone] OFFICE/OUTPA TIENT VISIT, [facility], [address], [place], [place], [address], [place] tel:[phone] [facility] fatigue (chief complaint) headache (chief complaint) insomnia (chief complaint) depression (chief complaint) HeadacheFatigueChro petros depression 5 Celso Lombardi. [address], [place], [place], [address] , . tel:[phone] Referring Provider: Harjit Houston [address], [place], [place], [address]. tel:[phone] PREV VISIT, NEW, AGE 40-64 [facility], [address], [place], [place], [address], [place] tel:[phone] [facility] PHysical (chief complaint) Routine medical exam 5 Celso Lombardi. [address], [place], [place], [address] , [place]. [phone] Family History Family Member Type Diagnosis Age [...] Rondon (related to Rheumatoid arthritis) ordered Referral Referred To: Shama Rondon [address] [facility] [address] [place], [phone] Ordered: Referrals: Shama Rondon. Evaluate and treat ordered Referral Ordered: Referrals: Hematology. Evaluate and treat ordered Referral Ordered: MRI [...]
--- OUTSIDE RECORDS SUMMARY | 2024-10-07 12:11 | XMS_ITS | Data Portability ---
Author Organization [facility] St Fibroid and, [facility]) Address [address] [place] [address] Assessment Encounter Date Assessment Date Assessment LastModified [...] to do the test 2018 [email or web address] [place] [address] Imaging - Creatinine Order, [address] [place], [address], 9 16:29:48 Referral None recorded. Procedures None recorded. Surgeries None recorded. Imaging MRI, pelvis, w/wo contrast - Patient has a history of fibroids. She is being referred for MRI of the pelvis to assess for the extent of Uterine fibroids and the presence of adenomyos is or endometri osis 2018 019 [email or web address] [address] [facility] Imaging Administrative Office, [address], [place], [address], 14:00:03 Medication Orders None recorded. Patient TargetsNo targets recorded. Patient InstructionsNo instructions recorded. Reason for Referral None Reported. Procedures Surgical History Date Name Laterality Status Provider Name and Address Organization Details Recorded Time 08/23/2017 [place] [address], [address], [facility] and 11/09/2018 16:52:07 03/16/2007 [place] [address], [address], [facility] and 11/09/2018 16:52:07 03/16/1995 [place] [address], [address], [email or web address] and 11/09/2018 16:52:07 03/16/1990 [place] [address], [address], [email or web address] and 11/09/2018 16:52:07 Imaging Results [...] Not Available Not Availa ble Not Available Hpk-Zh-Sfqywzgu 0.18 mg/0.215 mg/0.25 mg-0.025 mg tablet active Not Available Not Available Not Available Vitals None Recorded Social History Question Answer Notes LastModified by [employer] Details LastModified Time Tobacco Smoking Status Never Smoker Not Available [facility] 01/17/2020 03:44:16 Which Illicit Or Recreational Drugs Have You Used? None [id number] Information not available 01/17/2020 What Is The Highest Grade Or Level Of School You Have Completed Or The Highest Degree You Have Received? [id number] Information not available 01/17/2020 Live Alone Or With Others? With Others [email or web address] Information not available 11/09/2018 How Much Tobacco Do You Smoke? No [id number] Information not available 01/17/2020 Sex: Unknown Functional Status Question Answer Note LastModified by Organizat ion Details LastModified Time What is your level of alcohol consumption? 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 Family History Nothing [...] Diagnosis Note 458 Kiya Mcfarland MD [address] ( [facility] ) [address] [facility] ,[address] [place] [address] 11/09/2018 16:41:03 11/10/2018 16:10:17 Uterine leiomyoma [id number] D25.9 Health Concerns Section Related Observation LastModified by Organization Detai ls LastModified Time None Recorded Concern Status LastModified by Organization Details LastModified Time None Recorded Advance Directives Directive None Recorded Payers Insurance Date Sequence Insurance Name Policy Number Policy Bravo Covered Member ID Bravo Member ID Guarantor Name 11/10/2018 1 [facility] Xin Lluvia [id number] Xin Lluvia 11/10/2018 1 [facility] PRIOR TO 09/13/2020 (MEDICAID REPLACEMENT - HMO) Xin Lluvia [id number] Xin Lluvia 11/10/2018 1 [employer] [facility] Xin Lluvia [id number] Xin Lluvia 11/10/2018 1 [facility] PRIOR TO 09/13/2020 (MEDICAID REPLACEMENT - HMO) Xin Lluvia [id number] Xin Lluvia 08/02/2019 2 MEDICAID-[place]: [facility] Xin Lluvia [id number] Xin Lluvia Notes Date Note Type Note Provider Name and Address Organization Details Recorded Time 11/09/2018 text/html Fibroids OARepor ira by PatientSymptoms:For quality, patient reportsquantity of flow light. For associated symptoms, patient reportsfatigueandobes ity. For main symptoms, patient reportsgenital: pelvic pressure,genital: pelvic pain, andconstipation(morni ng sickness, nausea and voming, fatigue, weight gain, bloating. she also gets a lot of utis.). For prior evaluation, patient reportsprior pap smear: with negative result(she has had lots of tests, and was told that there is nothing wrong. she had a history of tubal ligation.). For duration, (dx with fibroids, last year[place] [address], [address], [facility] and 11/09/2018 18:18:30 OBGyn Episode No OBEpisode recorded.
[2024-10-07 12:39] LABS: Hematocrit 36.7 % (37.0-47.0); Hemoglobin 10.7 g/dL (12.0-15.0); Immature Granulocyte Percent A 0.3 % (0-0.5); Immature Platelet Fraction Pct 5.3 % (0.9-11.2); Lymphocytes Absolute Auto 1.13 K/mm3 (0.9-3.2); Mean Corpuscular HGB Conc 29.2 g/dl (32-36); Mean Corpuscular Hemoglobin 24.4 pg (26-34); Mean Corpuscular Volume 83.6 fl (80-100); Nucleated Red Blood Cells Absolute Auto 0.000 K/mm3 (0.0-0.012); Nucleated Red Blood Cells Perc 0.0 % (0.0-0.2); Platelet Count Result 115 k/mm3 (150-375); Red Blood Count 4.39 M/mm3 (4.2-5.4); White Blood Count 6.3 K/mm3 (4.5-10.0)
[2024-10-07 12:55] LABS: INR 1.2; Prothrombin Time 14.9 Seconds (11.1-14.7)
[2024-10-07 12:56] LABS: Partial Thromboplastin Time 27.9 Seconds (22.3-36.8)
[2024-10-07 12:59] LABS: Alanine Aminotransferase 19 U/L (6-35); Albumin Level 3.9 g/dL (3.5-5.1); Alkaline Phosphatase 134 U/L (38-126); Anion Gap 8 mmol/L (4-12); Aspartate Amino Transferase 50 U/L (14-36); Bilirubin,Total 1.0 mg/dL (0.2-1.3); Blood Urea Nitrogen 10 mg/dL (7-17); Calcium 9.0 mg/dL (8.4-10.2); Carbon Dioxide 24 mmol/L (22-30); Chloride 106 mmol/L (98-107); Estimated CRCL calculation 86 ml/min; Estimated Glomerular Filt Rate > 60; Glucose 104 mg/dL (65-110); Lipase 250 U/L (23-300); Magnesium 1.6 mg/dL (1.6-2.3); Potassium 4.2 mmol/L (3.4-5.0); Sodium 138 mmol/L (137-145); Total Protein 8.7 g/dL (6.3-8.2)
[2024-10-07 13:10] LABS: Anisocytosis 1+; Hypochromasia 1+
[2024-10-07 13:11] LABS: Polychromasia 1+; Schistocytes None Seen
--- NOTE | 2024-10-07 13:49 | ED_ITS ---
HPI - Nausea/Vomiting/Diarrhea General Chief complaint: Nausea/Vomiting/Diarrhea Stated complaint: vomited blood Time Seen by Provider: 10/07/24 13:28 Source: patient, RN notes reviewed and old records reviewed Mode of arrival: ambulatory Limitations: no limitations History of Present Illness HPI Narrative: THis is a 53 year old female with history of alcoholic cirrhosis and esophageal varices who presents for evaluation of hematemesis. She reports this morning she had 2 episodes of hematemsis. She reports her first episode was 1 cup of dark blood and her 2nd episode was bright red. She has waves of nausea but denies any other episodes of vomiting. She denies abdominal pain, weakness. She reports normal bowel movement. She also states she had varices banding 6 months ago. Related Data Home Medications ?Medication ?Instructions ?Recorded ?Confirmed ?Last Taken ?Type alprazolam 0.5 mg tablet 0.5 mg PO BID PRN anxiety 07/27/23 10/07/24 Unknown History losartan 50 mg-hydrochlorothiazide 1 tablet PO DAILY 07/27/23 10/07/24 10/07/24 History 12.5 mg tablet quetiapine 25 mg tablet 25 mg PO HS 07/27/23 10/07/24 05/19/24 History venlafaxine 75 mg capsule,extended 75 mg PO BID 07/27/23 10/07/24 05/19/24 History release 24 hr omeprazole 20 mg capsule,delayed 20 mg PO DAILY 08/26/23 10/07/24 10/07/24 History release gabapentin 100 mg capsule 100 mg PO BID 10/07/24 10/07/24 10/07/24 History pantoprazole 20 mg tablet,delayed 20 mg PO DAILY 10/07/24 10/07/24 Unknown History release Allergies Allergy/AdvReac Type Severity Reaction Status Date / Time lisinopril Allergy Intermediate Swelling Verified 10/07/24 14:45 of Lip/Tongue/Throat azithromycin AdvReac Unknown N/V Verified 10/07/24 14:45 [facility] Past Medical History Medical History History of esophageal varices with bleeding Elevated liver enzymes Esophageal varices with bleeding Acute blood loss anemia Hematemesis Melena IPMN (intraductal papillary mucinous neoplasm) Fatty liver Concern for hepatic cirrhosis Hepatitis GERD (gastroesophageal reflux disease) Arthritis Insomnia Anxiety Depression Hypertension Surgical History Surgical History Hx of breast augmentation Hx of section x2 History of tubal ligation Family History Family History Father Hypertension Depression Mother Hypertension Son Depression Grandparent Alcoholism Cancer Grandparent Cancer Hypertension Social History Social History Social History: Pt smoked cigarettes socially for approx. 5 yrs. One pack would last her 2 weeks. Smoking status: Never smoker Second hand tobacco smoke exposure: No Smoking end date: 03/16/06 Alcohol intake: current Drinks per week: 2 Alcohol use details: seldom; socially Substance use: never Substance use type: does not use Spiritual care concerns: No Exam 2 Const: General: no acute distress and alert Nutritional Appearance: obese Orientation/consciousness: patient oriented x3 Limitations: no limitations HENMT: Head: normal to inspection Eyes: EOM: EOMs intact bilaterally Chest: Chest palpation & inspection: normal inspection of the chest Resp: Effort & Inspection: normal respiratory effort Auscultation: clear to auscultation bilaterally Cardio: Rate: regular rate Rhythm: regular rhythm Heart sounds: no murmurs GI: GI Palp: Yes Soft to palpation, No Tenderness to palpation present (GI), No Guarding due to palpation present (GI) and No Rigid due to palpation A uscultation: normal bowel sounds Skin: General skin exam: normal color Rashes: no rashes Neuro: General: patient oriented x3, moves all extremities and CN's II-XI intact bilaterally Extrem: General: no pedal edema Psych: Mental Status: mental status grossly normal Affect: normal affect Attitude: cooperative Course Reevaluation(s) Reevaluation #1: I Discussed with patient that she will be admitted and I consulted GI. I Date: 10/07/24 Time: 14:30 Consultations Consultation #1: I Spoke with Dr. Millan with GI. He request Abdominal US to assess ascites, patient to be given octreotide, and protonix. Patient will go to GI lab at some time but unsure when Date: 10/07/24 Time: 14:07 Consultation #2: Juliette, hospitalist, I made her aware patient in GI labs with GI Dr. Millan, discussed vitals and plan . She accepts to service Date: 10/07/24 Time: 14:48 Vital Signs Vital signs: Vital Signs Temperature 98 F 10/07/24 12:18 Pulse Rate 90 10/07/24 12:18 Respiratory Rate 16 10/07/24 12:18 Blood Pressure 160/104 H 10/07/24 12:18 Pulse Oximetry 97 10/07/24 12:18 Oxygen Delivery Room Air 10/07/24 12:18 Temperature 98.1 F 10/07/24 14:52 Pulse Rate 84 10/07/24 14:52 Respiratory Rate 18 10/07/24 14:52 Blood Pressure 151/79 H 10/07/24 14:52 Pulse Oximetry 98 10/07/24 14:52 Oxygen Delivery Room Air 10/07/24 14:52 MDM - Nausea/Vomiting/Diarrhea Differential Diagnosis Differential diagnosis: Likely gastroenteritis, dehydration and other (Upper GI bleeding, anemia, variceal bleeding) Medical Records Attestation: I reviewed the patient's medical records. Lab Data Attestation: I reviewed the patient's lab results. 10/07/24 12:31 10/07/24 12:31 Labs: Lab Results 10/07/24 Range/Units 12:31 WBC 6.3 (4.5-10.0) K/mm3 RBC 4.39 (4.2-5.4) M/mm3 Hgb 10.7 L (12.0-15.0) g/dL Hct 36.7 L (37.0-47.0) % MCV 83.6 (80-100) fl MCH 24.4 L (26-34) pg MCHC 29.2 L (32-36) g/dl RDW 17.5 H (11.5-14.5) % Plt Count 115 L (150-375) k/mm3 MPV 10.1 (7.4-10.4) fl Immature Gran % (Auto) 0.3 (0-0.5) % Neut % (Auto) 67.7 (45.5-73.1) % Lymph % (Auto) 18.1 L (18.3-44.2) % Kimball % (Auto) 10.7 H (2.6-8.5) % Eos % (Auto) 2.2 (0-4.4) % Baso % (Auto) 1.0 (0.2-1.2) % Lymph # (Auto) 1.13 (0.9-3.2) K/mm3 Kimball # (Auto) 0.7 H (0.1-0.6) K/mm3 Eos # (Auto) 0.1 (0-0.3) K/mm3 Baso # (Auto) 0.1 (0.0-0.1) K/mm3 Abs Immat Gran (auto) 0.02 (0.00-0.031) K/mm3 Absolute Neuts (auto) 4.2 (1.3-6.7) K/mm3 Absolute Nucleated RBC 0.000 (0.0-0.012) K/mm3 Band Neutrophils % Not Reportable Nucleated RBC % 0.0 (0.0-0.2) % Platelet Estimate Decreased (Adequate) % Immature Plt Fraction 5.3 (0.9-11.2) % Polychromasia 1+ Hypochromasia 1+ Anisocytosis 1+ Schistocytes None seen PT 14.9 H (11.1-14.7) Seconds INR 1.2 APTT 27.9 (22.3-36.8) Seconds Sodium 138 (137-145) mmol/L Potassium 4.2 (3.4-5.0) mmol/L Chloride 106 (98-107) mmol/L Carbon Dioxide 24 (22-30) mmol/L Anion Gap 8 (4-12) mmol/L BUN 10 D (7-17) mg/dL Creatinine 0.75 (0.7-1.0) mg/dL Estim Creat Clear Calc 86 ml/min Estimated GFR > 60 (59 - ) Glucose 104 (65-110) mg/dL Calcium 9.0 (8.4-10.2) mg/dL Magnesium 1.6 (1.6-2.3) mg/dL Total Bilirubin 1.0 (0.2-1.3) mg/dL AST 50 H (14-36) U/L ALT 19 (6-35) U/L Alkaline Phosphatase 134 H (38-126) U/L Total Protein 8.7 H (6.3-8.2) g/dL Albumin 3.9 (3.5-5.1) g/dL Lipase 250 (23-300) U/L Blood Type A Positive Antibody Screen Negative Critical Care Time Critical Care Time Critical Care Time: Yes Total Critical Care Time: 40 Discharge Plan Discharge Clinical Impression: Esophageal varices with bleeding, Anemia Patient Disposition: Still a Patient Condition: Guarded Prognosis
[2024-10-07] MEDS: PANTOPRAZOLE SODIUM IV 40 MG VIAL 80 MG IV PUSH (13:57)
--- OUTSIDE RECORDS SUMMARY | 2024-10-07 14:07 | XMS_ITS | Continuity of Care Document ---
Author Organization [facility] Address [address] [place] [address] [place] [address] Phone Care Team Providers Care Tablet Making Machine Operator Helper Name Role Phone Harjit Houston MD Unavailable [...] Diagnoses Date Provider Providers Copied on Encounter [facility], [address] [place], [place], [address], [place] tel:[phone] [facility] No Information 5 Celso Lombardi. [address] [place], [place], [address] , [place]. tel:[phone] Referring Provider: Harjit Houston, [address], [place], [place], [address]. tel:[phone] OFFICE/OUTPA TIENT VISIT, [facility], [address], [place], [place], [address], [place] [phone] [facility] MCV (chief complaint) headache1 (chief complaint) RA (chief complaint) Rheumatoid arthritisChronic migraine without aura, not intractable, without status migrainosusAbnormal red-cell morphology 5 Celso Lombardi. [address], [place], [place], [address] , [place]. [phone] Referring Provider: Payal Mireles [address], [place], [place], [address]. tel:[phone] OFFICE/OUTPA TIENT VISIT, [facility], [address], [place], [place], [address], [place] [phone] [facility] headache (chief complaint) anxiety (chief complaint) HeadacheDepressive disorder, not elsewhere classifiedBP - High blood pressure Sep- 5 Celso Lombardi. [address], [place], [place], [address] , [place]. [phone] Referring Provider: Payal Mire[address], [place], [place], [address]. tel:[phone] OFFICE/OUTPA TIENT VISIT, [facility], [address], [place], [place], [address], [place] tel:[phone] [facility] headache (chief complaint) depression (chief complaint) IBS (chief complaint) HeadacheChronic depressionFatigueIr ritable bowel Oct- 5 Celso Lombardi. [address], [place], [place], [address] , [place]. [phone] Referring Provider: Payal Mireles [address], [place], [place], [address]. tel:[phone] OFFICE/OUTPA TIENT VISIT, [facility], [address], [place], [place], [address], [place] tel:[phone] [facility] fatigue (chief complaint) headache (chief complaint) insomnia (chief complaint) depression (chief complaint) HeadacheFatigueChro petros depression 5 Celso Lombardi. [address], [place], [place], [address] , . tel:[phone] Referring Provider: Harjit Houston [address], [place], [place], [address]. tel:[phone] PREV VISIT, NEW, AGE 40-64 [facility], [address], [place], [place], [address], [place] tel:[phone] [facility] PHysical (chief complaint) Routine medical exam 5 Celso Lombardi. [address], [place], [place], [address] , [place]. [phone] Family History Family Member Type Diagnosis Age At Onset Father Problem (finding) Alive and well Mother Problem (finding) Hypertension Sister Problem (finding) Alive and well Payers Payer name Insurance type Covered alliance party ID Authoriza tion(s) No Information Social [...] Hematology (related to Rheumatoid arthritis) ordered Referral Referred To: Shama Rondon [address]
[facility] [address] [place], [phone] Ordered: Referrals: Shama Rondon. Evaluate and treat [...] for insomnia: use of alcohol. Additional information: [employer] works. pt denies any snoring or any [...]
--- OUTSIDE RECORDS SUMMARY | 2024-10-07 14:07 | XMS_ITS | Referral Summary ---
Author Organization [facility] [place] [address] Address [address] [place] [id number] Care Team Providers Care Airborne Operations Superintendent Name Role Phone Leesa Vidales MD Unavailable [phone] Drew Mason MD Primary Care Provider Allergies [...] 02/19/2018 Assessment & Plan (02/19/2018 3:37 AM NUCLEAR POWER REACTOR OPERATOR): Patient meets the criteria for sepsis with elevated lactic acid levels and source of infection. Started empirically on broad-spectrum of antibiotics with vanc Zosyn and Levaquin. Blood cultures are pending Urine cultures were obtained Will get ID consult given the history of MDR/ESBL Will obtain wound cultures as well. Acute cystitis with hematuria 02/19/2018 Assessment & Plan (02/19/2018 3:37 AM NUCLEAR POWER REACTOR OPERATOR): Urinalysis is consistent with a UTI. Patient currently on broad-spectrum antibiotics Alcohol abuse 02/19/2018 Assessment & Plan (02/19/2018 3:40 AM NUCLEAR POWER REACTOR OPERATOR): Patient reports chronic alcohol use at [...] monitor. Assessment & Plan (02/19/2018 3:41 AM NUCLEAR POWER REACTOR OPERATOR): Trend lactic acid and CBC. Colitis 02/19/2018 Assessment & Plan (02/19/2018 3:42 AM NUCLEAR POWER REACTOR OPERATOR): CT of the abdomen was consistent with colitis. Patient is currently on broad-spectrum antibiotics with vanc, Zosyn and Levaquin. Consider adding Flagyl. Patient with history of of MDR/ESBL Will get ID consult Hepatic steatosis 02/19/2018 Assessment & Plan (10/08/2019 10:14 PM CDT): Noted on CT scan. Assessment & Plan (02/19/2018 3:42 AM NUCLEAR POWER REACTOR OPERATOR): Hepatic steatosis noted on CT. Discussed and encouraged to stop drinking Ruptured left breast implant 02/19/2018 Assessment & Plan (02/19/2018 3:43 AM NUCLEAR POWER REACTOR OPERATOR): Incidental finding on the CT. Patient will need a follow up outpatient with PCP Uterine fibroid 02/19/2018 Assessment & Plan (02/19/2018 3:44 AM NUCLEAR POWER REACTOR OPERATOR): Incidental finding. Otherwise patient is asymptomatic. Alcohol withdrawal syndrome with complication Assessment & Plan (02/19/2018 3:45 AM NUCLEAR POWER REACTOR OPERATOR): Patient currently is a tremors and elevated blood pressure. This is highly concerning for alcohol withdrawal. Start on Librium protocol Hydralazine and clonidine as needed for blood pressure control. Acute diffuse otitis externa of left ear 018 Assessment & Plan (02/19/2018 3:54 AM NUCLEAR POWER REACTOR OPERATOR): Patient with a history of of [...] on file Legal Sex Female 2:28 AM NUCLEAR POWER REACTOR OPERATOR Gender Identity Not on file Sexual [...] last revised on 19. Testing performed by: [address] [address] Hep B core IgM Nonreactive Nonreactive C ERNER KIARA (MIKE) Comment: Interpretive Data If HepB Core IgM Ab is reported as Equivocal, a new sample should be drawn in two weeks for testing. Current interpretive data was last revised on 19. Testing performed by: [address] [address] Hep C Ab Nonreactive Nonreactive [facility] [...] last revised on 2019. Testing performed by: [address] [address] HepBsAg Nonreactive Nonreactive [facility] (MIKE) Comment:Testing performed by : [address] [address] Blood specimen (specimen) 10/11/2019 5:12 AM CDT 10/11/2019 9:34 AM CDT Leesa Vidales MD LAB MICROBIOLOGY - GENERAL ORDERABLES Final Result [facility] ([place]) 1 [facility] Department [place] [address] from Last 3 Months or Most Recently Relevant to Health Maintenance Additional Health Concerns Infection Onset Date Last Indicated MDR gram neg/ESBL Comment:02/26/15 Urine E. coli ESBL+ (MDRO) 02/27/2015 02/27/2015 Insurance [facility] Advance Directives For more information, please contact: [phone] * Full Code (Latest Code Status on [...] 10:19 PM 02/25/2018 6:41 PM Care Teams Airborne Operations Superintendent Relationship Specialty Start Date End Date Drew Mason MD [address] [place] [address] PCP - General Family Medicine 03/04/24 Leesa Vidales MD Consulting Physician Gastroenterology 10/11/19
--- OUTSIDE RECORDS SUMMARY | 2024-10-07 14:07 | XMS_ITS | Clinical Summary ---
Author Organization [facility] Address [facility] [place] [address] Care Team Providers Care Neon Sign Installer Name Role Phone Allyson Amato MD Primary Care Provider [phone] Allergies Active Allergy Reactions Criticality Noted Date [...] place to sleep or slept in a [place] health care facility (including now)? No 12/19/2022 Education Answer Date [...] 5:30 PM 12/20/2022 6:30 PM Care Teams Neon Sign Installer Relationship Specialty Start Date End Date Allyson Amato MD [address] [place] [address] PCP - General FAMILY PRACTICE 12/16/22
--- OUTSIDE RECORDS SUMMARY | 2024-10-07 14:07 | XMS_ITS | Clinical Summary ---
Author Organization [facility] [id number] [place] Address [address] [place] [phone] Care Team Providers Care Data Engineer Name Role Phone Leesa Vidales MD Unavailable [phone] Drew Mason MD Primary Care Provider Allergies [...] 02/19/2018 Assessment & Plan (02/19/2018 3:37 AM TECHNICAL SERVICE REPRESENTATIVE): Patient meets the criteria for sepsis with elevated lactic acid levels and source of infection. Started empirically on broad-spectrum of antibiotics with vanc Zosyn and Levaquin. Blood cultures are pending Urine cultures were obtained Will get ID consult given the history of MDR/ESBL Will obtain wound cultures as well. Acute cystitis with hematuria 02/19/2018 Assessment & Plan (02/19/2018 3:37 AM TECHNICAL SERVICE REPRESENTATIVE): Urinalysis is consistent with a UTI. Patient currently on broad-spectrum antibiotics Alcohol abuse 02/19/2018 Assessment & Plan (02/19/2018 3:40 AM TECHNICAL SERVICE REPRESENTATIVE): Patient reports chronic alcohol use at least [...] monitor. Assessment & Plan (02/19/2018 3:41 AM TECHNICAL SERVICE REPRESENTATIVE): Trend lactic acid and CBC. Colitis 02/19/2018 Assessment & Plan (02/19/2018 3:42 AM TECHNICAL SERVICE REPRESENTATIVE): CT of the abdomen was consistent with colitis. Patient is currently on broad-spectrum antibiotics with vanc, Zosyn and Levaquin. Consider adding Flagyl. Patient with history of of MDR/ESBL Will get ID consult Hepatic steatosis 02/19/2018 Assessment & Plan (10/08/2019 10:14 PM CDT): Noted on CT scan. Assessment & Plan (02/19/2018 3:42 AM TECHNICAL SERVICE REPRESENTATIVE): Hepatic steatosis noted on CT. Discussed and encouraged to stop drinking Ruptured left breast implant 02/19/2018 Assessment & Plan (02/19/2018 3:43 AM TECHNICAL SERVICE REPRESENTATIVE): Incidental finding on the CT. Patient will need a follow up outpatient with PCP Uterine fibroid 02/19/2018 Assessment & Plan (02/19/2018 3:44 AM TECHNICAL SERVICE REPRESENTATIVE): Incidental finding. Otherwise patient is asymptomatic. Alcohol withdrawal syndrome with complication Assessment & Plan (02/19/2018 3:45 AM TECHNICAL SERVICE REPRESENTATIVE): Patient currently is a tremors and elevated blood pressure. This is highly concerning for alcohol withdrawal. Start on Librium protocol Hydralazine and clonidine as needed for blood pressure control. Acute diffuse otitis externa of left ear 018 Assessment & Plan (02/19/2018 3:54 AM TECHNICAL SERVICE REPRESENTATIVE): Patient with a history of of MDR [...] on file Legal Sex Female 2:28 AM TECHNICAL SERVICE REPRESENTATIVE Gender Identity Not on file Sexual Orientation [...] last revised on 19. Testing performed by: [facility], [address] [place] [address], [place]., [address] Hep B core IgM Nonreactive Nonreactive Nga CRAIG (MIKE) Comment: Interpretive Data If HepB Core IgM Ab is reported as Equivocal, a new sample should be drawn in two weeks for testing. Current interpretive data was last revised on 19. Testing performed by: [facility], [address] [place] [address], [place]., [address] Hep C Ab Nonreactive Nonreactive DEONTE CRAIG [...] last revised on 2019. Testing performed by: [facility], [address] [place] [address]., [address] HepBsAg Nonreactive Nonreactive [facility] (MIKE) Comment:Testing performed by : [facility], [address] [place] [address]., [address] Blood specimen (specimen) 10/11/2019 5:12 AM CDT 10/11/2019 9:34 AM CDT Leesa Vidales MD LAB MICROBIOLOGY - GENERAL ORDERABLES Final Result DEONTE CRAIG ([place]) 1 [facility] Department [place] [address] from Last 3 Months or Most Recently Relevant to Health Maintenance Additional Health Concerns Infection Onset Date Last Indicated MDR gram neg/ESBL Comment:02/26/15 Urine E. coli ESBL+ (MDRO) 02/27/2015 02/27/2015 Insurance Advance Directives For more information, please contact: [phone] * Full Code (Latest Code Status on [...] 10:19 PM 02/25/2018 6:41 PM Care Teams Data Engineer Relationship Specialty Start Date End Date Drew Mason MD [address] [place] [address] PCP - General Family Medicine 03/04/24 Leesa Vidales MD Consulting Physician Gastroenterology 10/11/19
--- OUTSIDE RECORDS SUMMARY | 2024-10-07 14:36 | XMS_ITS | Referral Summary ---
Author Organization [facility] [place] [address] Address [address] [place] [phone] Care Team Providers Care Autotransfusionist Name Role Phone Leesa Vidales MD Unavailable [phone] Drew Mason MD Primary Care Provider Allergies [...] 02/19/2018 Assessment & Plan (02/19/2018 3:37 AM SLIDE ATTENDANT): Patient meets the criteria for sepsis with elevated lactic acid levels and source of infection. Started empirically on broad-spectrum of antibiotics with vanc Zosyn and Levaquin. Blood cultures are pending Urine cultures were obtained Will get ID consult given the history of MDR/ESBL Will obtain wound cultures as well. Acute cystitis with hematuria 02/19/2018 Assessment & Plan (02/19/2018 3:37 AM SLIDE ATTENDANT): Urinalysis is consistent with a UTI. Patient currently on broad-spectrum antibiotics Alcohol abuse 02/19/2018 Assessment & Plan (02/19/2018 3:40 AM SLIDE ATTENDANT): Patient reports chronic alcohol use at [...] monitor. Assessment & Plan (02/19/2018 3:41 AM SLIDE ATTENDANT): Trend lactic acid and CBC. Colitis 02/19/2018 Assessment & Plan (02/19/2018 3:42 AM SLIDE ATTENDANT): CT of the abdomen was consistent with colitis. Patient is currently on broad-spectrum antibiotics with vanc, Zosyn and Levaquin. Consider adding Flagyl. Patient with history of of MDR/ESBL Will get ID consult Hepatic steatosis 02/19/2018 Assessment & Plan (10/08/2019 10:14 PM CDT): Noted on CT scan. Assessment & Plan (02/19/2018 3:42 AM SLIDE ATTENDANT): Hepatic steatosis noted on CT. Discussed and encouraged to stop drinking Ruptured left breast implant 02/19/2018 Assessment & Plan (02/19/2018 3:43 AM SLIDE ATTENDANT): Incidental finding on the CT. Patient will need a follow up outpatient with PCP Uterine fibroid 02/19/2018 Assessment & Plan (02/19/2018 3:44 AM SLIDE ATTENDANT): Incidental finding. Otherwise patient is asymptomatic. Alcohol withdrawal syndrome with complication Assessment & Plan (02/19/2018 3:45 AM SLIDE ATTENDANT): Patient currently is a tremors and elevated blood pressure. This is highly concerning for alcohol withdrawal. Start on Librium protocol Hydralazine and clonidine as needed for blood pressure control. Acute diffuse otitis externa of left ear 018 Assessment & Plan (02/19/2018 3:54 AM SLIDE ATTENDANT): Patient with a history of of [...] on file Legal Sex Female 2:28 AM SLIDE ATTENDANT Gender Identity Not on file Sexual [...] last revised on 19. Testing performed by: [address] [address] Hep B core IgM Nonreactive Nonreactive C ERNER KIARA (MIKE) Comment: Interpretive Data If HepB Core IgM Ab is reported as Equivocal, a new sample should be drawn in two weeks for testing. Current interpretive data was last revised on 19. Testing performed by: [address] [address] Hep C Ab Nonreactive Nonreactive [facility] [...] last revised on 2019. Testing performed by: [address] [address] HepBsAg Nonreactive Nonreactive [facility] (MIKE) Comment:Testing performed by : [address] [address] Blood specimen (specimen) 10/11/2019 5:12 AM CDT 10/11/2019 9:34 AM CDT Leesa Vidales MD LAB MICROBIOLOGY - GENERAL ORDERABLES Final Result [facility] ([place]) 1 [facility] Department [place] [address] from Last 3 Months or Most Recently Relevant to Health Maintenance Additional Health Concerns Infection Onset Date Last Indicated MDR gram neg/ESBL Comment:02/26/15 Urine E. coli ESBL+ (MDRO) 02/27/2015 02/27/2015 Insurance [facility] Advance Directives For more information, please contact: [phone] * Full Code (Latest Code Status on [...] 10:19 PM 02/25/2018 6:41 PM Care Teams Autotransfusionist Relationship Specialty Start Date End Date Drew Mason MD [address] [place] [address] PCP - General Family Medicine 03/04/24 Leesa Vidales MD Consulting Physician Gastroenterology 10/11/19
--- OUTSIDE RECORDS SUMMARY | 2024-10-07 14:36 | XMS_ITS | Clinical Summary ---
Author Organization [place] [id number] [place] Address [address] [place] [phone] Care Team Providers Care Caddy/Caddie Supervisor Name Role Phone Leesa Vidales MD Unavailable [phone] Drew Mason MD Primary Care Provider [phone] Allergies Active Allergy Reactions Criticality Noted Date [...] 02/19/2018 Assessment & Plan (02/19/2018 3:37 AM ENVIRONMENTAL MONITORING SPECIALIST): Patient meets the criteria for sepsis with elevated lactic acid levels and source of infection. Started empirically on broad-spectrum of antibiotics with vanc Zosyn and Levaquin. Blood cultures are pending Urine cultures were obtained Will get ID consult given the history of MDR/ESBL Will obtain wound cultures as well. Acute cystitis with hematuria 02/19/2018 Assessment & Plan (02/19/2018 3:37 AM ENVIRONMENTAL MONITORING SPECIALIST): Urinalysis is consistent with a UTI. Patient currently on broad-spectrum antibiotics Alcohol abuse 02/19/2018 Assessment & Plan (02/19/2018 3:40 AM ENVIRONMENTAL MONITORING SPECIALIST): Patient reports chronic alcohol use at least [...] monitor. Assessment & Plan (02/19/2018 3:41 AM ENVIRONMENTAL MONITORING SPECIALIST): Trend lactic acid and CBC. Colitis 02/19/2018 Assessment & Plan (02/19/2018 3:42 AM ENVIRONMENTAL MONITORING SPECIALIST): CT of the abdomen was consistent with colitis. Patient is currently on broad-spectrum antibiotics with vanc, Zosyn and Levaquin. Consider adding Flagyl. Patient with history of of MDR/ESBL Will get ID consult Hepatic steatosis 02/19/2018 Assessment & Plan (10/08/2019 10:14 PM CDT): Noted on CT scan. Assessment & Plan (02/19/2018 3:42 AM ENVIRONMENTAL MONITORING SPECIALIST): Hepatic steatosis noted on CT. Discussed and encouraged to stop drinking Ruptured left breast implant 02/19/2018 Assessment & Plan (02/19/2018 3:43 AM ENVIRONMENTAL MONITORING SPECIALIST): Incidental finding on the CT. Patient will need a follow up outpatient with PCP Uterine fibroid 02/19/2018 Assessment & Plan (02/19/2018 3:44 AM ENVIRONMENTAL MONITORING SPECIALIST): Incidental finding. Otherwise patient is asymptomatic. Alcohol withdrawal syndrome with complication Assessment & Plan (02/19/2018 3:45 AM ENVIRONMENTAL MONITORING SPECIALIST): Patient currently is a tremors and elevated blood pressure. This is highly concerning for alcohol withdrawal. Start on Librium protocol Hydralazine and clonidine as needed for blood pressure control. Acute diffuse otitis externa of left ear 018 Assessment & Plan (02/19/2018 3:54 AM ENVIRONMENTAL MONITORING SPECIALIST): Patient with a history of of MDR [...] on file Legal Sex Female 2:28 AM ENVIRONMENTAL MONITORING SPECIALIST Gender Identity Not on file Sexual Orientation [...] last revised on 19. Testing performed by: [facility], [address] [place] [address], [place]., [address] Hep B core IgM Nonreactive Nonreactive Nga CRAIG (MIKE) Comment: Interpretive Data If HepB Core IgM Ab is reported as Equivocal, a new sample should be drawn in two weeks for testing. Current interpretive data was last revised on 19. Testing performed by: [facility], [address] [place] [address], [place]., [address] Hep C Ab Nonreactive Nonreactive DEONTE CRAIG [...] last revised on 2019. Testing performed by: [facility], [address] [place] [address]., [address] HepBsAg Nonreactive Nonreactive [facility] (MIKE) Comment:Testing performed by : [facility], [address] [place] [address]., [address] Blood specimen (specimen) 10/11/2019 5:12 AM CDT 10/11/2019 9:34 AM CDT Leesa Vidales MD LAB MICROBIOLOGY - GENERAL ORDERABLES Final Result DEONTE CRAIG ([place]) 1 [facility] Department [place] [address] from Last 3 Months or Most Recently Relevant to Health Maintenance Additional Health Concerns Infection Onset Date Last Indicated MDR gram neg/ESBL Comment:02/26/15 Urine E. coli ESBL+ (MDRO) 02/27/2015 02/27/2015 Insurance Advance Directives For more information, please contact: [phone] * Full Code (Latest Code Status on [...] 10:19 PM 02/25/2018 6:41 PM Care Teams Caddy/Caddie Supervisor Relationship Specialty Start Date End Date Drew Mason MD [address] [place] [address] PCP - General Family Medicine 03/04/24 Leesa Vidales MD Consulting Physician Gastroenterology 10/11/19
--- OUTSIDE RECORDS SUMMARY | 2024-10-07 14:36 | XMS_ITS | Continuity of Care Document ---
Author Organization [facility] Address [address] [place] [address] [place] [address] Phone Care Team Providers Care Topper Press Operator Name Role Phone Harjit [place] MD [...] Diagnoses Date Provider Providers Copied on Encounter [facility], [address] [place], [id number], [place] tel:[phone] [facility] No Information 5 Celso Lombardi. [address] [place], [address] , [place]. tel:[phone] Referring Provider: Harjit [place], [address], [place], [place], [id number]. tel:[phone] OFFICE/OUTPA TIENT VISIT, [facility], [address], [place], [place], [address], [place] [phone] [facility] MCV (chief complaint) headache1 (chief complaint) RA (chief complaint) Rheumatoid arthritisChronic migraine without aura, not intractable, without status migrainosusAbnormal red-cell morphology 5 Celso Lombardi. [address], [place], [place], [id number] , [place]. tel:[phone] Referring Provider: Payal Mireles [address], [place], [place], [id number]. tel:[phone] OFFICE/OUTPA TIENT VISIT, [facility], [address], [place], [place], [address], [place] [phone] [facility] headache (chief complaint) anxiety (chief complaint) HeadacheDepressive disorder, not elsewhere classifiedBP - High blood pressure Sep- 5 Celso Lombardi. [address], [place], [place], [address] , [place]. [phone] Referring Provider: Payal Mireles [address], [place], [place], [address]. tel:[phone] OFFICE/OUTPA TIENT VISIT, [facility], [address], [place], [place], [address], [place] tel:[phone] [facility] headache (chief complaint) depression (chief complaint) IBS (chief complaint) HeadacheChronic depressionFatigueIr ritable bowel Oct- 5 Celso Lombardi. [address], [place], [place], [address] , [place]. [phone] Referring Provider: Payal Mireles [address], [place], [place], [address]. tel:[phone] OFFICE/OUTPA TIENT VISIT, [facility], [address], [place], [place], [address], [place] tel:[phone] [facility] fatigue (chief complaint) headache (chief complaint) insomnia (chief complaint) depression (chief complaint) HeadacheFatigueChro petros depression 5 Celso Lombardi. [address], [place], [place], [address] , . tel:[phone] Referring Provider: Harjit [place] [address], [place], [place], [address]. tel:[phone] PREV VISIT, NEW, AGE 40-64 [facility], [address], [place], [place], [address], [place] tel:[phone] [facility] PHysical (chief complaint) Routine medical exam 5 Celso Lombardi. [address], [place], [place], [address] , [place]. [phone] Family History Family Member Type Diagnosis Age [...] Referred To: Shama Rondon [address]
[facility] [address] [place], [phone] Ordered: Referrals: Shama Rondon. Evaluate and treat [...] for insomnia: use of alcohol. Additional information: [employer] works. pt denies any snoring or any [...]
--- OUTSIDE RECORDS SUMMARY | 2024-10-07 14:36 | XMS_ITS | Clinical Summary ---
Author Organization [facility] Address [facility] [place] [address] Care Team Providers Care Meat Processing Center Manager Name Role Phone Allyson Amato MD Primary Care Provider [phone] Allergies Active Allergy Reactions Criticality Noted Date [...] place to sleep or slept in a retirement (including now)? No 12/19/2022 Education Answer Date [...] 5:30 PM 12/20/2022 6:30 PM Care Teams Meat Processing Center Manager Relationship Specialty Start Date End Date Allyson Amato MD [address] [place] [address] PCP - General FAMILY PRACTICE 12/16/22
--- NOTE | 2024-10-07 14:42 | P.PNAN_ITS ---
Anes - Initial Pre Proc Eval Procedure: Operation Date: 10/07/24 15:00 Proposed Procedures p Esophagogastroduodenoscopy - Omkar Millan MD Date/Time: 10/07/24 14:42 Surgeon: Omkar Millan MD Pre Op Diagnosis: vomited blood Patient Data Age: 53 Gender: F Height: 1.63 m Weight: 99.1 kg Last Vital Signs Temp 36.6 C 10/07/24 13:36 Pulse 86 10/07/24 13:36 Resp 13 10/07/24 13:36 BP 173/80 H 10/07/24 13:36 Pulse Ox 98 10/07/24 13:36 O2 Del Method Room Air 10/07/24 12:18 Allergies Allergy/AdvReac Type Severity Reaction Status Date / Time lisinopril Allergy Intermediate Swelling Verified 10/07/24 12:03 of Lip/Tongue/Throat azithromycin AdvReac Unknown N/V Verified 10/07/24 12:03 Home Medications ?Medication ?Instructions ?Recorded ?Confirmed ?Type sumatriptan succinate 100 mg tablet See Rx Instructions PO .COMPLEX #9 01/02/20 05/19/24 Rx tabs albuterol sulfate 90 mcg/actuation 1 inh inhalation Q4H PRN shortness 05/18/22 05/19/24 Rx aerosol inhaler of breath or wheezing #8.5 grams bupropion HCl 300 mg 24 hr tablet, 300 mg PO QAM #30 tabs 12/03/22 05/20/24 Rx extended release (Wellbutrin XL) alprazolam 0.5 mg tablet 0.5 mg PO BID PRN anxiety 07/27/23 05/19/24 History losartan 50 mg-hydrochlorothiazide 1 tablet PO DAILY 07/27/23 05/20/24 History 12.5 mg tablet metoclopramide HCl 5 mg tablet 5 mg PO Q6H PRN nausea 07/27/23 05/19/24 History (Reglan) quetiapine 25 mg tablet 25 mg PO HS 07/27/23 05/20/24 History venlafaxine 75 mg capsule,extended 75 mg PO BID 07/27/23 05/20/24 History release 24 hr omeprazole 20 mg capsule,delayed 20 mg PO DAILY 08/26/23 05/20/24 History release nadolol 20 mg tablet 20 mg PO ONCE #30 tabs 05/20/24 Rx oxycodone-acetaminophen 5 mg-325 1 tablet PO Q6H PRN pain #14 tabs 08/04/24 Rx mg tablet (Percocet) tramadol 50 mg tablet 50 mg PO Q6H PRN pain #20 tabs 08/04/24 Rx Laboratory Tests 10/07/24 12:31 WBC 6.3 K/mm3 (4.5-10.0) RBC 4.39 M/mm3 (4.2-5.4) Hgb 10.7 L g/dL (12.0-15.0) Hct 36.7 L % (37.0-47.0) MCV 83.6 fl (80-100) MCH 24.4 L pg (26-34) MCHC 29.2 L g/dl (32-36) RDW 17.5 H % (11.5-14.5) Plt Count 115 L k/mm3 (150-375) MPV 10.1 fl (7.4-10.4) Immature Gran % (Auto) 0.3 % (0-0.5) Neut % (Auto) 67.7 % (45.5-73.1) Lymph % (Auto) 18.1 L % (18.3-44.2) [place] % (Auto) 10.7 H % (2.6-8.5) Eos % (Auto) 2.2 % (0-4.4) Baso % (Auto) 1.0 % (0.2-1.2) Lymph # (Auto) 1.13 K/mm3 (0.9-3.2) [place] # (Auto) 0.7 H K/mm3 (0.1-0.6) Eos # (Auto) 0.1 K/mm3 (0-0.3) Baso # (Auto) 0.1 K/mm3 (0.0-0.1) Abs Immat Gran (auto) 0.02 K/mm3 (0.00-0.031) Absolute Neuts (auto) 4.2 K/mm3 (1.3-6.7) Absolute Nucleated RBC 0.000 K/mm3 (0.0-0.012) Band Neutrophils % Not Reportable Nucleated RBC % 0.0 % (0.0-0.2) Platelet Estimate Decreased (Adequate) % Immature Plt Fraction 5.3 % (0.9-11.2) Polychromasia 1+ Hypochromasia 1+ Anisocytosis 1+ Schistocytes None seen PT 14.9 H Seconds (11.1-14.7) INR 1.2 APTT 27.9 Seconds (22.3-36.8) Sodium 138 mmol/L (137-145) Potassium 4.2 mmol/L (3.4-5.0) Chloride 106 mmol/L (98-107) Carbon Dioxide 24 mmol/L (22-30) Anion Gap 8 mmol/L (4-12) BUN 10 D mg/dL (7-17) Creatinine 0.75 mg/dL (0.7-1.0) Estim Creat Clear Calc 86 ml/min Estimated GFR > 60 (59 - ) Glucose 104 mg/dL (65-110) Calcium 9.0 mg/dL (8.4-10.2) Magnesium 1.6 mg/dL (1.6-2.3) Total Bilirubin 1.0 mg/dL (0.2-1.3) AST 50 H U/L (14-36) ALT 19 U/L (6-35) Alkaline Phosphatase 134 H U/L (38-126) Total Protein 8.7 H g/dL (6.3-8.2) Albumin 3.9 g/dL (3.5-5.1) Lipase 250 U/L (23-300) Blood Type A Positive Antibody Screen Negative Patient hx anesthesia problems: none Family hx anesthesia problems: none Results Review: All pre-operative results and documents have been reviewed as part of the pre- operative evaluation. [facility] Past Medical History Medical History History of esophageal varices with bleeding Elevated liver enzymes Esophageal varices with bleeding Acute blood loss anemia Hematemesis Melena IPMN (intraductal papillary mucinous neoplasm) Fatty liver Concern for hepatic cirrhosis Hepatitis GERD (gastroesophageal reflux disease) Arthritis Insomnia Anxiety Depression Hypertension Surgical History Surgical History Hx of breast augmentation Hx of section x2 History of tubal ligation Family History Family History Father Hypertension Depression Mother Hypertension Son Depression Grandparent Alcoholism Cancer Grandparent Cancer Hypertension Social History Social History Social History: Pt smoked cigarettes socially for approx. 5 yrs. One pack would last her 2 weeks. Smoking status: Never smoker Second hand tobacco smoke exposure: No Smoking end date: 03/16/06 Alcohol intake: current Drinks per week: 2 Alcohol use details: seldom; socially Substance use: never Substance use type: does not use Spiritual care concerns: No Anes - Eval Final PreProcedure Day of Procedure 10/07/24 14:42 Patient weight: obese Heart: regular rate and rhythm Lungs: decreased breath sounds Airway: Mallampati scale class II Neurological: alert and oriented Last oral intake: >/= 8 hours ASA classification: IV Emergent: yes Anesthetic plan: proceed Anesthesia type and monitoring: general ETT and standard monitoring Results Review: All pre-operative results and documents have been reviewed as part of the pre- operative evaluation. Informed Consent: The patient's anesthetic plan and its attendant risks and benefits were discussed with the patient/family/POA. Questions were solicited and answers provided to the satisfaction of the patient/family/POA.
[2024-10-07] MEDS: LACTATED RINGERS 1,000 ML 150 ML IV CONT (14:50)
--- NOTE | 2024-10-07 15:03 | P.CONGI_ITS ---
Assessment and Plan Assessment and plan (1) Portal hypertension: Code(s): K76.6 - Portal hypertension Status: Acute Assessment and Plan: Patient with established cirrhosis and presence of varices, history of bleeding 6 months ago. Will perform EGD now, most likely she will have variceal bleeding. After addressing this issue, she will be monitored carefully throughout the weekend, and will receive octreotide 50 mcg bolus followed by 50 micrograms/hour drip, ceftriaxone 1 g intravenously every 24 hours, and pantoprazole IV 40 mg every 12 hours. (2) Hematemesis: Code(s): K92.0 - Hematemesis Status: Acute GI Consult Note Consult date/time: 10/07/24 15:03 Reason for consult: Hematemesis HPI: Xin Teixeira is a 53 year old female with history of alcohol related cirrhosis, who had an upper gastrointestinal bleeding in March this year. She underwent an EGD showing 3 chains of large varices, and 4 rubber bands were placed. Subsequently, she underwent a follow-up EGD in May, finding a small varices that did not warrant further intervention. She was in her usual state of health until the morning when she had nausea and vomited approximately 200 cc of fresh blood in 2 opportunities. This was not associated with weakness, dizziness or loss of consciousness. Of note, she is abstinent from alcohol since February 2024. Review of Systems 2 Review of Systems: All systems reviewed & are unremarkable except as noted in HPI and below PMFSH Past Medical History Medical History History of esophageal varices with bleeding Elevated liver enzymes Esophageal varices with bleeding Acute blood loss anemia Hematemesis Melena IPMN (intraductal papillary mucinous neoplasm) Fatty liver Concern for hepatic cirrhosis Hepatitis GERD (gastroesophageal reflux disease) Arthritis Insomnia Anxiety Depression Hypertension Surgical History Surgical History Hx of breast augmentation Hx of section x2 History of tubal ligation Family History Family History Father Hypertension Depression Mother Hypertension Son Depression Grandparent Alcoholism Cancer Grandparent Cancer Hypertension Social History Social History Social History: Pt smoked cigarettes socially for approx. 5 yrs. One pack would last her 2 weeks. Smoking status: Never smoker Second hand tobacco smoke exposure: No Smoking end date: 03/16/06 Alcohol intake: current Drinks per week: 2 Alcohol use details: seldom; socially Substance use: never Substance use type: does not use Spiritual care concerns: No Meds Home Medications and Allergies Home Medications ?Medication ?Instructions ?Recorded ?Confirmed ?Type sumatriptan succinate 100 mg tablet See Rx Instructions PO .COMPLEX #9 01/02/20 10/07/24 Rx tabs albuterol sulfate 90 mcg/actuation 1 inh inhalation Q4H PRN shortness 05/18/22 10/07/24 Rx aerosol inhaler of breath or wheezing #8.5 grams bupropion HCl 300 mg 24 hr tablet, 300 mg PO QAM #30 tabs 12/03/22 10/07/24 Rx extended release (Wellbutrin XL) alprazolam 0.5 mg tablet 0.5 mg PO BID PRN anxiety 07/27/23 10/07/24 History losartan 50 mg-hydrochlorothiazide 1 tablet PO DAILY 07/27/23 10/07/24 History 12.5 mg tablet quetiapine 25 mg tablet 25 mg PO HS 07/27/23 10/07/24 History venlafaxine 75 mg capsule,extended 75 mg PO BID 07/27/23 10/07/24 History release 24 hr omeprazole 20 mg capsule,delayed 20 mg PO DAILY 08/26/23 10/07/24 History release nadolol 20 mg tablet 20 mg PO ONCE #30 tabs 05/20/24 10/07/24 Rx gabapentin 100 mg capsule 100 mg PO BID 10/07/24 10/07/24 History pantoprazole 20 mg tablet,delayed 20 mg PO DAILY 10/07/24 10/07/24 History release Allergies Allergy/AdvReac Type Severity Reaction Status Date / Time lisinopril Allergy Intermediate Swelling Verified 10/07/24 14:45 of Lip/Tongue/Throat azithromycin AdvReac Unknown N/V Verified 10/07/24 14:45 Vital Signs Vital Signs - 24 hr 10/07/24 12:18 10/07/24 13:36 10/07/24 14:52 Temperature 98 F 97.8 F 98.1 F Pulse Rate 90 86 84 Respiratory Rate 16 13 18 Blood Pressure 160/104 H 173/80 H 151/79 H Pulse Oximetry 97 98 98 Oxygen Delivery Room Air Room Air Exam 2 Const: General: cooperative and healthy appearing Resp: Effort & Inspection: normal respiratory effort and able to speak in complete sentences Auscultation: clear to auscultation bilaterally Cardio: Rate: regular rate Rhythm: regular rhythm GI: Inspection: normal to inspection GI Palp: No No hepatosplenomegaly present Auscultation: normal bowel sounds Rectal Exam: deferred Skin: General skin exam: normal color Psych: Appearance: grossly normal Mental Status: mental status grossly normal Results Labs 10/07/24 12:31 10/07/24 12:31 Labs: Short CBC 10/07/24 Range/Units 12:31 WBC 6.3 (4.5-10.0) K/mm3 Hgb 10.7 L (12.0-15.0) g/dL Hct 36.7 L (37.0-47.0) % Plt Count 115 L (150-375) k/mm3 BMP 10/07/24 12:31 Sodium 138 Potassium 4.2 Chloride 106 Carbon Dioxide 24 BUN 10 D Creatinine 0.75 Glucose 104 Calcium 9.0 Liver Function 10/07/24 Range/Units 12:31 Total Bilirubin 1.0 (0.2-1.3) mg/dL AST 50 H (14-36) U/L ALT 19 (6-35) U/L Alkaline Phosphatase 134 H (38-126) U/L Albumin 3.9 (3.5-5.1) g/dL
--- NOTE | 2024-10-07 15:29 | WPDGIPROGNO ---
Progress Note: A&P Assessment and Plan (1) Cirrhosis: Qualifiers: Hepatic cirrhosis type: unspecified hepatic cirrhosis Ascites presence: unspecified Qualified Code(s): K74.60 - Unspecified cirrhosis of liver Code(s): K74.60 - Unspecified cirrhosis of liver Status: Acute Assessment and Plan: No active GI bleeding was observed that would necessitate admission. However, given the patient's history of bleeding and current evidence of varices, 3 rubber bands were successfully placed. The patient should continue her prescribed beta-francoise and will be followed in our clinic. We will update her ultrasound for hepatocellular carcinoma surveillance Subjective Date/time seen: 10/07/24 15:29 Interval history: See EGD report. No evidence of active or recent bleeding. Objective Data Vital Signs Vital Signs: Vital Signs - 24 hr 10/07/24 12:18 10/07/24 13:36 10/07/24 14:52 Temperature 98 F 97.8 F 98.1 F Pulse Rate 90 86 84 Respiratory Rate 16 13 18 Blood Pressure 160/104 H 173/80 H 151/79 H Pulse Oximetry 97 98 98 Oxygen Delivery Room Air Room Air Intake/Output Intake/Output: Intake & Output 10/04/24 10/05/24 10/06/24 10/07/24 23:59 23:59 23:59 23:59 Intake Total 0 Balance 0 Meds/Results Medications: Active Medications Generic Name Dose Route Start Last Admin Trade Name Freq PRN Reason Stop Dose Admin Octreotide Acetate 500 mcg/ 100 mls @ 5 mls/hr 10/07/24 14:30 Sodium Chloride IV CONT .Q20H RAJESH 25 MCG/HR Lactated Ringer's 1,000 mls @ 150 mls/hr 10/07/24 14:50 10/07/24 15:27 Lr - Lactated Ringers Iv IV CONT 150 mls/hr .Q6H40M RAJESH Infusion Ondansetron HCl 4 mg 10/07/24 14:49 Ondansetron Inj 4 Mg/2 Ml Vial IV PUSH Q4H PRN Nausea Labs Labs: Laboratory Results - last 24 hr 10/07/24 12:31 WBC 6.3 RBC 4.39 Hgb 10.7 L Hct 36.7 L MCV 83.6 MCH 24.4 L MCHC 29.2 L RDW 17.5 H Plt Count 115 L MPV 10.1 Immature Gran % (Auto) 0.3 Neut % (Auto) 67.7 Lymph % (Auto) 18.1 L [place] % (Auto) 10.7 H Eos % (Auto) 2.2 Baso % (Auto) 1.0 Lymph # (Auto) 1.13 [place] # (Auto) 0.7 H Eos # (Auto) 0.1 Baso # (Auto) 0.1 Abs Immat Gran (auto) 0.02 Absolute Neuts (auto) 4.2 Absolute Nucleated RBC 0.000 Band Neutrophils % Not Reportable Nucleated RBC % 0.0 Platelet Estimate Decreased % Immature Plt Fraction 5.3 Polychromasia 1+ Hypochromasia 1+ Anisocytosis 1+ Schistocytes None seen PT 14.9 H INR 1.2 APTT 27.9 Sodium 138 Potassium 4.2 Chloride 106 Carbon Dioxide 24 Anion Gap 8 BUN 10 D Creatinine 0.75 Estim Creat Clear Calc 86 Estimated GFR > 60 Glucose 104 Calcium 9.0 Magnesium 1.6 Total Bilirubin 1.0 AST 50 H ALT 19 Alkaline Phosphatase 134 H Total Protein 8.7 H Albumin 3.9 Lipase 250 Blood Type A Positive Antibody Screen Negative
[2024-10-07] MEDS: ONDANSETRON INJ 4 MG/2 ML VIAL IV PUSH (15:44)
--- NOTE | 2024-10-07 16:22 | P.HP_ITS ---
H&P: HPI History of Present Illness Date/Time: 10/07/24 16:22 Chief Complaint: Nausea vomiting Narrative: 52-year-old female with history of hepatitis, hypertension, anxiety, alcoholic cirrhosis and esophageal varices presents the hospital with having emesis. She reports that she had 2 bloody emesis this morning. The 1st 1 was dark maroon the 2nd was bright red blood. Lab work in the ED shows hemoglobin of 10.7, BMP within normal limits, AST 50, alkaline phos 134, GI was consulted and has taken the patient to the GI lab. Review of Systems Review of Systems: 12 systems were reviewed and are negativ e except for as per HPI. [facility] Past Medical History Medical History History of esophageal varices with bleeding Elevated liver enzymes Esophageal varices with bleeding Acute blood loss anemia Hematemesis Melena IPMN (intraductal papillary mucinous neoplasm) Fatty liver Concern for hepatic cirrhosis Hepatitis GERD (gastroesophageal reflux disease) Arthritis Insomnia Anxiety Depression Hypertension Surgical History Surgical History Hx of breast augmentation Hx of section x2 History of tubal ligation Family History Family History Father Hypertension Depression Mother Hypertension Son Depression Grandparent Alcoholism Cancer Grandparent Cancer Hypertension Social History Social History Social History: Pt smoked cigarettes socially for approx. 5 yrs. One pack would last her 2 weeks. Smoking status: Never smoker Second hand tobacco smoke exposure: No Smoking end date: 03/16/06 Alcohol intake: current Drinks per week: 2 Alcohol use details: seldom; socially Substance use: never Substance use type: does not use Spiritual care concerns: No Meds Home Medications and Allergies Home Medications ?Medication ?Instructions ?Recorded ?Confirmed ?Type sumatriptan succinate 100 mg tablet See Rx Instructions PO .COMPLEX #9 01/02/20 10/07/24 Rx tabs albuterol sulfate 90 mcg/actuation 1 inh inhalation Q4H PRN shortness 05/18/22 10/07/24 Rx aerosol inhaler of breath or wheezing #8.5 grams bupropion HCl 300 mg 24 hr tablet, 300 mg PO QAM #30 tabs 12/03/22 10/07/24 Rx extended release (Wellbutrin XL) alprazolam 0.5 mg tablet 0.5 mg PO BID PRN anxiety 07/27/23 10/07/24 History losartan 50 mg-hydrochlorothiazide 1 tablet PO DAILY 07/27/23 10/07/24 History 12.5 mg tablet quetiapine 25 mg tablet 25 mg PO HS 07/27/23 10/07/24 History venlafaxine 75 mg capsule,extended 75 mg PO BID 07/27/23 10/07/24 History release 24 hr omeprazole 20 mg capsule,delayed 20 mg PO DAILY 08/26/23 10/07/24 History release nadolol 20 mg tablet 20 mg PO ONCE #30 tabs 05/20/24 10/07/24 Rx gabapentin 100 mg capsule 100 mg PO BID 10/07/24 10/07/24 History pantoprazole 20 mg tablet,delayed 20 mg PO DAILY 10/07/24 10/07/24 History release Allergies Allergy/AdvReac Type Severity Reaction Status Date / Time lisinopril Allergy Intermediate Swelling Verified 10/07/24 14:45 of Lip/Tongue/Throat azithromycin AdvReac Unknown N/V Verified 10/07/24 14:45 Vital Signs Vital Signs - 24 hr 10/07/24 12:18 10/07/24 13:36 10/07/24 14:52 Temperature 98 F 97.8 F 98.1 F Pulse Rate 90 86 84 Respiratory Rate 16 13 18 Blood Pressure 160/104 H 173/80 H 151/79 H Pulse Oximetry 97 98 98 Oxygen Delivery Room Air Room Air Oxygen Flow Rate 10/07/24 15:28 10/07/24 15:38 10/07/24 15:48 Temperature Pulse Rate 98 103 H 97 Respiratory Rate 20 20 20 Blood Pressure 127/77 123/104 H 131/83 Pulse Oximetry 98 98 98 Oxygen Delivery Simple Face Mask Simple Face Mask Room Air Oxygen Flow Rate 8 8 10/07/24 15:58 10/07/24 16:08 10/07/24 16:18 Temperature Pulse Rate 87 83 81 Respiratory Rate 14 14 13 Blood Pressure 127/61 145/71 H 140/71 Pulse Oximetry 98 98 98 Oxygen Delivery Room Air Room Air Room Air Oxygen Flow Rate 10/07/24 16:21 Temperature Pulse Rate 82 Respiratory Rate 16 Blood Pressure 135/78 Pulse Oximetry 99 Oxygen Delivery Room Air Oxygen Flow Rate Exam Narrative: General: well appearing, appears stated age. HEENT: normocephalic, atraumatic. Mucous membranes moist. EOMI, PERRLA, bilateral sclera anicteric, no conjunctival injection. Neck supple without JVD, lymphadenopathy, or bruit. Respiratory: clear to ascultation bilaterally. No rales/rhonic/wheezes. Cardiovascular: Regular rate and rhythm, normal S1-S2 upon ascultation. No murmurs, rubs, or clicks. PMI is nondisplaced, capillary refill less than 3 second. Abdomen: Soft, round, no pulsatile masses, nondistended and nontender. No rebound, no guarding. No CVA tenderness, no hepatosplenomegaly. Bowel sounds present to all four quadrants. No high pitch or tinkling sounds, resonant to percussion. Extremities: No cyanosis, clubbing, or edema present. Pulses are palpable 2/2. Active ROM to all four extremities. Neuro: Alert and orientated x 4. PERRLA. Cranial nerves 2-12 intact without focal deficit. Skin: Warm, dry, and intact, without rash, erythema, or lesion. Psych: pleasant, cooperative, normal speech, normal affect, no hallucinations, no dysarthia H&P: Results Labs Labs: Short CBC 10/07/24 Range/Units 12:31 WBC 6.3 (4.5-10.0) K/mm3 Hgb 10.7 L (12.0-15.0) g/dL Hct 36.7 L (37.0-47.0) % Plt Count 115 L (150-375) k/mm3 BMP 10/07/24 12:31 Sodium 138 Potassium 4.2 Chloride 106 Carbon Dioxide 24 BUN 10 D Creatinine 0.75 Glucose 104 Calcium 9.0 Liver Function 10/07/24 Range/Units 12:31 Total Bilirubin 1.0 (0.2-1.3) mg/dL AST 50 H (14-36) U/L ALT 19 (6-35) U/L Alkaline Phosphatase 134 H (38-126) U/L Albumin 3.9 (3.5-5.1) g/dL Assessment and Plan Assessment and plan (1) Acute blood loss anemia: Code(s): D62 - Acute posthemorrhagic anemia Status: Acute Assessment and Plan: H&H q.6 Transfuse for hemoglobin less than 7 or symptomatic No need for transfusion at this time (2) Acute GI bleeding: Code(s): K92.2 - Gastrointestinal hemorrhage, unspecified Status: Acute Assessment and Plan: History of esophageal varices with banding 6 months ago GI consulted Taken to GI lab for scope Protonix and octreotide Ceftriaxone (3) Cirrhosis: Qualifiers: Hepatic cirrhosis type: unspecified hepatic cirrhosis Ascites presence: unspecified Qualified Code(s): K74.60 - Unspecified cirrhosis of liver Code(s): K74.60 - Unspecified cirrhosis of liver Status: Acute (4) Anxiety: Code(s): F41.9 - Anxiety disorder, unspecified Status: Acute
--- NOTE | 2024-10-07 16:30 | SUR.PHASEII ---
Pt recovered in PACU sitting in recliner awaiting ride.
== END 2024-10-07 16:45 | disposition home or self-care (01) ==
LOC: ANHED 14:24 → ANHENDO 14:34
PROVIDERS: Registered Nurse; Emergency Provider General Practice; PCP Physician Assistant; Visit Provider Internal Medicine Gastroenterology
PROC: 0DJ08ZZ Inspection of Upper Intestinal Tract, Via Natural or Artificial Opening Endoscopic (ICD-10-PCS; CPT 43244; principal; 2024-10-07 15:00)
DX: K70.30 Alcoholic cirrhosis of liver without ascites (principal); I85.11 Secondary esophageal varices with bleeding; D64.9 Anemia, unspecified; K29.30 Chronic superficial gastritis without bleeding; K76.6 Portal hypertension
CPT/HCPCS: 43244; 36415; 80053; 83690; 83735; 85025; 85055; 85610; 85730; 86850; 86900; 86901; 96374; 96375; 99285; J0330; J2003; J2405; J2470; J2704; J7120

== ENCOUNTER 2024-12-19 06:37 | Observation (INO) | payer OTHER, SELFPAY ==
[2024-12-19] VITALS (19 sets, daily range): BP systolic 142–185; BP diastolic 82–115; PULSE 82–116; RESP 9–22; TEMP 36.2–37; O2SAT 94–100; BMI 40.0
--- NOTE | 2024-12-19 07:05 | PC.NURSE ---
Assumed care of pt. Pt has hx of tubal ligation
[2024-12-19 07:44] LABS: Hematocrit 34.4 % (37.0-47.0); Hemoglobin 10.2 g/dL (12.0-15.0); Immature Granulocyte Percent A 0.3 % (0-0.5); Immature Platelet Fraction Pct 4.2 % (0.9-11.2); Lymphocytes Absolute Auto 0.90 K/mm3 (0.9-3.2); Mean Corpuscular HGB Conc 29.7 g/dl (32-36); Mean Corpuscular Hemoglobin 24.8 pg (26-34); Mean Corpuscular Volume 83.5 fl (80-100); Nucleated Red Blood Cells Absolute Auto 0.000 K/mm3 (0.0-0.012); Nucleated Red Blood Cells Perc 0.0 % (0.0-0.2); Platelet Count Result 81 k/mm3 (150-375); Red Blood Count 4.12 M/mm3 (4.2-5.4); White Blood Count 3.9 K/mm3 (4.5-10.0)
[2024-12-19] MEDS: ONDANSETRON INJ 4 MG/2 ML VIAL IV PUSH (08:00)
[2024-12-19 08:03] LABS: Alanine Aminotransferase 23 U/L (6-35); Albumin Level 3.6 g/dL (3.5-5.1); Alkaline Phosphatase 156 U/L (38-126); Anion Gap 8 mmol/L (4-12); Aspartate Amino Transferase 68 U/L (14-36); Bilirubin,Total 1.0 mg/dL (0.2-1.3); Blood Urea Nitrogen 8 mg/dL (7-17); Calcium 8.5 mg/dL (8.4-10.2); Carbon Dioxide 23 mmol/L (22-30); Chloride 106 mmol/L (98-107); Estimated CRCL calculation 99 ml/min; Estimated Glomerular Filt Rate > 60; Glucose 111 mg/dL (65-110); Lipase 133 U/L (23-300); Potassium 3.7 mmol/L (3.4-5.0); Sodium 137 mmol/L (137-145); Total Protein 8.5 g/dL (6.3-8.2)
[2024-12-19] MEDS: SODIUM CHLORIDE 0.9% IV 1,000 ML 125 ML IV CONT (08:20)
[2024-12-19] MEDS: OCTREOTIDE ACETATE 50 MCG/ML VIAL IV PUSH (08:20)
[2024-12-19] MEDS: OCTREOTIDE ACETATE 500 MCG in SODIUM CHLORIDE 0.9% IV 99 ML IV CONT (08:21)
[2024-12-19 08:23] LABS: Anisocytosis 1+; Hypochromasia 1+; Schistocytes None Seen
[2024-12-19] MEDS: PROMETHAZINE HCL 25 MG/ML AMPUL 12.5 MG IV PUSH (08:32)
[2024-12-19] MEDS: SODIUM CHLORIDE 0.9% IV 50 ML (08:33)
[2024-12-19 08:40] LABS: Add Urine Microscopic? YES; Appearance Urine Cloudy (Clear); Glucose Urine UA Negative (Negative); Leukocyte Esterase Ur Trace LEU/UL (Negative); Need Manual Microscopic Reviewed; Nitrate Urine Negative (Negative); Specific Grav Ur 1.034 (1.001-1.035)
--- OUTSIDE RECORDS SUMMARY | 2024-12-19 09:01 | XMS_ITS | Clinical Summary ---
Author Organization [id number] [place] Address [address] [place] [id number] Care Team Providers Care Sports Psychologist Name Role Phone Leesa Vidales MD Unavailable [phone] Drew Mason MD Primary Care Provider Allergies [...] 02/19/2018 Assessment & Plan (02/19/2018 3:37 AM LIFT TEAM TECHNICIAN): Patient meets the criteria for sepsis with elevated lactic acid levels and source of infection. Started empirically on broad-spectrum of antibiotics with vanc Zosyn and Levaquin. Blood cultures are pending Urine cultures were obtained Will get ID consult given the history of MDR/ESBL Will obtain wound cultures as well. Acute cystitis with hematuria 02/19/2018 Assessment & Plan (02/19/2018 3:37 AM LIFT TEAM TECHNICIAN): Urinalysis is consistent with a UTI. Patient currently on broad-spectrum antibiotics Alcohol abuse 02/19/2018 Assessment & Plan (02/19/2018 3:40 AM LIFT TEAM TECHNICIAN): Patient reports chronic alcohol use at least [...] monitor. Assessment & Plan (02/19/2018 3:41 AM LIFT TEAM TECHNICIAN): Trend lactic acid and CBC. Colitis 02/19/2018 Assessment & Plan (02/19/2018 3:42 AM LIFT TEAM TECHNICIAN): CT of the abdomen was consistent with colitis. Patient is currently on broad-spectrum antibiotics with vanc, Zosyn and Levaquin. Consider adding Flagyl. Patient with history of of MDR/ESBL Will get ID consult Hepatic steatosis 02/19/2018 Assessment & Plan (10/08/2019 10:14 PM CDT): Noted on CT scan. Assessment & Plan (02/19/2018 3:42 AM LIFT TEAM TECHNICIAN): Hepatic steatosis noted on CT. Discussed and encouraged to stop drinking Ruptured left breast implant 02/19/2018 Assessment & Plan (02/19/2018 3:43 AM LIFT TEAM TECHNICIAN): Incidental finding on the CT. Patient will need a follow up outpatient with PCP Uterine fibroid 02/19/2018 Assessment & Plan (02/19/2018 3:44 AM LIFT TEAM TECHNICIAN): Incidental finding. Otherwise patient is asymptomatic. Alcohol withdrawal syndrome with complication Assessment & Plan (02/19/2018 3:45 AM LIFT TEAM TECHNICIAN): Patient currently is a tremors and elevated blood pressure. This is highly concerning for alcohol withdrawal. Start on Librium protocol Hydralazine and clonidine as needed for blood pressure control. Acute diffuse otitis externa of left ear 018 Assessment & Plan (02/19/2018 3:54 AM LIFT TEAM TECHNICIAN): Patient with a history of of MDR [...] on file Legal Sex Female 2:28 AM LIFT TEAM TECHNICIAN Gender Identity Not on file Sexual Orientation [...] of 2) 2020 Covid-19 Vaccine (2 - 2024- season) 2024 Influenza Vaccine (#1) 2024 Hepatitis C Screening [...] last revised on 19. Testing performed by: [facility], [address] [place] [address], [place]., [address] Hep B core IgM Nonreactive Nonreactive Nga CRAIG ([place]) Comment: Interpretive Data If HepB Core IgM Ab is reported as Equivocal, a new sample should be drawn in two weeks for testing. Current interpretive data was last revised on 19. Testing performed by: [facility], [address] [place] [address], [place] [address] Hep C Ab Nonreactive Nonreactive DEONTE CRAIG [...] last revised on 2019. Testing performed by: [facility], [address] [place] [address]., [id number] HepBsAg Nonreactive Nonreactive [facility] ([place]) Comment:Testing performed by : [facility], [address] [place] [address]., [id number] Blood specimen (specimen) 10/11/2019 5:12 AM CDT 10/11/2019 9:34 AM CDT Leesa Vidales MD LAB MICROBIOLOGY - GENERAL ORDERABLES Final Result DEONTE CRAIG ([place]) [facility] [place] [address] from Last 3 Months or Most Recently Relevant to Health Maintenance Additional Health Concerns Infection Onset Date Last Indicated MDR gram neg/ESBL Comment:02/26/15 Urine E. coli ESBL+ (MDRO) 02/27/2015 02/27/2015 Insurance Advance Directives For more information, please contact: [phone] * Full Code (Latest Code Status on [...] 10:19 PM 02/25/2018 6:41 PM Care Teams Sports Psychologist Relationship Specialty Start Date End Date Drew Mason MD [address] [place] [id number] PCP - General Family Medicine 03/04/24 Leesa Vidales MD Consulting Physician Gastroenterology 10/11/19
--- NOTE | 2024-12-19 09:09 | ED.NAVMDI ---
HPI - Nausea/Vomiting/Diarrhea General Chief complaint: Nausea/Vomiting/Diarrhea Stated complaint: hematemesis Time Seen by Provider: 12/19/24 07:37 History of Present Illness HPI Narrative: Patient is a 54-year-old female who presents the ER with hematemesis. She has history of esophageal varices and history of alcoholic cirrhosis. She woke up this morning and had upset stomach and started vomiting. She did vomit out some blood clots and then is had some coffee-ground appearance to her emesis since then. Denies alcohol use. She is not on blood thinning medications. No syncope. No fevers or chills or sweats. Related Data Home Medications ?Medication ?Instructions ?Recorded ?Confirmed ?Last Taken ?Type alprazolam 0.5 mg tablet 0.5 mg PO BID PRN anxiety 07/27/23 12/19/24 12/18/24 History quetiapine 25 mg tablet 25 mg PO HS 07/27/23 12/19/24 05/19/24 History venlafaxine 75 mg capsule,extended 75 mg PO BID 07/27/23 12/19/24 05/19/24 History release 24 hr omeprazole 20 mg capsule,delayed 20 mg PO DAILY 08/26/23 12/19/24 10/07/24 History release gabapentin 100 mg capsule 100 mg PO BID 10/07/24 12/19/24 10/07/24 History pantoprazole 20 mg tablet,delayed 20 mg PO DAILY 10/07/24 12/19/24 Unknown History release Held on 12/19/24. Instructions: Patient no longer taking Allergies Allergy/AdvReac Type Severity Reaction Status Date / Time lisinopril Allergy Intermediate Swelling Verified 12/19/24 06:50 of Lip/Tongue/Throat azithromycin AdvReac Unknown N/V Verified 12/19/24 06:50 Review of Systems Review of Systems: All systems reviewed & are unremarkable except as noted in HPI and below Constitutional: Constitutional: Reports no additional constitutional complaints ENT: Reports system reviewed and no additional complaints, except as documented Cardiovascular: Cardiovascular: Reports no additional cardiovascular complaints Respiratory: Respiratory: Reports no additional respiratory complaints Gastrointestinal: Gastrointestinal: Reports no additional gastrointestinal complaints PMFSH Past Medical History Medical History History of esophageal varices with bleeding Elevated liver enzymes Esophageal varices with bleeding Acute blood loss anemia Hematemesis Melena IPMN (intraductal papillary mucinous neoplasm) Fatty liver Concern for hepatic cirrhosis Hepatitis GERD (gastroesophageal reflux disease) Arthritis Insomnia Anxiety Depression Hypertension Surgical History Surgical History Hx of breast augmentation Hx of section x2 History of tubal ligation Family History Family History Father Hypertension Depression Mother Hypertension Son Depression Grandparent Alcoholism Cancer Grandparent Cancer Hypertension Social History Social History Social History: Pt smoked cigarettes socially for approx. 5 yrs. One pack would last her 2 weeks. Smoking status: Never smoker Second hand tobacco smoke exposure: No Smoking end date: 03/16/06 Alcohol intake: former Drinks per week: 2 Alcohol use details: seldom; socially Substance use: never Substance use type: marijuana Last use: 12/17/24 Lack of Transportation: No Lack of Food: Never True Current Housing: I Have Housing Concerned About Future Housing: No Difficulty Paying Gas/Electric Bills: No Difficulty Paying for Meds: No Currently Unemployed: No Education: Associate Degree Difficulty w/ Childcare or Family Care: No Spiritual care concerns: No Exam Narrative: GENERAL: Well-appearing, well-nourished, and in no acute distress. HEAD: Normocephalic, atraumatic. ENT: Mucous membranes moist. NECK: Supple. CHEST: Clear to auscultation. No respiratory distress. HEART: Regular rate and rhythm. Normal peripheral pulses. ABDOMEN: Soft, nontender, nondistended. EXTREMITIES: Normal range of motion. No edema. SKIN: Warm, dry, no rash. NEURO: Alert and oriented x3. PSYCH: Normal mood and affect. Course Course Emergency Course: Coffee-ground emesis and vomit bag. She has received Zofran and Phenergan for antiemetics. Octreotide started. Discussed case with Dr. Millan who recommends patient received ceftriaxone as well as PPI. Remain NPO. Likely to GI suite today. Recommend admission for observation. Hospitalist service will be contacted. Vital Signs Vital signs: Vital Signs Temperature 98.6 F 12/19/24 06:39 Pulse Rate 86 12/19/24 06:39 Respiratory Rate 22 H 12/19/24 06:39 Blood Pressure 182/102 H 12/19/24 06:39 Pulse Oximetry 98 12/19/24 06:39 Oxygen Delivery Room Air 12/19/24 06:39 Temperature 97.5 F L 12/19/24 14:00 Pulse Rate 90 12/19/24 14:00 Respiratory Rate 18 12/19/24 14:00 Blood Pressure 144/82 H 12/19/24 14:00 Pulse Oximetry 99 12/19/24 14:00 Oxygen Delivery Room Air 12/19/24 06:39 MDM - Nausea/Vomiting/Diarrhea Lab Data 12/19/24 07:29 12/19/24 07:29 Labs: Lab Results 12/19/24 12/19/24 Range/Units 07:29 08:06 WBC 3.9 L (4.5-10.0) K/mm3 RBC 4.12 L (4.2-5.4) M/mm3 Hgb 10.2 L (12.0-15.0) g/dL Hct 34.4 L (37.0-47.0) % MCV 83.5 (80-100) fl MCH 24.8 L (26-34) pg MCHC 29.7 L (32-36) g/dl RDW 19.0 H (11.5-14.5) % Plt Count 81 L (150-375) k/mm3 MPV 10.6 H (7.4-10.4) fl Immature Gran % (Auto) 0.3 (0-0.5) % Neut % (Auto) 60.9 (45.5-73.1) % Lymph % (Auto) 22.8 (18.3-44.2) % [place] % (Auto) 12.2 H (2.6-8.5) % Eos % (Auto) 2.0 (0-4.4) % Baso % (Auto) 1.8 H (0.2-1.2) % Lymph # (Auto) 0.90 (0.9-3.2) K/mm3 [place] # (Auto) 0.5 (0.1-0.6) K/mm3 Eos # (Auto) 0.1 (0-0.3) K/mm3 Baso # (Auto) 0.1 (0.0-0.1) K/mm3 Abs Immat Gran (auto) 0.01 (0.00-0.031) K/mm3 Absolute Neuts (auto) 2.4 (1.3-6.7) K/mm3 Absolute Nucleated RBC 0.000 (0.0-0.012) K/mm3 Band Neutrophils % Not Reportable Nucleated RBC % 0.0 (0.0-0.2) % Platelet Estimate Decreased (Adequate) % Immature Plt Fraction 4.2 (0.9-11.2) % Hypochromasia 1+ Anisocytosis 1+ Schistocytes None seen Sodium 137 (137-145) mmol/L Potassium 3.7 (3.4-5.0) mmol/L Chloride 106 (98-107) mmol/L Carbon Dioxide 23 (22-30) mmol/L Anion Gap 8 (4-12) mmol/L BUN 8 (7-17) mg/dL Creatinine 0.65 L (0.7-1.0) mg/dL Estim Creat Clear Calc 99 ml/min Estimated GFR > 60 (59 - ) Glucose 111 H (65-110) mg/dL Calcium 8.5 (8.4-10.2) mg/dL Total Bilirubin 1.0 (0.2-1.3) mg/dL AST 68 H (14-36) U/L ALT 23 (6-35) U/L Alkaline Phosphatase 156 H (38-126) U/L Total Protein 8.5 H (6.3-8.2) g/dL Albumin 3.6 (3.5-5.1) g/dL Lipase 133 (23-300) U/L Urine Color Dark yellow (Yellow) Urine Appearance Cloudy H (Clear) Urine pH 5.5 (5.0-9.0) Ur Specific [place] 1.034 (1.001-1.035) Urine Protein 1+ H (Negative) mg/dL Urine Glucose (UA) Negative (Negative) mg/dL Urine Ketones Trace H (Negative) mg/dL Ur Blood (Man) Negative (Negative) Urine Nitrate Negative (Negative) Urine Bilirubin 1+ H (Negative) Urine Urobilinogen 2.0 H (<2.0) mg/dL Add Ur Microanalysis Reviewed Leukocyte Esterase Rfl Trace H (Negative) [place]/UL Urine RBC 3-5 H (0-2) /hpf Urine WBC 0-5 (0-3) /hpf Ur Squamous Epith Cells Moderate (Few) /hpf Urine Bacteria 3+ H /hpf Urine Casts 3-5 Critical Care Time Critical Care Time Critical Care Time: Yes Total Critical Care Time: 35 Discharge Plan Discharge Clinical Impression: Acute upper GI bleeding Patient Disposition: Still a Patient Condition: Stable
--- NOTE | 2024-12-19 09:20 | WPDGICN ---
Assessment and Plan Assessment and plan (1) Cirrhosis: Qualifiers: Hepatic cirrhosis type: unspecified hepatic cirrhosis Ascites presence: unspecified Qualified Code(s): K74.60 - Unspecified cirrhosis of liver Code(s): K74.60 - Unspecified cirrhosis of liver Status: Acute (2) Portal hypertension: Code(s): K76.6 - Portal hypertension Status: Acute (3) Acute GI bleeding: Code(s): K92.2 - Gastrointestinal hemorrhage, unspecified Status: Acute (4) Hematemesis: Qualifiers: Nausea presence: with nausea Qualified Code(s): K92.0 - Hematemesis Code(s): K92.0 - Hematemesis Status: Acute (5) History of esophageal varices with bleeding: Code(s): Z87.19 - Personal history of other diseases of the digestive system Status: Acute Plan 1. Cirrhosis-Alcohol related/esophageal varices/coffee ground emesis/pancytopenia: MELD NA 11. Decompensated. Presents for nausea, vomiting and coffee ground emesis since 0600 this am. No known precipitating factors other than more severe leg and back pain prior to onset. She has been using around 3000 mg of Tylenol daily since Thursday for this leg and back pain. H&H low but stable since September. Labs today showed WBC is 4, HGB 10, HCT 34, MCV 84, platelets 81, INR 1.2. Total bilirubin 1.0, AST 68, ALT 23, alkaline phosphatase 156, albumin 3.6 and lipase 133. BMP normal with BUN 8 and creatinine 0.65. She denies any alcohol use since February of 2024. She is a nonsmoker but uses marijuana occasionally. Her last EGD 10/07/2024 revealed medium grade 2 varices 3 of which were banded he was also noted to have mild gastritis. No signs of active GI bleeding at that time. EGD May 2024 grade 1 varices no intervention required. EGD March 2024 Grade 3 varices in 3 columns and 4 banded. Patient has been on nadolol 20 mg has significant hypertension since presenting to the ER B/P's 183/101 and 145/115 at time of visit. Patient on Octreotide gtt and Rocephin, continue Continue PPI Primary care team to manage hypertension before we can consider possible need for repeat EGD H/H low but stable since September. Labs today show pancytopenia with WBC is 4, HGB 10, HCT 34, MCV 84 platelets 81 Variceal screening: Positive for history of varices with 3 bands placed 10/07/2024. Beta francoise: Nadolol 20 mg daily Last paracentesis: No prior paracentesis Current diuretics: Currently on no diuretics Diet: 2 gram sodium diet. History of HE: No prior history of HE HCC screening: Last imaging: CTA 04/08/2024 showed cirrhosis with small amount secondary ascites but no liver lesions or mass. Last ultrasound was performed July of 2020 showed diffuse hepatic steatosis. AFP: No recent AFP available. Patient will require repeat imaging and labs every 6 months, patient will need to follow up outpatient for monitoring Patient will need a Fibroscan sometime in the near future that will be done in the GI office Continued abstinence of alcohol recommended Decrease Tylenol to no more than 3000 mg daily Thank you very much for allowing me to share in the care of this very nice patient. This report may have been done utilizing a voice recognition system. Attempts have been made to correct errors. However, there may be uncorrected grammatical, spelling, and recognition errors present. GI Consult Note Consult date/time: 12/19/24 09:20 Reason for consult: Upper GI bleed HPI: Xin Teixeira is a 54 year old female with history of tubal ligation, x2, history of alcoholic cirrhosis with esophageal varices, anxiety, hypertension, depression and GERD. She presented to the emergency room today with complaints of nausea, vomiting and hematemesis. GI has been consulted for upper GI bleed. Patient states that for the past 2 days she has been having black tarry stools but states that they are formed non urgent. He she states that she has been taking around 3000 mg of Tylenol daily since Thursday for back and leg pain. She denies any NSAID or anticoagulant use. Nausea and vomiting started around 6:00 a.m. this morning. She states that 1st the emesis was dark colored but since being in the ER has been more coffee-ground in appearance. Her nausea and vomiting has improved with antiemetics but has not resolved. Patient with hypertension in the emergency room with BP 183/101 and most recent 145/115. She had been taking nadolol 20 mg daily. Denies abdominal pain, bloating, odynophagia, dysphagia, reflux, regurgitation, early satiety, appetite or weight loss. Denies constipation or hematochezia. Patient denies any alcohol use since February of 2024. She denies any tobacco use but uses marijuana occasionally. Family history includes paternal grandmother with stomach or esophageal cancer. She denies any NSAID, aspirin, or anticoagulant use. ENDOSCOPY HISTORY: EGD: 10/07/[address] Millan for GI bleeding Findings: Medium Grade II varices (easily visible, moderate size) were present the distal esophagus. The varices were not actively bleeding. The varices had 2 columns. A multi band like Cater was used to place 3 bands. The procedure was successful Mild diffuse chronic superficial gastritis seen in the fundus, in the body of the stomach in the antrum. The gastritis had mild portal hypertensive changes The bulb and 2nd portion of duodenum was normal no ulcers or masses EGD: 05/20/[address] Loera for cirrhosis and Hx of bleeding varices Findings: Small grade 1 varices (small, barely visible varices) were present in the distal esophagus. The varices were not actively bleeding. No need for endoscopic intervention The Z-line was located 39 cm from the incisors The stomach at the body, cardia and fundus was examined and was normal with no ulcers or masses. No gastric varix A small amount of retained food was seen in the fundus The bulb and 2nd portion the duodenum was normal no ulcers or masses EGD: 04/08/[address] Loera for melena, hematemesis and cirrhosis Findings: Grade 3 varices (see large varices, almost occluding the esophageal lumen) were present in the distal esophagus. The varices were oozing blood in the cardia. The varices had 3 columns. A band ligation device was used to place 4 bands. The procedure was successful and controlled bleeding The Z-line was located 40 cm from the incisors Mild gastritis seen in the stomach. The gastritis had mild portal hypertensive changes Bulb and 2nd portion the duodenum was normal no ulcers or masses COLONOSCOPY: Per patient last colonoscopy was performed in her 20s but she has not had a screening colonoscopy since turning 45 LABS AND STOOL STUDIES: Labs 12/19/2024: Sodium 137, potassium 3.7, BUN 8, creatinine 0.65, GFR >60, calcium 8.5 WBC 4, Hgb 10, Hct 34, MCV 84, platelets 81, INR 1.2 Total bilirubin 1.0, AST 68, ALT 23, Alkaline Phos 156, albumin 3.6, lipase 133 IMAGING: CTA abd/pelvis w/contrast 04/08/2024: IMPRESSION: 1. Diffuse colonic wall thickening which appears to primarily to increased intramural fat likely related to body habitus. No foci of active contrast extravasation within the bowels. 2. Cirrhosis with small amount of secondary ascites. 3. Cholelithiasis without findings of acute cholecystitis. 4. Small sliding-type hiatal hernia. Abdominal Ultrasound 07/26/2020: IMPRESSION: 1. Diffuse hepatic steatosis. 2. Gallbladder sludge. No evidence of acute cholecystitis. Review of Systems Constitutional: Constitutional: Reports as per HPI ENT: Reports as per HPI and Denies dysphagia Cardiovascular: Cardiovascular: Reports as per HPI, Denies chest pain, Denies pedal edema, Denies leg edema and Denies dyspnea Respiratory: Respiratory: Denies cough, Denies hemoptysis and Denies dyspnea Gastrointestinal: Gastrointestinal: Reports as per HPI, Denies abdominal pain, Reports melena, Denies bloating, Denies hematochezia, Reports nausea, Reports vomiting and Reports hematemesis Musculoskeletal: Musculoskeletal: Reports as per HPI and Reports back pain Integumentary/Breasts: Skin/Breast: Reports as per HPI Psychiatric: Psychiatric: Reports anxiety Endocrine: Endocrine: Reports no additional endocrine complaints Hematologic/Lymphatic: Hematologic/Lymphatic: Reports no additional hematologic/lymphatic complaints [facility] Past Medical History Medical History History of esophageal varices with bleeding Elevated liver enzymes Esophageal varices with bleeding Acute blood loss anemia Hematemesis Melena IPMN (intraductal papillary mucinous neoplasm) Fatty liver Concern for hepatic cirrhosis Hepatitis GERD (gastroesophageal reflux disease) Arthritis Insomnia Anxiety Depression Hypertension Surgical History Surgical History Hx of breast augmentation Hx of section x2 History of tubal ligation Family History Family History Father Hypertension Depression Mother Hypertension Son Depression Grandparent Alcoholism Cancer Grandparent Cancer Hypertension Social History Social History Social History: Pt smoked cigarettes socially for approx. 5 yrs. One pack would last her 2 weeks. Smoking status: Never smoker Second hand tobacco smoke exposure: No Smoking end date: 03/16/06 Alcohol intake: former Drinks per week: 2 Alcohol use details: seldom; socially Substance use: never Substance use type: marijuana Last use: 12/17/24 Lack of Transportation: No Lack of Food: Never True Current Housing: I Have Housing Concerned About Future Housing: No Difficulty Paying Gas/Electric Bills: No Difficulty Paying for Meds: No Currently Unemployed: No Education: Associate Degree Difficulty w/ Childcare or Family Care: No Spiritual care concerns: No Meds Home Medications and Allergies Home Medications ?Medication ?Instructions ?Recorded ?Confirmed ?Type sumatriptan succinate 100 mg tablet See Rx Instructions PO .COMPLEX #9 01/02/20 12/19/24 Rx Held on 12/19/24. tabs Instructions: Patient no longer taking albuterol sulfate 90 mcg/actuation 1 inh inhalation Q4H PRN shortness 05/18/22 12/19/24 Rx aerosol inhaler of breath or wheezing #8.5 grams bupropion HCl 300 mg 24 hr tablet, 300 mg PO QAM #30 tabs 12/03/22 12/19/24 Rx extended release (Wellbutrin XL) alprazolam 0.5 mg tablet 0.5 mg PO BID PRN anxiety 07/27/23 12/19/24 History quetiapine 25 mg tablet 25 mg PO HS 07/27/23 12/19/24 History venlafaxine 75 mg capsule,extended 75 mg PO BID 07/27/23 12/19/24 History release 24 hr omeprazole 20 mg capsule,delayed 20 mg PO DAILY 08/26/23 12/19/24 History release nadolol 20 mg tablet 20 mg PO ONCE #30 tabs 05/20/24 12/19/24 Rx gabapentin 100 mg capsule 100 mg PO BID 10/07/24 12/19/24 History pantoprazole 20 mg tablet,delayed 20 mg PO DAILY 10/07/24 12/19/24 History release Held on 12/19/24. Instructions: Patient no longer taking Allergies Allergy/AdvReac Type Severity Reaction Status Date / Time lisinopril Allergy Intermediate Swelling Verified 12/19/24 06:50 of Lip/Tongue/Throat azithromycin AdvReac Unknown N/V Verified 12/19/24 06:50 Vital Signs Vital Signs - 24 hr 12/19/24 06:39 12/19/24 08:16 12/19/24 08:17 Temperature 98.6 F Pulse Rate 86 90 93 Respiratory Rate 22 H Blood Pressure 182/102 H 185/85 H 183/101 H Pulse Oximetry 98 Oxygen Delivery Room Air Exam Const: General: cooperative, healthy appearing, comfortable and well developed Orientation/consciousness: oriented to person, oriented to place, oriented to time and patient oriented x3 Other: Anxious HENMT: Head: normal to inspection, normocephalic and atraumatic Mouth: Yes Normal oral and palatal mucosa present and Yes moist mucous membranes Eyes: General: appearance normal, both eyes and all related structures Conjunctivae: conjunctivae normal Sclera: sclerae normal Pupils: Equal, round and reactive pupils present Neck: Neck: normal visual inspection Chest: Chest palpation & inspection: normal inspection of the chest Resp: Effort & Inspection: normal respiratory effort and able to speak in complete sentences Auscultation: clear to auscultation bilaterally Cardio: Jugular venous distension: no JVD Rate: regular rate Rhythm: regular rhythm Heart sounds: S1 normal heart sound present and S2 normal heart sound present GI: Inspection: normal to inspection (large) GI Palp: Yes Soft to palpation, No Tenderness to palpation present (GI), No Guarding due to palpation present (GI) and Yes No hepatosplenomegaly present Auscultation: normal bowel sounds Rectal Exam: deferred Skin: General skin exam: normal color and no rashes or lesions noted Neuro: General: oriented to person, oriented to place, oriented to time and patient oriented x3 Cranial nerves: Yes Equal, round and reactive pupils present Speech: normal speech Extrem: General: normal to inspection and no clubbing, cyanosis or edema Psych: Appearance: grossly normal and well kempt Affect: normal affect Results Labs 12/19/24 07:29 12/19/24 07:29 Labs: Short CBC 12/19/24 Range/Units 07:29 WBC 3.9 L (4.5-10.0) K/mm3 Hgb 10.2 L (12.0-15.0) g/dL Hct 34.4 L (37.0-47.0) % Plt Count 81 L (150-375) k/mm3 BMP 12/19/24 07:29 Sodium 137 Potassium 3.7 Chloride 106 Carbon Dioxide 23 BUN 8 Creatinine 0.65 L Glucose 111 H Calcium 8.5 Liver Function 12/19/24 Range/Units 07:29 Total Bilirubin 1.0 (0.2-1.3) mg/dL AST 68 H (14-36) U/L ALT 23 (6-35) U/L Alkaline Phosphatase 156 H (38-126) U/L Albumin 3.6 (3.5-5.1) g/dL Urine 12/19/24 Range/Units 08:06 Urine Color Dark yellow (Yellow) Urine Appearance Cloudy H (Clear) Urine pH 5.5 (5.0-9.0) Ur Specific [place] 1.034 (1.001-1.035) Urine Protein 1+ H (Negative) mg/dL Urine Glucose (UA) Negative (Negative) mg/dL
[2024-12-19] MEDS: cefTRIAXone 1 GM in SODIUM CHLORIDE 0.9% IV 50 ML 100 ML IVPB (09:55)
[2024-12-19] MEDS: PANTOPRAZOLE SODIUM IV 40 MG VIAL IV PUSH (09:55)
--- NOTE | 2024-12-19 10:31 | PC.NURSE ---
GI to see pt
--- NOTE | 2024-12-19 10:56 | PC.NURSE ---
This patient, Xin Teixeira, was admitted to 3 [facility] Surg Room 316-02 at 1056. Patient/family oriented to hospital policies and general routines including ID bracelet, bed and alarms, visiting hours, pain management, procedures, bathroom and other care routines, personal items, smoking policy, room service/diet, and visiting hours. Information on how to activate the Rapid Response Team has been discussed. Patient/Family are encouraged to report perceived risks to care and to ask questions if they do not understand what they are told or what they should do.
[2024-12-19] MEDS: ACETAMINOPHEN 325 MG TABLET 650 MG PO ×2 (13:09→20:31)
--- NOTE | 2024-12-19 14:44 | PM.IMHP ---
H&P: HPI History of Present Illness Date/Time: 12/19/24 14:44 Chief Complaint: Hematemesis Narrative: 54 yo female with PMH of Alcoholic liver cirrhosis RA adn HTN who presented to the ER on account of vomiting blood Noted she had an episode of black stool yesterday and this mornign about 6am she started vomiting blood and has had 5 episode in total today denies any chest pain, abd pain SOB, diarrhea or focal deficits ER eval notable BP 172/84, HR 102, RR 11 and saturating 98% on room air. Labs notable for Hb 10.2. GI was consulted in the ER and patient was started on octreotide and PPI awaiting GI suite for endoscopic intervetion Review of Systems Review of Systems: All other systems were reviewed adn negative except as noted in the HPI above PMFSH Past Medical History Medical History History of esophageal varices with bleeding Elevated liver enzymes Esophageal varices with bleeding Acute blood loss anemia Hematemesis Melena IPMN (intraductal papillary mucinous neoplasm) Fatty liver Concern for hepatic cirrhosis Hepatitis GERD (gastroesophageal reflux disease) Arthritis Insomnia Anxiety Depression Hypertension Surgical History Surgical History Hx of breast augmentation Hx of section x2 History of tubal ligation Family History Family History Father Hypertension Depression Mother Hypertension Son Depression Grandparent Alcoholism Cancer Grandparent Cancer Hypertension Social History Social History Social History: Pt smoked cigarettes socially for approx. 5 yrs. One pack would last her 2 weeks. Smoking status: Never smoker Second hand tobacco smoke exposure: No Smoking end date: 03/16/06 Alcohol intake: former Drinks per week: 2 Alcohol use details: seldom; socially Substance use: never Substance use type: marijuana Last use: 12/17/24 Lack of Transportation: No Lack of Food: Never True Current Housing: I Have Housing Concerned About Future Housing: No Difficulty Paying Gas/Electric Bills: No Difficulty Paying for Meds: No Currently Unemployed: No Education: Associate Degree Difficulty w/ Childcare or Family Care: No Spiritual care concerns: No Meds Home Medications and Allergies Home Medications ?Medication ?Instructions ?Recorded ?Confirmed ?Type sumatriptan succinate 100 mg tablet See Rx Instructions PO .COMPLEX #9 01/02/20 12/19/24 Rx Held on 12/19/24. tabs Instructions: Patient no longer taking albuterol sulfate 90 mcg/actuation 1 inh inhalation Q4H PRN shortness 05/18/22 12/19/24 Rx aerosol inhaler of breath or wheezing #8.5 grams bupropion HCl 300 mg 24 hr tablet, 300 mg PO QAM #30 tabs 12/03/22 12/19/24 Rx extended release (Wellbutrin XL) alprazolam 0.5 mg tablet 0.5 mg PO BID PRN anxiety 07/27/23 12/19/24 History quetiapine 25 mg tablet 25 mg PO HS 07/27/23 12/19/24 History venlafaxine 75 mg capsule,extended 75 mg PO BID 07/27/23 12/19/24 History release 24 hr omeprazole 20 mg capsule,delayed 20 mg PO DAILY 08/26/23 12/19/24 History release nadolol 20 mg tablet 20 mg PO ONCE #30 tabs 05/20/24 12/19/24 Rx gabapentin 100 mg capsule 100 mg PO BID 10/07/24 12/19/24 History pantoprazole 20 mg tablet,delayed 20 mg PO DAILY 10/07/24 12/19/24 History release Held on 12/19/24. Instructions: Patient no longer taking Allergies Allergy/AdvReac Type Severity Reaction Status Date / Time lisinopril Allergy Intermediate Swelling Verified 12/19/24 06:50 of Lip/Tongue/Throat azithromycin AdvReac Unknown N/V Verified 12/19/24 06:50 Vital Signs Vital Signs - 24 hr 12/19/24 06:39 12/19/24 06:45 12/19/24 06:49 Temperature 98.6 F Pulse Rate 86 Respiratory Rate 22 H Blood Pressure 182/102 H 182/102 H Pulse Oximetry 98 95 97 Oxygen Delivery Room Air 12/19/24 07:00 12/19/24 07:02 12/19/24 07:15 Temperature Pulse Rate 102 H Respiratory Rate 11 L Blood Pressure 172/84 H Pulse Oximetry 98 98 98 Oxygen Delivery 12/19/24 07:30 12/19/24 07:45 12/19/24 08:16 Temperature Pulse Rate 116 H 85 90 Respiratory Rate 9 L 11 L Blood Pressure 185/85 H Pulse Oximetry 97 98 Oxygen Delivery 12/19/24 08:17 12/19/24 09:01 12/19/24 09:19 Temperature Pulse Rate 93 98 Respiratory Rate 15 Blood Pressure 183/101 H Pulse Oximetry 96 96 Oxygen Delivery 12/19/24 09:30 12/19/24 09:45 12/19/24 10:02 Temperature Pulse Rate 96 Respiratory Rate 20 Blood Pressure 145/115 H Pulse Oximetry 98 99 100 Oxygen Delivery 12/19/24 12:04 Temperature 97.2 F L Pulse Rate 82 Respiratory Rate 16 Blood Pressure 160/89 H Pulse Oximetry 97 Oxygen Delivery H&P: Results Labs Labs: Short CBC 12/19/24 Range/Units 07:29 WBC 3.9 L (4.5-10.0) K/mm3 Hgb 10.2 L (12.0-15.0) g/dL Hct 34.4 L (37.0-47.0) % Plt Count 81 L (150-375) k/mm3 BMP 12/19/24 07:29 Sodium 137 Potassium 3.7 Chloride 106 Carbon Dioxide 23 BUN 8 Creatinine 0.65 L Glucose 111 H Calcium 8.5 Liver Function 12/19/24 Range/Units 07:29 Total Bilirubin 1.0 (0.2-1.3) mg/dL AST 68 H (14-36) U/L ALT 23 (6-35) U/L Alkaline Phosphatase 156 H (38-126) U/L Albumin 3.6 (3.5-5.1) g/dL Urine 12/19/24 Range/Units 08:06 Urine Color Dark yellow (Yellow) Urine Appearance Cloudy H (Clear) Urine pH 5.5 (5.0-9.0) Ur Specific [place] 1.034 (1.001-1.035) Urine Protein 1+ H (Negative) mg/dL Urine Glucose (UA) Negative (Negative) mg/dL Assessment and Plan Assessment and plan (1) Hematemesis: Code(s): K92.0 - Hematemesis Status: Acute (2) Cirrhosis: Qualifiers: Hepatic cirrhosis type: unspecified hepatic cirrhosis Ascites presence: unspecified Qualified Code(s): K74.60 - Unspecified cirrhosis of liver Code(s): K74.60 - Unspecified cirrhosis of liver Status: Acute Plan GI bleed likely from Esophageal varices given hx of liver cirrhosis Continue Octreotice and PPI NPO pending GI intervention Vital signs and Hb stable monitor Alcoholic liver cirrhosis patient noted he has stopped alcohol consumption since February HTN continue home meds and started on Lisinopril PRN hydralazine IV RA continue home meds DVT prophylaxis on SCDs Full code SDM: Father Alex Teixeira Hospitalist [facility] Advance Care Plan I have confirmed that the patient's Advanced Care Plan is present, code status is documented, or surrogate decision maker is listed in patient medical record.: Yes Medication Reconciliation I have utilized all available resources to obtain, update and review the patients current medications (includes all prescriptions, OTC, herbals, cannabis, and nutritional supplements).: Yes
[2024-12-19] MEDS: GABAPENTIN 100 MG CAPSULE PO (17:34)
[2024-12-19] MEDS: VENLAFAXINE HCL XR 75 MG CAP.ER.24H PO (17:34)
[2024-12-19] MEDS: SODIUM CHLORIDE 0.9% IV 1,000 ML 100 ML IV CONT (17:39)
[2024-12-20] VITALS (7 sets, daily range): BP systolic 132–160; BP diastolic 70–88; PULSE 68–102; RESP 16–24; TEMP 36.1–37; O2SAT 93–98
[2024-12-20] MEDS: SODIUM CHLORIDE 0.9% IV 1,000 ML 100 ML IV CONT ×2 (03:56→23:05)
[2024-12-20] MEDS: OCTREOTIDE ACETATE 500 MCG in SODIUM CHLORIDE 0.9% IV 99 ML IV CONT (03:56)
[2024-12-20] MEDS: ACETAMINOPHEN 325 MG TABLET 650 MG PO ×2 (04:08→10:27)
[2024-12-20 06:03] LABS: Hematocrit 30.3 % (37.0-47.0); Hemoglobin 8.8 g/dL (12.0-15.0); Immature Granulocyte Percent A 0.7 % (0-0.5); Immature Platelet Fraction Pct 5.4 % (0.9-11.2); Lymphocytes Absolute Auto 1.02 K/mm3 (0.9-3.2); Mean Corpuscular HGB Conc 29.0 g/dl (32-36); Mean Corpuscular Hemoglobin 24.9 pg (26-34); Mean Corpuscular Volume 85.8 fl (80-100); Nucleated Red Blood Cells Absolute Auto 0.000 K/mm3 (0.0-0.012); Nucleated Red Blood Cells Perc 0.0 % (0.0-0.2); Platelet Count Result 60 k/mm3 (150-375); Red Blood Count 3.53 M/mm3 (4.2-5.4); White Blood Count 2.9 K/mm3 (4.5-10.0)
[2024-12-20 06:30] LABS: Alanine Aminotransferase 20 U/L (6-35); Albumin Level 3.1 g/dL (3.5-5.1); Alkaline Phosphatase 112 U/L (38-126); Anion Gap 5 mmol/L (4-12); Aspartate Amino Transferase 56 U/L (14-36); Bilirubin,Total 1.4 mg/dL (0.2-1.3); Blood Urea Nitrogen 7 mg/dL (7-17); Calcium 8.1 mg/dL (8.4-10.2); Carbon Dioxide 26 mmol/L (22-30); Chloride 105 mmol/L (98-107); Estimated CRCL calculation 94 ml/min; Estimated Glomerular Filt Rate > 60; Glucose 110 mg/dL (65-110); Magnesium 1.5 mg/dL (1.6-2.3); Potassium 3.8 mmol/L (3.4-5.0); Sodium 136 mmol/L (137-145); Total Protein 7.3 g/dL (6.3-8.2)
[2024-12-20 06:53] LABS: Anisocytosis 2+; Hypochromasia 2+
[2024-12-20 06:54] LABS: Ovalocytes 1+; Schistocytes None Seen
[2024-12-20] MEDS: PANTOPRAZOLE SODIUM IV 40 MG VIAL IV PUSH (10:28)
[2024-12-20] MEDS: LACTATED RINGERS 1,000 ML 150 ML IV CONT (12:59)
--- NOTE | 2024-12-20 13:08 | WPDANESEPPF ---
Anes - Initial Pre Proc Eval Procedure: Operation Date: 12/20/24 14:00 Proposed Procedures p Esophagogastroduodenoscopy - Cyrus Jones MD Date/Time: 12/20/24 13:08 Surgeon: Makenna Lopez MD Pre Op Diagnosis: Upper GI Bleeding Patient Data Age: 54 Gender: F Height: 1.63 m Weight: 105.9 kg Last Vital Signs Temp 36.1 C L 12/20/24 12:58 Pulse 70 12/20/24 12:58 Resp 20 12/20/24 12:58 BP 156/75 H 12/20/24 12:58 Pulse Ox 98 12/20/24 12:58 O2 Del Method Room Air 12/20/24 12:58 FiO2 21 12/19/24 20:32 Allergies Allergy/AdvReac Type Severity Reaction Status Date / Time lisinopril Allergy Intermediate Swelling Verified 12/20/24 12:55 of Lip/Tongue/Throat azithromycin AdvReac Unknown N/V Verified 12/20/24 12:55 Home Medications ?Medication ?Instructions ?Recorded ?Confirmed ?Type sumatriptan succinate 100 mg tablet See Rx Instructions PO .COMPLEX #9 01/02/20 12/19/24 Rx Held on 12/19/24. tabs Instructions: Patient no longer taking albuterol sulfate 90 mcg/actuation 1 inh inhalation Q4H PRN shortness 05/18/22 12/19/24 Rx aerosol inhaler of breath or wheezing #8.5 grams bupropion HCl 300 mg 24 hr tablet, 300 mg PO QAM #30 tabs 12/03/22 12/19/24 Rx extended release (Wellbutrin XL) alprazolam 0.5 mg tablet 0.5 mg PO BID PRN anxiety 07/27/23 12/19/24 History quetiapine 25 mg tablet 25 mg PO HS 07/27/23 12/19/24 History venlafaxine 75 mg capsule,extended 75 mg PO BID 07/27/23 12/19/24 History release 24 hr omeprazole 20 mg capsule,delayed 20 mg PO DAILY 08/26/23 12/19/24 History release nadolol 20 mg tablet 20 mg PO ONCE #30 tabs 05/20/24 12/19/24 Rx gabapentin 100 mg capsule 100 mg PO BID 10/07/24 12/19/24 History pantoprazole 20 mg tablet,delayed 20 mg PO DAILY 10/07/24 12/19/24 History release Held on 12/19/24. Instructions: Patient no longer taking Laboratory Tests 12/20/24 05:45 WBC 2.9 L K/mm3 (4.5-10.0) RBC 3.53 L M/mm3 (4.2-5.4) Hgb 8.8 L g/dL (12.0-15.0) Hct 30.3 L % (37.0-47.0) MCV 85.8 fl (80-100) MCH 24.9 L pg (26-34) MCHC 29.0 L g/dl (32-36) RDW 19.2 H % (11.5-14.5) Plt Count 60 L k/mm3 (150-375) MPV 10.4 fl (7.4-10.4) Immature Gran % (Auto) 0.7 H % (0-0.5) Neut % (Auto) 47.9 % (45.5-73.1) Lymph % (Auto) 35.2 % (18.3-44.2) [place] % (Auto) 11.0 H % (2.6-8.5) Eos % (Auto) 3.8 % (0-4.4) Baso % (Auto) 1.4 H % (0.2-1.2) Lymph # (Auto) 1.02 K/mm3 (0.9-3.2) [place] # (Auto) 0.3 K/mm3 (0.1-0.6) Eos # (Auto) 0.1 K/mm3 (0-0.3) Baso # (Auto) 0.0 K/mm3 (0.0-0.1) Abs Immat Gran (auto) 0.02 K/mm3 (0.00-0.031) Absolute Neuts (auto) 1.4 K/mm3 (1.3-6.7) Absolute Nucleated RBC 0.000 K/mm3 (0.0-0.012) Band Neutrophils % Not Reportable Nucleated RBC % 0.0 % (0.0-0.2) Platelet Estimate Decreased (Adequate) % Immature Plt Fraction 5.4 % (0.9-11.2) Hypochromasia 2+ Anisocytosis 2+ Ovalocytes 1+ Schistocytes None seen Sodium 136 L mmol/L (137-145) Potassium 3.8 mmol/L (3.4-5.0) Chloride 105 mmol/L (98-107) Carbon Dioxide 26 mmol/L (22-30) Anion Gap 5 mmol/L (4-12) BUN 7 mg/dL (7-17) Creatinine 0.70 mg/dL (0.7-1.0) Estim Creat Clear Calc 94 ml/min Estimated GFR > 60 (59 - ) Glucose 110 mg/dL (65-110) Calcium 8.1 L mg/dL (8.4-10.2) Magnesium 1.5 L mg/dL (1.6-2.3) Total Bilirubin 1.4 H mg/dL (0.2-1.3) AST 56 H U/L (14-36) ALT 20 U/L (6-35) Alkaline Phosphatase 112 U/L (38-126) Total Protein 7.3 g/dL (6.3-8.2) Albumin 3.1 L g/dL (3.5-5.1) Patient hx anesthesia problems: none Family hx anesthesia problems: none Results Review: All pre-operative results and documents have been reviewed as part of the pre-operative evaluation. [facility] Past Medical History Medical History History of esophageal varices with bleeding Elevated liver enzymes Esophageal varices with bleeding Acute blood loss anemia Hematemesis Melena IPMN (intraductal papillary mucinous neoplasm) Fatty liver Concern for hepatic cirrhosis Hepatitis GERD (gastroesophageal reflux disease) Arthritis Insomnia Anxiety Depression Hypertension Surgical History Surgical History Hx of breast augmentation Hx of section x2 History of tubal ligation Family History Family History Father Hypertension Depression Mother Hypertension Son Depression Grandparent Alcoholism Cancer Grandparent Cancer Hypertension Social History Social History Social History: Pt smoked cigarettes socially for approx. 5 yrs. One pack would last her 2 weeks. Smoking status: Never smoker Second hand tobacco smoke exposure: No Smoking end date: 03/16/06 Alcohol intake: former Drinks per week: 2 Alcohol use details: seldom; socially Substance use: never Substance use type: marijuana Last use: 12/17/24 Lack of Transportation: No Lack of Food: Never True Current Housing: I Have Housing Concerned About Future Housing: No Difficulty Paying Gas/Electric Bills: No Difficulty Paying for Meds: No Currently Unemployed: No Education: Associate Degree Difficulty w/ Childcare or Family Care: No Spiritual care concerns: No Anes - Eval Final PreProcedure Day of Procedure 12/20/24 13:08 Patient weight: morbidly obese Heart: regular rate and rhythm Lungs: clear to auscultation Airway: Mallampati scale class II Neurological: alert and oriented Last oral intake: >/= 8 hours ASA classification: IV Emergent: no Anesthetic plan: proceed Anesthesia type and monitoring: general GIVS and standard monitoring Results Review: All pre-operative results and documents have been reviewed as part of the pre-operative evaluation. Informed Consent: The patient's anesthetic plan and its attendant risks and benefits were discussed with the patient/family/POA. Questions were solicited and answers provided to the satisfaction of the patient/family/POA.
[2024-12-20] MEDS: ONDANSETRON INJ 4 MG/2 ML VIAL IV PUSH (14:45)
--- NOTE | 2024-12-20 14:57 | SUR.PHASEII ---
1433: Pt into post op dry heaving and nauseous, Zofran given, pt did not vomit, nausea quickly resolved and pt states I feel better
[2024-12-20] MEDS: cefTRIAXone 1 GM in SODIUM CHLORIDE 0.9% IV 50 ML 100 ML IVPB (15:39)
[2024-12-20] MEDS: VENLAFAXINE HCL XR 75 MG CAP.ER.24H PO (15:39)
[2024-12-20] MEDS: buPROPion HCL XL (24 HR) 150 MG TABCR 300 MG PO (15:39)
[2024-12-20] MEDS: GABAPENTIN 100 MG CAPSULE PO (15:48)
--- NOTE | 2024-12-20 15:56 | WPDGIPROGNO ---
Progress Note: A&P Assessment and Plan (1) Cirrhosis: Qualifiers: Hepatic cirrhosis type: unspecified hepatic cirrhosis Ascites presence: unspecified Qualified Code(s): K74.60 - Unspecified cirrhosis of liver Code(s): K74.60 - Unspecified cirrhosis of liver Status: Acute Assessment and Plan: See EGD report. The patient's current episode of coffee-ground emesis is not attributed to esophageal variceal bleeding, as endoscopic findings confirm the varices are non-bleeding; instead, the patient's clinical stability, normal hemodynamics, and only a mild decrease in hemoglobin make portal hypertensive gastropathy the more probable source of the current bleed. Consequently, the plan is to continue the Octreotide infusion for one more day to manage portal pressures, and simultaneously initiate Carvedilol 6.25 mg BID for secondary prophylaxis against further variceal and PHG bleeding. A follow-up EGD with further variceal band ligation is planned in approximately 4 weeks to complete the variceal treatment course; furthermore, if the patient is stable overnight discharge is anticipated for tomorrow with a prescription for Carvedilol. (2) Portal hypertension: Code(s): K76.6 - Portal hypertension Status: Acute (3) Esophageal varices with bleeding: Code(s): I85.01 - Esophageal varices with bleeding Status: Acute (4) Portal hypertensive gastropathy: Code(s): K76.6 - Portal hypertension; K31.89 - Other diseases of stomach and duodenum Status: Acute Subjective Date/time seen: 12/20/24 15:56 Objective Data Vital Signs Vital Signs: Vital Signs - 24 hr 12/19/24 20:32 12/19/24 20:35 12/20/24 04:11 Temperature 97.6 F 98.6 F Pulse Rate 86 85 87 Respiratory Rate 20 16 18 Blood Pressure 142/84 H 132/78 Pulse Oximetry 95 94 95 Oxygen Delivery Room Air Fraction of Inspired Oxygen 21 12/20/24 08:00 12/20/24 12:58 12/20/24 14:33 Temperature 97.0 F L Pulse Rate 70 102 H Respiratory Rate 20 24 H Blood Pressure 156/75 H 140/88 Pulse Oximetry 98 97 Oxygen Delivery Room Air Room Air Room Air Fraction of Inspired Oxygen 12/20/24 14:43 12/20/24 14:53 Temperature Pulse Rate 94 77 Respiratory Rate 20 18 Blood Pressure 135/79 149/79 H Pulse Oximetry 96 97 Oxygen Delivery Room Air Room Air Fraction of Inspired Oxygen Intake/Output Intake/Output: Intake & Output 12/17/24 12/18/24 12/19/24 12/20/24 23:59 23:59 23:59 23:59 Intake Total 1530 7.9 Balance 1530 7.9 Meds/Results Medications: Active Medications Generic Name Dose Route Start Last Admin Trade Name Freq PRN Reason Stop Dose Admin Acetaminophen 650 mg 12/19/24 11:59 12/20/24 10:27 Acetaminophen 325 Mg Tablet PO 650 mg Q6H PRN Administration Pain Albuterol 1 puff 12/19/24 14:40 Albuterol Sulfate (*Sp) Aerosol 1 Puff INHALATION Q4H PRN Shortness Of Breath Or Wheezing Alprazolam 0.5 mg 12/19/24 14:40 Alprazolam (*Crx) 0.5 Mg Tablet PO BID PRN Anxiety Bupropion HCl 300 mg 12/20/24 09:00 12/20/24 15:39 Bupropion Hcl Xl (24 Hr) 150 Mg Tabcr PO 300 mg QAM RAJESH Administration Carvedilol 6.25 mg 12/20/24 21:00 Carvedilol 6.25 Mg Tablet PO Q12HR RAJESH Gabapentin 100 mg 12/19/24 17:00 12/20/24 15:48 Gabapentin 100 Mg Capsule PO 100 mg BID RAJESH Administration Hydralazine HCl 10 mg 12/19/24 11:59 Hydralazine Hcl 20 Mg/Ml Vial IV PUSH Q4H PRN Blood Pressure - High Sodium Chloride 1,000 mls @ 100 mls/hr 12/19/24 07:55 12/20/24 03:56 Normal Saline Iv IV CONT 100 mls/hr .Q10H RAJESH Administration Octreotide Acetate 500 mcg/ 100 mls @ 5 mls/hr 12/19/24 08:00 12/20/24 03:56 Sodium Chloride IV CONT 25 mcg/hr .Q20H RAJESH 5 mls/hr 25 MCG/HR Administration Lactated Ringer's 1,000 mls @ 150 mls/hr 12/20/24 13:00 12/20/24 14:52 Lr - Lactated Ringers Iv IV CONT Infused .Q6H40M RAJESH Infusion Ceftriaxone Sodium 1 gm/ 50 mls @ 100 mls/hr 12/20/24 09:00 12/20/24 15:39 Sodium Chloride IVPB 100 mls/hr Q24H RAJESH Administration Nifedipine 30 mg 12/20/24 09:00 12/20/24 15:40 Nifedipine 30 Mg Tab.Er.24 PO 30 mg QAM RAJESH Administration Ondansetron HCl 4 mg 12/19/24 09:30 12/20/24 14:45 Ondansetron Inj 4 Mg/2 Ml Vial IV PUSH 4 mg Q4H PRN Administration Nausea Quetiapine Fumarate 25 mg 12/19/24 21:00 12/19/24 20:31 Quetiapine Fumarate 25 Mg Tablet PO 25 mg HS RAJESH Administration Venlafaxine HCl 75 mg 12/19/24 17:00 12/20/24 15:39 Venlafaxine Hcl Xr 75 Mg Cap.Er.24h PO 75 mg BID RAJESH Administration Labs Labs: Laboratory Results - last 24 hr 12/20/24 05:45 WBC 2.9 L RBC 3.53 L Hgb 8.8 L Hct 30.3 L MCV 85.8 MCH 24.9 L MCHC 29.0 L RDW 19.2 H Plt Count 60 L MPV 10.4 Immature Gran % (Auto) 0.7 H Neut % (Auto) 47.9 Lymph % (Auto) 35.2 [place] % (Auto) 11.0 H Eos % (Auto) 3.8 Baso % (Auto) 1.4 H Lymph # (Auto) 1.02 [place] # (Auto) 0.3 Eos # (Auto) 0.1 Baso # (Auto) 0.0 Abs Immat Gran (auto) 0.02 Absolute Neuts (auto) 1.4 Absolute Nucleated RBC 0.000 Band Neutrophils % Not Reportable Nucleated RBC % 0.0 Platelet Estimate Decreased % Immature Plt Fraction 5.4 Hypochromasia 2+ Anisocytosis 2+ Ovalocytes 1+ Schistocytes None seen Sodium 136 L Potassium 3.8 Chloride 105 Carbon Dioxide 26 Anion Gap 5 BUN 7 Creatinine 0.70 Estim Creat Clear Calc 94 Estimated GFR > 60 Glucose 110 Calcium 8.1 L Magnesium 1.5 L Total Bilirubin 1.4 H AST 56 H ALT 20 Alkaline Phosphatase 112 Total Protein 7.3 Albumin 3.1 L
--- NOTE | 2024-12-20 16:16 | PM.IMPN ---
Progress Note: A&P Assessment and Plan (1) Hematemesis: Qualifiers: Nausea presence: with nausea Qualified Code(s): K92.0 - Hematemesis Code(s): K92.0 - Hematemesis Status: Acute (2) Cirrhosis: Qualifiers: Ascites presence: unspecified Hepatic cirrhosis type: unspecified hepatic cirrhosis Qualified Code(s): K74.60 - Unspecified cirrhosis of liver Code(s): K74.60 - Unspecified cirrhosis of liver Status: Acute Plan GI bleed likely from Esophageal varices given hx of liver cirrhosis Continue Octreotice and PPI Patient underwent EGD with band ligation of esophageal and or gastric varices. Advised to continue IV octreotide and started liquid diet and repeat EGD in 6-8 weeks for ongoing eradication of varices Vital signs and Hb stable monitor Alcoholic liver cirrhosis patient noted he has stopped alcohol consumption since February HTN continue home meds and started on Lisinopril PRN hydralazine IV RA continue home meds DVT prophylaxis on SCDs Full code SDM: Father Alex Teixeira Subjective Date/time seen: 12/20/24 16:16 Interval history: Patient underwent EGD with band ligation of esophageal and or gastric varices. Advised to continue IV octreotide and started liquid diet and repeat EGD in 6-8 weeks for ongoing eradication of varices Review of Systems Review of Systems: All other systems were reviewed adn negative except as noted in the HPI above Exam Narrative: GENERAL: Well-appearing, well-nourished, and in no acute distress. HEAD: Normocephalic, atraumatic. ENT: Mucous membranes moist. NECK: Supple. CHEST: Clear to auscultation. No respiratory distress. HEART: Regular rate and rhythm. Normal peripheral pulses. ABDOMEN: Soft, nontender, nondistended. EXTREMITIES: Normal range of motion. No edema. SKIN: Warm, dry, no rash. NEURO: Alert and oriented x3. PSYCH: Normal mood and affect. Const: General: cooperative, healthy appearing, comfortable and well developed Orientation/consciousness: oriented to person, oriented to place, oriented to time and patient oriented x3 Other: Anxious HENMT: Head: normal to inspection, normocephalic and atraumatic Mouth: Yes Normal oral and palatal mucosa present and Yes moist mucous membranes Eyes: General: appearance normal, both eyes and all related structures Conjunctivae: conjunctivae normal Sclera: sclerae normal Pupils: Equal, round and reactive pupils present Neck: Neck: normal visual inspection Chest: Chest palpation & inspection: normal inspection of the chest Resp: Effort & Inspection: normal respiratory effort and able to speak in complete sentences Auscultation: clear to auscultation bilaterally Cardio: Jugular venous distension: no JVD Rate: regular rate Rhythm: regular rhythm Heart sounds: S1 normal heart sound present and S2 normal heart sound present GI: Inspection: normal to inspection (large) Auscultation: normal bowel sounds Rectal Exam: deferred Skin: General skin exam: normal color and no rashes or lesions noted Neuro: General: oriented to person, oriented to place, oriented to time and patient oriented x3 Cranial nerves: Yes Equal, round and reactive pupils present Speech: normal speech Extrem: General: normal to inspection and no clubbing, cyanosis or edema Psych: Appearance: grossly normal and well kempt Affect: normal affect Objective Data Vital Signs Vital Signs: Vital Signs - 24 hr 12/19/24 20:32 12/19/24 20:35 12/20/24 04:11 Temperature 97.6 F 98.6 F Pulse Rate 86 85 87 Respiratory Rate 20 16 18 Blood Pressure 142/84 H 132/78 Pulse Oximetry 95 94 95 Oxygen Delivery Room Air Fraction of Inspired Oxygen 21 12/20/24 08:00 12/20/24 12:58 12/20/24 14:33 Temperature 97.0 F L Pulse Rate 70 102 H Respiratory Rate 20 24 H Blood Pressure 156/75 H 140/88 Pulse Oximetry 98 97 Oxygen Delivery Room Air Room Air Room Air Fraction of Inspired Oxygen 12/20/24 14:43 12/20/24 14:53 Temperature Pulse Rate 94 77 Respiratory Rate 20 18 Blood Pressure 135/79 149/79 H Pulse Oximetry 96 97 Oxygen Delivery Room Air Room Air Fraction of Inspired Oxygen Intake/Output Intake/Output: Intake & Output 12/17/24 12/18/24 12/19/24 12/20/24 23:59 23:59 23:59 23:59 Intake Total 1530 1947.9 Balance 1530 7.9 Meds/Results Medications: Active Medications Generic Name Dose Route Start Last Admin Trade Name Freq PRN Reason Stop Dose Admin Acetaminophen 650 mg 12/19/24 11:59 12/20/24 10:27 Acetaminophen 325 Mg Tablet PO 650 mg Q6H PRN Administration Pain Albuterol 1 puff 12/19/24 14:40 Albuterol Sulfate (*Sp) Aerosol 1 Puff INHALATION Q4H PRN Shortness Of Breath Or Wheezing Alprazolam 0.5 mg 12/19/24 14:40 Alprazolam (*Crx) 0.5 Mg Tablet PO BID PRN Anxiety Bupropion HCl 300 mg 12/20/24 09:00 12/20/24 15:39 Bupropion Hcl Xl (24 Hr) 150 Mg Tabcr PO 300 mg QAM RAJESH Administration Carvedilol 6.25 mg 12/20/24 21:00 Carvedilol 6.25 Mg Tablet PO Q12HR RAJESH Gabapentin 100 mg 12/19/24 17:00 12/20/24 15:48 Gabapentin 100 Mg Capsule PO 100 mg BID RAJESH Administration Hydralazine HCl 10 mg 12/19/24 11:59 Hydralazine Hcl 20 Mg/Ml Vial IV PUSH Q4H PRN Blood Pressure - High Sodium Chloride 1,000 mls @ 100 mls/hr 12/19/24 07:55 12/20/24 03:56 Normal Saline Iv IV CONT 100 mls/hr .Q10H RAJESH Administration Octreotide Acetate 500 mcg/ 100 mls @ 5 mls/hr 12/19/24 08:00 12/20/24 03:56 Sodium Chloride IV CONT 25 mcg/hr .Q20H RAJESH 5 mls/hr 25 MCG/HR Administration Lactated Ringer's 1,000 mls @ 150 mls/hr 12/20/24 13:00 12/20/24 14:52 Lr - Lactated Ringers Iv IV CONT Infused .Q6H40M RAJESH Infusion Ceftriaxone Sodium 1 gm/ 50 mls @ 100 mls/hr 12/20/24 09:00 12/20/24 15:39 Sodium Chloride IVPB 100 mls/hr Q24H RAJESH Administration Nifedipine 30 mg 12/20/24 09:00 12/20/24 15:40 Nifedipine 30 Mg Tab.Er.24 PO 30 mg QAM RAJESH Administration Ondansetron HCl 4 mg 12/19/24 09:30 12/20/24 14:45 Ondansetron Inj 4 Mg/2 Ml Vial IV PUSH 4 mg Q4H PRN Administration Nausea Quetiapine Fumarate 25 mg 12/19/24 21:00 12/19/24 20:31 Quetiapine Fumarate 25 Mg Tablet PO 25 mg HS RAJESH Administration Venlafaxine HCl 75 mg 12/19/24 17:00 12/20/24 15:39 Venlafaxine Hcl Xr 75 Mg Cap.Er.24h PO 75 mg BID RAJESH Administration Labs Labs: Laboratory Results - last 24 hr 12/20/24 05:45 WBC 2.9 L RBC 3.53 L Hgb 8.8 L Hct 30.3 L MCV 85.8 MCH 24.9 L MCHC 29.0 L RDW 19.2 H Plt Count 60 L MPV 10.4 Immature Gran % (Auto) 0.7 H Neut % (Auto) 47.9 Lymph % (Auto) 35.2 [place] % (Auto) 11.0 H Eos % (Auto) 3.8 Baso % (Auto) 1.4 H Lymph # (Auto) 1.02 [place] # (Auto) 0.3 Eos # (Auto) 0.1 Baso # (Auto) 0.0 Abs Immat Gran (auto) 0.02 Absolute Neuts (auto) 1.4 Absolute Nucleated RBC 0.000 Band Neutrophils % Not Reportable Nucleated RBC % 0.0 Platelet Estimate Decreased % Immature Plt Fraction 5.4 Hypochromasia 2+ Anisocytosis 2+ Ovalocytes 1+ Schistocytes None seen Sodium 136 L Potassium 3.8 Chloride 105 Carbon Dioxide 26 Anion Gap 5 BUN 7 Creatinine 0.70 Estim Creat Clear Calc 94 Estimated GFR > 60 Glucose 110 Calcium 8.1 L Magnesium 1.5 L Total Bilirubin 1.4 H AST 56 H ALT 20 Alkaline Phosphatase 112 Total Protein 7.3 Albumin 3.1 L Hospitalist MIPS Advance Care Plan I have confirmed that the patient's Advanced Care Plan is present, code status is documented, or surrogate decision maker is listed in patient medical record.: Yes Medication Reconciliation I have utilized all available resources to obtain, update and review the patients current medications (includes all prescriptions, OTC, herbals, cannabis, and nutritional supplements).: Yes
[2024-12-20] MEDS: HYDROcodone/acetaminophen (*CRX) 5-325 MG TABLET 1 TAB PO (18:10)
[2024-12-21] MEDS: HYDROcodone/acetaminophen (*CRX) 5-325 MG TABLET 1 TAB PO (00:16)
[2024-12-21] MEDS: OCTREOTIDE ACETATE 500 MCG in SODIUM CHLORIDE 0.9% IV 99 ML IV CONT (00:16)
[2024-12-21 06:00] VITALS: BP 124/73; PULSE 77; RESP 18; TEMP 36.8; O2SAT 92
[2024-12-21 07:05] LABS: Hematocrit 33.6 % (37.0-47.0); Hemoglobin 9.7 g/dL (12.0-15.0); Immature Platelet Fraction Pct 7.6 % (0.9-11.2); Mean Corpuscular HGB Conc 28.9 g/dl (32-36); Mean Corpuscular Hemoglobin 24.8 pg (26-34); Mean Corpuscular Volume 85.9 fl (80-100); Platelet Count Result 79 k/mm3 (150-375); Red Blood Count 3.91 M/mm3 (4.2-5.4); White Blood Count 4.9 K/mm3 (4.5-10.0)
[2024-12-21 07:13] LABS: Alanine Aminotransferase 28 U/L (6-35); Albumin Level 3.4 g/dL (3.5-5.1); Alkaline Phosphatase 109 U/L (38-126); Anion Gap 8 mmol/L (4-12); Aspartate Amino Transferase 62 U/L (14-36); Bilirubin,Total 1.3 mg/dL (0.2-1.3); Blood Urea Nitrogen 5 mg/dL (7-17); Calcium 8.2 mg/dL (8.4-10.2); Carbon Dioxide 26 mmol/L (22-30); Chloride 100 mmol/L (98-107); Estimated CRCL calculation 93 ml/min; Estimated Glomerular Filt Rate > 60; Glucose 108 mg/dL (65-110); Potassium 3.7 mmol/L (3.4-5.0); Sodium 134 mmol/L (137-145); Total Protein 7.9 g/dL (6.3-8.2)
--- NOTE | 2024-12-21 07:23 | WPDGIPROGNO ---
Progress Note: A&P Assessment and Plan (1) Cirrhosis: Qualifiers: Hepatic cirrhosis type: unspecified hepatic cirrhosis Ascites presence: unspecified Qualified Code(s): K74.60 - Unspecified cirrhosis of liver Code(s): K74.60 - Unspecified cirrhosis of liver Status: Acute Assessment and Plan: Patient did well after placement of 3 bands in esophageal varices yesterday. She can safely be discharged home today, instructed to take carvedilol 6.25 mg b.i.d. and return in 1 month for continue variceal eradication with band ligation protocol. (2) Portal hypertension: Code(s): K76.6 - Portal hypertension Status: Acute Subjective Date/time seen: 12/21/24 07:23 Interval history: Patient feels well, no hematemesis or melena. Vital Exam Narrative: Unchanged from previous. Objective Data Vital Signs Vital Signs: Vital Signs - 24 hr 12/20/24 08:00 12/20/24 12:58 12/20/24 14:33 Temperature 97.0 F L Pulse Rate 70 102 H Respiratory Rate 20 24 H Blood Pressure 156/75 H 140/88 Pulse Oximetry 98 97 Oxygen Delivery Room Air Room Air Room Air Fraction of Inspired Oxygen 12/20/24 14:43 12/20/24 14:53 12/20/24 20:00 Temperature 97.9 F Pulse Rate 94 77 75 Respiratory Rate 20 18 16 Blood Pressure 135/79 149/79 H 160/70 H Pulse Oximetry 96 97 93 Oxygen Delivery Room Air Room Air Fraction of Inspired Oxygen 12/20/24 20:00 12/20/24 21:13 12/21/24 06:00 Temperature 98.2 F Pulse Rate 68 68 77 Respiratory Rate 16 18 Blood Pressure 124/73 Pulse Oximetry 93 92 Oxygen Delivery Room Air Fraction of Inspired Oxygen 21 Intake/Output Intake/Output: Intake & Output 12/18/24 12/19/24 12/20/24 12/21/24 23:59 23:59 23:59 23:59 Intake Total 1530 3597.9 450 Balance 1530 3597.9 450 Meds/Results Medications: Active Medications Generic Name Dose Route Start Last Admin Trade Name Freq PRN Reason Stop Dose Admin Acetaminophen 650 mg 12/19/24 11:59 12/20/24 10:27 Acetaminophen 325 Mg Tablet PO 650 mg Q6H PRN Administration Pain 1-3 Hydrocodone Bitart/Acetaminophen 1 tab 12/20/24 17:37 12/21/24 00:16 Hydrocodone/Acetaminophen (*Crx) 5-325 Mg Tablet PO 1 tab Q6H PRN Administration Pain Rated 4-6 Albuterol 1 puff 12/19/24 14:40 Albuterol Sulfate (*Sp) Aerosol 1 Puff INHALATION Q4H PRN Shortness Of Breath Or Wheezing Alprazolam 0.5 mg 12/19/24 14:40 Alprazolam (*Crx) 0.5 Mg Tablet PO BID PRN Anxiety Bupropion HCl 300 mg 12/20/24 09:00 12/20/24 15:39 Bupropion Hcl Xl (24 Hr) 150 Mg Tabcr PO 300 mg QAM RAJESH Administration Carvedilol 6.25 mg 12/20/24 21:00 12/20/24 21:13 Carvedilol 6.25 Mg Tablet PO 6.25 mg Q12HR RAJESH Administration Gabapentin 100 mg 12/19/24 17:00 12/20/24 15:48 Gabapentin 100 Mg Capsule PO 100 mg BID RAJESH Administration Hydralazine HCl 10 mg 12/19/24 11:59 Hydralazine Hcl 20 Mg/Ml Vial IV PUSH Q4H PRN Blood Pressure - High Sodium Chloride 1,000 mls @ 100 mls/hr 12/19/24 07:55 12/20/24 23:05 Normal Saline Iv IV CONT 100 mls/hr .Q10H RAJESH Administration Octreotide Acetate 500 mcg/ 100 mls @ 5 mls/hr 12/19/24 08:00 12/21/24 00:16 Sodium Chloride IV CONT 25 mcg/hr .Q20H RAJESH 5 mls/hr 25 MCG/HR Administration Ceftriaxone Sodium 1 gm/ 50 mls @ 100 mls/hr 12/20/24 09:00 12/20/24 15:39 Sodium Chloride IVPB 100 mls/hr Q24H RAJESH Administration Nifedipine 30 mg 12/20/24 09:00 12/20/24 15:40 Nifedipine 30 Mg Tab.Er.24 PO 30 mg QAM RAJESH Administration Ondansetron HCl 4 mg 12/19/24 09:30 12/20/24 14:45 Ondansetron Inj 4 Mg/2 Ml Vial IV PUSH 4 mg Q4H PRN Administration Nausea Quetiapine Fumarate 25 mg 10/06/25 21:00 12/20/24 21:13 Quetiapine Fumarate 25 Mg Tablet PO 25 mg HS RAJESH Administration Venlafaxine HCl 75 mg 12/19/24 17:00 12/20/24 15:39 Venlafaxine Hcl Xr 75 Mg Cap.Er.24h PO 75 mg BID RAJESH Administration Labs Labs: Laboratory Results - last 24 hr 12/21/24 06:07 WBC 4.9 RBC 3.91 L Hgb 9.7 L Hct 33.6 L MCV 85.9 MCH 24.8 L MCHC 28.9 L RDW 19.6 H Plt Count 79 L MPV 10.3 % Immature Plt Fraction 7.6 Sodium 134 L Potassium 3.7 Chloride 100 Carbon Dioxide 26 Anion Gap 8 BUN 5 L Creatinine 0.71 Estim Creat Clear Calc 93 Estimated GFR > 60 Glucose 108 Calcium 8.2 L Total Bilirubin 1.3 AST 62 H ALT 28 Alkaline Phosphatase 109 Total Protein 7.9 Albumin 3.4 L
[2024-12-21 08:53] VITALS: PULSE 72
[2024-12-21] MEDS: VENLAFAXINE HCL XR 75 MG CAP.ER.24H PO (08:53)
[2024-12-21] MEDS: GABAPENTIN 100 MG CAPSULE PO (08:53)
[2024-12-21] MEDS: buPROPion HCL XL (24 HR) 150 MG TABCR 300 MG PO (08:55)
[2024-12-21] MEDS: cefTRIAXone 1 GM in SODIUM CHLORIDE 0.9% IV 50 ML 100 ML IVPB (08:57)
--- NOTE | 2024-12-21 12:25 | P.DS_ITS ---
DS: Admitting Diagnosis Discharge Date 12/21/2024 Admitting Diagnosis upper GI bleed DS: Discharge Diagnosis Discharge Diagnosis (1) Hematemesis: Qualifiers: Nausea presence: with nausea Qualified Code(s): K92.0 - Hematemesis Code(s): K92.0 - Hematemesis Status: Acute (2) Cirrhosis: Qualifiers: Hepatic cirrhosis type: unspecified hepatic cirrhosis Ascites presence: unspecified Qualified Code(s): K74.60 - Unspecified cirrhosis of liver Code(s): K74.60 - Unspecified cirrhosis of liver Status: Acute Plan Upper GI bleed Secondary to Esophageal varices given hx of liver cirrhosis Continue PPI Patient underwent EGD with band ligation of esophageal and or gastric varices. Advised to repeat EGD in 6-8 weeks for ongoing eradication of varices Alcoholic liver cirrhosis patient noted she has stopped alcohol consumption since February HTN continue home meds and started on Lisinopril RA continue home meds DVT prophylaxis on SCDs Full code SDM: Father Alex Teixeira DS: Summary Hospital Course Hospital Course: patient is a 54-year-old female with history of alcoholic liver cirrhosis, rheumatoid arthritis, hypertension presenting to the ED for onset of hematopoiesis with episode of black tarry stool the day prior and the day of. She had had up to 5 episodes in total the day of admission and as such reports to the ED. to consult in the emergency room, patient was started on octreotide drip and PPI, then taken for EGD. EGD positive for grade 2 varices in the distal esophagus that were not actively bleeding. These varices were ligated with 3 bands. Mild gastritis was noted in the stomach with mild portal hypertensive changes but no erosions or ulcerations. she was advanced to liquid diet and then advanced further as tolerated, which she did. No further episodes of hematemesis since admission, patient is feeling much more stable today. GI recommends repeat EGD in 6-8 weeks in follow-up in about 4 weeks as well as to start carvedilol 6.25 mg twice daily and continue PPI. Time Spent with Patient Time attestation: Total time spent providing and/or coordinating discharge services: Exam Narrative: GENERAL: Well-appearing, well-nourished, and in no acute distress. HEAD: Normocephalic, atraumatic. ENT: Mucous membranes moist. NECK: Supple. CHEST: Clear to auscultation. No respiratory distress. HEART: Regular rate and rhythm. Normal peripheral pulses. ABDOMEN: Soft, nontender, nondistended. EXTREMITIES: Normal range of motion. No edema. SKIN: Warm, dry, no rash. NEURO: Alert and oriented x3. PSYCH: Normal mood and affect. Const: General: cooperative, healthy appearing, comfortable and well developed Orientation/consciousness: oriented to person, oriented to place, oriented to time and patient oriented x3 HENMT: Head: normal to inspection, normocephalic and atraumatic Mouth: Yes Normal oral and palatal mucosa present and Yes moist mucous membranes Eyes: General: appearance normal, both eyes and all related structures Conjunctivae: conjunctivae normal Sclera: sclerae normal Pupils: Equal, round and reactive pupils present Neck: Neck: normal visual inspection Chest: Chest palpation & inspection: normal inspection of the chest Resp: Effort & Inspection: normal respiratory effort and able to speak in complete sentences Auscultation: clear to auscultation bilaterally Cardio: Jugular venous distension: no JVD Rate: regular rate Rhythm: regular rhythm Heart sounds: S1 normal heart sound present and S2 normal heart sound present GI: Inspection: normal to inspection (large) Auscultation: normal bowel sounds Rectal Exam: deferred Skin: General skin exam: normal color and no rashes or lesions noted Neuro: General: oriented to person, oriented to place, oriented to time and patient oriented x3 Cranial nerves: Yes Equal, round and reactive pupils present Speech: normal speech Extrem: General: normal to inspection and no clubbing, cyanosis or edema Psych: Appearance: grossly normal and well kempt Affect: normal affect DS: Data Data Completed and Pending Labs on day of discharge: Labs from last 24 hours 12/21/24 06:07 WBC 4.9 RBC 3.91 L Hgb 9.7 L Hct 33.6 L MCV 85.9 MCH 24.8 L MCHC 28.9 L RDW 19.6 H Plt Count 79 L MPV 10.3 % Immature Plt Fraction 7.6 Sodium 134 L Potassium 3.7 Chloride 100 Carbon Dioxide 26 Anion Gap 8 BUN 5 L Creatinine 0.71 Estim Creat Clear Calc 93 Estimated GFR > 60 Glucose 108 Calcium 8.2 L Total Bilirubin 1.3 AST 62 H ALT 28 Alkaline Phosphatase 109 Total Protein 7.9 Albumin 3.4 L Discharge Plan Discharge Attending physician on discharge: Freddy Martinez Ocaarging Clinician: Freddy Martinez Oca Patient Disposition: Home Activity: as tolerated Diet: as tolerated Patient Instructions: Antibiotic Form Patient Language: [place]ican Stand Alone Forms: General Discharge Information Follow-up/Referrals: [facility] [Provider Group, Gastroenterology] Discharge Medications: New carvedilol [Coreg] 6.25 mg Tablet 6.25 mg PO Q12HR 30 Days Qty: 60 0RF nifedipine [Procardia XL] 30 mg Tablet Extended Release 24hr 30 mg PO QAM 30 Days Qty: 30 0RF Continued alprazolam 0.5 mg tablet 0.5 mg PO BID PRN (Reason: anxiety) venlafaxine 75 mg capsule,extended release 24hr 75 mg PO BID quetiapine 25 mg tablet 25 mg PO HS omeprazole 20 mg capsule,delayed release(DR/EC) 20 mg PO DAILY gabapentin 100 mg capsule 100 mg PO BID pantoprazole 20 mg tablet,delayed release (DR/EC) 20 mg PO DAILY sumatriptan succinate 100 mg tablet See Rx Instructions PO .COMPLEX Qty: 9 5RF Patient Comments: Pt not taking Rx Instructions: take 1 tab at onset of headache; if no relief, may repeat 1 tab after at least 2 hrs; max = 2 tabs/24 hrs PO albuterol sulfate 90 mcg/actuation HFA aerosol inhaler 1 inh inhalation Q4H PRN (Reason: shortness of breath or wheezing) Qty: 8.5 5RF bupropion HCl [Wellbutrin XL] 300 mg tablet extended release 24 hr 300 mg PO QAM Qty: 30 4RF Discontinued nadolol 20 mg tablet 20 mg PO ONCE Qty: 30 5RF Date of admission: 12/19/24 09:31 Primary Care Provider: PrimoChacorta Admitting Provider: Makenna Lopez Attending physician on admission: Makenna Lopez Condition: Stable
== END 2024-12-21 13:30 | disposition home or self-care (01) ==
LOC: ANHED 08:37 → ANH3MEDSUR 18:01
PROVIDERS: General Practice; Internal Medicine Gastroenterology; Admitting Provider Internal Medicine; Emergency Provider Emergency Medicine; PCP Physician Assistant; Visit Provider Student in an Organized Health Care Education/Training Program
PROC: 0DJ08ZZ Inspection of Upper Intestinal Tract, Via Natural or Artificial Opening Endoscopic (ICD-10-PCS; CPT 43244; principal; 2024-12-20 14:00)
DX: K92.0 Hematemesis (principal); K70.30 Alcoholic cirrhosis of liver without ascites; I85.10 Secondary esophageal varices without bleeding; K29.70 Gastritis, unspecified, without bleeding; K76.6 Portal hypertension; K31.89 Other diseases of stomach and duodenum; F10.21 Alcohol dependence, in remission; K21.9 Gastro-esophageal reflux disease without esophagitis; M19.90 Unspecified osteoarthritis, unspecified site; F41.8 Other specified anxiety disorders; I10 Essential (primary) hypertension; Z80.0 Family history of malignant neoplasm of digestive organs; Z81.1 Family history of alcohol abuse and dependence; Z82.49 Family history of ischemic heart disease and other diseases of the circulatory system; Z87.891 Personal history of nicotine dependence
CPT/HCPCS: 43244; 36415; 80053; 81001; 83690; 83735; 85025; 85027; 85055; 96365; 96375; 99285; A9270; G0378; G0379; J0696; J2003; J2354; J2405; J2470; J2550; J2704; J7030; J7120

== ENCOUNTER 2025-02-08 00:43 | Day surgery (SDC) | payer OTHER, SELFPAY ==
[2025-01-25 10:24] VITALS: BMI 36.9
--- OUTSIDE RECORDS SUMMARY | 2025-02-08 00:47 | XMS_ITS | Clinical Summary ---
Author Organization [facility] Address [facility] [place] [address] Care Team Providers Care Freelance Programmer/App Developer Name Role Phone Allyson Amato MD Primary Care Provider [phone] Allergies Active Allergy Reactions Criticality Noted Date [...] place to sleep or slept in a assisted (including now)? No 12/19/2022 Education Answer Date [...] of 2) 2020 COVID-19 Vaccine (2 - 2024-2 6 season) 2024 01/28/2021 Influenza Adult (#1) 2024 Hepatitis A Vaccines Aged Out No long er eligible based on patient's age to complete this topic Meningococcal B Vaccine Aged Out No l [...] in ADLs upon discharge from hospital Lifestyle No Pat Bryan, RN Insurance [employer] Advance Directives * Full Code (Latest Code Status on File) Date Activated Date Inactivated Comments 12/16/2022 5:30 PM 12/20/2022 6:30 PM Care Teams Freelance Programmer/App Developer Relationship Specialty Start Date End Date Allyson Amato MD [address] [place] [address] PCP - General FAMILY PRACTICE 12/16/22
--- OUTSIDE RECORDS SUMMARY | 2025-02-08 00:47 | XMS_ITS | Clinical Summary ---
Author Organization [id number] Address [address] [place] [id number] Care Team Providers Care Telecommunication Equipment Repairer Name Role Phone Leesa Vidales MD Unavailable [phone] Drew Mason MD Primary Care Provider Allergies [...] 02/19/2018 Assessment & Plan (02/19/2018 3:37 AM RN ADVICE): Patient meets the criteria for sepsis with elevated lactic acid levels and source of infection. Started empirically on broad-spectrum of antibiotics with vanc Zosyn and Levaquin. Blood cultures are pending Urine cultures were obtained Will get ID consult given the history of MDR/ESBL Will obtain wound cultures as well. Acute cystitis with hematuria 02/19/2018 Assessment & Plan (02/19/2018 3:37 AM RN ADVICE): Urinalysis is consistent with a UTI. Patient currently on broad-spectrum antibiotics Alcohol abuse 02/19/2018 Assessment & Plan (02/19/2018 3:40 AM RN ADVICE): Patient reports chronic alcohol use at least [...] monitor. Assessment & Plan (02/19/2018 3:41 AM RN ADVICE): Trend lactic acid and CBC. Colitis 02/19/2018 Assessment & Plan (02/19/2018 3:42 AM RN ADVICE): CT of the abdomen was consistent with colitis. Patient is currently on broad-spectrum antibiotics with vanc, Zosyn and Levaquin. Consider adding Flagyl. Patient with history of of MDR/ESBL Will get ID consult Hepatic steatosis 02/19/2018 Assessment & Plan (10/08/2019 10:14 PM CDT): Noted on CT scan. Assessment & Plan (02/19/2018 3:42 AM RN ADVICE): Hepatic steatosis noted on CT. Discussed and encouraged to stop drinking Ruptured left breast implant 02/19/2018 Assessment & Plan (02/19/2018 3:43 AM RN ADVICE): Incidental finding on the CT. Patient will need a follow up outpatient with PCP Uterine fibroid 02/19/2018 Assessment & Plan (02/19/2018 3:44 AM RN ADVICE): Incidental finding. Otherwise patient is asymptomatic. Alcohol withdrawal syndrome with complication Assessment & Plan (02/19/2018 3:45 AM RN ADVICE): Patient currently is a tremors and elevated blood pressure. This is highly concerning for alcohol withdrawal. Start on Librium protocol Hydralazine and clonidine as needed for blood pressure control. Acute diffuse otitis externa of left ear 018 Assessment & Plan (02/19/2018 3:54 AM RN ADVICE): Patient with a history of of MDR [...] on file Legal Sex Female 2:28 AM RN ADVICE Gender Identity Not on file Sexual Orientation [...] last revised on 19. Testing performed by: [facility], [address] [place] [address], [place]., [id number] Hep B core IgM Nonreactive Nonreactive C MELVI CRAIG (MIKE) Comment: Interpretive Data If HepB Core IgM Ab is reported as Equivocal, a new sample should be drawn in two weeks for testing. Current interpretive data was last revised on 19. Testing performed by: [facility], [address] [place] [address], [place]., [id number] Hep C Ab Nonreactive Nonreactive CERNER KIARA (MIKE) Comment: Interpretive Data Nonreactive: Antibodies to [...] last revised on 2019. Testing performed by: [facility], [address] [place] [address]., [id number] HepBsAg Nonreactive [facility]reactive [facility] ([facility] Comment:Testing performed by : [facility], [address] [place] [address]., [id number] Blood specimen (specimen) 10/11/2019 5:12 AM CDT 10/11/2019 9:34 AM CDT Leesa Vidales MD LAB MICROBIOLOGY - GENERAL ORDERABLES Final Result DEONTE CRAIG (MIKE) 1 [facility] Department [place] [address] from Last 3 Months or Most Recently Relevant to Health Maintenance Additional Health Concerns Infection Onset Date Last Indicated MDR gram neg/ESBL Comment:02/26/15 Urine E. coli ESBL+ (MDRO) 02/27/2015 02/27/2015 Insurance Advance Directives For more information, please contact: [phone] * Full Code (Latest Code Status on [...] 10:19 PM 02/25/2018 6:41 PM Care Teams Telecommunication Equipment Repairer Relationship Specialty Start Date End Date Drew Mason MD [address] [place] [id number] PCP - General Family Medicine 03/04/24 Leesa Vidales MD Consulting Physician Gastroenterology 10/11/19
--- OUTSIDE RECORDS SUMMARY | 2025-02-08 00:47 | XMS_ITS | Data Portability ---
Author Organization [facility] St Fibroid and, [facility]) Address [address] [place] [address] [address] Assessment Encounter Date Assessment Date Assessment LastModified [...] to do the test [email or web address] [place] [address] Imaging - Creatinine Order, [address] [place], [address], 9 16:29:48 Referral None recorded. Procedures None recorded. Surgeries None recorded. Imaging MRI, pelvis, w/wo contrast - Patient has a history of fibroids. She is being referred for MRI of the pelvis to assess for the extent of Uterine fibroids and the presence of adenomyos is or endometri osis 2018 019 [email or web address] [address] [facility], [place], [facility] Administrative Office, [address], [place], [address], 14:00:03 Medication Orders None recorded. Patient TargetsNo targets recorded. Patient InstructionsNo instructions recorded. Reason for Referral None Reported. Procedures Surgical History Date Name Laterality Status Provider Name and Address Organization Details Recorded Time 08/23/2017 [place] [address], [address], [facility] and 11/09/2018 16:52:07 03/16/2007 [place] [address], [address], [facility] and 11/09/2018 16:52:07 03/16/1995 [place] [address], [address], [employer] [facility] and 11/09/2018 16:52:07 03/16/1990 [place] [address], [address], [employer] [facility] and 11/09/2018 16:52:07 Imaging Results [...] Not Available Not Availa ble Not Available Xie-Yo-Jmvhekxr 0.18 mg/0.215 mg/0.25 mg-0.025 mg tablet active Not Available Not Available Not Available Vitals None Recorded Social History Question Answer Notes LastModified by Q1 Labsizat ion Details LastModified Time Tobacco Smoking Status Never Smoker Not Available [facility] 01/17/2020 03:44:16 Which Illicit Or Recreational Drugs Have You Used? None [id number] Information not available 01/17/2020 What Is The Highest Grade Or Level Of School You Have Completed Or The Highest Degree You Have Received? [id number] [id number] Information not available 01/17/2020 Live Alone Or With Others? With Others [email or web address] Information not available 11/09/2018 How Much Tobacco Do You Smoke? No [id number] Information not available 01/17/2020 Sex: Unknown Functional Status Question Answer Note LastModified by Organizat ion Details LastModified Time What is your level of alcohol consumption? Occasional [id number] Information not available 01/17/2020 What is your [...] Diagnosis SNOMED-CT Code Diagnosis ICD10 Code Diagnosis IMO Codes Diagnosis Note 458 Kiya Mcfarland MD [facility] [address] [facility] ,[address] [place] [address] 11/09/2018 16:41:03 11/10/2018 16:10:17 Uterine leiomyoma 95940747 D25.9 Health Concerns Section Related Observation LastModified by Organization Detai ls LastModified Time None Recorded Concern Status LastModified by Organization Details LastModified Time None Recorded Advance Directives Directive None Recorded Payers Insurance Date Sequence Insurance Name Policy Number Policy Bravo Covered Member ID Bravo Member ID Guarantor Name 11/10/2018 1 [facility] [employer] Xin Lluvia [id number] Xin Lluvia 11/10/2018 1 [facility] PRIOR TO 09/13/2020 (MEDICAID REPLACEMENT - HMO) Xin Lluvia [id number] Xin Lluvia 11/10/2018 1 [employer] [facility] Xin Lluvia [id number] Xin Lluvia 11/10/2018 1 [facility] PRIOR TO 09/13/2020 (MEDICAID REPLACEMENT - HMO) Xin Lluvia [id number] Xin Lluvia 08/02/2019 2 [place] [facility] Xin Lluvia [id number] Xin Lluvia Notes Date Note Type Note [...] with fibroids, last year). [place] [address], [address], [facility] and 11/09/2018 18:18:30 OBGyn Episode No OBEpisode recorded.
--- OUTSIDE RECORDS SUMMARY | 2025-02-08 00:47 | XMS_ITS | Data Portability ---
Author [facility] Address [address] [place] [address] Assessment No assessment recorded. Plan of Treatment [...] By Organization Details Last Modified Time 11/19/2016 [id number] uterine fibroids : care instructions [email or web address] Not [...] Time Tubal Ligation completed Kellen Ferguson MA [facility] 11/19/2016 15:16:03 delivery completed Kellen Ferguson MA [facility] 11/19/2016 15:16:27 Imaging Results None recorded. Procedure [...] Updated DateTime 11/19/2016 165.1 cm 30.7 kg/m2 45344.43 g 142/98 mm[Hg] Kellen Ferguson MA [facility] 11/19/2016 15:10:50 Social History Question Answer Notes LastModified by Organizat ion Details LastModified Time Tobacco Smoking Status Former Smoker [facility] 11/19/2016 15:15:31 What Was The [...] ICD10 Code Diagnosis IMO Codes Diagnosis Note [id number] MD [facility] ([address]) 2 [facility] [address] [place] [address] 11/19/2016 14:53:57 11/19/2016 16:18:24 Uterine leiomyoma [id number] D25.9 - Pt would like definitive treatment with a hysterecto my. Will schedule with another physician that can perform the surgery at another hospital other than [facility]. Health Concerns Section Related Observation LastModified by Organization Detai ls LastModified Time None Recorded Concern Status LastModified by Organization Details LastModified Time None Recorded Advance Directives Directive None Recorded Payers Insurance Date Sequence Insurance Name Policy Number Policy Bravo Covered Member ID Bravo Member ID Guarantor Name 11/19/2016 1 [facility] PRIOR TO 2020 (MEDICAID REPLACEMENT - HMO) Xin Teixeira [id number] Xin Teixeira Notes Date Note Type Note [...] hysterectomy. Benson Richmond MD Attn: [address] [place], [address], [place] [facility] 11/19/2016 15:33:32 OBGyn Episode No OBEpisode recorded.
[2025-02-08 06:19] VITALS: BP 151/99; PULSE 101; RESP 18; TEMP 36.7; O2SAT 98
[2025-02-08] MEDS: LACTATED RINGERS 1,000 ML 150 ML IV CONT (06:28)
--- NOTE | 2025-02-08 07:24 | WPDANESEPPF ---
Anes - Initial Pre Proc Eval Procedure: Operation Date: 02/08/25 07:45 Proposed Procedures p Esophagogastroduodenoscopy EGD - Cyrus Jones MD Date/Time: 02/08/25 07:24 Surgeon: Cyrus Jones MD Pre Op Diagnosis: Esophageal varices without bleeding Patient Data Age: 54 Gender: F Height: 1.63 m Weight: 104.1 kg Last Vital Signs Temp 36.7 C 02/08/25 06:19 Pulse 101 H 02/08/25 06:19 Resp 18 02/08/25 06:19 BP 151/99 H 02/08/25 06:19 Pulse Ox 98 02/08/25 06:19 O2 Del Method Room Air 02/08/25 06:19 Allergies Allergy/AdvReac Type Severity Reaction Status Date / Time lisinopril Allergy Intermediate Swelling Verified 02/08/25 06:15 of Lip/Tongue/Throat azithromycin AdvReac Unknown N/V Verified 02/08/25 06:15 Home Medications ?Medication ?Instructions ?Recorded ?Confirmed ?Type sumatriptan succinate 100 mg tablet See Rx Instructions PO .COMPLEX #9 01/02/20 01/25/25 Rx tabs albuterol sulfate 90 mcg/actuation 1 inh inhalation Q4H PRN shortness 05/18/22 02/08/25 Rx aerosol inhaler of breath or wheezing #8.5 grams bupropion HCl 300 mg 24 hr tablet, 300 mg PO QAM #30 tabs 12/03/22 02/08/25 Rx extended release (Wellbutrin XL) alprazolam 0.5 mg tablet 0.5 mg PO BID PRN anxiety 07/27/23 02/08/25 History quetiapine 25 mg tablet 25 mg PO HS 07/27/23 02/08/25 History venlafaxine 75 mg capsule,extended 75 mg PO BID 07/27/23 02/08/25 History release 24 hr gabapentin 100 mg capsule 100 mg PO BID 10/07/24 02/08/25 History pantoprazole 20 mg tablet,delayed 20 mg PO DAILY 10/07/24 02/08/25 History release carvedilol 6.25 mg tablet (Coreg) 6.25 mg PO Q12HR 30 days #60 tabs 12/21/24 02/08/25 Rx nifedipine 30 mg tablet,extended 30 mg PO QAM 30 days #30 tabs 12/21/24 02/08/25 Rx release 24 hr (Procardia XL) metoclopramide HCl 5 mg tablet 5 mg PO DAILY 02/08/25 02/08/25 History Patient hx anesthesia problems: none Family hx anesthesia problems: none Results Review: All pre-operative results and documents have been reviewed as part of the pre-operative evaluation. [facility] Past Medical History Medical History Monoallelic mutation of ESPN gene History of esophageal varices with bleeding Elevated liver enzymes Esophageal varices with bleeding Acute blood loss anemia Hematemesis Melena IPMN (intraductal papillary mucinous neoplasm) Fatty liver Concern for hepatic cirrhosis Hepatitis GERD (gastroesophageal reflux disease) Arthritis Insomnia Anxiety Depression Hypertension Surgical History Surgical History Hx of breast augmentation Hx of section x2 History of tubal ligation Family History Family History Father Hypertension Depression Mother Hypertension Son Depression Grandparent Alcoholism Cancer Grandparent Cancer Hypertension Social History Social History Social History: Pt smoked cigarettes socially for approx. 5 yrs. One pack would last her 2 weeks. Smoking status: Never smoker Second hand tobacco smoke exposure: No Smoking end date: 03/16/06 Alcohol intake: current Drinks per week: 2 Alcohol use details: hx alcohol Substance use: never Substance use type: does not use Last use: 12/17/24 Lack of Transportation: No Lack of Food: Never True Current Housing: I Have Housing Concerned About Future Housing: No Difficulty Paying Gas/Electric Bills: No Difficulty Paying for Meds: No Currently Unemployed: No Education: Associate Degree Difficulty w/ Childcare or Family Care: No Living arrangements: alone Spiritual care concerns: No Anes - Eval Final PreProcedure Day of Procedure 02/08/25 07:24 Patient weight: morbidly obese Heart: regular rate and rhythm Lungs: clear to auscultation Airway: Mallampati scale class III Neurological: alert and oriented Last oral intake: >/= 8 hours ASA classification: IV Emergent: no Anesthetic plan: proceed Anesthesia type and monitoring: general GIVS and standard monitoring Results Review: All pre-operative results and documents have been reviewed as part of the pre-operative evaluation. Informed Consent: The patient's anesthetic plan and its attendant risks and benefits were discussed with the patient/family/POA. Questions were solicited and answers provided to the satisfaction of the patient/family/POA.
--- NOTE | 2025-02-08 07:42 | PM.HPGS ---
History of Present Illness History of Present Illness Consent: Risks, benefits, and alternatives have been discussed and questions answered. Patient agrees to proceed with procedure. Chief complaint: Esophageal varices without bleeding Narrative: Xin Teixeira is a 54 year old female with known alcoholic cirrhosis and GIB due to EV with last ligation 12/2024, on coreg, denies recent issues since left the hospital. Review of Systems Review of Systems: All systems reviewed & are unremarkable except as noted in HPI and below PMFSH Past Medical History Medical History Monoallelic mutation of ESPN gene History of esophageal varices with bleeding Elevated liver enzymes Esophageal varices with bleeding Acute blood loss anemia Hematemesis Melena IPMN (intraductal papillary mucinous neoplasm) Fatty liver Concern for hepatic cirrhosis Hepatitis GERD (gastroesophageal reflux disease) Arthritis Insomnia Anxiety Depression Hypertension Surgical History Surgical History Hx of breast augmentation Hx of section x2 History of tubal ligation Family History Family History Father Hypertension Depression Mother Hypertension Son Depression Grandparent Alcoholism Cancer Grandparent Cancer Hypertension Social History Social History Social History: Pt smoked cigarettes socially for approx. 5 yrs. One pack would last her 2 weeks. Smoking status: Never smoker Second hand tobacco smoke exposure: No Smoking end date: 03/16/06 Alcohol intake: current Drinks per week: 2 Alcohol use details: hx alcohol Substance use: never Substance use type: does not use Last use: 12/17/24 Lack of Transportation: No Lack of Food: Never True Current Housing: I Have Housing Concerned About Future Housing: No Difficulty Paying Gas/Electric Bills: No Difficulty Paying for Meds: No Currently Unemployed: No Education: Associate Degree Difficulty w/ Childcare or Family Care: No Living arrangements: alone Spiritual care concerns: No Meds Home Medications and Allergies Home Medications ?Medication ?Instructions ?Recorded ?Confirmed ?Type sumatriptan succinate 100 mg tablet See Rx Instructions PO .COMPLEX #9 01/02/20 01/25/25 Rx tabs albuterol sulfate 90 mcg/actuation 1 inh inhalation Q4H PRN shortness 05/18/22 02/08/25 Rx aerosol inhaler of breath or wheezing #8.5 grams bupropion HCl 300 mg 24 hr tablet, 300 mg PO QAM #30 tabs 12/03/22 02/08/25 Rx extended release (Wellbutrin XL) alprazolam 0.5 mg tablet 0.5 mg PO BID PRN anxiety 07/27/23 02/08/25 History quetiapine 25 mg tablet 25 mg PO HS 07/27/23 02/08/25 History venlafaxine 75 mg capsule,extended 75 mg PO BID 07/27/23 02/08/25 History release 24 hr gabapentin 100 mg capsule 100 mg PO BID 10/07/24 02/08/25 History pantoprazole 20 mg tablet,delayed 20 mg PO DAILY 10/07/24 02/08/25 History release carvedilol 6.25 mg tablet (Coreg) 6.25 mg PO Q12HR 30 days #60 tabs 12/21/24 02/08/25 Rx nifedipine 30 mg tablet,extended 30 mg PO QAM 30 days #30 tabs 12/21/24 02/08/25 Rx release 24 hr (Procardia XL) metoclopramide HCl 5 mg tablet 5 mg PO DAILY 02/08/25 02/08/25 History Allergies Allergy/AdvReac Type Severity Reaction Status Date / Time lisinopril Allergy Intermediate Swelling Verified 02/08/25 06:15 of Lip/Tongue/Throat azithromycin AdvReac Unknown N/V Verified 02/08/25 06:15 Vital Signs Vital Signs - 24 hr 02/08/25 06:19 Temperature 98.1 F Pulse Rate 101 H Respiratory Rate 18 Blood Pressure 151/99 H Pulse Oximetry 98 Oxygen Delivery Room Air Exam Const: General: comfortable and no acute distress Orientation/consciousness: patient oriented x3 HENMT: Face/Nose/Sinus: Normal nares present Resp: Auscultation: clear to auscultation bilaterally Cardio: Rate: regular rate Rhythm: regular rhythm GI: Inspection: non-distended GI Palp: Yes Soft to palpation Skin: General skin exam: normal color Extrem: General: normal to inspection Psych: Mental Status: mental status grossly normal Assessment and Plan Assessment and plan (1) Cirrhosis: Qualifiers: Hepatic cirrhosis type: unspecified hepatic cirrhosis Ascites presence: unspecified Qualified Code(s): K74.60 - Unspecified cirrhosis of liver Code(s): K74.60 - Unspecified cirrhosis of liver Status: Acute (2) Esophageal varices: Code(s): I85.00 - Esophageal varices without bleeding Status: Acute Assessment and Plan: egd to assess if will need more treatment
[2025-02-08 07:47] VITALS: BP 123/78; PULSE 97; RESP 17; O2SAT 91
[2025-02-08 07:57] VITALS: BP 139/91; PULSE 98; RESP 17; O2SAT 97
[2025-02-08 08:07] VITALS: BP 151/89; PULSE 97; RESP 17; O2SAT 96
== END 2025-02-08 08:17 | disposition home or self-care (01) ==
PROVIDERS: PCP Physician Assistant; Referring Provider Internal Medicine Gastroenterology; Visit Provider Internal Medicine Gastroenterology
PROC: 0DJ08ZZ Inspection of Upper Intestinal Tract, Via Natural or Artificial Opening Endoscopic (ICD-10-PCS; CPT 43235; principal; 2025-02-08 07:45)
DX: K74.60 Unspecified cirrhosis of liver (principal); I85.00 Esophageal varices without bleeding; K29.70 Gastritis, unspecified, without bleeding; K21.9 Gastro-esophageal reflux disease without esophagitis; I10 Essential (primary) hypertension; F41.9 Anxiety disorder, unspecified; F32.A Depression, unspecified; G47.00 Insomnia, unspecified; M19.90 Unspecified osteoarthritis, unspecified site; E66.9 Obesity, unspecified; Z68.39 Body mass index [BMI] 39.0-39.9, adult; Z79.51 Long term (current) use of inhaled steroids; Z98.890 Other specified postprocedural states; Z98.51 Tubal ligation status; Z15.89 Genetic susceptibility to other disease; Z87.891 Personal history of nicotine dependence; Z87.19 Personal history of other diseases of the digestive system; Z80.9 Family history of malignant neoplasm, unspecified
CPT/HCPCS: 43235; J2704; J7120

== ENCOUNTER 2025-02-18 05:24 | Observation (INO) | payer OTHER, SELFPAY ==
[2025-02-18] VITALS (12 sets, daily range): BP systolic 105–159; BP diastolic 69–101; PULSE 84–116; RESP 16–20; TEMP 36.6–37.3; O2SAT 88–97; BMI 34.9
--- NOTE | ~2025-02-18 | CT_ITS ---
EXAM/PROCEDURE: CT abdomen wo con HISTORY: Ascites COMPARISON: February 18, 2025 TECHNIQUE: Noncontrast CT of the abdomen performed FINDINGS: CT of the abdomen only demonstrates small to moderate amount of ascites not clearly changed given variation in technique. Cholelithiasis, and cirrhotic liver changes again noted. No hydroureteronephrosis within the [id number]. The spleen stomach and adrenal glands and pancreas appear stable. Aorta normal in size. New trace bilateral pleural effusions with subsegmental atelectatic changes on today's exam. Bones stable. IMPRESSION: Directed noncontrast exam demonstrating small to moderate amount of ascites not clearly changed; new small bilateral pleural effusions are developing. Other findings as above. Reviewed, dictated and finalized at location A. STANT WINEMAKER IMPRESSION: Directed noncontrast exam demonstrating small to moderate amount of ascites not clearly changed; new small bilateral pleural effusions are developing. Other f indings as above.
--- NOTE | ~2025-02-18 | CT_ITS ---
CHEST ABDOMEN PELVIS WITH CONTRAST CLINICAL HISTORY: EPIGASTRIC PAIN. VOMITING. NAUSEA. HX OF CIRRHOSIS. . COMPARISON: CTA abdomen pelvis 04/08/2024 TECHNIQUE: CT performed from thoracic inlet to symphysis pubis 100 milliliters Omnipaque 350 Coronal, sagittal reformats. Multi planar MIPS CT images acquired with automatic exposure control for dose reduction DLP: 1522 mGy-cm FINDINGS: CHEST- Lungs/Pleura: Clear. Thoracic Aorta: No dissection. No aneurysm. Pulmonary arteries: Normal caliber. Heart: Unremarkable. Tracheobronchial tree: Patent. Nodes: No enlarged nodes. Bones: No acute bony abnormality. Hemangioma T5, T7, T11. Soft tissues: Breast implants, left side ruptured. ABDOMEN/PELVIS- Liver: Cirrhosis. Enlarged. Gallbladder: Stones. Spleen: Unremarkable. Pancreas: Unremarkable. Adrenal glands: Unremarkable. Kidneys: Right kidney- No hydronephrosis. No renal stones. Left kidney- No hydronephrosis. No renal stones. Distal esophagus/stomach: Gastric wall thickening. Small bowel loops: Normal caliber and wall thickness. Colon: Rectal wall thickening. Normal RLQ appendix. Rectal venous varices. Scattered areas of wall thickening and submucosal fatty deposition. Nodes: No enlarged nodes. Peritoneum: Moderate scattered ascites. No free air. Urinary bladder: Unremarkable. Uterus: Unremarkable. Adnexa: No masses. Bones: No acute bony abnormality. Hemangioma L5, L3, L2. Soft tissues: Unremarkable. Aorta: No aneurysm or dissection. IVC: Unremarkable. Main portal vein/SMV/splenic vein: Patent. IMPRESSION: CHEST- 1. No acute findings. ABDOMEN/PELVIS- 1. Gastritis. 2. Mild diffuse colitis likely portal hypertensive colopathy. 3. Distal rectal wall thickening. Possibly portal hypertensive colopathy and/or varices but recommend colonoscopy. 4. Additional findings as above. Reviewed, dictated and finalized at location R. TS AND PROMOTIONS ASSISTANT IMPRESSION: CHEST- 1. No acute findings. ABDOMEN/PELVIS- 1. Gastritis. 2. Mild diffuse colitis likely portal hypertensive colopathy. 3. Distal rectal wall thickening. Possibly portal hypertensive colopathy and/o r varices but recommend colonoscopy. 4. Additional findings as above.
--- NOTE | ~2025-02-18 | CT_ITS ---
EXAMINATION: CTA chest PE protocol, 02/18/2025 18:20 PIG CASTING MACHINE OPERATOR HISTORY: low spo2 COMPARISON: No comparisons available. TECHNIQUE: CTA examination is obtained with contrast CTA examination technique is performed with arterial phase of contrast-enhancement. 3-D reconstruction with thin MIP axial and MPR coronal imaging is provided Isovue 300, 92cc injected IV. One or more of the following dose reduction techniques were used: automated exposure control, adjustment of the mA and/or kV according to patient size, use of iterative reconstruction technique. FINDINGS: No significant coronary calcification is present ([id number]) LUNGS: The contrast bolus is limited however there is no gross central pulmonary embolism identified. No tracheomalacia. No bronchiectasis. No significant emphysematous of pulmonary fibrotic changes. Apical scarring is noted bilaterally. There are areas of linear atelectasis noted in the right lower lobe posteriorly. HEART AND PERICARDIUM: Within normal limits. AORTA: Normal caliber aorta.. PULMONARY ARTERIES: No pulmonary embolism ADENOPATHY/MEDIASTINUM: None. LIMITED VIEWS OF THE ABDOMEN: The liver demonstrates a heterogeneous appearance with nodularity of the liver contours and perihepatic fluid suspicious for cirrhotic disease, underlying liver lesions are not excluded. Nonspecific patulous appearance of the esophagus. OSSEOUS STRUCTURES: No sclerotic or lytic lesions appreciated. OVERLYING SOFT TISSUES: Partially imaged bilateral breast implants, the left implant appears collapsed. THYROID: The thyroid is unremarkable. IMPRESSION: 1. Limited study. Negative for pulmonary embolism. 2. Correlate for underlying cirrhotic disease of the liver with pancreatitis. Underlying liver lesions are suspected. Contrast-enhanced MRI is suggested. Reviewed, dictated and finalized at location P. CASTING MACHINE OPERATOR IMPRESSION: 1. Limited study. Negative for pulmonary embolism. 2. Correlate for underlying cirrhotic disease of the liver with pancreatitis. U nderlying liver lesions are suspected. Contrast-enhanced MRI is suggested.
--- NOTE | 2025-02-18 05:30 | ED.NAVMDI ---
HPI - Nausea/Vomiting/Diarrhea General Chief complaint: Nausea/Vomiting/Diarrhea Stated complaint: vomiting Time Seen by Provider: 02/18/25 05:30 Source: patient and family Mode of arrival: ambulatory Limitations: no limitations History of Present Illness HPI Narrative: Patient is a 54-year-old female with heavy alcohol consumption with vodka in a known alcoholic with varices and cirrhosis having nausea and vomiting. She has been sick now for 2 days. Patient has been banded 3 times in the past. She has no current bleeding. MD elicited complaint: nausea, vomiting and diarrhea Pertinent past history: alcohol abuse and other (Cirrhosis and varices) Onset (ago): day(s) (2) Description of vomiting: watery Description of diarrhea: watery Associated nausea: Yes Associated abdominal pain: Yes Location of pain: diffuse Radiation: periumbilical Pain consistency: constant Severity: mild Pain scale (0-10): 2 Quality: cramping and sharp Exacerbating factors: none Relieving factors: none Context: alcohol abuse and marijuana use Associated symptoms: nausea/vomiting Treatment prior to arrival: none Related Data Home Medications ?Medication ?Instructions ?Recorded ?Confirmed ?Last Taken ?Type alprazolam 0.5 mg tablet 0.5 mg PO BID PRN anxiety 07/27/23 02/18/25 02/15/25 History quetiapine 25 mg tablet 25 mg PO HS 07/27/23 02/18/25 02/15/25 History venlafaxine 75 mg capsule,extended 75 mg PO BID 07/27/23 02/18/25 02/15/25 History release 24 hr gabapentin 100 mg capsule 100 mg PO BID 10/07/24 02/18/25 02/15/25 History pantoprazole 20 mg tablet,delayed 20 mg PO DAILY 10/07/24 02/18/25 02/18/25 History release metoclopramide HCl 5 mg tablet 5 mg PO DAILY 02/08/25 02/18/25 02/15/25 History Allergies Allergy/AdvReac Type Severity Reaction Status Date / Time lisinopril Allergy Intermediate Swelling Verified 02/18/25 13:17 of Lip/Tongue/Throat azithromycin AdvReac Unknown N/V Verified 02/18/25 13:17 Review of Systems Review of Systems: All systems reviewed & are unremarkable except as noted in HPI and below Constitutional: Constitutional: Reports no additional constitutional complaints Eyes: Eyes: Reports no additional eye complaints ENT: Reports system reviewed and no additional complaints, except as documented Cardiovascular: Cardiovascular: Reports no additional cardiovascular complaints Respiratory: Respiratory: Reports no additional respiratory complaints Gastrointestinal: Gastrointestinal: Reports no additional gastrointestinal complaints Genitourinary: Genitourinary: Reports no additional female genitourinary complaints Musculoskeletal: Musculoskeletal: Reports no additional musculoskeletal complaints Integumentary/Breasts: Skin/Breast: Reports system reviewed and no additional complaints, except as docu Neurologic: Reports system reviewed and no additional complaints, except as documented Psychiatric: Psychiatric: Reports no additional psychiatric complaints Endocrine: Endocrine: Reports no additional endocrine complaints Hematologic/Lymphatic: Hematologic/Lymphatic: Reports no additional hematologic/lymphatic complaints Allergic/Immunologic: Allergic/Immunologic: Reports no additional allergic/immunologic complaints [facility] Past Medical History Medical History Monoallelic mutation of ESPN gene History of esophageal varices with bleeding Elevated liver enzymes Esophageal varices with bleeding Acute blood loss anemia Hematemesis Melena IPMN (intraductal papillary mucinous neoplasm) Fatty liver Concern for hepatic cirrhosis Hepatitis GERD (gastroesophageal reflux disease) Arthritis Insomnia Anxiety Depression Hypertension Surgical History Surgical History Hx of breast augmentation Hx of section x2 History of tubal ligation Family History Family History Father Hypertension Depression Mother Hypertension Son Depression Grandparent Alcoholism Cancer Grandparent Cancer Hypertension Social History Social History Social History: Pt smoked cigarettes socially for approx. 5 yrs. One pack would last her 2 weeks. Smoking status: Never smoker Second hand tobacco smoke exposure: No Smoking end date: 03/16/06 Alcohol intake: current Drinks per week: 2 Alcohol use details: hx alcohol Substance use: never Substance use type: does not use Last use: 12/17/24 Lack of Transportation: No Lack of Food: Never True Current Housing: I Have Housing Concerned About Future Housing: No Difficulty Paying Gas/Electric Bills: No Difficulty Paying for Meds: No Currently Unemployed: No Education: Associate Degree Difficulty w/ Childcare or Family Care: No Living arrangements: alone Spiritual care concerns: No Exam Const: General: healthy appearing Nutritional Appearance: well nourished Orientation/consciousness: patient oriented x3 Limitations: no limitations HENMT: Head: normal to inspection Ears: external ears normal Face/Nose/Sinus: Normal external nose present Eyes: Conjunctivae: conjunctivae normal Cornea: corneas normal Pupils: Equal, round and reactive pupils present Neck: Neck: normal visual inspection Chest: Chest palpation & inspection: normal inspection of the chest Resp: Effort & Inspection: normal respiratory effort and not labored Auscultation: clear to auscultation bilaterally and no crackles Cardio: Rate: regular rate Rhythm: regular rhythm Heart sounds: no murmurs GI: Inspection: non-distended GI Palp: Yes Soft to palpation, Yes Tenderness to palpation present (GI), No Guarding due to palpation present (GI), No Rigid due to palpation, No Hernia present, No Palpable mass present and Yes Rebound tenderness present : General: Yes bladder normal to palpation Back/Spine/Pelvis: Back: no CVA tenderness Skin: General skin exam: normal color Rashes: no rashes Wounds: no wounds Neuro: General: patient oriented x3, moves all extremities and no meningeal signs Extrem: General: normal to inspection, no clubbing, cyanosis or edema and no pedal edema Psych: Mental Status: mental status grossly normal Affect: normal affect Attitude: cooperative Course Vital Signs Vital signs: Vital Signs Temperature 36.6 C 02/18/25 05:25 Pulse Rate 116 H 02/18/25 05:25 Respiratory Rate 18 02/18/25 05:25 Blood Pressure 159/101 H 02/18/25 05:25 Pulse Oximetry 96 02/18/25 05:25 Oxygen Delivery Room Air 02/18/25 05:25 Temperature 37.3 C 02/20/25 00:00 Pulse Rate 89 02/20/25 00:00 Respiratory Rate 18 02/20/25 00:00 Blood Pressure 106/79 02/20/25 00:00 Pulse Oximetry 91 02/20/25 00:00 Oxygen Delivery Room Air 02/20/25 00:00 Oxygen Flow Rate 2 02/19/25 08:00 [facility] MDM Narrative Medical decision making narrative: Patient is a 54-year-old female with nausea vomiting slight abdominal pain and a history of varices and cirrhosis with recent drinking alcohol moderate to heavy consumption. We will do a GI workup at this time to include chest to look at varices. IV fluids. Nausea medicine. Labs and CT scan. Monitor for bleeding. Possibly transfer for monitoring of varices. Differential Diagnosis Differential Diagnosis: Abdominal pain, UTI Lab Data MDM Lab Attestation statement: I personally reviewed the patient's lab results. 02/19/25 07:07 02/19/25 07:07 Labs: Lab Results 02/18/25 02/18/25 02/18/25 Range/Units 05:52 06:32 08:22 WBC 7.0 (4.8-10.8) K/mm3 RBC 4.17 L (4.20-5.40) M/mm3 Hgb 10.5 L (12.0-15.0) g/dL Hct 35.1 (35.0-49.0) % MCV 84.2 (78.0-102.0) fL MCH 25.2 L (27.0-31.0) pg MCHC 29.9 L (32-36) g/dL RDW 22.5 H (11.6-14.4) % Plt Count 152 (150-420) K/mm3 MPV 10.8 (9.2-11.8) fl Immature Gran % (Auto) 0.4 H (0.0-0.0) % Neut % (Auto) 67.0 (50.0-70.0) % Lymph % (Auto) 20.4 (18.0-42.0) % [place] % (Auto) 9.6 (2.0-11.0) % Eos % (Auto) 0.6 L (1.0-6.0) % Baso % (Auto) 2.0 H (0.0-1.0) % Lymph # (Auto) 1.43 (1.10-4.50) K/mm3 [place]ascade # (Auto) 0.67 (0.10-0.90) K/mm3 Eos # (Auto) 0.04 (0.02-0.50) K/mm3 Baso # (Auto) 0.14 H (0.00-0.10) K/mm3 Abs Immat Gran (auto) 0.03 H (0.00-0.00) K/mm3 Absolute Neuts (auto) 4.70 (1.70-7.20) K/mm3 Absolute Nucleated RBC 0.00 (0.00-0.00) K/mm3 Nucleated RBC % 0.0 (0-0.0) % PT 14.4 H (9.50-12.1) Seconds INR 1.3 APTT 28.5 (23.9-30.70) Sec Sodium 145 (137-145) mmol/L Potassium 3.5 (3.4-5.0) mmol/L Chloride 107 (98-107) mmol/L Carbon Dioxide 20 L (22-30) mmol/L Anion Gap 18 H (4-12) mmol/L BUN 5 L (7-17) mg/dL Creatinine 0.91 (0.7-1.0) mg/dL Estim Creat Clear Calc 73 ml/min Estimated GFR > 60 (59 - ) Glucose 101 (65-110) mg/dL Calculated Osmolality 297 H (285-295) mOsm/kg Lactic Acid 6.1 H* 7.1 H* (0.7-2.0) mmol/L Calcium 7.6 L (8.4-10.2) mg/dL Magnesium 1.7 (1.6-2.3) mg/dL Total Bilirubin 2.5 H (0.2-1.3) mg/dL AST 157 H (14-36) U/L ALT 55 H (6-35) U/L Alkaline Phosphatase 210 H (38-126) U/L Troponin I < 0.012 (0.000-0.034) ng/mL Total Protein 8.9 H (6.3-8.2) g/dL Albumin 3.6 (3.5-5.1) g/dL Lipase 263 (23-300) U/L Urine Color Yellow (Yellow) Urine Appearance Clear (Clear) Urine pH 6.5 (5.0-8.0) Ur Specific Zachary 1.015 (1.010-1.020) Urine Protein Trace H (Negative) Urine Glucose (UA) Negative (Negative) Urine Ketones Negative (Negative) Ur Blood (Man) Negative (Negative) Urine Nitrate Negative (Negative) Urine Bilirubin 1+ H (Negative) Urine Urobilinogen 2.0 H (0.2-1.0) mg/dL Leukocyte Esterase Rfl Trace H (Negative) IRVING/UL Urine RBC 0-2 (0-2) /hpf Urine WBC 0-3 (0-3) /hpf Ur Squamous Epith Cells Few (Few) /hpf Urine Bacteria 1+ (None) /hpf Ethyl Alcohol 190 (<10) mg/dL Imaging Data Attestation: I personally reviewed and interpreted this imaging study as follows: Radiologist's impression: ITS Impressions Chest/Abdomen/Pelvis CT 02/18/25 07:21 IMPRESSION: CHEST- 1. No acute findings. ABDOMEN/PELVIS- 1. Gastritis. 2. Mild diffuse colitis likely portal hypertensive colopathy. 3. Distal rectal wall thickening. Possibly portal hypertensive colopathy and/or varices but recommend colonoscopy. 4. Additional findings as above. Chest CTA 02/18/25 18:45 IMPRESSION: 1. Limited study. Negative for pulmonary embolism. 2. Correlate for underlying cirrhotic disease of the liver with pancreatitis. Underlying liver lesions are suspected. Contrast-enhanced MRI is suggested. ECG Data EKG #1: Attestation: I personally reviewed and interpreted this ECG as follows: Interpretation: Initial EKG shows V2 lead not working so I repeated EKG and this is the result; initial EKG shows the same except missing lead V2 tachycardia, sinus rhythm, no ectopy, non-specific ST changes, normal QRS, normal QT and left axis Discharge Plan Discharge Clinical Impression: Dehydration Nausea & vomiting Qualifiers: Vomiting type: unspecified Qualified Code(s): R11.2 - Nausea with vomiting, unspecified UTI (urinary tract infection) Qualifiers: Urinary tract infection type: site unspecified Hematuria presence: without hematuria Qualified Code(s): N39.0 - Urinary tract infection, site not specified Patient Disposition: Acute Care Hospital Condition: Guarded Prognosis Time of Disposition: 08:22
--- NOTE | 2025-02-18 05:35 | ECG_ITS ---
Test Date: 2025-02-18 05:52:50 Measurements Intervals [place] Rate: 104 P: 18 UT: 140 QRS: 32 QRSD: 101 T: 28 QT: 348 QTc: 459 Interpretive Statements SINUS TACHYCARDIA MINIMAL Q WAVES- INFERIOR LEADS BORDERLINE ST-T WAVE ABNORMALITY- INFERIOR LEADS BASELINE ARTIFACT- II, III, AVF BORDERLINE ECG Compared to ECG 04/09/2024 14:23:16 NO SIGNIFICANT CHANGE Electronically Signed On 02-18-2025 09:27:20 [employer] by Husam Mathis D.O.
--- NOTE | 2025-02-18 05:51 | ECG_ITS ---
Test Date: 2025-02-18 05:45:31 Measurements Intervals [place] Rate: 108 P: 21 TN: 141 QRS: 21 QRSD: 93 T: 35 QT: 339 QTc: 455 Interpretive Statements SINUS TACHYCARDIA MISSING LEAD V2 CONSIDER INFERIOR INFARCT, AGE INDETERMINATE ABNORMAL ECG Compared to ECG 04/09/2024 14:23:16 HEART RATE HAS INCREASED Electronically Signed On 02-18-2025 09:28:12 S[employer]IOR RESEARCH CONSULTANT by Husam Mathis D.O.
[2025-02-18 06:02] LABS: Hematocrit 35.1 % (35.0-49.0); Hemoglobin 10.5 g/dL (12.0-15.0); Immature Granulocyte Percent A 0.4 % (0.0-0.0); Lymphocytes Absolute Auto 1.43 K/mm3 (1.10-4.50); Mean Corpuscular HGB Conc 29.9 g/dL (32-36); Mean Corpuscular Hemoglobin 25.2 pg (27.0-31.0); Mean Corpuscular Volume 84.2 fL (78.0-102.0); Nucleated Red Blood Cells Absolute Auto 0.00 K/mm3 (0.00-0.00); Nucleated Red Blood Cells Perc 0.0 % (0-0.0); Platelet Count Result 152 K/mm3 (150-420); Red Blood Count 4.17 M/mm3 (4.20-5.40); White Blood Count 7.0 K/mm3 (4.8-10.8)
[2025-02-18 06:16] LABS: INR 1.3; Partial Thromboplastin Time 28.5 Sec (23.9-30.70); Prothrombin Time 14.4 Seconds (9.50-12.1)
[2025-02-18 06:17] LABS: Alanine Aminotransferase 55 U/L (6-35); Albumin Level 3.6 g/dL (3.5-5.1); Alkaline Phosphatase 210 U/L (38-126); Anion Gap 18 mmol/L (4-12); Aspartate Amino Transferase 157 U/L (14-36); Bilirubin,Total 2.5 mg/dL (0.2-1.3); Blood Urea Nitrogen 5 mg/dL (7-17); Calcium 7.6 mg/dL (8.4-10.2); Carbon Dioxide 20 mmol/L (22-30); Chloride 107 mmol/L (98-107); Estimated CRCL calculation 73 ml/min; Estimated Glomerular Filt Rate > 60; Glucose 101 mg/dL (65-110); Osmolality Calculated 297 mOsm/kg (285-295); Potassium 3.5 mmol/L (3.4-5.0); Sodium 145 mmol/L (137-145); Total Protein 8.9 g/dL (6.3-8.2)
[2025-02-18] MEDS: SODIUM CHLORIDE 0.9% IV 1,000 ML 999 ML IV CONT ×2 (06:22→08:01)
[2025-02-18] MEDS: ONDANSETRON INJ 4 MG/2 ML VIAL IV PUSH (06:22)
--- NOTE | 2025-02-18 06:27 | PC.NURSE ---
tech ambulated pt to bathroom for a urine specimen
[2025-02-18 06:29] LABS: Lipase 263 U/L (23-300); Troponin I < 0.012 ng/mL (0.000-0.034)
[2025-02-18 06:38] LABS: Add Urine Microscopic? YES; Appearance Urine Clear (Clear); Glucose Urine UA Negative (Negative); Leukocyte Esterase Ur Trace LEU/UL (Negative); Nitrate Urine Negative (Negative); Specific Grav Ur 1.015 (1.010-1.020)
--- NOTE | 2025-02-18 06:50 | PC.NURSE ---
Pt reports that she has had varices banded 3 times. Last time was approx 1 month ago. Pt had EGD approx 1 week ago.
[2025-02-18] MEDS: PROCHLORPERAZINE EDISYLATE 10 MG/2 ML VIAL IV PUSH (07:24)
[2025-02-18] MEDS: PIPERACILLIN/TAZOBACTAM SOD 3.375 GM in SODIUM CHLORIDE 0.9% IV 50 ML 100 ML IVPB (08:00)
[2025-02-18] MEDS: PANTOPRAZOLE SODIUM IV 40 MG VIAL 80 MG IV PUSH (08:02)
[2025-02-18 09:01] LABS: Magnesium 1.7 mg/dL (1.6-2.3)
--- NOTE | 2025-02-18 09:45 | ADMGEN ---
This patient, Xin Teixeira, was admitted to 2nd Floor Room 206-1. Patient/family oriented to hospital policies and general routines including ID bracelet, bed and alarms, visiting hours, pain management, procedures, bathroom and other care routines, personal items, smoking policy, room service/diet, and visiting hours. Information on how to activate the Rapid Response Team has been discussed. Patient/Family are encouraged to report perceived risks to care and to ask questions if they do not understand what they are told or what they should do.
--- NOTE | 2025-02-18 10:23 | P.HP_ITS ---
H&P: HPI History of Present Illness Date/Time: 02/18/25 10:23 Chief Complaint: N/V/ETOH abuse Narrative: Patient is a 54-year-old female with a past medical history of EtOH abuse, cirrhosis, esophageal varices, HTN, anemia, hepatitis, and Mixed anxiety/depression who presented to the emergency department after reporting intractable nausea and vomiting. patient reports she is a former alcoholic however yesterday prior to arrival to went out binge drinking states had last alcoholic beverage which was vodka around 1600 after she return home she started to continuous nausea and vomiting. patient denied any chest pain, shortness a breath, abdominal pain, dysuria or constipation. Patient also denied any blood in her vomiting but does report she has had a poor appetite he has been unable to tolerate oral intake. In the ED: CT ABD showing gastritis, colorectal venous varices. HGB stable at 10.5, normal WBC, no electrolyte derangements, lactic acidosis at 6.1 2 7 point likely secondary to vomiting patient denied any seizure activity. elevated liver enzymes and T bili 2.5. Hospital course: Patient admitted to the medical unit for further evaluation and treatment of intractable nausea vomiting secondary to ETOH withdrawal patient comfortable after administration of antiemetics on assessment mild to moderate tremors no diaphoresis no tachycardia however did a ETOH patient was still 190. Review of Systems Review of Systems: All systems reviewed & are unremarkable except as noted in HPI and below PMFSH Past Medical History Medical History Monoallelic mutation of ESPN gene History of esophageal varices with bleeding Elevated liver enzymes Esophageal varices with bleeding Acute blood loss anemia Hematemesis Melena IPMN (intraductal papillary mucinous neoplasm) Fatty liver Concern for hepatic cirrhosis Hepatitis GERD (gastroesophageal reflux disease) Arthritis Insomnia Anxiety Depression Hypertension Surgical History Surgical History Hx of breast augmentation Hx of section x2 History of tubal ligation Family History Family History Father Hypertension Depression Mother Hypertension Son Depression Grandparent Alcoholism Cancer Grandparent Cancer Hypertension Social History Social History Social History: Pt smoked cigarettes socially for approx. 5 yrs. One pack would last her 2 weeks. Smoking status: Never smoker Second hand tobacco smoke exposure: No Smoking end date: 03/16/06 Alcohol intake: current Drinks per week: 2 Alcohol use details: hx alcohol Substance use: never Substance use type: does not use Last use: 12/17/24 Lack of Transportation: No Lack of Food: Never True Current Housing: I Have Housing Concerned About Future Housing: No Difficulty Paying Gas/Electric Bills: No Difficulty Paying for Meds: No Currently Unemployed: No Education: Associate Degree Difficulty w/ Childcare or Family Care: No Living arrangements: alone Spiritual care concerns: No Meds Home Medications and Allergies Home Medications ?Medication ?Instructions ?Recorded ?Confirmed ?Type sumatriptan succinate 100 mg tablet See Rx Instruction s PO .COMPLEX #9 01/02/20 02/18/25 Rx tabs albuterol sulfate 90 mcg/actuation 1 inh inhalation Q4 H PRN shortness 05/18/22 02/18/25 Rx aerosol inhaler of breath or wheezing #8.5 g fahad bupropion HCl 300 mg 24 hr tablet, 300 mg PO QAM #30 t abs 12/03/22 02/18/25 Rx extended release (Wellbutrin XL) alprazolam 0.5 mg tablet 0.5 mg PO BID PRN anxiety 02/18/25 History quetiapine 25 mg tablet 25 mg PO HS 07/27/23 5 History venlafaxine 75 mg capsule,extended 75 mg PO BID 02/18/25 History release 24 hr gabapentin 100 mg capsule 100 mg PO BID 10/07/2402/18 History pantoprazole 20 mg tablet,delayed 20 mg PO DAILY 10/0702/18/25 History release carvedilol 6.25 mg tablet (Coreg) 6.25 mg PO Q12HR 30 days #60 tabs 12/21/24 02/18/25 Rx nifedipine 30 mg tablet,extended 30 mg PO QAM 30 days #30 tabs 12/21/24 02/18/25 Rx release 24 hr (Procardia XL) metoclopramide HCl 5 mg tablet 5 mg PO DAILY 02/08/25 02/18/25 History Allergies Allergy/AdvReac Type Severity Reaction Status Date / Time lisinopril Allergy Intermediate Swelling Verified 02/18/25 05:29 of Lip/Tongue/Throat azithromycin AdvReac Unknown N/V Verified 02/18/25 05:29 Vital Signs Vital Signs - 24 hr 02/18/25 05:25 02/18/25 08:04 02/18/25 09:20 Temperature 98 F 98.3 F Pulse Rate 116 H 91 88 Respiratory Rate 18 16 20 Blood Pressure 159/101 H 152/85 H 148/82 H Pulse Oximetry 96 94 95 Oxygen Delivery Room Air Room Air Room Air Exam Const: General: comfortable and no acute distress Other: Pleasant female mild tremors noted HENMT: Mouth: Yes moist mucous membranes Eyes: General: appearance normal, both eyes and all related structures Sclera: sclerae normal Pupils: Equal, round and reactive pupils present Neck: Neck: supple Resp: Effort & Inspection: normal respiratory effort Auscultation: clear to auscultation bilaterally Cardio: Rate: regular rate Rhythm: regular rhythm GI: GI Palp: Yes Soft to palpation Auscultation: normal bowel sounds Skin: General skin exam: normal color and no rashes or lesions noted Wounds: no wounds Neuro: General: gait normal Speech: normal speech Motor exam (neuro): 5/5 motor strength present throughout Sensory Exam: normal sensation Extrem: General: normal to inspection Psych: Mental Status: mental status grossly normal Affect: normal affect Results Labs Labs: Short CBC 02/18/25 Range/Units 05:52 WBC 7.0 (4.8-10.8) K/mm3 Hgb 10.5 L (12.0-15.0) g/dL Hct 35.1 (35.0-49.0) % Plt Count 152 (150-420) K/mm3 [facility] 02/18/25 05:52 Sodium 145 Potassium 3.5 Chloride 107 Carbon Dioxide 20 L BUN 5 L Creatinine 0.91 Glucose 101 Calcium 7.6 L Cardiac Enzymes 02/18/25 Range/Units 05:52 Troponin I < 0.012 (0.000-0.034) ng/mL Liver Function 02/18/25 Range/Units 05:52 Total Bilirubin 2.5 H (0.2-1.3) mg/dL AST 157 H (14-36) U/L ALT 55 H (6-35) U/L Alkaline Phosphatase 210 H (38-126) U/L Albumin 3.6 (3.5-5.1) g/dL Urine 02/18/25 Range/Units 06:32 Urine Color Yellow (Yellow) Urine Appearance Clear (Clear) Urine pH 6.5 (5.0-8.0) Ur Specific [place] 1.015 (1.010-1.020) Urine Protein Trace H (Negative) Urine Glucose (UA) Negative (Negative) Attestation: I personally reviewed all lab results ECG Attestation: I personally reviewed and interpreted this ECG as follows: ECG completion date: 02/18/25 ECG completion time: 05:45 Prior ECG tracings: available for review Interpretation: Intervals [place] Rate: 108 P: 21 MT: 141 QRS: 21 QRSD: 93 T: 35 QT: 339 QTc: 455 Interpretive Statements SINUS TACHYCARDIA MISSING LEAD V2 CONSIDER INFERIOR INFARCT, AGE INDETERMINATE ABNORMAL ECG Compared to ECG 04/09/2024 14:23:16 HEART RATE HAS INCREASED Electronically Signed On 02-18-2025 09:28:12 TOOL MAINTENANCE WORKER by Husam Mathis D.O. Imaging CT scan - abdomen: Attestation: I personally reviewed this imaging study Radiologist's impression: CHEST ABDOMEN PELVIS WITH CONTRAST CLINICAL HISTORY: EPIGASTRIC PAIN. VOMITING. NAUSEA. HX OF CIRRHOSIS. . COMPARISON: CTA abdomen pelvis 04/08/2024 TECHNIQUE: CT performed from thoracic inlet to symphysis pubis 100 milliliters Omnipaque 350 Coronal, sagittal reformats. Multi planar MIPS CT images acquired with automatic exposure control for dose reduction DLP: 1522 mGy-cm FINDINGS: CHEST- Lungs/Pleura: Clear. Thoracic Aorta: No dissection. No aneurysm. Pulmonary arteries: Normal caliber. Heart: Unremarkable. Tracheobronchial tree: Patent. Nodes: No enlarged nodes. Bones: No acute bony abnormality. Hemangioma T5, T7, T11. Soft tissues: Breast implants, left side ruptured. ABDOMEN/PELVIS- Liver: Cirrhosis. Enlarged. Gallbladder: Stones. Spleen: Unremarkable. Pancreas: Unremarkable. Adrenal glands: Unremarkable. Kidneys: Right kidney- No hydronephrosis. No renal stones. Left kidney- No hydronephrosis. No renal stones. Distal esophagus/stomach: Gastric wall thickening. Small bowel loops: Normal caliber and wall thickness. Colon: Rectal wall thickening. Normal RLQ appendix. Rectal venous varices. Scattered areas of wall thickening and submucosal fatty deposition. Nodes: No enlarged nodes. Peritoneum: Moderate scattered ascites. No free air. Urinary bladder: Unremarkable. Uterus: Unremarkable. Adnexa: No masses. Bones: No acute bony abnormality. Hemangioma L5, L3, L2. Soft tissues: Unremarkable. Aorta: No aneurysm or dissection. IVC: Unremarkable. Main portal vein/SMV/splenic vein: Patent. IMPRESSION: CHEST- 1. No acute findings. ABDOMEN/PELVIS- 1. Gastritis. 2. Mild diffuse colitis likely portal hypertensive colopathy. 3. Distal rectal wall thickening. Possibly portal hypertensive colopathy and/or varices but recommend colonoscopy. 4. Additional findings as above. Reviewed, dictated and finalized at location R. MAINTENANCE WORKER Quality VTE Prophylaxis VTE prophylaxis: mechanical ordered -Patient's previous records reviewed on admission -ER notes reviewed in detail on admission -discussed all findings and current treatment plan with patient/Family/POA -Consultations reviewed for recommendations -Patient's disposition for safe discharge discussed with case liner -radiology imaging, EKG and test results I have personally reviewed and interpreted unless otherwise specified Dictation performed by [employer] direct speech recognition software, therefore castings drafter variants and typographical errors may occur. Assessment and Plan Assessment and plan (1) Alcohol withdrawal: Code(s): F10.939 - Alcohol use, unspecified with withdrawal, unspecified Status: Acute Assessment and Plan: ETOH 190 POA * Banana bag/IV fluids * Last drink 24hrs * Thiamine, folic acid, and multi-vitamin * PPI daily * librium Q6hr * diazepam PRN for seizure activity * CIWA daily * Monitor and replenish electrolytes as needed * Seizure precautions if indicated (2) Depression: Qualifiers: Depression Type: major depressive disorder Major depression recurrence: single episode Active/Remission status: currently active Major depression episode severity: moderate Qualified Code(s): F32.1 - Major depressive disorder, single episode, moderate Code(s): F32.9 - Major depressive disorder, single episode, unspecified Status: Acute Assessment and Plan: * continued venlafaxine, Wellbutrin, and Seroquel (3) Anxiety: Code(s): F41.9 - Anxiety disorder, unspecified Status: Acute Assessment and Plan: see above (4) Anemia: Code(s): D64.9 - Anemia, unspecified Status: Acute Assessment and Plan: patient with history of anemia secondary to cirrhosis/ hepatitis-C, hemoglobin 10.5 POA. patient does have history of acute GI bleed from varices * trend H&H * monitor for signs of bleeding * Transfuse if Hgb <7.0 (5) Lactic acid acidosis: Code(s): E87.20 - Acidosis, unspecified Status: Acute Assessment and Plan: lactic acid 6.1>7.1 likely secondary to dehydration and nausea vomiting patient denied any seizure activity, no signs of infection (6) Metabolic acidosis: Code(s): E87.20 - Acidosis, unspecified Status: Acute Assessment and Plan: secondary to dehydration from nausea and vomiting * trend labs * IV fluids/ banana bag x1 (7) Cirrhosis: Qualifiers: Hepatic cirrhosis type: unspecified hepatic cirrhosis Ascites presence: unspecified Qualified Code(s): K74.60 - Unspecified cirrhosis of liver Code(s): K74.60 - Unspecified cirrhosis of liver Status: Acute Assessment and Plan: patient with history induced cirrhosis as well as history hepatitis and fatty liver disease * elevated liver enzymes and T bili will continue to trend (8) Elevated liver enzymes: Code(s): R74.8 - Abnormal levels of other serum enzymes Status: Acute Assessment and Plan: see above (9) History of esophageal varices with bleeding: Code(s): Z87.19 - Personal history of other diseases of the digestive system Status: Acute Assessment and Plan: * pantoprazole IV until patient can tolerate oral intake * no current evidence acute bleed * monitor H&H (10) Hypertension: Qualifiers: Hypertension type: essential hypertension Qualified Code(s): I10 - Essential (primary) hypertension Code(s): I10 - Essential (primary) hypertension Status: Acute Assessment and Plan: * continued patient's nifedipine and carvedilol * monitor BP per unit protocol * hydralazine IV push as needed for systolics over 160 (11) Rectal varices: Code(s): K64.9 - Unspecified hemorrhoids Status: Acute Assessment and Plan: CT abdomen showing possible portal hypertensive colopathy and/or varices patient currently follows with GI outpatient to monitor her esophageal varices hemoglobin stable at time of admission * will monitor H&H * will need to schedule follow-up outpatient with GI for colonoscopy Plan Code status: Full code per patient DVT prophylaxis: SCDs Stress ulcer prophylaxis: Protonix 40 daily PT/OT notes: ambulatory Disposition: patient admitted to the medical unit for treatment nausea vomiting secondary to alcohol withdrawal continue with current treatment plan patient should be able to discharge to home once tolerating oral intake withdrawal symptoms improved. Prior Studies I have reviewed the following patient records and this information was taken into consideration when formulating the assessment and plan.: previous labs, previous ER visits and previous hospitalizations Time Spent with Patient Time with patient: 45 - 74 minutes Hospitalist MIPS Advance Care Plan I have confirmed that the patient's Advanced Care Plan is present, code status is documented, or surrogate decision maker is listed in patient medical record.: Yes Medication Reconciliation I have utilized all available resources to obtain, update and review the patients current medications (includes all prescriptions, OTC, herbals, cannabis, and nutritional supplements).: Yes The patient is not eligible for med reconciliation; the patient is in a emergent medical situation where delaying treatment would jeopardize the patients h ealth.: No
[2025-02-18] MEDS: THIAMINE HCL INJ 100 MG, FOLIC ACID 1 MG, MULTIVITAMINS-12 INJ 10 ML, MAGNESIUM SULFATE... IV CONT (11:00)
[2025-02-18] MEDS: chlordiazePOXIDE (*CRX) 25 MG CAPSULE 50 MG PO ×3 (11:05→23:47)
[2025-02-18] MEDS: buPROPion HCL XL (24 HR) 150 MG TABCR 300 MG PO (12:10)
[2025-02-18] MEDS: GABAPENTIN 100 MG CAPSULE PO ×2 (12:11→20:34)
[2025-02-18] MEDS: VENLAFAXINE HCL XR 75 MG CAP.ER.24H PO ×2 (12:11→20:34)
[2025-02-18] MEDS: METOCLOPRAMIDE HCL INJ 10 MG/2 ML VIAL IV PUSH (12:21)
[2025-02-18] MEDS: ALPRAZolam (*CRX) 0.5 MG TABLET PO ×2 (13:30→20:34)
[2025-02-18 19:03] LABS: Influenza A QL RT-PCR Negative (Negative); Influenza B QL RT-PCR Negative (Negative); RSV RNA, RT-PCR Negative (Negative); SARS-CoV-2 RNA PCR Negative (Negative)
[2025-02-18] MEDS: guaiFENesin 12 HR 600 MG TABCR 1200 MG PO (20:34)
[2025-02-19] VITALS (7 sets, daily range): BP systolic 100–116; BP diastolic 62–71; PULSE 78–91; RESP 16–18; TEMP 36.6–37.1; O2SAT 92–93
--- NOTE | 2025-02-19 | CONSULT_PTH ---
PATIENT: Xin Teixeira LOC: [id number] U#:[id number] AGE/SX: 54/F [facility] RE02/18/[address]: Óscar Campos MD : 1970 BED: 1 DIS: 02/21/2025 SPEC #: [id number] RECD: 02/19/25 14:35 STATUS: SE REMateusz #: [id number] [place]: 02/19/25 00:[address]: Lino Campos DEPT: [facility] Consult RECD BY: Heidi Montero [place],([facility]) ENTERED: 02/19/25 14:36 SP TYPE: Consult OT DR: TRACIE Cespedes, PAPeter Tissues: A - Peripheral Smear Procedures: Hematology Consult
[2025-02-19] MEDS: chlordiazePOXIDE (*CRX) 25 MG CAPSULE 50 MG PO ×3 (05:45→18:05)
[2025-02-19 07:34] LABS: Hematocrit 32.4 % (35.0-49.0); Hemoglobin 9.7 g/dL (12.0-15.0); Immature Platelet Fraction Pct 4.5 % (1.0-7.0); Mean Corpuscular HGB Conc 29.9 g/dL (32-36); Mean Corpuscular Hemoglobin 25.5 pg (27.0-31.0); Mean Corpuscular Volume 85.0 fL (78.0-102.0); Platelet Count Result 83 K/mm3 (150-420); Red Blood Count 3.81 M/mm3 (4.20-5.40); White Blood Count 4.6 K/mm3 (4.8-10.8)
[2025-02-19 07:45] LABS: Alanine Aminotransferase 44 U/L (6-35); Albumin Level 3.0 g/dL (3.5-5.1); Alkaline Phosphatase 175 U/L (38-126); Anion Gap 7 mmol/L (4-12); Aspartate Amino Transferase 126 U/L (14-36); Bilirubin,Total 3.0 mg/dL (0.2-1.3); Blood Urea Nitrogen 5 mg/dL (7-17); Calcium 7.5 mg/dL (8.4-10.2); Carbon Dioxide 28 mmol/L (22-30); Chloride 106 mmol/L (98-107); Estimated CRCL calculation 90 ml/min; Estimated Glomerular Filt Rate > 60; Glucose 99 mg/dL (65-110); Magnesium 1.8 mg/dL (1.6-2.3); Osmolality Calculated 289 mOsm/kg (285-295); Potassium 3.2 mmol/L (3.4-5.0); Sodium 141 mmol/L (137-145); Total Protein 7.9 g/dL (6.3-8.2)
[2025-02-19 08:44] LABS: Band Neutrophils Percent 0 % (0-6); Neutrophils Absolute Manual 2.89 K/mm3 (1.3-6.7); Neutrophils Percent Manual 63 % (46-73); Total Cells Counted 100
[2025-02-19 08:45] LABS: Anisocytosis 2+; Basophils Absolute Manual 0.04 K/mm3 (0-0.1); Basophils Percent Manual 1 % (0-1); Eosinophils Absolute Manual 0.13 K/mm3 (0.02-0.50); Eosinophils Percent Manual 3 % (1-6); Hypochromasia 1+; Lymphocytes Absolute Manual 0.59 K/mm3 (1.1-4.5); Lymphocytes Percent Manual 13 % (18-44); Monocytes Absolute Manual 0.92 K/mm3 (0.1-0.90); Monocytes Percent Manual 20 % (3-9); Schistocytes None Seen; Smudge Cells PRESENT
[2025-02-19] MEDS: VENLAFAXINE HCL XR 75 MG CAP.ER.24H PO ×2 (09:52→20:39)
[2025-02-19] MEDS: MULTIVITAMINS THERAPEUTIC TAB (*BKC) 1 TABLET PO (09:52)
[2025-02-19] MEDS: buPROPion HCL XL (24 HR) 150 MG TABCR 300 MG PO (09:52)
[2025-02-19] MEDS: FOLIC ACID 1 MG TABLET PO (09:52)
[2025-02-19] MEDS: guaiFENesin 12 HR 600 MG TABCR 1200 MG PO ×2 (09:52→20:38)
[2025-02-19] MEDS: PANTOPRAZOLE SODIUM IV 40 MG VIAL IV PUSH (09:52)
[2025-02-19] MEDS: GABAPENTIN 100 MG CAPSULE PO ×2 (09:53→20:38)
[2025-02-19] MEDS: THIAMINE HCL 100 MG TABLET PO (09:53)
[2025-02-19] MEDS: POTASSIUM CHLORIDE 20 MEQ ER TABLET 40 MEQ PO (09:56)
--- NOTE | 2025-02-19 10:33 | P.PNIM_ITS ---
Assessment and Plan Assessment and Plan (1) Alcohol withdrawal: Code(s): F10.939 - Alcohol use, unspecified with withdrawal, unspecified Status: Acute Assessment and Plan: ETOH 190 POA * Banana bag/IV fluids * Last drink 24hrs * Thiamine, folic acid, and multi-vitamin * PPI daily * librium Q6hr * diazepam PRN for seizure activity * CIWA daily * Monitor and replenish electrolytes as needed * Seizure precautions if indicated (2) Depression: Qualifiers: Depression Type: major depressive disorder Major depression recurrence: single episode Active/Remission status: currently active Major depression episode severity: moderate Qualified Code(s): F32.1 - Major depressive disorder, single episode, moderate Code(s): F32.9 - Major depressive disorder, single episode, unspecified Status: Acute Assessment and Plan: * continued venlafaxine, Wellbutrin, and Seroquel (3) Anxiety: Code(s): F41.9 - Anxiety disorder, unspecified Status: Acute Assessment and Plan: see above (4) Anemia: Code(s): D64.9 - Anemia, unspecified Status: Acute Assessment and Plan: patient with history of anemia secondary to cirrhosis/ hepatitis-C, hemoglobin 10.5 POA. patient does have history of acute GI bleed from varices * trend H&H * monitor for signs of bleeding * Transfuse if Hgb <7.0 (5) Lactic acid acidosis: Code(s): E87.20 - Acidosis, unspecified Status: Acute Assessment and Plan: lactic acid 6.1>7.1 likely secondary to dehydration and nausea vomiting patient denied any seizure activity, no signs of infection * improve with fluids (6) Metabolic acidosis: Code(s): E87.20 - Acidosis, unspecified Status: Acute Assessment and Plan: secondary to dehydration from nausea and vomiting * trend labs * IV fluids/ banana bag x1 (7) Cirrhosis: Qualifiers: Hepatic cirrhosis type: unspecified hepatic cirrhosis Ascites presence: unspecified Qualified Code(s): K74.60 - Unspecified cirrhosis of liver Code(s): K74.60 - Unspecified cirrhosis of liver Status: Acute Assessment and Plan: patient with history induced cirrhosis as well as history hepatitis and fatty liver disease * elevated liver enzymes and T bili will continue to trend (8) Elevated liver enzymes: Code(s): R74.8 - Abnormal levels of other serum enzymes Status: Acute Assessment and Plan: see above (9) History of esophageal varices with bleeding: Code(s): Z87.19 - Personal history of other diseases of the digestive system Status: Acute Assessment and Plan: * pantoprazole IV until patient can tolerate oral intake * no current evidence acute bleed * monitor H&H (10) Hypertension: Qualifiers: Hypertension type: essential hypertension Qualified Code(s): I10 - Essential (primary) hypertension Code(s): I10 - Essential (primary) hypertension Status: Acute Assessment and Plan: * continued patient's nifedipine and carvedilol * monitor BP per unit protocol * hydralazine IV push as needed for systolics over 160 (11) Rectal varices: Code(s): K64.9 - Unspecified hemorrhoids Status: Acute Assessment and Plan: CT abdomen showing possible portal hypertensive colopathy and/or varices patient currently follows with GI outpatient to monitor her esophageal varices hemoglobin stable at time of admission * will monitor H&H * will need to schedule follow-up outpatient with GI for colonoscopy (12) Acute respiratory failure with hypoxia: Code(s): J96.01 - Acute respiratory failure with hypoxia Status: Acute Assessment and Plan: patient with intermittent hypoxia likely secondary to patient's cirrhosis and portal hypertension after fluid resuscitation * continue to wean oxygen as tolerated * CTA ruled out any PE or infectious process (13) Portal hypertensive gastropathy: Code(s): K76.6 - Portal hypertension; K31.89 - Other diseases of stomach and duodenum Status: Acute Assessment and Plan: * give single dose IV Lasix 20 mg post fluid resuscitation * started patient on spironolactone 25 mg daily * continued patient's carvedilol Plan Code status: Full code per patient DVT prophylaxis: SCDs Stress ulcer prophylaxis: Protonix 40 daily PT/OT notes: ambulatory Disposition: patient admitted to the medical unit for treatment nausea vomiting secondary to alcohol withdrawal continue with current treatment plan patient should be able to discharge to home once tolerating oral intake withdrawal symptoms improved. Medical Record Review I have reviewed the following patient records and this information was taken i nto consideration when formulating the assessment and plan.: previous labs, previous ER visits and previous hospitalizations Time Spent With Patient Time with patient: 15 - 25 minutes Subjective Date/time seen: 02/19/25 10:33 Interval history: Patient is a 54-year-old female admitted for alcohol withdrawal with nausea and vomiting. 02/19/2025: Patient with intermittent episodes of hypoxia worse with ambulation. Patient denies any chest pain, shortness a breath any further nausea or vomiting still with some mild tremors and feels unsteady on her feet. Review of Systems Review of Systems: All systems reviewed & are unremarkable except as noted in HPI and below Exam Const: General: comfortable and no acute distress Other: Pleasant female mild tremors noted HENMT: Mouth: Yes moist mucous membranes Eyes: General: appearance normal, both eyes and all related structures Sclera: sclerae normal Pupils: Equal, round and reactive pupils present Neck: Neck: supple Resp: Effort & Inspection: normal respiratory effort Auscultation: clear to auscultation bilaterally Cardio: Rate: regular rate Rhythm: regular rhythm GI: Auscultation: normal bowel sounds Skin: General skin exam: normal color and no rashes or lesions noted Wounds: no wounds Neuro: General: gait normal Cranial nerves: Yes Equal, round and reactive pupils present Speech: normal speech Motor exam (neuro): 5/5 motor strength present throughout Sensory Exam: normal sensation Extrem: General: normal to inspection Psych: Mental Status: mental status grossly normal Affect: normal affect Objective Data Vital Signs Vital Signs: Vital Signs - 24 hr 02/18/25 12:00 02/18/25 12:11 02/18/25 16:00 Temperature 99.2 F Pulse Rate 98 94 Pulse Rate [Left NIBP] 90 Respiratory Rate 20 Blood Pressure 150/92 H 119/73 Pulse Oximetry 88 L Oxygen Delivery Room Air Oxygen Flow Rate 02/18/25 16:00 02/18/25 16:00 02/18/25 16:05 Temperature Pulse Rate 94 Pulse Rate [Left NIBP] 94 Respiratory Rate 20 Blood Pressure 119/73 Pulse Oximetry 88 L 97 Oxygen Delivery Room Air Nasal Cannula Oxygen Flow Rate 2 02/18/25 20:00 02/18/25 20:00 02/18/25 20:34 Temperature Pulse Rate 100 Pulse Rate [Left NIBP] 94 Respiratory Rate Blood Pressure 152/84 H Pulse Oximetry 95 Oxygen Delivery Nasal Cannula Oxygen Flow Rate 2 02/18/25 23:52 02/18/25 23:55 02/19/25 03:59 Temperature 97.9 F Pulse Rate 84 Pulse Rate [Left NIBP] 84 87 Respiratory Rate 16 Blood Pressure 105/69 108/69 100/62 Pulse Oximetry 94 Oxygen Delivery Nasal Cannula Oxygen Flow Rate 2 02/19/25 08:00 02/19/25 08:00 02/19/25 09:52 Temperature 97.9 F Pulse Rate 84 78 Pulse Rate [Left NIBP] 84 Respiratory Rate 16 Blood Pressure 115/71 115/71 Pulse Oximetry 93 Oxygen Delivery Nasal Cannula Oxygen Flow Rate 2 Intake/Output Intake/Output: Intake & Output 02/16/25 02/17/25 02/18/25 02/19/25 23:59 23:59 23:59 23:59 Intake Total 3713.2 600 Output Total 350 Balance 3363.2 600 Meds/Results Medications: Active Medications Generic Name Dose Route Start Last Admin Trade Name Freq PRN Reason Stop Dose Admin Acetaminophen 650 mg 02/18/25 09:34 Acetaminophen 325 Mg Tablet PO Q6H PRN Mild Pain (1-3) or Fever Albuterol 1 puff 02/18/25 10:52 Albuterol Sulfate (*Sp) Inhaler INHALATION Q4H PRN Shortness Of Breath Or Wheezing Alprazolam 0.5 mg 02/18/25 10:52 02/18/25 20:34 Alprazolam (*Crx) 0.5 Mg Tablet PO 0.5 mg BID PRN Administration Anxiety Bupropion HCl 300 mg 02/18/25 11:10 02/19/25 09:52 Bupropion Hcl Xl (24 Hr) 150 Mg Tabcr PO 300 mg QAM RAJESH Administration Carvedilol 6.25 mg 02/18/25 11:15 02/19/25 09:52 Carvedilol 6.25 Mg Tablet PO 6.25 mg Q12HR RAJESH Administration Chlordiazepoxide HCl 50 mg 02/18/25 12:00 02/19/25 05:45 Chlordiazepoxide (*Crx) 25 Mg Capsule PO 50 mg Q6HR RAJESH Administration Dextrose 12.5 gm 02/18/25 09:38 Dextrose 50% 25 Gm/50 Ml Syringe IV PUSH PRN PRN Hypoglycemia Protocol Diazepam 5 mg 02/18/25 09:29 Diazepam Inj (*Crx) 10 Mg/2 Ml Syringe IV PUSH Q5M PRN Seizure Activity Diazepam 5 mg 02/18/25 09:31 Diazepam Inj (*Crx) 10 Mg/2 Ml Syringe IV PUSH Q2HR PRN Alcohol Withdrawal Folic Acid 1 mg 02/19/25 09:00 02/19/25 09:52 Folic Acid 1 Mg Tablet PO 1 mg DAILY RAJESH Administration Gabapentin 100 mg 02/18/25 11:15 02/19/25 09:53 Gabapentin 100 Mg Capsule PO 100 mg Q12HR RAJESH Administration Glucagon 1 mg 02/18/25 09:38 Glucagon For Inj 1 Mg Vial IM PRN PRN Hypoglycemia Protocol Glucose 15 gm 02/18/25 09:38 Glucose Oral Gel 15 Gm Of Glucse In 37.5 Gm Tube PO PRN PRN Hypoglycemia Protocol Guaifenesin 1,200 mg 02/18/25 21:00 02/19/25 09:52 Guaifenesin 12 Hr 600 Mg Tabcr PO 1,200 mg Q12HR RAJESH Administration Hydralazine HCl 20 mg 02/18/25 09:34 Hydralazine Hcl 20 Mg/Ml Vial IV PUSH Q8HR PRN Hypertension Dextrose 1,000 mls @ 100 mls/hr 02/18/25 09:38 Dextrose 5% 1,000 Ml IVPB PRN PRN Hypoglycemia Protocol Metoclopramide HCl 10 mg 02/18/25 09:34 02/18/25 12:21 Metoclopramide Hcl Inj 10 Mg/2 Ml Vial IV PUSH 10 mg Q6HR PRN Administration Nausea And Vomiting Multivitamins Therapeutic 1 tablet 02/19/25 09:00 02/19/25 09:52 Multivitamins Therapeutic Tab (*Bkc) PO 1 tablet QAM RAJESH Administration Nifedipine 30 mg 02/18/25 11:15 02/19/25 09:53 Nifedipine 30 Mg Tab.Er.24 PO 30 mg QAM RAJESH Administration Ondansetron HCl 4 mg 02/18/25 09:27 Ondansetron Inj 4 Mg/2 Ml Vial IV PUSH Q6H PRN Nausea And Vomiting Pantoprazole Sodium 40 mg 02/19/25 09:00 02/19/25 09:52 Pantoprazole Sodium Iv 40 Mg Vial IV PUSH 40 mg QAM RAJESH Administration Pantoprazole Sodium 20 mg 02/19/25 09:00 Pantoprazole Sod Sesquihydrate 20 Mg Tab PO On Hold: 02/19/25 09:00 DAILY RAJESH Comment: SEE IV ORDER Quetiapine Fumarate 25 mg 02/18/25 21:00 02/18/25 20:34 Quetiapine Fumarate 25 Mg Tablet PO 25 mg HS RAJESH Administration Thiamine HCl 100 mg 02/19/25 09:00 02/19/25 09:53 Thiamine Hcl 100 Mg Tablet PO 100 mg QAM RAJESH Administration Venlafaxine HCl 75 mg 02/18/25 11:15 02/19/25 09:52 Venlafaxine Hcl Xr 75 Mg Cap.Er.24h PO 75 mg Q12HR RAJESH Administration Radiology Results: ITS Impressions Chest/Abdomen/Pelvis CT 02/18/25 07:21 IMPRESSION: CHEST- 1. No acute findings. ABDOMEN/PELVIS- 1. Gastritis. 2. Mild diffuse colitis likely portal hypertensive colopathy. 3. Distal rectal wall thickening. Possibly portal hypertensive colopathy and/or varices but recommend colonoscopy. 4. Additional findings as above. Chest CTA 02/18/25 18:45 IMPRESSION: 1. Limited study. Negative for pulmonary embolism. 2. Correlate for underlying cirrhotic disease of the liver with pancreatitis. Underlying liver lesions are suspected. Contrast-enhanced MRI is suggested. Labs Labs: Laboratory Results - last 24 hr 02/18/25 02/18/25 02/18/25 14:03 18:11 18:44 WBC RBC Hgb Hct MCV MCH MCHC RDW Plt Count MPV Immature Gran % (Auto) Neut % (Auto) Lymph % (Auto) Cowley % (Auto) Eos % (Auto) Baso % (Auto) Lymph # (Auto) Cowley # (Auto) Eos # (Auto) Baso # (Auto) Abs Immat Gran (auto) Absolute Neuts (auto) Absolute Nucleated RBC Total Counted Neutrophils % (Manual) Band Neutrophils % Lymphocytes % (Manual) Monocytes % (Manual) Eosinophils % (Manual) Basophils % (Manual) Nucleated RBC % Abs Neuts (Manual) Abs Lymphs (Manual) Abs Monocytes (Manual) Absolute Eos (Manual) Abs Basophils (Manual) Nucleated RBCs Smudge Cells Platelet Estimate % Immature Plt Fraction Hypochromasia Anisocytosis Schistocytes Sodium Potassium Chloride Carbon Dioxide Anion Gap BUN Creatinine Estim Creat Clear Calc Estimated GFR Glucose POC Capillary Glucose 90 Calculated Osmolality Lactic Acid 4.8 H* Calcium Magnesium Total Bilirubin AST ALT Alkaline Phosphatase Total Protein Albumin Influenza A (RT-PCR) Negative Influenza B (RT-PCR) Negative RSV (RT-PCR) Negative SARS-CoV-2 RNA (RT-PCR) Negative 02/18/25 02/19/25 02/19/25 23:51 05:50 07:07 WBC 4.6 L RBC 3.81 L Hgb 9.7 L Hct 32.4 L MCV 85.0 MCH 25.5 L MCHC 29.9 L RDW 22.2 H Plt Count 83 L MPV 10.2 Immature Gran % (Auto) Not Reportable Neut % (Auto) Not Reportable Lymph % (Auto) Not Reportable Cowley % (Auto) Not Reportable Eos % (Auto) Not Reportable Baso % (Auto) Not Reportable Lymph # (Auto) Not Reportable Cowley # (Auto) Not Reportable Eos # (Auto) Not Reportable Baso # (Auto) Not Reportable Abs Immat Gran (auto) Not Reportable Absolute Neuts (auto) Not Reportable Absolute Nucleated RBC Not Reportable Total Counted 100 Neutrophils % (Manual) 63 Band Neutrophils % 0 Lymphocytes % (Manual) 13 L Monocytes % (Manual) 20 H Eosinophils % (Manual) 3 Basophils % (Manual) 1 Nucleated RBC % Not Reportable Abs Neuts (Manual) 2.89 Abs Lymphs (Manual) 0.59 L Abs Monocytes (Manual) 0.92 H Absolute Eos (Manual) 0.13 Abs Basophils (Manual) 0.04 Nucleated RBCs 1 Smudge Cells Present Platelet Estimate Decreased % Immature Plt Fraction 4.5 Hypochromasia 1+ Anisocytosis 2+ Schistocytes None seen Sodium 141 Potassium 3.2 L Chloride 106 Carbon Dioxide 28 Anion Gap 7 BUN 5 L Creatinine 0.76 Estim Creat Clear Calc 90 Estimated GFR > 60 Glucose 99 POC Capillary Glucose 90 101 Calculated Osmolality 289 Lactic Acid Calcium 7.5 L Magnesium 1.8 Total Bilirubin 3.0 H AST 126 H ALT 44 H Alkaline Phosphatase 175 H Total Protein 7.9 Albumin 3.0 L Influenza A (RT-PCR) Influenza B (RT-PCR) RSV (RT-PCR) SARS-CoV-2 RNA (RT-PCR) Attestation: I personally reviewed all lab results Imaging Attestation: I personally reviewed this imaging study Radiologist's impression: EXAMINATION: CTA chest PE protocol, 02/18/2025 18:20 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 TECHNIQUE: CTA examination is obtained with contrast CTA examination technique is performed with arterial phase of contrast-enhancement. 3-D reconstruction with thin MIP axial and MPR coronal imaging is provided Isovue 300, 92cc injected IV. One or more of the following dose reduction techniques were used: automated exposure control, adjustment of the mA and/or kV according to patient size, use of iterative reconstruction technique. FINDINGS: No significant coronary calcification is present ([id number]) LUNGS: The contrast bolus is limited however there is no gross central pulmonary embolism identified. No tracheomalacia. No bronchiectasis. No significant emphysematous of pulmonary fibrotic changes. Apical scarring is noted bilaterally. There are areas of linear atelectasis noted in the right lower lobe posteriorly. HEART AND PERICARDIUM: Within normal limits. AORTA: Normal caliber aorta.. PULMONARY ARTERIES: No pulmonary embolism ADENOPATHY/MEDIASTINUM: None. LIMITED VIEWS OF THE ABDOMEN: The liver demonstrates a heterogeneous appearance with nodularity of the liver contours and perihepatic fluid suspicious for cirrhotic disease, underlying liver lesions are not excluded. Nonspecific patulous appearance of the esophagus. OSSEOUS STRUCTURES: No sclerotic or lytic lesions appreciated. OVERLYING SOFT TISSUES: Partially imaged bilateral breast implants, the left implant appears collapsed. THYROID: The thyroid is unremarkable. IMPRESSION: 1. Limited study. Negative for pulmonary embolism. 2. Correlate for underlying cirrhotic disease of the liver with pancreatitis. Underlying liver lesions are suspected. Contrast-enhanced MRI is suggested. 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 Hospitalist [facility] Advance Care Plan I have confirmed that the patient's Advanced Care Plan is present, code status is documented, or surrogate decision maker is listed in patient medical record.: Yes Medication Reconciliation I have utilized all available resources to obtain, update and review the patients current medications (includes all prescriptions, OTC, herbals, cannabis, and nutritional supplements).: Yes The patient is not eligible for med reconciliation; the patient is in a emergent medical situation where delaying treatment would jeopardize the patients health.: No
[2025-02-19] MEDS: FUROSEMIDE INJ 20 MG/2 ML VIAL IV PUSH (10:39)
[2025-02-19] MEDS: METOCLOPRAMIDE HCL INJ 10 MG/2 ML VIAL IV PUSH (10:45)
[2025-02-19] MEDS: SPIRONOLACTONE 25 MG TABLET PO (10:45)
[2025-02-19] MEDS: ALPRAZolam (*CRX) 0.5 MG TABLET PO (20:39)
[2025-02-20] VITALS (8 sets, daily range): BP systolic 106–118; BP diastolic 70–79; PULSE 78–89; RESP 14–18; TEMP 36.4–37.3; O2SAT 89–92
[2025-02-20] MEDS: chlordiazePOXIDE (*CRX) 25 MG CAPSULE 50 MG PO ×2 (00:10→06:13)
[2025-02-20 06:54] LABS: Hematocrit 32.4 % (35.0-49.0); Hemoglobin 9.3 g/dL (12.0-15.0); Immature Granulocyte Percent A 0.6 % (0.0-0.0); Immature Platelet Fraction Pct 10.2 % (1.0-7.0); Lymphocytes Absolute Auto 1.57 K/mm3 (1.10-4.50); Mean Corpuscular HGB Conc 28.7 g/dL (32-36); Mean Corpuscular Hemoglobin 25.6 pg (27.0-31.0); Mean Corpuscular Volume 89.3 fL (78.0-102.0); Nucleated Red Blood Cells Absolute Auto 0.06 K/mm3 (0.00-0.00); Nucleated Red Blood Cells Perc 1.1 % (0-0.0); Platelet Count Result 61 K/mm3 (150-420); Red Blood Count 3.63 M/mm3 (4.20-5.40); White Blood Count 5.2 K/mm3 (4.8-10.8)
[2025-02-20 09:25] LABS: Alanine Aminotransferase 35 U/L (6-35); Albumin Level 2.9 g/dL (3.5-5.1); Alkaline Phosphatase 139 U/L (38-126); Anion Gap 7 mmol/L (4-12); Aspartate Amino Transferase 146 U/L (14-36); Bilirubin,Total 3.2 mg/dL (0.2-1.3); Blood Urea Nitrogen 8 mg/dL (7-17); Calcium 7.5 mg/dL (8.4-10.2); Carbon Dioxide 23 mmol/L (22-30); Chloride 106 mmol/L (98-107); Estimated CRCL calculation 79 ml/min; Estimated Glomerular Filt Rate > 60; Glucose 78 mg/dL (65-110); Magnesium 1.8 mg/dL (1.6-2.3); Osmolality Calculated 279 mOsm/kg (285-295); Potassium 4.2 mmol/L (3.4-5.0); Sodium 136 mmol/L (137-145); Total Protein 7.6 g/dL (6.3-8.2)
[2025-02-20] MEDS: buPROPion HCL XL (24 HR) 150 MG TABCR 300 MG PO (09:35)
[2025-02-20] MEDS: guaiFENesin 12 HR 600 MG TABCR 1200 MG PO ×2 (09:35→21:06)
[2025-02-20] MEDS: FOLIC ACID 1 MG TABLET PO (09:35)
[2025-02-20] MEDS: THIAMINE HCL 100 MG TABLET PO (09:35)
[2025-02-20] MEDS: VENLAFAXINE HCL XR 75 MG CAP.ER.24H PO ×2 (09:35→21:05)
[2025-02-20] MEDS: MULTIVITAMINS THERAPEUTIC TAB (*BKC) 1 TABLET PO (09:36)
[2025-02-20] MEDS: PANTOPRAZOLE SODIUM IV 40 MG VIAL IV PUSH (09:36)
[2025-02-20] MEDS: SPIRONOLACTONE 25 MG TABLET PO (09:36)
[2025-02-20] MEDS: GABAPENTIN 100 MG CAPSULE PO ×2 (09:36→21:06)
--- NOTE | 2025-02-20 11:08 | P.PNIM_ITS ---
Assessment and Plan Assessment and Plan (1) Cirrhosis: Qualifiers: Hepatic cirrhosis type: unspecified hepatic cirrhosis Ascites presence: unspecified Qualified Code(s): K74.60 - Unspecified cirrhosis of liver Code(s): K74.60 - Unspecified cirrhosis of liver Status: Acute Assessment and Plan: patient with history induced cirrhosis as well as history hepatitis and fatty liver disease * elevated liver enzymes and T bili will continue to trend * CT abdomen showing mild to moderate ascites unchanged from admission but is showing some bilateral lower lobe pleural issues since * started patient on IV Lasix, spironolactone and incentive spirometer (2) Alcohol withdrawal: Code(s): F10.939 - Alcohol use, unspecified with withdrawal, unspecified Status: Acute Assessment and Plan: ETOH 190 POA * Banana bag/IV fluids * Last drink 24hrs * Thiamine, folic acid, and multi-vitamin * PPI daily * librium Q6hr * diazepam PRN for seizure activity * CIWA daily * Monitor and replenish electrolytes as needed * Seizure precautions if indicated (3) Depression: Qualifiers: Depression Type: major depressive disorder Major depression recurrence: single episode Active/Remission status: currently active Major depression episode severity: moderate Qualified Code(s): F32.1 - Major depressive disorder, single episode, moderate Code(s): F32.9 - Major depressive disorder, single episode, unspecified Status: Acute Assessment and Plan: * continued venlafaxine, Wellbutrin, and Seroquel (4) Anxiety: Code(s): F41.9 - Anxiety disorder, unspecified Status: Acute Assessment and Plan: see above (5) Anemia: Code(s): D64.9 - Anemia, unspecified Status: Acute Assessment and Plan: patient with history of anemia secondary to cirrhosis/ hepatitis-C, hemoglobin 10.5 POA. patient does have history of acute GI bleed from varices * trend H&H * monitor for signs of bleeding * Transfuse if Hgb <7.0 (6) Lactic acid acidosis: Code(s): E87.20 - Acidosis, unspecified Status: Acute Assessment and Plan: lactic acid 6.1>7.1 likely secondary to dehydration and nausea vomiting patient denied any seizure activity, no signs of infection * improve with fluids (7) Metabolic acidosis: Code(s): E87.20 - Acidosis, unspecified Status: Acute Assessment and Plan: secondary to dehydration from nausea and vomiting * trend labs * IV fluids/ banana bag x1 (8) Elevated liver enzymes: Code(s): R74.8 - Abnormal levels of other serum enzymes Status: Acute Assessment and Plan: see above # 1 (9) History of esophageal varices with bleeding: Code(s): Z87.19 - Personal history of other diseases of the digestive system Status: Acute Assessment and Plan: * pantoprazole IV until patient can tolerate oral intake * no current evidence acute bleed * monitor H&H (10) Hypertension: Qualifiers: Hypertension type: essential hypertension Qualified Code(s): I10 - Essential (primary) hypertension Code(s): I10 - Essential (primary) hypertension Status: Acute Assessment and Plan: * continued patient's nifedipine and carvedilol * monitor BP per unit protocol * hydralazine IV push as needed for systolics over 160 (11) Rectal varices: Code(s): K64.9 - Unspecified hemorrhoids Status: Acute Assessment and Plan: CT abdomen showing possible portal hypertensive colopathy and/or varices patient currently follows with GI outpatient to monitor her esophageal varices hemoglobin stable at time of admission * will monitor H&H * will need to schedule follow-up outpatient with GI for colonoscopy spoke with Dr. Loera's patient's GI doctor and agrees can follow up outpatient (12) Acute respiratory failure with hypoxia: Code(s): J96.01 - Acute respiratory failure with hypoxia Status: Acute Assessment and Plan: patient with intermittent hypoxia likely secondary to patient's cirrhosis and portal hypertension after fluid resuscitation * continue to wean oxygen as tolerated * CTA ruled out any PE or infectious process * continue with diuresis likely secondary to ascites and bilateral pleural effusions * may need 6 minute walk study prior to discharge (13) Portal hypertensive gastropathy: Code(s): K76.6 - Portal hypertension; K31.89 - Other diseases of stomach and duodenum Status: Acute Assessment and Plan: * give single dose IV Lasix 20 mg post fluid resuscitation * started patient on spironolactone 25 mg daily * continued patient's carvedilol (14) Thrombocytopenia: Code(s): D69.6 - Thrombocytopenia, unspecified Status: Acute Assessment and Plan: secondary to cirrhosis currently no active bleed * PLT 61 * Transfuse FFP <15 Plan Code status: Full code per patient DVT prophylaxis: SCDs Stress ulcer prophylaxis: Protonix 40 daily PT/OT notes: ambulatory Disposition: patient admitted to the medical unit for treatment nausea vomiting secondary to alcohol withdrawal continue with current treatment plan patient should be able to discharge to home once tolerating oral intake withdrawal symptoms improved. Medical Record Review I have reviewed the following patient records and this information was taken into consideration when formulating the assessment and plan.: previous labs, previous ER visits and previous hospitalizations Consultations Consultations: I have discussed the care of this pt with the consulting providers. Time Spent With Patient Time with patient: 15 - 25 minutes Subjective Date/time seen: 02/20/25 11:08 Interval history: Patient is a 54-year-old female admitted for alcohol withdrawal with nausea and vomiting. 02/20/2025: Patient continues with intermittent episodes of hypoxia. Patient denies any chest pain, shortness a breath any further nausea or vomiting. Patient ABD mildly distended today CT ABD showing unchanged Mild to moderate ascites but with some new bilateral pleural effusions. Review of Systems Review of Systems: All systems reviewed & are unremarkable except as noted in HPI and below Exam Const: General: comfortable and no acute distress Other: Pleasant female mild tremors noted HENMT: Mouth: Yes moist mucous membranes Eyes: General: appearance normal, both eyes and all related structures Sclera: sclerae normal Pupils: Equal, round and reactive pupils present Neck: Neck: supple Resp: Effort & Inspection: normal respiratory effort Auscultation: diminished lung sounds (LL) bilateral Cardio: Rate: regular rate Rhythm: regular rhythm GI: Auscultation: normal bowel sounds Skin: General skin exam: normal color and no rashes or lesions noted Wounds: no wounds Neuro: General: gait normal Cranial nerves: Yes Equal, round and reactive pupils present Speech: normal speech Motor exam (neuro): 5/5 motor strength present throughout Sensory Exam: normal sensation Extrem: General: normal to inspection Psych: Mental Status: mental status grossly normal Other: Flat Affect Objective Data Vital Signs Vital Signs: Vital Signs - 24 hr 02/19/25 12:00 02/19/25 16:00 02/19/25 16:00 Temperature 98.7 F Pulse Rate 88 Pulse Rate [Left NIBP] 88 88 Respiratory Rate 18 Blood Pressure 116/69 113/68 113/68 Pulse Oximetry 92 Oxygen Delivery Room Air 02/19/25 20:00 02/20/25 00:00 02/20/25 00:00 Temperature 99.1 F Pulse Rate 89 Pulse Rate [Left NIBP] 91 89 Respiratory Rate 18 Blood Pressure 106/79 Pulse Oximetry 91 Oxygen Delivery Room Air 02/20/25 09:36 Temperature Pulse Rate 88 Pulse Rate [Left NIBP] Respiratory Rate Blood Pressure Pulse Oximetry Oxygen Delivery Intake/Output Intake/Output: Intake & Output 02/17/25 02/18/25 02/19/25 02/20/25 23:59 23:59 23:59 23:59 Intake Total 3713.2 1510 240 Output Total 350 600 250 Balance 3363.2 910 -10 Meds/Results Medications: Active Medications Generic Name Dose Route Start Last Admin Trade Name Freq PRN Reason Stop Dose Admin Acetaminophen 650 mg 02/18/25 09:34 Acetaminophen 325 Mg Tablet PO Q6H PRN Mild Pain (1-3) or Fever Albuterol 1 puff 02/18/25 10:52 Albuterol Sulfate (*Sp) Inhaler INHALATION Q4H PRN Shortness Of Breath Or Wheezing Alprazolam 0.5 mg 02/18/25 10:52 02/19/25 20:39 Alprazolam (*Crx) 0.5 Mg Tablet PO 0.5 mg BID PRN Administration Anxiety Bupropion HCl 300 mg 02/18/25 11:10 02/20/25 09:35 Bupropion Hcl Xl (24 Hr) 150 Mg Tabcr PO 300 mg QAM RAJESH Administration Carvedilol 6.25 mg 02/18/25 11:15 02/20/25 09:36 Carvedilol 6.25 Mg Tablet PO 6.25 mg Q12HR RAJESH Administration Chlordiazepoxide HCl 50 mg 02/20/25 09:56 Chlordiazepoxide (*Crx) 25 Mg Capsule PO Q6HR PRN Alcohol Withdrawal Dextrose 12.5 gm 02/18/25 09:38 Dextrose 50% 25 Gm/50 Ml Syringe IV PUSH PRN PRN Hypoglycemia Protocol Diazepam 5 mg 02/18/25 09:29 Diazepam Inj (*Crx) 10 Mg/2 Ml Syringe IV PUSH Q5M PRN Seizure Activity Diazepam 5 mg 02/18/25 09:31 Diazepam Inj (*Crx) 10 Mg/2 Ml Syringe IV PUSH Q2HR PRN Alcohol Withdrawal Folic Acid 1 mg 02/19/25 09:00 02/20/25 09:35 Folic Acid 1 Mg Tablet PO 1 mg DAILY RAJESH Administration Furosemide 20 mg 02/20/25 17:00 Furosemide Inj 20 Mg/2 Ml Vial IV PUSH BID RAJESH Gabapentin 100 mg 02/18/25 11:15 02/20/25 09:36 Gabapentin 100 Mg Capsule PO 100 mg Q12HR RAJESH Administration Glucagon 1 mg 02/18/25 09:38 Glucagon For Inj 1 Mg Vial IM PRN PRN Hypoglycemia Protocol Glucose 15 gm 02/18/25 09:38 Glucose Oral Gel 15 Gm Of Glucse In 37.5 Gm Tube PO PRN PRN Hypoglycemia Protocol Guaifenesin 1,200 mg 02/18/25 21:00 02/20/25 09:35 Guaifenesin 12 Hr 600 Mg Tabcr PO 1,200 mg Q12HR RAJESH Administration Hydralazine HCl 20 mg 02/18/25 09:34 Hydralazine Hcl 20 Mg/Ml Vial IV PUSH Q8HR PRN Hypertension Dextrose 1,000 mls @ 100 mls/hr 02/18/25 09:38 Dextrose 5% 1,000 Ml IVPB PRN PRN Hypoglycemia Protocol Metoclopramide HCl 10 mg 02/18/25 09:34 02/19/25 10:45 Metoclopramide Hcl Inj 10 Mg/2 Ml Vial IV PUSH 10 mg Q6HR PRN Administration Nausea And Vomiting Multivitamins Therapeutic 1 tablet 02/19/25 09:00 02/20/25 09:36 Multivitamins Therapeutic Tab (*Bkc) PO 1 tablet QAM RAJESH Administration Nifedipine 30 mg 02/18/25 11:15 02/20/25 09:36 Nifedipine 30 Mg Tab.Er.24 PO 30 mg QAM RAJESH Administration Ondansetron HCl 4 mg 02/18/25 09:27 Ondansetron Inj 4 Mg/2 Ml Vial IV PUSH Q6H PRN Nausea And Vomiting Pantoprazole Sodium 40 mg 02/19/25 09:00 02/20/25 09:36 Pantoprazole Sodium Iv 40 Mg Vial IV PUSH 40 mg QAM RAJESH Administration Pantoprazole Sodium 20 mg 02/19/25 09:00 Pantoprazole Sod Sesquihydrate 20 Mg Tab PO On Hold: 02/19/25 09:00 DAILY RAJESH Comment: SEE IV ORDER Quetiapine Fumarate 25 mg 02/18/25 21:00 02/19/25 20:38 Quetiapine Fumarate 25 Mg Tablet PO 25 mg HS RAJESH Administration Spironolactone 25 mg 02/19/25 10:40 02/20/25 09:36 Spironolactone 25 Mg Tablet PO 25 mg QAM RAJESH Administration Thiamine HCl 100 mg 02/19/25 09:00 02/20/25 09:35 Thiamine Hcl 100 Mg Tablet PO 100 mg QAM RAJESH Administration Venlafaxine HCl 75 mg 02/18/25 11:15 02/20/25 09:35 Venlafaxine Hcl Xr 75 Mg Cap.Er.24h PO 75 mg Q12HR RAJESH Administration Radiology Results: ITS Impressions Chest/Abdomen/Pelvis CT 02/18/25 07:21 IMPRESSION: CHEST- 1. No acute findings. ABDOMEN/PELVIS- 1. Gastritis. 2. Mild diffuse colitis likely portal hypertensive colopathy. 3. Distal rectal wall thickening. Possibly portal hypertensive colopathy and/or varices but recommend colonoscopy. 4. Additional findings as above. Chest CTA 02/18/25 18:45 IMPRESSION: 1. Limited study. Negative for pulmonary embolism. 2. Correlate for underlying cirrhotic disease of the liver with pancreatitis. Underlying liver lesions are suspected. Contrast-enhanced MRI is suggested. Abdomen CT 02/20/25 10:35 IMPRESSION: Directed noncontrast exam demonstrating small to moderate amount of ascites not clearly changed; new small bilateral pleural effusions are developing. Other findings as above. Labs Labs: Laboratory Results - last 24 hr 02/19/25 02/20/25 02/20/25 12:06 06:12 06:31 WBC 5.2 RBC 3.63 L Hgb 9.3 L Hct 32.4 L MCV 89.3 MCH 25.6 L MCHC 28.7 L RDW 22.8 H Plt Count 61 L MPV Not Reportable Immature Gran % (Auto) 0.6 H Neut % (Auto) 50.7 Lymph % (Auto) 30.0 [place] % (Auto) 14.1 H Eos % (Auto) 3.6 Baso % (Auto) 1.0 Lymph # (Auto) 1.57 [place] # (Auto) 0.74 Eos # (Auto) 0.19 Baso # (Auto) 0.05 Abs Immat Gran (auto) 0.03 H Absolute Neuts (auto) 2.66 Absolute Nucleated RBC 0.06 H Nucleated RBC % 1.1 H % Immature Plt Fraction 10.2 H Sodium 136 L Potassium 4.2 Chloride 106 Carbon Dioxide 23 Anion Gap 7 BUN 8 Creatinine 0.87 Estim Creat Clear Calc 79 Estimated GFR > 60 Glucose 78 POC Capillary Glucose 137 H 81 Calculated Osmolality 279 L Calcium 7.5 L Magnesium 1.8 Total Bilirubin 3.2 H AST 146 H ALT 35 Alkaline Phosphatase 139 H Total Protein 7.6 Albumin 2.9 L Attestation: I personally reviewed all lab results Imaging Attestation: I personally reviewed this imaging study Radiologist's impression: EXAM/PROCEDURE: CT abdomen wo con HISTORY: Ascites COMPARISON: February 18, 2025 TECHNIQUE: Noncontrast CT of the abdomen performed FINDINGS: CT of the abdomen only demonstrates small to moderate amount of ascites not clearly changed given variation in technique. Cholelithiasis, and cirrhotic liver changes again noted. No hydroureteronephrosis within the [id number]. The spleen stomach and adrenal glands and pancreas appear stable. Aorta normal in size. New trace bilateral pleural effusions with subsegmental atelectatic changes on today's exam. Bones stable. IMPRESSION: Directed noncontrast exam demonstrating small to moderate amount of ascites not clearly changed; new small bilateral pleural effusions are developing. Other findings as above. Quality VTE Prophylaxis VTE prophylaxis: mechanical ordered -Patient's previous records reviewed on admission -ER notes reviewed in detail on admission -discussed all findings and current treatment plan with patient/Family/POA -Consultations reviewed for recommendations -Patient's disposition for safe discharge discussed with insurance case manager -radiology imaging, EKG and test results I have personally reviewed and interpreted unless otherwise specified Dictation performed by [employer] direct speech recognition software, therefore plate stacker hand variants and typographical errors may occur. Hospitalist MIPS Advance Care Plan I have confirmed that the patient's Advanced Care Plan is present, code status is documented, or surrogate decision maker is listed in patient medical record.: Yes Medication Reconciliation I have utilized all available resources to obtain, update and review the patients current medications (includes all prescriptions, OTC, herbals, cannabis, and nutritional supplements).: Yes The patient is not eligible for med reconciliation; the patient is in a emergent medical situation where delaying treatment would jeopardize the patients health.: No
[2025-02-20] MEDS: FUROSEMIDE INJ 40 MG/4 ML VIAL IV PUSH (11:33)
[2025-02-20] MEDS: FUROSEMIDE INJ 20 MG/2 ML VIAL IV PUSH (18:00)
[2025-02-21] VITALS: BP 106/55; PULSE 94; RESP 18; TEMP 36.9; O2SAT 90
[2025-02-21] MEDS: ALPRAZolam (*CRX) 0.5 MG TABLET PO (00:27)
[2025-02-21 05:52] LABS: Hematocrit 31.9 % (35.0-49.0); Hemoglobin 9.5 g/dL (12.0-15.0); Immature Granulocyte Percent A 0.6 % (0.0-0.0); Immature Platelet Fraction Pct 6.4 % (1.0-7.0); Lymphocytes Absolute Auto 1.16 K/mm3 (1.10-4.50); Mean Corpuscular HGB Conc 29.8 g/dL (32-36); Mean Corpuscular Hemoglobin 25.1 pg (27.0-31.0); Mean Corpuscular Volume 84.2 fL (78.0-102.0); Nucleated Red Blood Cells Absolute Auto 0.00 K/mm3 (0.00-0.00); Nucleated Red Blood Cells Perc 0.0 % (0-0.0); Platelet Count Result 84 K/mm3 (150-420); Red Blood Count 3.79 M/mm3 (4.20-5.40); White Blood Count 5.3 K/mm3 (4.8-10.8)
[2025-02-21 06:03] LABS: Alanine Aminotransferase 35 U/L (6-35); Albumin Level 2.9 g/dL (3.5-5.1); Alkaline Phosphatase 161 U/L (38-126); Anion Gap 6 mmol/L (4-12); Aspartate Amino Transferase 91 U/L (14-36); Bilirubin,Total 2.7 mg/dL (0.2-1.3); Blood Urea Nitrogen 9 mg/dL (7-17); Calcium 7.7 mg/dL (8.4-10.2); Carbon Dioxide 28 mmol/L (22-30); Chloride 105 mmol/L (98-107); Estimated CRCL calculation 68 ml/min; Estimated Glomerular Filt Rate 56; Glucose 91 mg/dL (65-110); Magnesium 1.6 mg/dL (1.6-2.3); Osmolality Calculated 286 mOsm/kg (285-295); Potassium 3.5 mmol/L (3.4-5.0); Sodium 139 mmol/L (137-145); Total Protein 7.6 g/dL (6.3-8.2)
[2025-02-21 07:40] VITALS: BP 110/67; PULSE 86; RESP 20; TEMP 36.6; O2SAT 95
[2025-02-21] MEDS: ALBUTEROL SULFATE (*SP) INHALER 1 PUFF INHALATION (07:59)
[2025-02-21 08:00] VITALS: O2SAT 92
--- NOTE | 2025-02-21 08:48 | P.DS_ITS ---
DS: Admitting Diagnosis Discharge Date 02/21/2025 Admitting Diagnosis ETOH withdrawal/ N/V/ cirrhosis/ acute respiratory failure with hypoxia DS: Discharge Diagnosis Discharge Diagnosis (1) Cirrhosis: Qualifiers: Ascites presence: unspecified Hepatic cirrhosis type: unspecified hepatic cirrhosis Qualified Code(s): K74.60 - Unspecified cirrhosis of liver Code(s): K74.60 - Unspecified cirrhosis of liver Status: Acute (2) Alcohol withdrawal: Code(s): F10.939 - Alcohol use, unspecified with withdrawal, unspecified Status: Acute (3) Depression: Qualifiers: Active/Remission status: currently active Depression Type: major depressive disorder Major depression episode severity: moderate Major depression recurrence: single episode Qualified Code(s): F32.1 - Major depressive disorder, single episode, moderate Code(s): F32.9 - Major depressive disorder, single episode, unspecified Status: Acute (4) Anxiety: Code(s): F41.9 - Anxiety disorder, unspecified Status: Acute (5) Anemia: Code(s): D64.9 - Anemia, unspecified Status: Acute (6) Lactic acid acidosis: Code(s): E87.20 - Acidosis, unspecified Status: Acute (7) Metabolic acidosis: Code(s): E87.20 - Acidosis, unspecified Status: Acute (8) Elevated liver enzymes: Code(s): R74.8 - Abnormal levels of other serum enzymes Status: Acute (9) History of esophageal varices with bleeding: Code(s): Z87.19 - Personal history of other diseases of the digestive system Status: Acute (10) Hypertension: Qualifiers: Hypertension type: essential hypertension Qualified Code(s): I10 - Essential (primary) hypertension Code(s): I10 - Essential (primary) hypertension Status: Acute (11) Rectal varices: Code(s): K64.9 - Unspecified hemorrhoids Status: Acute (12) Acute respiratory failure with hypoxia: Code(s): J96.01 - Acute respiratory failure with hypoxia Status: Acute (13) Portal hypertensive gastropathy: Code(s): K76.6 - Portal hypertension; K31.89 - Other diseases of stomach and duodenum Status: Acute (14) Thrombocytopenia: Code(s): D69.6 - Thrombocytopenia, unspecified Status: Acute DS: Summary Hospital Course Reason for hospitalization: ETOH withdrawal/ N/V/ cirrhosis/ acute respiratory failure with hypoxia Hospital Course: Admission: Patient is a 54-year-old female with a past medical history of EtOH abuse, cirrhosis, esophageal varices, HTN, anemia, hepatitis, and Mixed anxiety/depression who presented to the emergency department after reporting intractable nausea and vomiting. patient reports she is a former alcoholic however yesterday prior to arrival to went out binge drinking states had last alcoholic beverage which was vodka around 1600 after she return home she started to continuous nausea and vomiting. patient denied any chest pain, shortness a breath, abdominal pain, dysuria or constipation. Patient also denied any blood in her vomiting but does report she has had a poor appetite he has been unable to tolerate oral intake. In the ED: CT ABD showing gastritis, colorectal venous varices. HGB stable at 10.5, normal WBC, no electrolyte derangements, lactic acidosis at 6.1 2 7 point likely secondary to vomiting patient denied any seizure activity. elevated liver enzymes and T bili 2.5. Hospital course: Patient admitted to the medical unit for further evaluation and treatment of intractable nausea vomiting secondary to ETOH withdrawal patient comfortable after administration of antiemetics and on assessment mild to moderate tremors no diaphoresis no tachycardia however did a ETOH patient was still 190. Patient started having intermittent episodes of hypoxia, and T bili was upward trending. patient denied any chest pain, shortness a breath, further nausea or vomiting but did have some generalized weakness. patient was treated with Librium for alcohol withdrawals. Patient ABD with mild distention and a CT ABD showing unchanged Mild to moderate ascites but with some new bilateral pleural effusions. I did initiated patient on spironolactone IV Lasix as well as incentive spirometer while awake. Patient had overall improvement to all symptoms and was able to wean off supplemental oxygen patient good urinary output but did report some mild weakness legs and was requesting outpatient therapy. I also discussed with patient the findings of the rectal venous varices which I had spoken with Dr. Loera her GI physician who reported no immediate need for colonoscopy with hemoglobin stable no evidence of acute bleed but will need a colonoscopy outpatient after discharge. patient's MELD score was 15 at which time I did recommend she get a referral to a patternmaker grader for further treatment of her underlying cirrhosis. I encouraged and educated patient on need for immediate discontinuation of any alcoholic beverages. patient acknowledged agree with discharge plan patient discharged home. Status at Discharge Functional status at discharge: independent ambulation Overall status at discharge: patient is progressing back to baseline Time Spent with Patient Time attestation: Total time spent providing and/or coordinating discharge services: Time spent: Greater than 30 minutes Exam Const: General: comfortable and no acute distress Other: Pleasant female HENMT: Mouth: Yes moist mucous membranes Eyes: General: appearance normal, both eyes and all related structures Sclera: sclerae normal Pupils: Equal, round and reactive pupils present Neck: Neck: supple Resp: Effort & Inspection: normal respiratory effort Auscultation: clear to auscultation bilaterally and diminished lung sounds (LL) bilateral Cardio: Rate: regular rate Rhythm: regular rhythm GI: Auscultation: normal bowel sounds Skin: General skin exam: normal color and no rashes or lesions noted Wounds: no wounds Neuro: General: gait normal Cranial nerves: Yes Equal, round and reactive pupils present Speech: normal speech Motor exam (neuro): 5/5 motor strength present throughout Sensory Exam: normal sensation Extrem: General: normal to inspection Psych: Mental Status: mental status grossly normal Affect: normal affect Other: Flat Affect DS: Data Data Completed and Pending Labs on day of discharge: Labs from last 24 hours 02/21/25 02/20/25 05:45 06:31 WBC 5.3 RBC 3.79 L Hgb 9.5 L Hct 31.9 L MCV 84.2 MCH 25.1 L MCHC 29.8 L RDW 22.6 H Plt Count 84 L MPV Not Reportable Immature Gran % (Auto) 0.6 H Neut % (Auto) 59.8 Lymph % (Auto) 22.1 [place] % (Auto) 14.4 H Eos % (Auto) 2.1 Baso % (Auto) 1.0 Lymph # (Auto) 1.16 [place] # (Auto) 0.76 Eos # (Auto) 0.11 Baso # (Auto) 0.05 Abs Immat Gran (auto) 0.03 H Absolute Neuts (auto) 3.15 Absolute Nucleated RBC 0.00 Nucleated RBC % 0.0 % Immature Plt Fraction 6.4 Sodium 139 136 L Potassium 3.5 4.2 Chloride 105 106 Carbon Dioxide 28 23 Anion Gap 6 7 BUN 9 8 Creatinine 1.03 H 0.87 Estim Creat Clear Calc 68 79 Estimated GFR 56 L > 60 Glucose 91 78 Calculated Osmolality 286 279 L Calcium 7.7 L 7.5 L Magnesium 1.6 1.8 Total Bilirubin 2.7 H 3.2 H AST 91 H 146 H ALT 35 35 Alkaline Phosphatase 161 H 139 H Total Protein 7.6 7.6 Albumin 2.9 L 2.9 L Preliminary micro results at discharge 02/18/25 07:51 Blood Culture - Preliminary Blood 02/18/25 07:51 Blood Culture - Preliminary Blood Imaging Radiologist's impression: Radiology Results: ITS Impressions Chest/Abdomen/Pelvis CT 02/18/25 07:21 IMPRESSION: CHEST- 1. No acute findings. ABDOMEN/PELVIS- 1. Gastritis. 2. Mild diffuse colitis likely portal hypertensive colopathy. 3. Distal rectal wall thickening. Possibly portal hypertensive colopathy and/or varices but recommend colonoscopy. 4. Additional findings as above. Chest CTA 02/18/25 18:45 IMPRESSION: 1. Limited study. Negative for pulmonary embolism. 2. Correlate for underlying cirrhotic disease of the liver with pancreatitis. Underlying liver lesions are suspected. Contrast-enhanced MRI is suggested. Abdomen CT 02/20/25 10:35 IMPRESSION: Directed noncontrast exam demonstrating small to moderate amount of ascites not clearly changed; new small bilateral pleural effusions are developing. Other findings as above. Discharge Plan Discharge Attending physician on discharge: Lino Campos Consulting providers: Prabha Barber Discharging Clinician: Prabha Barber Anticipated Discharge Date/Time: 02/21/25 09:17 Patient Disposition: Home Activity: as tolerated Diet: low sodium and low fat Discharge Instructions: 1) cirrhosis/ ETOH abuse/ esophageal and rectal varices/ ascites * I have initiated you on spironolactone alone which is a diuretic to help reduce ascites around liver * I recommend immediate follow-up Dr. Loera with GI to schedule a colonosco py for your rectal varices * I also recommend referral to a patternmaker grader for further treatment of your cirrhosis * I recommend immediate cessation from any alcohol * seek medical attention if any bleeding How can you care for yourself at home? ? Keep track of any new symptoms or changes in your symptoms. ? Rest until you feel better. ? Be safe with medicines. Take your medicines exactly as prescribed. Call your doctor if you think you are having a problem with your medicine. ? Do not drive after taking a prescription pain medicine. ? Ensure to follow-up with primary care physician as indicated and provide updated medication list provided to you at discharge. When should you call for help? Call 911 anytime you think you may need emergency care. For example, call if: ? You passed out (lost consciousness). Call your doctor now or seek immediate medical care if: ? You have new symptoms like fever, difficulty breathing, Chest pain, vomiting, or rash. ? You have new or different pain. ? You are confused and are having trouble thinking clearly. ? Your symptoms are getting worse. Watch closely for changes in your health, and be sure to contact your doctor if: ? You do not get better as expected. Patient Instructions: Antibiotic Form, Gastritis (DC), Cirrhosis of the Liver (DC), Abuse of Alcohol (DC), Alcohol Withdrawal (DC), Ascites (DC), Alcohol Use Disorder (DC), Esophageal Banding (DC) Patient Language: Urdu Stand Alone Forms: General Discharge Information Follow-up/Referrals: Lawrence,EDGAR Whatley [Primary Care Provider] - 2 weeks Referral Note: will need a referral to patternmaker grader Cyrus Jones MD [Physician, Gastroenterology] - Call for Appointment Referral Note: patient will need to schedule a colonoscopy for rectal venous varices Discharge Medications: New thiamine HCl (vitamin B1) [Vitamin B-1] 100 mg Tablet 100 mg PO QAM Qty: 30 0RF spironolactone 25 mg Tablet 25 mg PO QAM Qty: 30 0RF folic acid 1 mg Tablet 1 mg PO DAILY Qty: 30 0RF Continued alprazolam 0.5 mg tablet 0.5 mg PO BID PRN (Reason: anxiety) venlafaxine 75 mg capsule,extended release 24hr 75 mg PO BID quetiapine 25 mg tablet 25 mg PO HS metoclopramide HCl 5 mg tablet 5 mg PO DAILY gabapentin 100 mg capsule 100 mg PO BID pantoprazole 20 mg tablet,delayed release (DR/EC) 20 mg PO DAILY nifedipine [Procardia XL] 30 mg Tablet Extended Release 24hr 30 mg PO QAM 30 Days Qty: 30 0RF carvedilol [Coreg] 6.25 mg Tablet 6.25 mg PO Q12HR 30 Days Qty: 60 0RF sumatriptan succinate 100 mg tablet See Rx Instructions PO .COMPLEX Qty: 9 5RF Patient Comments: Pt not taking Rx Instructions: take 1 tab at onset of headache; if no relief, may repeat 1 tab after at least 2 hrs; max = 2 tabs/24 hrs PO albuterol sulfate 90 mcg/actuation HFA aerosol inhaler 1 inh inhalation Q4H PRN (Reason: shortness of breath or wheezing) Qty: 8.5 5RF bupropion HCl [Wellbutrin XL] 300 mg tablet extended release 24 hr 300 mg PO QAM Qty: 30 4RF Other Ambulatory Orders: PT Outpatient Eval and Treat (ONCE) Timeframe: [id number] Location: Determined by Patient Ordered By: Prabha Barber Date of admission: 02/18/25 09:19 Primary Care Provider: LawrenceChacorta Admitting Provider: Lino Campos Attending physician on admission: Lino Campos Condition: Stable Quality VTE Prophylaxis VTE prophylaxis: mechanical ordered -Patient's previous records reviewed on admission -ER notes reviewed in detail on admission -discussed all findings and current treatment plan with patient/Family/POA -Consultations reviewed for recommendations -Patient's disposition for safe discharge discussed with case planner -radiology imaging, EKG and test results I have personally reviewed and interpreted unless otherwise specified Dictation performed by [employer] direct speech recognition software, therefore transcription typist variants and typographical errors may occur. Hospitalist MIPS Heart Failure (Exclusion) Patient has history of Heart Transplant or Left Ventricular Assistive Device?: No IF YES, STOP HERE Heart Failure (Qualifier) Patient has current or prior documentation of LVEF less than or equal to 40%, or mod/servere depressed LVSF?: No IF NO, STOP HERE
[2025-02-21] MEDS: buPROPion HCL XL (24 HR) 150 MG TABCR 300 MG PO (09:05)
[2025-02-21] MEDS: guaiFENesin 12 HR 600 MG TABCR 1200 MG PO (09:05)
[2025-02-21] MEDS: VENLAFAXINE HCL XR 75 MG CAP.ER.24H PO (09:06)
[2025-02-21 09:07] VITALS: PULSE 80
[2025-02-21] MEDS: GABAPENTIN 100 MG CAPSULE PO (09:07)
[2025-02-21] MEDS: FOLIC ACID 1 MG TABLET PO (09:07)
[2025-02-21] MEDS: MULTIVITAMINS THERAPEUTIC TAB (*BKC) 1 TABLET PO (09:07)
[2025-02-21] MEDS: THIAMINE HCL 100 MG TABLET PO (09:07)
[2025-02-21] MEDS: SPIRONOLACTONE 25 MG TABLET PO (09:08)
[2025-02-21] MEDS: FUROSEMIDE 20 MG TABLET PO (09:26)
[2025-02-21] MEDS: PANTOPRAZOLE SOD SESQUIHYDRATE 20 MG TAB PO (09:26)
--- NOTE | 2025-02-21 09:43 | PC.NURSE ---
Friend Kellen contacted for ride, will arrive around 10am with clean clothes.
--- NOTE | 2025-02-21 10:10 | PC.NURSE ---
Discharged with friend, discharge instructions reviewed, new medications reviewed, no questions, copy of new meds and discharge packet given to patient, is alert and oriented and understands discharge plan and follow up with GI doctor.
--- NOTE | 2025-02-28 10:44 | PC.NURSE ---
Unable to reach for discharge call back
== END 2025-02-21 10:10 | disposition home or self-care (01) ==
LOC: CHSED 08:22 → CHS2ND 09:24
PROVIDERS: Emergency Medicine; Nurse Practitioner Family; Admitting Provider Internal Medicine; Emergency Provider Emergency Medicine; PCP Physician Assistant; Visit Provider Internal Medicine
DX: F10.139 Alcohol abuse with withdrawal, unspecified (principal); Y90.6 Blood alcohol level of 120-199 mg/100 ml; I85.10 Secondary esophageal varices without bleeding; J96.01 Acute respiratory failure with hypoxia; K76.6 Portal hypertension; K74.60 Unspecified cirrhosis of liver; D64.9 Anemia, unspecified; E87.20 Acidosis, unspecified; K31.89 Other diseases of stomach and duodenum; F32.1 Major depressive disorder, single episode, moderate; F41.9 Anxiety disorder, unspecified; D69.6 Thrombocytopenia, unspecified; R74.8 Abnormal levels of other serum enzymes; I10 Essential (primary) hypertension; K21.9 Gastro-esophageal reflux disease without esophagitis; Z87.891 Personal history of nicotine dependence; Z87.19 Personal history of other diseases of the digestive system; Z20.822 Contact with and (suspected) exposure to COVID-19
CPT/HCPCS: 36415; 71260; 71275; 74150; 74177; 80053; 81001; 82077; 82948; 83605; 83690; 83735; 84484; 85025; 85055; 85610; 85730; 87040; 87637; 93005; 96361; 96365; 96374; 96375; 96376; 99285; A9270; G0378; G0379; J0780; J1938; J2405; J2470; J2543; J2765; J3411; J3475; J7030; J7121; Q9967

== ENCOUNTER 2025-02-25 11:18 | Observation (INO) | payer OTHER, SELFPAY ==
--- NOTE | ~2025-02-25 | XR_ITS ---
Examination: XR chest 2V Clinical History: weakness and sob Comparison: 02/18/2025 Technique: PA and Lateral Findings: Cardiomediastinal silhouette normal size and configuration. Lungs clear. No acute bony abnormality. IMPRESSION: 1. No acute cardiopulmonary findings. Reviewed, dictated and finalized at location R. DENTIAL FINISH CARPENTER
--- NOTE | ~2025-02-25 | CT_ITS ---
EXAMINATION: CT brain wo con, 02/25/2025 14:24 PERSONNEL ASSISTANT HISTORY: altered mental status COMPARISON: No comparisons available. Technique: Axial images obtained of the brain without contrast. One or more of the following dose reduction techniques were used: automated exposure control, adjustment of the mA and/or kV according to patient size, use of iterative reconstruction technique. Findings: No acute infarct or parenchymal hemorrhage. No abnormal mass or mass effect. No midline shift. No extra-axial fluid collections. No hydrocephalus. Mastoid air cells unremarkable. Sinuses and orbits unremarkable. No acute fracture. No significant facial or scalp soft tissue swelling evident. No radiopaque foreign body is seen. Impression: 1.No acute intracranial abnormality. Reviewed, dictated and finalized at location P. ONNEL ASSISTANT Impression: 1.No acute intracranial abnormality.
[2025-02-25 11:19] VITALS: BP 123/73; PULSE 83; RESP 12; TEMP 36.8; O2SAT 94
--- NOTE | 2025-02-25 11:33 | ECG_ITS ---
Test Date: 2025-02-25 11:45:40 Measurements Intervals Aubrey Rate: 81 P: 24 MT: 159 QRS: 18 QRSD: 108 T: 18 QT: 404 QTc: 469 Interpretive Statements SINUS RHYTHM POSSIBLE ANTERIOR MYOCARDIAL INFARCTION , OF INDETERMINATE AGE MINIMAL Q WAVES- INFERIOR LEADS BORDERLINE ST-T WAVE ABNORMALITY- INFERIOR LEADS BASELINE ARTIFACT- I, II, AVR, AVF, V6 ABNORMAL ECG Compared to ECG 02/18/2025 05:52:50 HEART RATE HAS DECREASED Electronically Signed On 02-25-2025 15:24:15 CLINICAL LAB SCIENTIST by Husam Mathis D.O.
[2025-02-25 12:34] LABS: Hematocrit 34.2 % (37.0-47.0); Hemoglobin 10.5 g/dL (12.0-15.0); Immature Platelet Fraction Pct 9.7 % (0.9-11.2); Mean Corpuscular HGB Conc 30.7 g/dl (32-36); Mean Corpuscular Hemoglobin 26.1 pg (26-34); Mean Corpuscular Volume 84.9 fl (80-100); Platelet Count Result 90 k/mm3 (150-375); Red Blood Count 4.03 M/mm3 (4.2-5.4); White Blood Count 4.7 K/mm3 (4.5-10.0)
[2025-02-25 12:50] LABS: Alanine Aminotransferase 35 U/L (6-35); Albumin Level 3.1 g/dL (3.5-5.1); Alkaline Phosphatase 186 U/L (38-126); Anion Gap 6 mmol/L (4-12); Aspartate Amino Transferase 87 U/L (14-36); Bilirubin,Total 2.2 mg/dL (0.2-1.3); Blood Urea Nitrogen 8 mg/dL (7-17); Calcium 8.4 mg/dL (8.4-10.2); Carbon Dioxide 26 mmol/L (22-30); Chloride 106 mmol/L (98-107); Estimated CRCL calculation 71 ml/min; Estimated Glomerular Filt Rate > 60; Glucose 98 mg/dL (65-110); Potassium 3.8 mmol/L (3.4-5.0); Sodium 138 mmol/L (137-145); Total Protein 8.7 g/dL (6.3-8.2)
[2025-02-25 12:59] LABS: Anisocytosis 2+; Band Neutrophils Percent 0 % (0-6); Basophils Absolute Manual 0.18 K/mm3 (0.0-0.1); Basophils Percent Manual 4 % (0-1); Eosinophils Absolute Manual 0.14 K/mm3 (0.02-0.50); Eosinophils Percent Manual 3 % (0-4); Hypochromasia 1+; Lymphocytes Absolute Manual 0.84 K/mm3 (1.1-4.5); Lymphocytes Percent Manual 18 % (18-44); Monocytes Absolute Manual 0.32 K/mm3 (0.1-0.90); Monocytes Percent Manual 7 % (3-9); Neutrophils Absolute Manual 3.19 K/mm3 (1.3-6.7); Neutrophils Percent Manual 68 % (46-73); Total Cells Counted 100
[2025-02-25 13:00] LABS: Burr Cells Occasional; Schistocytes None Seen; Target Cells 1+
--- OUTSIDE RECORDS SUMMARY | 2025-02-25 13:14 | XMS_ITS | Clinical Summary ---
Author Organization [facility] Address Formerly [facility] [place] [address] Care Team Providers Care Aerospace Mechanic Name Role Phone Allyson Amato MD Primary Care Provider [phone] Allergies Active Allergy Reactions Criticality Noted Date [...] 5:30 PM 12/20/2022 6:30 PM Care Teams Aerospace Mechanic Relationship Specialty Start Date End Date Allyson Amato MD [address] [place] [address] PCP - General FAMILY PRACTICE 12/16/22
--- OUTSIDE RECORDS SUMMARY | 2025-02-25 13:14 | XMS_ITS | Clinical Summary ---
Author Organization [id number] Address [address] [place] [id number] Care Team Providers Care Radioactive Waste Disposal Dispatcher Name Role Phone Leesa Vidales MD Unavailable [phone] Drew Mason MD Primary Care Provider Allergies [...] 02/19/2018 Assessment & Plan (02/19/2018 3:37 AM RIM TECHNICIAN): Patient meets the criteria for sepsis with elevated lactic acid levels and source of infection. Started empirically on broad-spectrum of antibiotics with vanc Zosyn and Levaquin. Blood cultures are pending Urine cultures were obtained Will get ID consult given the history of MDR/ESBL Will obtain wound cultures as well. Acute cystitis with hematuria 02/19/2018 Assessment & Plan (02/19/2018 3:37 AM RIM TECHNICIAN): Urinalysis is consistent with a UTI. Patient currently on broad-spectrum antibiotics Alcohol abuse 02/19/2018 Assessment & Plan (02/19/2018 3:40 AM RIM TECHNICIAN): Patient reports chronic alcohol use at [...] monitor. Assessment & Plan (02/19/2018 3:41 AM RIM TECHNICIAN): Trend lactic acid and CBC. Colitis 02/19/2018 Assessment & Plan (02/19/2018 3:42 AM RIM TECHNICIAN): CT of the abdomen was consistent with colitis. Patient is currently on broad-spectrum antibiotics with vanc, Zosyn and Levaquin. Consider adding Flagyl. Patient with history of of MDR/ESBL Will get ID consult Hepatic steatosis 02/19/2018 Assessment & Plan (10/08/2019 10:14 PM CDT): Noted on CT scan. Assessment & Plan (02/19/2018 3:42 AM RIM TECHNICIAN): Hepatic steatosis noted on CT. Discussed and encouraged to stop drinking Ruptured left breast implant 02/19/2018 Assessment & Plan (02/19/2018 3:43 AM RIM TECHNICIAN): Incidental finding on the CT. Patient will need a follow up outpatient with PCP Uterine fibroid 02/19/2018 Assessment & Plan (02/19/2018 3:44 AM RIM TECHNICIAN): Incidental finding. Otherwise patient is asymptomatic. Alcohol withdrawal syndrome with complication Assessment & Plan (02/19/2018 3:45 AM RIM TECHNICIAN): Patient currently is a tremors and elevated blood pressure. This is highly concerning for alcohol withdrawal. Start on Librium protocol Hydralazine and clonidine as needed for blood pressure control. Acute diffuse otitis externa of left ear 018 Assessment & Plan (02/19/2018 3:54 AM RIM TECHNICIAN): Patient with a history of of [...] on file Legal Sex Female 2:28 AM RIM TECHNICIAN Gender Identity Not on file Sexual [...] last revised on 19. Testing performed by: [facility], [address] [place] [address], [place]., [address] Hep B core IgM Nonreactive Nonreactive C MELVI CRAIG ([place]) Comment: Interpretive Data If HepB Core IgM Ab is reported as Equivocal, a new sample should be drawn in two weeks for testing. Current interpretive data was last revised on 19. Testing performed by: [facility], [address] [place] [address], [place]., [address] Hep C Ab Nonreactive Nonreactive CERNER KIARA [...] last revised on 2019. Testing performed by: [facility], [address] [place] [address]., [address] HepBsAg Nonreactive Nonreactive [facility] ([place]) Comment:Testing performed by : [facility], [address] [place] [address]., [address] Blood specimen (specimen) 10/11/2019 5:12 AM CDT 10/11/2019 9:34 AM CDT Leesa Vidales MD LAB MICROBIOLOGY - GENERAL ORDERABLES Final Result DEONTE CRAIG ([place]) 1 [facility] Department [place] [address] from Last 3 Months or Most Recently Relevant to Health Maintenance Additional Health Concerns Infection Onset Date Last Indicated MDR gram neg/ESBL Comment:02/26/15 Urine E. coli ESBL+ (MDRO) 02/27/2015 02/27/2015 Insurance Advance Directives For more information, please contact: [phone] * Full Code (Latest Code Status on [...] 10:19 PM 02/25/2018 6:41 PM Care Teams Radioactive Waste Disposal Dispatcher Relationship Specialty Start Date End Date Drew Mason MD [address] [place] [id number] PCP - General Family Medicine 03/04/24 Leesa Vidales MD Consulting Physician Gastroenterology 10/11/19
--- OUTSIDE RECORDS SUMMARY | 2025-02-25 13:14 | XMS_ITS | Data Portability ---
Author Organization [facility] and, [facility] Address [address] [place] [address] [address] Assessment Encounter Date Assessment Date Assessment LastModified [...] needed to do the test 2018 [email or web address] [place] [address] Imaging - Creatinine Order, [address] [place], [address], 9 16:29:48 Referral None recorded. Procedures None recorded. Surgeries None recorded. Imaging MRI, pelvis, w/wo contrast - Patient has a history of fibroids. She is being referred for MRI of the pelvis to assess for the extent of Uterine fibroids and the presence of adenomyos is or endometri osis 2018 019 [email or web address] [address] [facility] Imaging Administrative Office, [place] [address], [place], [address], 14:00:03 Medication Orders None recorded. Patient TargetsNo targets recorded. Patient InstructionsNo instructions recorded. Reason for Referral None Reported. Procedures Surgical History Date Name Laterality Status Provider Name and Address Organization Details Recorded Time 08/23/2017 [place] [address], [address], [facility] and 11/09/2018 16:52:07 03/16/2007 [place] [address], [address], [facility] and 11/09/2018 16:52:07 03/16/1995 [place] [address], [address], [facility] and 11/09/2018 16:52:07 03/16/1990 [place] [address], [address], [facility] and 11/09/2018 16:52:07 Imaging Results [...] Not Available Not Availa ble Not Available [facility] 0.18 mg/0.215 mg/0.25 mg-0.025 mg tablet active Not Available Not Available Not Available Vitals None Recorded Social History Question Answer Notes LastModified by HYLA [employer] ion Details LastModified Time Tobacco Smoking Status Never Smoker Not Available [facility] 01/17/2020 03:44:16 Which Illicit Or Recreational Drugs Have You Used? None [id number] Information not available 01/17/2020 What Is The Highest Grade Or Level Of School You Have Completed Or The Highest Degree You Have Received? [id number] Information not available 01/17/2020 Live Alone Or With Others? With Others [email or web address] Information not available 11/09/2018 How Much Tobacco Do You Smoke? No [id number] Information not available 01/17/2020 Sex: Unknown Functional Status Question Answer Note LastModified by Organizat ion Details LastModified Time What is your level of alcohol consumption? Occasional [id number] Information not available 01/17/2020 What is your [...] [facility] [address] [facility] ,[address] [place] [address] 11/09/2018 16:41:03 11/10/2018 16:10:17 Uterine leiomyoma [id number] D25.9 Health Concerns Section Related Observation LastModified by Organization Detai ls LastModified Time None Recorded Concern Status LastModified by Organization Details LastModified Time None Recorded Advance Directives Directive None Recorded Payers Insurance Date Sequence Insurance Name Policy Number Policy Bravo Covered Member ID Bravo Member ID Guarantor Name 11/10/2018 1 [facility] Xin Lluvia [id number] Xin Lluvia 11/10/2018 1 [facility] PRIOR TO 09/13/2020 (MEDICAID REPLACEMENT - HMO) Xin Lluvia [id number] Xin Lluvia 11/10/[address] Xin Lluvia [id number] Xin Lluvia 11/10/2018 1 [facility] PRIOR TO 09/13/2020 (MEDICAID REPLACEMENT - HMO) Xin Lluvia [id number] Xin Lluvia 08/02/2019 2 [place]: [facility] AID Xin Lluvia [id number] Xin Lluvia Notes Date Note Type Note [...] with fibroids, last year[place] [address], [address], [facility] and 11/09/2018 18:18:30 OBGyn Episode No OBEpisode recorded.
[2025-02-25 13:19] LABS: NT Pro B Type Natriuretic Pept 147 pg/mL (19.9-100)
[2025-02-25 13:34] LABS: Add Urine Microscopic? YES; Appearance Urine Clear (Clear); Glucose Urine UA Negative (Negative); Leukocyte Esterase Ur Negative LEU/UL (Negative); Nitrate Urine Negative (Negative); Specific Grav Ur 1.011 (1.001-1.035)
[2025-02-25 13:55] LABS: INR 1.4; Prothrombin Time 17.3 Seconds (11.1-14.7)
[2025-02-25 13:56] LABS: Partial Thromboplastin Time 34.2 Seconds (22.3-36.8)
[2025-02-25 14:00] LABS: Magnesium 2.0 mg/dL (1.6-2.3)
[2025-02-25 14:06] LABS: Troponin I < 0.012 ng/mL (0.000-0.034)
[2025-02-25 14:29] LABS: Ammonia 72 umol/L (9-30)
[2025-02-25 14:45] LABS: Procalcitonin 0.1 ng/mL
[2025-02-25] MEDS: LACTULOSE 20 GM/30 ML UDC 30 GM PO (14:51)
[2025-02-25 15:02] VITALS: BP 123/88; PULSE 85; RESP 13; O2SAT 97
--- NOTE | 2025-02-25 15:26 | ED.GENADULT ---
HPI - General Adult General Chief complaint: Weakness Stated complaint: weakness Time Seen by Provider: 02/25/25 12:31 History of Present Illness HPI narrative: patient 54-year-old female who presents emergency department with chief complaint a generalized weakness and he feeling foggy. Patient reports she has prior history of cirrhosis reports she was admitted [facility] recently treated for UTI dehydration and was discharged home the patient states that her symptoms have continued reports she does not feel well Related Data Home Medications ?Medication ?Instructions ?Recorded ?Confirmed ?Last Taken ?Type alprazolam 0.5 mg tablet 0.5 mg PO BID PRN anxiety 07/27/23 02/18/25 02/15/25 History quetiapine 25 mg tablet 25 mg PO HS 07/27/23 02/18/25 02/15/25 History venlafaxine 75 mg capsule,extended 75 mg PO BID 07/27/23 02/18/25 02/15/25 History release 24 hr gabapentin 100 mg capsule 100 mg PO BID 10/07/24 02/18/25 02/15/25 History pantoprazole 20 mg tablet,delayed 20 mg PO DAILY 10/07/24 02/18/25 02/18/25 History release metoclopramide HCl 5 mg tablet 5 mg PO DAILY 02/08/25 02/18/25 02/15/25 History Allergies Allergy/AdvReac Type Severity Reaction Status Date / Time lisinopril Allergy Intermediate Swelling Verified 02/25/25 11:28 of Lip/Tongue/Throat azithromycin AdvReac Unknown N/V Verified 02/25/25 11:28 Review of Systems Review of Systems: A 10 system review of systems was completed on the patient and is negative except for what is stated in the HPI. Nursing and ancillary documentation was reviewed. [facility] Past Medical History Medical History Monoallelic mutation of ESPN gene History of esophageal varices with bleeding Elevated liver enzymes Esophageal varices with bleeding Acute blood loss anemia Hematemesis Melena IPMN (intraductal papillary mucinous neoplasm) Fatty liver Concern for hepatic cirrhosis Hepatitis GERD (gastroesophageal reflux disease) Arthritis Insomnia Anxiety Depression Hypertension Surgical History Surgical History Hx of breast augmentation Hx of section x2 History of tubal ligation Family History Family History Father Hypertension Depression Mother Hypertension Son Depression Grandparent Alcoholism Cancer Grandparent Cancer Hypertension Social History Social History Social History: Pt smoked cigarettes socially for approx. 5 yrs. One pack would last her 2 weeks. Smoking status: Never smoker Second hand tobacco smoke exposure: No Smoking end date: 03/16/06 Alcohol intake: current Drinks per week: 2 Alcohol use details: hx alcohol Substance use: never Substance use type: does not use Last use: 12/17/24 Lack of Transportation: No Lack of Food: Never True Current Housing: I Have Housing Concerned About Future Housing: No Difficulty Paying Gas/Electric Bills: No Difficulty Paying for Meds: No Currently Unemployed: No Education: Associate Degree Difficulty w/ Childcare or Family Care: No Living arrangements: alone Spiritual care concerns: No Exam Narrative: GENERAL: Well-appearing, well-nourished, and in no acute distress. HEAD: Normocephalic, atraumatic. EYES: PERRLA and EOMI. ENT: Nares clear, no rhinorrhea or epistaxis. Mucous membranes moist. NECK: Supple. CHEST: Clear to auscultation. No respiratory distress. HEART: Regular rate and rhythm. No murmur heard. Normal peripheral pulses. ABDOMEN: Soft, nontender, nondistended, normal active bowel sounds. EXTREMITIES: Normal range of motion. No edema. SKIN: Warm, dry, no rash. NEURO: No focal deficits. Alert and oriented x3. Somewhat slow to respond PSYCH: Normal mood and affect. Course Vital Signs Vital signs: Vital Signs Temperature 36.8 C 02/25/25 11:19 Pulse Rate 83 02/25/25 11:19 Respiratory Rate 12 02/25/25 11:19 Blood Pressure 123/73 02/25/25 11:19 Pulse Oximetry 94 02/25/25 11:19 Oxygen Delivery Room Air 02/25/25 11:19 Temperature 36.8 C 02/25/25 11:19 Pulse Rate 85 02/25/25 15:02 Respiratory Rate 13 02/25/25 15:02 Blood Pressure 123/88 02/25/25 15:02 Pulse Oximetry 97 02/25/25 15:02 Oxygen Delivery Room Air 02/25/25 11:19 MDM Differential Diagnosis Differential Diagnosis: differential diagnosis includes hepatic encephalopathy, liver failure, UTI, pneumonia, intracranial hemorrhage, laboratory studies were obtained on the patient showed a CBC with a white count of 4.7 hemoglobin was 10.5 platelet count was 90 electrolytes showed no significant abdomen mallet he lactate was 1.6 bilirubin was 2.2 this is not significantly changed AST was 87 ALT was 35 troponin was negative BNP was 147 urinalysis showed increased urobiligen in but otherwise negative ETOH was negative ammonia level was 72 patient was given lactulose in the emergency department the case was discussed with the hospitalist and the patient will be admitted for further care Lab Data 02/25/25 12:26 02/25/25 12: Labs: Lab Results 02/25/25 02/25/25 02/25/25 Range/Units 12:21 12: 13:27 WBC 4.7 (4.5-10.0) K/mm3 RBC 4.03 L (4.2-5.4) M/mm3 Hgb 10.5 L (12.0-15.0) g/dL Hct 34.2 L (37.0-47.0) % MCV 84.9 (80-100) fl MCH 26.1 (26-34) pg MCHC 30.7 L (32-36) g/dl RDW 23.4 H (11.5-14.5) % Plt Count 90 L (150-375) k/mm3 MPV 11.7 H (7.4-10.4) fl Immature Gran % (Auto) Not Reportable Neut % (Auto) Not Reportable Lymph % (Auto) Not Reportable [place] % (Auto) Not Reportable Eos % (Auto) Not Reportable Baso % (Auto) Not Reportable Lymph # (Auto) Not Reportable [place] # (Auto) Not Reportable Eos # (Auto) Not Reportable Baso # (Auto) Not Reportable Abs Immat Gran (auto) Not Reportable Absolute Neuts (auto) Not Reportable Absolute Nucleated RBC Not Reportable Total Counted 100 Neutrophils % (Manual) 68 (46-73) % Band Neutrophils % 0 (0-6) % Lymphocytes % (Manual) 18 (18-44) % Monocytes % (Manual) 7 (3-9) % Eosinophils % (Manual) 3 (0-4) % Basophils % (Manual) 4 H (0-1) % Nucleated RBC % Not Reportable Abs Neuts (Manual) 3.19 (1.3-6.7) K/mm3 Abs Lymphs (Manual) 0.84 L (1.1-4.5) K/mm3 Abs Monocytes (Manual) 0.32 (0.1-0.90) K/mm3 Absolute Eos (Manual) 0.14 (0.02-0.50) K/mm3 Abs Basophils (Manual) 0.18 H (0.0-0.1) K/mm3 Platelet Estimate Adequate (Adequate) % Immature Plt Fraction 9.7 (0.9-11.2) % Hypochromasia 1+ Anisocytosis 2+ Target Cells 1+ [place] Cells Occasional Schistocytes None seen PT 17.3 H (11.1-14.7) Seconds INR 1.4 APTT 34.2 (22.3-36.8) Seconds Sodium 138 (137-145) mmol/L Potassium 3.8 (3.4-5.0) mmol/L Chloride 106 (98-107) mmol/L Carbon Dioxide 26 (22-30) mmol/L Anion Gap 6 (4-12) mmol/L BUN 8 (7-17) mg/dL Creatinine 0.93 (0.7-1.0) mg/dL Estim Creat Clear Calc 71 ml/min Estimated GFR > 60 (59 - ) Glucose 98 (65-110) mg/dL Lactic Acid (0.7-2.0) mmol/L Calcium 8.4 (8.4-10.2) mg/dL Magnesium 2.0 (1.6-2.3) mg/dL Total Bilirubin 2.2 H (0.2-1.3) mg/dL AST 87 H (14-36) U/L ALT 35 (6-35) U/L Alkaline Phosphatase 186 H (38-126) U/L Ammonia (9-30) umol/L Troponin I < 0.012 (0.000-0.034) ng/mL NT-Pro-B Natriuret Pep 147 H (19.9-100) pg/mL Total Protein 8.7 H (6.3-8.2) g/dL Albumin 3.1 L (3.5-5.1) g/dL Procalcitonin ng/mL Urine Color Dark yellow (Yellow) Urine Appearance Clear (Clear) Urine pH 7.0 (5.0-9.0) Ur Specific [place] 1.011 (1.001-1.035) Urine Protein Negative (Negative) mg/dL Urine Glucose (UA) Negative (Negative) mg/dL Urine Ketones Negative (Negative) mg/dL Ur Blood (Man) Negative (Negative) Urine Nitrate Negative (Negative) Urine Bilirubin Negative (Negative) Urine Urobilinogen >=8.0 H (<2.0) mg/dL Leukocyte Esterase Rfl Negative (Negative) [place]/UL Ethyl Alcohol < 10 (<10) mg/dL 02/25/25 Range/Units 14:03 WBC (4.5-10.0) K/mm3 RBC (4.2-5.4) M/mm3 Hgb (12.0-15.0) g/dL Hct (37.0-47.0) % MCV (80-100) fl MCH (26-34) pg MCHC (32-36) g/dl RDW (11.5-14.5) % Plt Count (150-375) k/mm3 MPV (7.4-10.4) fl Immature Gran % (Auto) Neut % (Auto) Lymph % (Auto) [place] % (Auto) Eos % (Auto) Baso % (Auto) Lymph # (Auto) [place] # (Auto) Eos # (Auto) Baso # (Auto) Abs Immat Gran (auto) Absolute Neuts (auto) Absolute Nucleated RBC Total Counted Neutrophils % (Manual) (46-73) % Band Neutrophils % (0-6) % Lymphocytes % (Manual) (18-44) % Monocytes % (Manual) (3-9) % Eosinophils % (Manual) (0-4) % Basophils % (Manual) (0-1) % Nucleated RBC % Abs Neuts (Manual) (1.3-6.7) K/mm3 Abs Lymphs (Manual) (1.1-4.5) K/mm3 Abs Monocytes (Manual) (0.1-0.90) K/mm3 Absolute Eos (Manual) (0.02-0.50) K/mm3 Abs Basophils (Manual) (0.0-0.1) K/mm3 Platelet Estimate (Adequate) % Immature Plt Fraction (0.9-11.2) % Hypochromasia Anisocytosis Target Cells [place] Cells Schistocytes PT (11.1-14.7) Seconds INR APTT (22.3-36.8) Seconds Sodium (137-145) mmol/L Potassium (3.4-5.0) mmol/L Chloride (98-107) mmol/L Carbon Dioxide (22-30) mmol/L Anion Gap (4-12) mmol/L BUN (7-17) mg/dL Creatinine (0.7-1.0) mg/dL Estim Creat Clear Calc ml/min Estimated GFR (59 - ) Glucose (65-110) mg/dL Lactic Acid 1.6 (0.7-2.0) mmol/L Calcium (8.4-10.2) mg/dL Magnesium (1.6-2.3) mg/dL Total Bilirubin (0.2-1.3) mg/dL AST (14-36) U/L ALT (6-35) U/L Alkaline Phosphatase (38-126) U/L Ammonia 72 H (9-30) umol/L Troponin I (0.000-0.034) ng/mL NT-Pro-B Natriuret Pep (19.9-100) pg/mL Total Protein (6.3-8.2) g/dL Albumin (3.5-5.1) g/dL Procalcitonin 0.1 ng/mL Urine Color (Yellow) Urine Appearance (Clear) Urine pH (5.0-9.0) Ur Specific [place] (1.001-1.035) Urine Protein (Negative) mg/dL Urine Glucose (UA) (Negative) mg/dL Urine Ketones (Negative) mg/dL Ur Blood (Man) (Negative) Urine Nitrate (Negative) Urine Bilirubin (Negative) Urine Urobilinogen (<2.0) mg/dL Leukocyte Esterase Rfl (Negative) [place]/UL Ethyl Alcohol (<10) mg/dL Imaging Data Radiologist's impression: ITS Impressions Chest X-Ray 02/25/25 13:25 IMPRESSION: 1. No acute cardiopulmonary findings. Head CT 02/25/25 14:36 Impression: 1.No acute intracranial abnormality. Discharge Plan Discharge Clinical Impression: Acute hepatic encephalopathy Patient Disposition: Still a Patient Condition: Stable Patient Language: Gambian Prescriptions: No Action thiamine HCl (vitamin B1) [Vitamin B-1] 100 mg Tablet 100 mg PO QAM Qty: 30 0RF spironolactone 25 mg Tablet 25 mg PO QAM Qty: 30 0RF folic acid 1 mg Tablet 1 mg PO DAILY Qty: 30 0RF alprazolam 0.5 mg tablet 0.5 mg PO BID PRN (Reason: anxiety) venlafaxine 75 mg capsule,extended release 24hr 75 mg PO BID quetiapine 25 mg tablet 25 mg PO HS metoclopramide HCl 5 mg tablet 5 mg PO DAILY gabapentin 100 mg capsule 100 mg PO BID pantoprazole 20 mg tablet,delayed release (DR/EC) 20 mg PO DAILY nifedipine [Procardia XL] 30 mg Tablet Extended Release 24hr 30 mg PO QAM 30 Days Qty: 30 0RF carvedilol [Coreg] 6.25 mg Tablet 6.25 mg PO Q12HR 30 Days Qty: 60 0RF sumatriptan succinate 100 mg tablet See Rx Instructions PO .COMPLEX Qty: 9 5RF Patient Comments: Pt not taking Rx Instructions: take 1 tab at onset of headache; if no relief, may repeat 1 tab after at least 2 hrs; max = 2 tabs/24 hrs PO albuterol sulfate 90 mcg/actuation HFA aerosol inhaler 1 inh inhalation Q4H PRN (Reason: shortness of breath or wheezing) Qty: 8.5 5RF bupropion HCl [Wellbutrin XL] 300 mg tablet extended release 24 hr 300 mg PO QAM Qty: 30 4RF Follow-up/Referrals: Lawrence,EDGAR Whatley [Primary Care Provider] Time of Disposition: 15:36
--- NOTE | 2025-02-25 15:51 | PC.NURSE ---
Patient is A&Ox4 at this time, but slow to respond. Patient denies pain. Patient given a warm blanket for comfort.
[2025-02-25 15:52] VITALS: BP 148/99; PULSE 85; RESP 14; O2SAT 95
--- NOTE | 2025-02-25 16:19 | WPCEDHO ---
ED Hand Off Checklist All vitals saved:yes IV Site documented:yes All med administrations documented:yes Triage Note Triage Note Patient brought in by EMS for 02/25/25 11:19 increasing weakness over last 4 days. patient was recently admitted to [place] for uti and dehydration. patient was not sent home with PO abx, states only received IV abx in hospital Allergies lisinopril Allergy (Intermediate, Verified 02/25/25 11:28) Swelling of Lip/Tongue/Throat azithromycin Adverse Reaction (Unknown, Verified 02/25/25 11:28) N/V Family History (Last Reviewed 02/25/25 @ 15:28 by Lino Frankel MD) Father Hypertension Depression Mother Hypertension Son Depression Grandparent Alcoholism Cancer Grandparent Cancer Hypertension Administered/Completed Medications Discontinued Medications Lactulose (Lactulose 20 Gm/30 Ml Udc) 30 gm PO ONCE STA Stop: 02/25/25 14:40 Last Admin: 02/25/25 14:51 Dose: 30 gm Documented By: KENNA Notes 02/25/25 15:51 Nurse Note by Pat Gerber Patient is A&Ox4 at this time, but slow to respond. Patient denies pain. Patient given a warm blanket for comfort. Initialized on 02/25/25 15:51 - END OF NOTE Interventions/Assessments IV / Saline Lock, Insert Start: 02/25/25 11:05 Freq: Status: Active Protocol: Document 02/25/25 11:27 KENNA (Rec: 02/25/25 11:27 KENNA [id number]) IV Assessment Peripheral Access Left Antecubital IV Catheter Access Initiated Before Arrival Catheter Gauge 18 IV Site Assessment WNL IV Care and WNL Maintenance PA: Cardiovascular Assessment Start: 02/25/25 11:05 Freq: Status: Active Protocol: Document 02/25/25 11:48 KENNA (Rec: 02/25/25 11:48 KENNA [id number]) Cardiovascular Assessment Skin Description Cool Jugular Vein None Distention Rhythm/Strength Monitor Rhythm Regular EKG Rythm Sinus Rhythm PA: Neurological Assessment Start: 02/25/25 11:05 Freq: Status: Active Protocol: Document 02/25/25 11:26 KENNA (Rec: 02/25/25 11:26 KENNA [id number]) Neurological Assessment Level of Alert,Awake Consciousness Arousable to Verbal Orientation Oriented to Person,Oriented to Place,Oriented to Time Neurological Weakness, General Symptoms Hallucination Type None Memory Description Intact Ability to Maintain Unable to Assess Balance Facial Symmetry Symmetrical Ability to Swallow Normal Tongue Position Midline Bilateral All Extremities Extremity Movement Weak Push Description White Coma Scale Eyes Open Verbal Oriented and Alert Motor Follows Commands Beth Coma Total 15 Score Last Vital Signs Temperature 98.3 F 02/25/25 11:19 Pulse Rate 85 02/25/25 15:52 Respiratory Rate 14 02/25/25 15:52 Pulse Oximetry 95 02/25/25 15:52 Blood Pressure 148/99 H 02/25/25 15:52 Blood Pressure Mean 115 02/25/25 15:52 Oxygen Delivery Room Air 02/25/25 11:19 Weight 100 kg 02/25/25 11:19 Last Result - Abnormals Only RBC 4.03 M/mm3 (4.2-5.4) L 02/25/25 12: Hgb 10.5 g/dL (12.0-15.0) L 02/25/25 12:26 Hct 34.2 % (37.0-47.0) L 02/25/25 12: MCHC 30.7 g/dl (32-36) L 02/25/25 12: RDW 23.4 % (11.5-14.5) H 02/25/25 12:26 Plt Count 90 k/mm3 (150-375) L 02/25/25 12: MPV 11.7 fl (7.4-10.4) H 02/25/25 12: Basophils % (Manual) 4 % (0-1) H 02/25/25 12: Abs Lymphs (Manual) 0.84 K/mm3 (1.1-4.5) L 02/25/25 12:26 Abs Basophils (Manual) 0.18 K/mm3 (0.0-0.1) H 02/25/25 12:26 PT 17.3 Seconds (11.1-14.7) H 02/25/25 12:21 Total Bilirubin 2.2 mg/dL (0.2-1.3) H 02/25/25 12:26 AST 87 U/L (14-36) H 02/25/25 12:26 Alkaline Phosphatase 186 U/L (38-126) H 02/25/25 12:26 Ammonia 72 umol/L (9-30) H 02/25/25 14:03 NT-Pro-B Natriuret Pep 147 pg/mL (19.9-100) H 02/25/25 12:26 Total Protein 8.7 g/dL (6.3-8.2) H 02/25/25 12:26 Albumin 3.1 g/dL (3.5-5.1) L 02/25/25 12:26 Urine Urobilinogen >=8.0 mg/dL (<2.0) H 02/25/25 13:27 Most Recent Suicide Severity Rating Suicide Severity Rating NO RISK INDICATED 02/25/25 11:19
[2025-02-25 16:50] VITALS: BP 126/77; PULSE 82; RESP 15; TEMP 36.6; O2SAT 98
[2025-02-25 16:56] VITALS: BMI 40.5
--- NOTE | 2025-02-25 17:04 | ADMGEN ---
This patient, Xin Teixeira, was admitted to 2 Medical Room 248-. Patient/family oriented to hospital policies and general routines including ID bracelet, bed and alarms, visiting hours, pain management, procedures, bathroom and other care routines, personal items, smoking policy, room service/diet, and visiting hours. Pt. arrived on unit at 1641 from the ED. Information on how to activate the Rapid Response Team has been discussed. Patient/Family are encouraged to report perceived risks to care and to ask questions if they do not understand what they are told or what they should do.
[2025-02-25] MEDS: LACTULOSE 20 GM/30 ML UDC PO (18:23)
--- NOTE | 2025-02-25 18:55 | PC.NURSE ---
[employer] Worker reviewed Meaghan SINGH's charting and agrees with it.
--- NOTE | 2025-02-25 21:03 | PM.IMHP2 ---
H&P: HPI History of Present Illness Date/Time: 02/25/25 21:03 Chief Complaint: Weakness Narrative: This is a 54-year-old female patient who was recently discharged from [facility] on 02/21/2025 for EtOH withdrawal, nausea, vomiting, cirrhosis, and acute respiratory all your failure with hypoxia. The patient came into the emergency room with complaints of generalized weakness and feeling mentally foggy. She has a history of cirrhosis and rectal varices. Her H&H was found to be 10.5 in 34.2 which is above her baseline. Her total bilirubin is 2.2 which is less than her baseline. AST is 87 which is at her baseline. Alkaline phosphatase 186. Ammonia level was 72. BNP 147. Urine uro bilirubin was greater than 8. Head CT was read as no acute intracranial abnormality. Chest x-ray was read as no acute cardiopulmonary findings. She was given lactulose in the emergency room. The patient is being admitted to observation status on the date of service of 02/25/2025. Review of Systems Constitutional: Constitutional: Reports as per HPI and Reports no additional constitutional complaints Eyes: Eyes: Reports as per HPI and Reports no additional eye complaints ENT: Reports no additional ear, nose, mouth, and throat complaints and Reports Normal hearing present Cardiovascular: Cardiovascular: Reports no additional cardiovascular complaints Respiratory: Respiratory: Reports as per HPI and Reports no additional respiratory complaints Gastrointestinal: Gastrointestinal: Reports as per HPI and Reports no additional gastrointestinal complaints Genitourinary: Genitourinary: Reports no additional female genitourinary complaints Musculoskeletal: Musculoskeletal: Reports no additional musculoskeletal complaints Integumentary/Breasts: Skin/Breast: Reports system reviewed and no additional complaints, except as docu Neurologic: Reports no additional neurologic complaints and Reports Normal hearing present Psychiatric: Psychiatric: Reports no additional psychiatric complaints and Reports as per HPI Hematologic/Lymphatic: Hematologic/Lymphatic: Reports no additional hematologic/lymphatic complaints Allergic/Immunologic: Allergic/Immunologic: Reports no additional allergic/immunologic complaints [facility] Past Medical History Medical History (Updated 02/25/25 @ 22:02 by Praveena Hobbs APRN) Migraine Monoallelic mutation of ESPN gene History of esophageal varices with bleeding Elevated liver enzymes Esophageal varices with bleeding Acute blood loss anemia Hematemesis Melena IPMN (intraductal papillary mucinous neoplasm) Fatty liver Concern for hepatic cirrhosis Hepatitis GERD (gastroesophageal reflux disease) Arthritis Insomnia Anxiety Depression Hypertension Surgical History Surgical History Hx of breast augmentation Hx of section x2 History of tubal ligation Family History Family History Father Hypertension Depression Mother Hypertension Son Depression Grandparent Alcoholism Cancer Grandparent Cancer Hypertension Social History Social History (Updated 02/25/25 @ 21:55 by Praveena Hobbs APRN) Social History: Pt smoked cigarettes socially for approx. 5 yrs. One pack would last her 2 weeks. She currently lives with her parents. She is single and has 2 children. 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 Code status: Full code Smoking status: Never smoker Second hand tobacco smoke exposure: No Smoking end date: 03/16/06 Alcohol intake: former Drinks per week: 2 Alcohol use details: hx alcohol Substance use: never Substance use type: does not use Last use: 12/17/24 Lack of Transportation: No Lack of Food: Never True Current Housing: I Have Housing Concerned About Future Housing: No Difficulty Paying Gas/Electric Bills: No Difficulty Paying for Meds: No Currently Unemployed: No Education: Associate Degree Difficulty w/ Childcare or Family Care: No Living arrangements: alone Spiritual care concerns: No Meds Home Medications and Allergies Home Medications ?Medication ?Instructions ?Recorded ?Confirmed ?Type albuterol sulfate 90 mcg/actuation 1 inh inhalation Q4H PRN shortness 05/18/22 02/25/25 Rx aerosol inhaler of breath or wheezing #8.5 grams bupropion HCl 300 mg 24 hr tablet, 300 mg PO QAM #30 tabs 12/03/22 02/25/25 Rx extended release (Wellbutrin XL) alprazolam 0.5 mg tablet 0.5 mg PO BID PRN anxiety 07/27/23 02/25/25 History quetiapine 25 mg tablet 25 mg PO HS 07/27/23 02/25/25 History venlafaxine 75 mg capsule,extended 75 mg PO BID 07/27/23 02/25/25 History release 24 hr gabapentin 100 mg capsule 100 mg PO BID 10/07/24 02/25/25 History pantoprazole 20 mg tablet,delayed 20 mg PO DAILY 10/07/24 02/25/25 History release carvedilol 6.25 mg tablet (Coreg) 6.25 mg PO Q12HR 30 days #60 tabs 12/21/24 02/25/25 Rx nifedipine 30 mg tablet,extended 30 mg PO QAM 30 days #30 tabs 12/21/24 02/25/25 Rx release 24 hr (Procardia XL) metoclopramide HCl 5 mg tablet 5 mg PO PRN 02/08/25 02/25/25 History folic acid 1 mg tablet 1 mg PO DAILY #30 tabs 02/21/25 02/25/25 Rx spironolactone 25 mg tablet 25 mg PO QAM #30 tabs 02/21/25 02/25/25 Rx thiamine HCl (vitamin B1) 100 mg 100 mg PO QAM #30 tabs 02/21/25 02/25/25 Rx tablet (Vitamin B-1) Allergies Allergy/AdvReac Type Severity Reaction Status Date / Time lisinopril Allergy Intermediate Swelling Verified 02/25/25 17:10 of Lip/Tongue/Throat azithromycin AdvReac Unknown N/V Verified 02/25/25 17:10 Vital Signs Vital Signs - 24 hr 02/25/25 11:19 02/25/25 15:02 02/25/25 15:52 Temperature 98.3 F Pulse Rate 83 85 85 Respiratory Rate 12 13 14 Blood Pressure 123/73 123/88 148/99 H Pulse Oximetry 94 97 95 Oxygen Delivery Room Air 02/25/25 16:50 02/25/25 18:51 Temperature 97.8 F Pulse Rate 82 Respiratory Rate 15 Blood Pressure 126/77 Pulse Oximetry 98 Oxygen Delivery Room Air Exam Const: General: cooperative, comfortable, no acute distress, well developed, awake, Physically active, average body habitus and well nourished Nutritional Appearance: well nourished Orientation/consciousness: oriented to person, oriented to place, oriented to time and patient oriented x3 Limitations: no limitations HENMT: Head: normal to inspection, No palpable skull fracture present, normocephalic, atraumatic and abrasion Ears: hearing grossly normal bilaterally Eyes: General: appearance normal, both eyes and all related structures Alignment and Position: alignment normal Eyelids: eyelids normal EOM: EOMs intact bilaterally Neck: Neck: normal visual inspection and full ROM Chest: Chest palpation & inspection: normal inspection of the chest Resp: Effort & Inspection: normal respiratory effort Auscultation: clear to auscultation bilaterally Cardio: Palpation: normal PMI Rate: regular rate Rhythm: regular rhythm Heart sounds: S1 normal heart sound present and S2 normal heart sound present Peripheral pulses: Peripheral pulses 2+ throughout GI: Inspection: normal to inspection Percussion: Yes normal to percussion Auscultation: normal bowel sounds Rectal Exam: deferred Back/Spine/Pelvis: Back: no CVA tenderness Skin: General skin exam: normal color Lesions: no lesions Rashes: no rashes Trauma: no lacerations or abrasions Wounds: no wounds Hair: normal Nails: normal Neuro: General: oriented to person, oriented to place, oriented to time and patient oriented x3 Cranial nerves: Yes Equal, round and reactive pupils present and Yes Normal hearing present Cognition (Neuro): normal cognition Speech: normal speech Motor exam (neuro): 5/5 motor strength present throughout Sensory Exam: normal sensation Other: Generalized weakness Extrem: General: normal to inspection Right upper extremity: normal to inspection and shoulder/upper arm Left upper extremity: normal to inspection and shoulder/upper arm Right lower extremity: normal to inspection Left lower extremity: normal to inspection Psych: Appearance: grossly normal Mental Status: mental status grossly normal Speech and movement: Normal speech and movement present Affect: normal affect Attitude: cooperative Thought process: Normal thought process present Thought content: Yes Normal thought content present Other: Speech and movement are slow. Results Labs Labs: Short CBC 02/25/25 Range/Units 12:26 WBC 4.7 (4.5-10.0) K/mm3 Hgb 10.5 L (12.0-15.0) g/dL Hct 34.2 L (37.0-47.0) % Plt Count 90 L (150-375) k/mm3 BMP 02/25/25 12:26 Sodium 138 Potassium 3.8 Chloride 106 Carbon Dioxide 26 BUN 8 Creatinine 0.93 Glucose 98 Calcium 8.4 Cardiac Enzymes 02/25/25 Range/Units 12:26 Troponin I < 0.012 (0.000-0.034) ng/mL Liver Function 02/25/25 Range/Units 12:26 Total Bilirubin 2.2 H (0.2-1.3) mg/dL AST 87 H (14-36) U/L ALT 35 (6-35) U/L Alkaline Phosphatase 186 H (38-126) U/L Albumin 3.1 L (3.5-5.1) g/dL Urine 02/25/25 Range/Units 13:27 Urine Color Dark yellow (Yellow) Urine Appearance Clear (Clear) Urine pH 7.0 (5.0-9.0) Ur Specific [place]erson 1.011 (1.001-1.035) Urine Protein Negative (Negative) mg/dL Urine Glucose (UA) Negative (Negative) mg/dL ECG Interpretation: Rate: 81 P: 24 [place]: 159 QRS: 18 QRSD: 108 T: 18 QT: 404 QTc: 469 Interpretive Statements SINUS RHYTHM POSSIBLE ANTERIOR MYOCARDIAL INFARCTION , OF INDETERMINATE AGE MINIMAL Q WAVES- INFERIOR LEADS BORDERLINE ST-T WAVE ABNORMALITY- INFERIOR LEADS BASELINE ARTIFACT- I, II, AVR, AVF, V6 ABNORMAL ECG Compared to ECG 02/18/2025 05:52:50 HEART RATE HAS DECREASED Electronically Signed On 02-25-2025 15:24:15 LIBRARIAN by Husam Mathis D.O. Imaging CT scan - head: Radiologist's impression: ITS Impressions Chest X-Ray 02/25/25 13:25 IMPRESSION: 1. No acute cardiopulmonary findings. Head CT 02/25/25 14:36 Impression: 1.No acute intracranial abnormality. Quality VTE Prophylaxis VTE prophylaxis: mechanical ordered Assessment and Plan Assessment and plan (1) Hepatic encephalopathy: Code(s): K76.82 - Hepatic encephalopathy Status: Acute Assessment and Plan: -and her meld score is 26 according to med calculation. Mortality rate is 19.6 percentage. -her ammonia level is 72. -the patient stated that she has quit drinking however she had been on a drinking binge earlier this month and was admitted to [facility]. Her alcohol level on 02/18/2025 was 190. However today it was less than 10. -the patient was given lactulose in the emergency room and started on daily lactulose. -the patient has generalized weakness. -PT OT evaluation would greatly be appreciated. -care tech evaluation greatly be appreciated for home care. The patient declined being evaluated for a rehab facility. She she stated that she would greatly appreciate home care possible. -check magnesium, thyroid, ammonia, and CBC. -she has a history of alcoholism. -may consider GI consult. (2) Depression: Qualifiers: Depression Type: major depressive disorder Major depression recurrence: single episode Active/Remission status: currently active Major depression episode severity: moderate Qualified Code(s): F32.1 - Major depressive disorder, single episode, moderate Code(s): F32.9 - Major depressive disorder, single episode, unspecified Status: Acute Assessment and Plan: -continue with Seroquel -continue with Effexor -continue with bupropion (3) Anxiety: Code(s): F41.9 - Anxiety disorder, unspecified Status: Acute Assessment and Plan: -continue with bupropion -continue with alprazolam (4) Hypertension: Qualifiers: Hypertension type: essential hypertension Qualified Code(s): I10 - Essential (primary) hypertension Code(s): I10 - Essential (primary) hypertension Status: Acute Assessment and Plan: -continue with Coreg if blood pressure allows. -current blood pressure 125/75. -continue with Procardia blood pressure allows (5) Thrombocytopenia: Code(s): D69.6 - Thrombocytopenia, unspecified Status: Acute Assessment and Plan: -daily CBC -patient's platelets are 90 which are slightly above her baseline. (6) Anemia: Code(s): D64.9 - Anemia, unspecified Status: Chronic Assessment and Plan: -H&H is 10.5 and 34.2. Which is slightly above her baseline. -monitor CBC daily. -monitor for signs and symptoms of bleeding.
[2025-02-25 22:00] VITALS: BP 136/91; PULSE 85; RESP 18; TEMP 36.4; O2SAT 96
[2025-02-25] MEDS: ALPRAZolam (*CRX) 0.5 MG TABLET PO (22:54)
[2025-02-26] VITALS (8 sets, daily range): BP systolic 104–145; BP diastolic 60–88; PULSE 82–95; RESP 14–18; TEMP 36.4–36.9; O2SAT 93–99
[2025-02-26 04:58] LABS: Hematocrit 33.6 % (37.0-47.0); Hemoglobin 10.1 g/dL (12.0-15.0); Immature Platelet Fraction Pct 9.9 % (0.9-11.2); Mean Corpuscular HGB Conc 30.1 g/dl (32-36); Mean Corpuscular Hemoglobin 25.8 pg (26-34); Mean Corpuscular Volume 85.7 fl (80-100); Red Blood Count 3.92 M/mm3 (4.2-5.4); White Blood Count 5.5 K/mm3 (4.5-10.0)
[2025-02-26 04:59] LABS: Platelet Count Result 87 k/mm3 (150-375)
[2025-02-26 05:07] LABS: Ammonia 48 umol/L (9-30)
[2025-02-26 05:27] LABS: Anion Gap 3 mmol/L (4-12); Blood Urea Nitrogen 7 mg/dL (7-17); Calcium 8.2 mg/dL (8.4-10.2); Carbon Dioxide 26 mmol/L (22-30); Chloride 109 mmol/L (98-107); Estimated CRCL calculation 77 ml/min; Estimated Glomerular Filt Rate > 60; Glucose 82 mg/dL (65-110); Magnesium 2.1 mg/dL (1.6-2.3); Potassium 3.5 mmol/L (3.4-5.0); Sodium 138 mmol/L (137-145)
[2025-02-26 05:42] LABS: Thyroid Stimulating Hormone Reflex 5.520 uIU/mL (0.465-4.68)
[2025-02-26 06:59] LABS: Free T4 Free Thyroxine Reflex 1.22 ng/dL (0.78-2.19)
[2025-02-26 07:50] LABS: Iron 36 ug/dL (37-170)
[2025-02-26 08:26] LABS: Ferritin 14.30 ng/mL (11.1-264)
[2025-02-26 08:45] LABS: Percent Iron Saturation 13 % (20-50)
--- NOTE | 2025-02-26 08:54 | P.PNIM_ITS ---
Assessment and Plan Assessment and Plan (1) Hepatic encephalopathy: Code(s): K76.82 - Hepatic encephalopathy Status: Acute Assessment and Plan: -and her meld score is 26 according to med calculation. Mortality rate is 19.6 percentage. -her ammonia level is 72. -the patient stated that she has quit drinking however she had been on a drinking binge earlier this month and was admitted to [facility]. Her alcohol level on 02/18/2025 was 190. However today it was less than 10. -patient alert and oriented x3 at bedside this morning Continue Lactulose and Rifaximin Monitor . (2) Depression: Qualifiers: Depression Type: major depressive disorder Major depression recurrence: single episode Active/Remission status: currently active Major depression episode severity: moderate Qualified Code(s): F32.1 - Major depressive disorder, single episode, moderate Code(s): F32.9 - Major depressive disorder, single episode, unspecified Status: Acute Assessment and Plan: -continue with Seroquel -continue with Effexor -continue with bupropion (3) Anxiety: Code(s): F41.9 - Anxiety disorder, unspecified Status: Acute Assessment and Plan: -continue with bupropion -continue with alprazolam (4) Hypertension: Qualifiers: Hypertension type: essential hypertension Qualified Code(s): I10 - Essential (primary) hypertension Code(s): I10 - Essential (primary) hypertension Status: Acute Assessment and Plan: -continue with Coreg if blood pressure allows. -current blood pressure 125/75. -continue with Procardia blood pressure allows (5) Thrombocytopenia: Code(s): D69.6 - Thrombocytopenia, unspecified Status: Acute Assessment and Plan: -daily CBC -patient's platelets are 90 , today 87 (6) Anemia: Code(s): D64.9 - Anemia, unspecified Status: Chronic Assessment and Plan: -H&H is 10.5 and 34.2. Which is slightly above her baseline. -monitor CBC daily. -monitor for signs and symptoms of bleeding. iron panel, occult blood ordered Plan DVT prophylaxis on SCDs, no AC until GI bleed ruled out Subjective Date/time seen: 02/26/25 08:54 Interval history: Comfortable at bedside Continue lactulose, Rifaximin added Review of Systems Constitutional: Constitutional: Reports as per HPI and Reports no additional constitutional complaints Eyes: Eyes: Reports as per HPI and Reports no additional eye complaints ENT: Reports system reviewed and no additional complaints, except as d ocumented and Reports Normal hearing present Cardiovascular: Cardiovascular: Reports no additional cardiovascular complaints Respiratory: Respiratory: Reports as per HPI and Reports no additional respiratory complaints Gastrointestinal: Gastrointestinal: Reports as per HPI and Reports no additional gastrointestinal complaints Genitourinary: Genitourinary: Reports no additional female genitourinary complaints Musculoskeletal: Musculoskeletal: Reports no additional musculoskeletal complaints Integumentary/Breasts: Skin/Breast: Reports system reviewed and no additional complaints, except as docu Neurologic: Reports system reviewed and no additional complaints, except as documented and Reports Normal hearing present Psychiatric: Psychiatric: Reports no additional psychiatric complaints and Reports as per HPI Hematologic/Lymphatic: Hematologic/Lymphatic: Reports no additional hematologic/lymphatic complaints Allergic/Immunologic: Allergic/Immunologic: Reports no additional allergic/immunologic complaints Exam Const: General: cooperative, comfortable, no acute distress, well developed, awake, Physically active, average body habitus and well nourished Nutritional Appearance: average body habitus and well nourished Orientation/consciousness: oriented to person, oriented to place, oriented to time and patient oriented x3 Limitations: no limitations HENMT: Head: normal to inspection, No palpable skull fracture present, normocephalic, atraumatic and abrasion Ears: hearing grossly normal bilaterally Eyes: General: appearance normal, both eyes and all related structures Alignment and Position: alignment normal Eyelids: eyelids normal Pupils: Equal, round and reactive pupils present EOM: EOMs intact bilaterally Neck: Neck: normal visual inspection and full ROM Chest: Chest palpation & inspection: normal inspection of the chest Resp: Effort & Inspection: normal respiratory effort Auscultation: clear to auscultation bilaterally Cardio: Palpation: normal PMI Rate: regular rate Rhythm: regular rhythm Heart sounds: S1 normal heart sound present and S2 normal heart sound present Peripheral pulses: Peripheral pulses 2+ throughout GI: Inspection: normal to inspection Auscultation: normal bowel sounds Rectal Exam: deferred : General: Yes no CVA tenderness Back/Spine/Pelvis: Back: no CVA tenderness Skin: General skin exam: normal color Lesions: no lesions Rashes: no rachell hes Trauma: no lacerations or abrasions Wounds: no wounds Hair: normal Nails: normal Neuro: General: oriented to person, oriented to place, oriented to time and patient oriented x3 Cranial nerves: Yes Equal, round and reactive pupils present and Yes Normal hearing present Cognition (Neuro): normal cognition Speech: normal speech Motor exam (neuro): 5/5 motor strength present throughout Sensory Exam: normal sensation Other: Generalized weakness Extrem: General: normal to inspection Right upper extremity: normal to inspection and shoulder/upper arm Left upper extremity: normal to inspection and shoulder/upper arm Right lower extremity: normal to inspection Left lower extremity: normal to inspection Psych: Appearance: grossly normal Mental Status: mental status grossly normal Speech and movement: Normal speech and movement present Affect: normal affect Attitude: cooperative Thought process: Normal thought process present Other: Speech and movement are slow. Objective Data Vital Signs Vital Signs: Vital Signs - 24 hr 02/25/25 11:19 02/25/25 15:02 02/25/25 15:52 Temperature 98.3 F Pulse Rate 83 85 85 Respiratory Rate 12 13 14 Blood Pressure 123/73 123/88 148/99 H Pulse Oximetry 94 97 95 Oxygen Delivery Room Air 02/25/25 16:50 02/25/25 18:51 02/25/25 20:00 Temperature 97.8 F Pulse Rate 82 Respiratory Rate 15 Blood Pressure 126/77 Pulse Oximetry 98 Oxygen Delivery Room Air Room Air 02/25/25 22:00 02/26/25 06:00 Temperature 97.5 F L 97.5 F L Pulse Rate 85 84 Respiratory Rate 18 18 Blood Pressure 136/91 H 125/79 Pulse Oximetry 96 99 Oxygen Delivery Intake/Output Intake/Output: Intake & Output 02/23/25 02/24/25 02/25/25 02/26/25 23:59 23:59 23:59 23:59 Intake Total 200 Output Total 425 Balance -425 200 Meds/Results Medications: Active Medications Generic Name Dose Route Start Last Admin Trade Name Freq PRN Reason Stop Dose Admin Albuterol 1 puff 02/25/25 22:09 Albuterol Sulfate (*Sp) Aerosol 1 Puff INHALATION Q4HRT PRN Shortness Of Breath Or Wheezing Alprazolam 0.5 mg 02/25/25 22:09 02/25/25 22:54 Alprazolam (*Crx) 0.5 Mg Tablet PO 0.5 mg BID PRN Administration Anxiety Bupropion HCl 300 mg 02/26/25 09:00 Bupropion Hcl Xl (24 Hr) 150 Mg Tabcr PO QAM [facility] Carvedilol 6.25 mg 02/26/25 09:00 Carvedilol 6.25 Mg Tablet PO Q12HR [facility] Folic Acid 1 mg 02/26/25 09:00 Folic Acid 1 Mg Tablet PO DAILY [facility] Gabapentin 100 mg 02/26/25 09:00 Gabapentin 100 Mg Capsule PO BID [facility] Lactulose 20 gm 02/25/25 17:00 02/25/25 18:23 Lactulose 20 Gm/30 Ml Udc PO 20 gm TID [facility] Administration Nifedipine 30 mg 02/26/25 09:00 Nifedipine 30 Mg Tab.Er.24 PO QAM [facility] Ondansetron HCl 4 mg 02/25/25 15:33 Ondansetron Inj 4 Mg/2 Ml Vial IV PUSH Q4H PRN Nausea Pantoprazole Sodium 20 mg 02/26/25 09:00 Pantoprazole Sod Sesquihydrate 20 Mg Tab PO DAILY [facility] Quetiapine Fumarate 25 mg 02/26/25 21:00 Quetiapine Fumarate 25 Mg Tablet PO HS [facility] Thiamine HCl 100 mg 02/26/25 09:00 Thiamine Hcl 100 Mg Tablet PO QAM [facility] Venlafaxine HCl 75 mg 02/26/25 09:00 Venlafaxine Hcl Xr 75 Mg Cap.Er.24h PO BID [facility] Radiology Results: ITS Impressions Chest X-Ray 02/25/25 13:25 IMPRESSION: 1. No acute cardiopulmonary findings. Head CT 02/25/25 14:36 Impression: 1.No acute intracranial abnormality. Labs Labs: Laboratory Results - last 24 hr 02/25/25 02/25/25 02/25/25 12:21 12:26 13:27 WBC 4.7 RBC 4.03 L Hgb 10.5 L Hct 34.2 L MCV 84.9 MCH 26.1 MCHC 30.7 L RDW 23.4 H Plt Count 90 L MPV 11.7 H Immature Gran % (Auto) Not Reportable Neut % (Auto) Not Reportable Lymph % (Auto) Not Reportable [place] % (Auto) Not Reportable Eos % (Auto) Not Reportable Baso % (Auto) Not Reportable Lymph # (Auto) Not Reportable [place] # (Auto) Not Reportable Eos # (Auto) Not Reportable Baso # (Auto) Not Reportable Abs Immat Gran (auto) Not Reportable Absolute Neuts (auto) Not Reportable Absolute Nucleated RBC Not Reportable Total Counted 100 Neutrophils % (Manual) 68 Band Neutrophils % 0 Lymphocytes % (Manual) 18 Monocytes % (Manual) 7 Eosinophils % (Manual) 3 Basophils % (Manual) 4 H Nucleated RBC % Not Reportable Abs Neuts (Manual) 3.19 Abs Lymphs (Manual) 0.84 L Abs Monocytes (Manual) 0.32 Absolute Eos (Manual) 0.14 Abs Basophils (Manual) 0.18 H Platelet Estimate Adequate % Immature Plt Fraction 9.7 Hypochromasia 1+ Anisocytosis 2+ Target Cells 1+ Tomasa Cells Occasional Schistocytes None seen PT 17.3 H INR 1.4 APTT 34.2 Sodium 138 Potassium 3.8 Chloride 106 Carbon Dioxide 26 Anion Gap 6 BUN 8 Creatinine 0.93 Estim Creat Clear Calc 71 Estimated GFR > 60 Glucose 98 Lactic Acid Calcium 8.4 Magnesium 2.0 Iron TIBC % Saturation Ferritin Total Bilirubin 2.2 H AST 87 H ALT 35 Alkaline Phosphatase 186 H Ammonia Troponin I < 0.012 NT-Pro-B Natriuret Pep 147 H Total Protein 8.7 H Albumin 3.1 L Procalcitonin TSH (Reflex) Free T4 Urine Color Dark yellow Urine Appearance Clear Urine pH 7.0 Ur Specific Guin 1.011 Urine Protein Negative Urine Glucose (UA) Negative Urine Ketones Negative Ur Blood (Man) Negative Urine Nitrate Negative Urine Bilirubin Negative Urine Urobilinogen >=8.0 H Leukocyte Esterase Rfl Negative Ethyl Alcohol < 10 02/25/25 02/26/25 14:03 04:50 WBC 5.5 RBC 3.92 L Hgb 10.1 L Hct 33.6 L MCV 85.7 MCH 25.8 L MCHC 30.1 L RDW 23.4 H Plt Count 87 L MPV 11.0 H Immature Gran % (Auto) Neut % (Auto) Lymph % (Auto) [place] % (Auto) Eos % (Auto) Baso % (Auto) Lymph # (Auto) [place] # (Auto) Eos # (Auto) Baso # (Auto) Abs Immat Gran (auto) Absolute Neuts (auto) Absolute Nucleated RBC Total Counted Neutrophils % (Manual) Band Neutrophils % Lymphocytes % (Manual) Monocytes % (Manual) Eosinophils % (Manual) Basophils % (Manual) Nucleated RBC % Abs Neuts (Manual) Abs Lymphs (Manual) Abs Monocytes (Manual) Absolute Eos (Manual) Abs Basophils (Manual) Platelet Estimate % Immature Plt Fraction 9.9 Hypochromasia Anisocytosis Target Cells Neligh Cells Schistocytes PT INR APTT Sodium 138 Potassium 3.5 Chloride 109 H Carbon Dioxide 26 Anion Gap 3 L BUN 7 Creatinine 0.88 Estim Creat Clear Calc 77 Estimated GFR > 60 Glucose 82 Lactic Acid 1.6 1.5 Calcium 8.2 L Magnesium 2.1 Iron 36 L TIBC 280 % Saturation 13 L Ferritin 14.30 Total Bilirubin AST ALT Alkaline Phosphatase Ammonia 72 H 48 H Troponin I NT-Pro-B Natriuret Pep Total Protein Albumin Procalcitonin 0.1 TSH (Reflex) 5.520 H Free T4 1.22 Urine Color Urine Appearance Urine pH Ur Specific Guin Urine Protein Urine Glucose (UA) Urine Ketones Ur Blood (Man) Urine Nitrate Urine Bilirubin Urine Urobilinogen Leukocyte Esterase Rfl Ethyl Alcohol Quality VTE Prophylaxis VTE prophylaxis: mechanical ordered
[2025-02-26 09:15] LABS: Total Triiodothyronine (T3) 0.78 NG/ML (0.82-1.58)
[2025-02-26] MEDS: LACTULOSE 20 GM/30 ML UDC PO ×3 (09:39→16:54)
[2025-02-26] MEDS: FOLIC ACID 1 MG TABLET PO (09:39)
[2025-02-26] MEDS: PANTOPRAZOLE SOD SESQUIHYDRATE 20 MG TAB PO (09:39)
[2025-02-26] MEDS: buPROPion HCL XL (24 HR) 150 MG TABCR 300 MG PO (09:39)
[2025-02-26] MEDS: THIAMINE HCL 100 MG TABLET PO (09:39)
[2025-02-26] MEDS: GABAPENTIN 100 MG CAPSULE PO ×2 (09:40→16:54)
[2025-02-26] MEDS: VENLAFAXINE HCL XR 75 MG CAP.ER.24H PO ×2 (09:40→16:54)
[2025-02-27 05:03] LABS: Hematocrit 32.6 % (37.0-47.0); Hemoglobin 9.8 g/dL (12.0-15.0); Immature Granulocyte Percent A 0.6 % (0-0.5); Immature Platelet Fraction Pct 11.5 % (0.9-11.2); Lymphocytes Absolute Auto 1.55 K/mm3 (0.9-3.2); Mean Corpuscular HGB Conc 30.1 g/dl (32-36); Mean Corpuscular Hemoglobin 25.8 pg (26-34); Mean Corpuscular Volume 85.8 fl (80-100); Nucleated Red Blood Cells Absolute Auto 0.000 K/mm3 (0.0-0.012); Nucleated Red Blood Cells Perc 0.0 % (0.0-0.2); Platelet Count Result 85 k/mm3 (150-375); Red Blood Count 3.80 M/mm3 (4.2-5.4); White Blood Count 5.4 K/mm3 (4.5-10.0)
[2025-02-27 05:37] LABS: Anisocytosis 1+; Hypochromasia 1+; Schistocytes None Seen
[2025-02-27 05:59] LABS: Alanine Aminotransferase 34 U/L (6-35); Albumin Level 2.9 g/dL (3.5-5.1); Alkaline Phosphatase 150 U/L (38-126); Anion Gap 3 mmol/L (4-12); Aspartate Amino Transferase 87 U/L (14-36); Bilirubin,Total 2.0 mg/dL (0.2-1.3); Blood Urea Nitrogen 8 mg/dL (7-17); Calcium 8.3 mg/dL (8.4-10.2); Carbon Dioxide 25 mmol/L (22-30); Chloride 109 mmol/L (98-107); Estimated CRCL calculation 73 ml/min; Estimated Glomerular Filt Rate > 60; Glucose 77 mg/dL (65-110); Magnesium 2.2 mg/dL (1.6-2.3); Potassium 3.4 mmol/L (3.4-5.0); Sodium 137 mmol/L (137-145); Total Protein 8.1 g/dL (6.3-8.2)
[2025-02-27 06:00] VITALS: BP 101/53; PULSE 72; RESP 16; TEMP 36.7; O2SAT 95
[2025-02-27 09:45] VITALS: BP 111/65; PULSE 85; RESP 16; TEMP 36.7; O2SAT 93
[2025-02-27 09:47] VITALS: PULSE 85
[2025-02-27] MEDS: buPROPion HCL XL (24 HR) 150 MG TABCR 300 MG PO (09:47)
[2025-02-27 09:51] VITALS: PULSE 85; RESP 16; O2SAT 93
[2025-02-27] MEDS: FOLIC ACID 1 MG TABLET PO (09:51)
[2025-02-27] MEDS: GABAPENTIN 100 MG CAPSULE PO (09:51)
[2025-02-27] MEDS: LACTULOSE 20 GM/30 ML UDC PO ×2 (09:52→12:33)
[2025-02-27] MEDS: VENLAFAXINE HCL XR 75 MG CAP.ER.24H PO (09:52)
[2025-02-27] MEDS: PANTOPRAZOLE SOD SESQUIHYDRATE 20 MG TAB PO (09:52)
[2025-02-27] MEDS: THIAMINE HCL 100 MG TABLET PO (09:52)
[2025-02-27] MEDS: IRON SUCROSE COMPLEX 400 MG, IRON SUCROSE COMPLEX 100 MG in SODIUM CHLORIDE 0.9% IV 250 ML 78.57 MG IVPB (10:03)
--- NOTE | 2025-02-27 11:26 | P.DS_ITS ---
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 She had recently been discharged from [facility] (02/21/25) for EtOH withdrawal, nausea, vomiting, cirrhosis, and acute respiratory failure with hypoxia. On presentation, she was found to have mild anemia (Hgb 10.5), thrombocytopenia (Plt 90), hyperbilirubinemia (total bili 2.2, below her baseline), elevated AST (87), and ammonia 72. She was alert but mentally slowed, with slow speech and movement. Head CT and chest X-ray were unremarkable. She received lactulose in the ED and was admitted for management of hepatic encephalopathy. Hospital Course: * Hepatic Encephalopathy: * Ammonia 72 on admission, with mental status changes (slowed speech, mental fogginess). * Treated with lactulose (titrated to 2-3 bowel movements/day) and rifaximin was added. * Mental status improved; by discharge, she was alert and oriented x3, with resolution of encephalopathy symptoms. * MELD score 26 (estimated 90-day mortality ?20%). * GI referral recommended for ongoing management of cirrhosis and portal hypertension. * Cirrhosis/Portal Hypertension: * History of esophageal and rectal varices, prior GI bleeding, and chronic liver disease. * No evidence of active GI bleeding during this admission. * Platelets and H&H slightly above her baseline; monitored daily. * No anticoagulation given due to bleeding risk; SCDs for DVT prophylaxis. * Thrombocytopenia/Anemia: * Platelets 90-87, Hgb 10.5, Hct 34.2. * No evidence of active bleeding. * Iron panel and stool occult blood ordered. * Hypertension: * Home antihypertensives (carvedilol, nifedipine) continued as tolerated; BP stable. * Depression/Anxiety: * Continued home medications (quetiapine, venlafaxine, bupropion, alprazolam). * No acute psychiatric issues during admission. * Other: * No acute cardiopulmonary or neurologic findings. * No evidence of infection or acute decompensation. Procedures * None during this admission. Discharge Condition * Alert and oriented x3, mental status at baseline. * Ambulating, no acute distress. * No evidence of active GI bleeding. * Stable vital signs, afebrile. * Tolerating oral intake. Discharge Medications * Lactulose?20 gm PO TID (titrate to 2-3 soft bowel movements per day) * Rifaximin?550 mg PO BID * Carvedilol?6.25 mg PO BID * Nifedipine ER?30 mg PO QAM * Pantoprazole?20 mg PO daily * Folic acid?1 mg PO daily * Thiamine?100 mg PO daily * Gabapentin?100 mg PO BID * Bupropion XL?300 mg PO QAM * Venlafaxine XR?75 mg PO BID * Quetiapine?25 mg PO HS * Alprazolam?0.5 mg PO BID PRN anxiety * Albuterol inhaler?1 puff Q4H PRN SOB/wheezing * Ondansetron?4 mg PO/IV Q4H PRN nausea Continue other home medications as appropriate. Discharge Instructions * Hepatic Encephalopathy: * Continue lactulose and rifaximin as prescribed. * Titrate lactulose to maintain 2-3 soft bowel movements per day. * Monitor for confusion, drowsiness, or changes in mental status. * Cirrhosis/Portal Hypertension: * Avoid NSAIDs and alcohol. * Monitor for signs of GI bleeding (melena, hematemesis, rectal bleeding). * Maintain sodium restriction if recommended by GI. * Diet: * Well-balanced, low-sodium diet as tolerated. * Activity: * Activity as tolerated. * Use caution with ambulation if feeling weak. * Follow-up: * Gastroenterology: within 1-2 weeks for cirrhosis management and variceal surveillance. * Primary Care: within 1-2 weeks. * PT/OT: as needed for ongoing weakness. * Care Coordination: Home health referral as requested. * When to Seek Medical Attention: * Worsening confusion, drowsiness, or inability to take medications. * Signs of GI bleeding (vomiting blood, black/tarry stools, rectal bleeding). * Severe abdominal pain, jaundice, fever, or shortness of breath. Summary Ms. Teixeira was admitted for hepatic encephalopathy in the setting of cirrhosis, with improvement in mental status following lactulose and rifaximin therapy. She is being discharged in stable condition, alert and oriented, with instructions to continue her medications and follow up with GI and primary care. She is to titrate lactulose to 2-3 bowel movements per day and monitor for recurrence of encephalopathy or GI bleeding. Time Spent with Patient Time attestation: Total time spent providing and/or coordinating discharge services: DS: Data Data Completed and Pending Labs on day of discharge: Labs from last 24 hours 02/27/25 04:29 WBC 5.4 RBC 3.80 L Hgb 9.8 L Hct 32.6 L MCV 85.8 MCH 25.8 L MCHC 30.1 L RDW 23.4 H Plt Count 85 L MPV TNP Immature Gran % (Auto) 0.6 H Neut % (Auto) 49.6 Lymph % (Auto) 28.5 Nolan % (Auto) 16.9 H Eos % (Auto) 2.9 Baso % (Auto) 1.5 H Lymph # (Auto) 1.55 Nolan # (Auto) 0.9 H Eos # (Auto) 0.2 Baso # (Auto) 0.1 Abs Immat Gran (auto) 0.03 Absolute Neuts (auto) 2.7 Absolute Nucleated RBC 0.000 Band Neutrophils % Not Reportable Nucleated RBC % 0.0 Platelet Estimate Decreased % Immature Plt Fraction 11.5 H Hypochromasia 1+ Anisocytosis 1+ Schistocytes None seen Sodium 137 Potassium 3.4 Chloride 109 H Carbon Dioxide 25 Anion Gap 3 L BUN 8 Creatinine 0.92 Estim Creat Clear Calc 73 Estimated GFR > 60 Glucose 77 Calcium 8.3 L Magnesium 2.2 Total Bilirubin 2.0 H AST 87 H ALT 34 Alkaline Phosphatase 150 H Total Protein 8.1 Albumin 2.9 L Discharge Plan Discharge Attending physician on discharge: Makenna Lopez Discharging Clinician: Makenna Lopez Anticipated Discharge Date/Time: 02/27/25 11:16 Patient Disposition: Home Activity: as tolerated Diet: as tolerated and regular Patient Instructions: Antibiotic Form Patient Language: Nepali Stand Alone Forms: General Discharge Information Follow-up/Referrals: Lawrence,EDGAR Whatley [Primary Care Provider] Referral Note: F/u with PCP in 3-5 days Omkar Millan MD [Physician, Gastroenterology] Referral Note: F/u with GI in 1-2 weeks Discharge Medications: New lactulose 10 gram/15 mL Solution 20 g PO TID 30 Days Qty: 2700 1RF Rx Instructions: titrate to 2-3 bowel movements per day Xifaxan 550 mg Tablet 550 mg PO Q12HR 30 Days Qty: 60 1RF Continued thiamine HCl (vitamin B1) [Vitamin B-1] 100 mg Tablet 100 mg PO QAM Qty: 30 0RF spironolactone 25 mg Tablet 25 mg PO QAM Qty: 30 0RF folic acid 1 mg Tablet 1 mg PO DAILY Qty: 30 0RF alprazolam 0.5 mg tablet 0.5 mg PO BID PRN (Reason: anxiety) venlafaxine 75 mg capsule,extended release 24hr 75 mg PO BID quetiapine 25 mg tablet 25 mg PO HS metoclopramide HCl 5 mg tablet 5 mg PO PRN gabapentin 100 mg capsule 100 mg PO BID pantoprazole 20 mg tablet,delayed release (DR/EC) 20 mg PO DAILY nifedipine [Procardia XL] 30 mg Tablet Extended Release 24hr 30 mg PO QAM 30 Days Qty: 30 0RF carvedilol [Coreg] 6.25 mg Tablet 6.25 mg PO Q12HR 30 Days Qty: 60 0RF albuterol sulfate 90 mcg/actuation HFA aerosol inhaler 1 inh inhalation Q4H PRN (Reason: shortness of breath or wheezing) Qty: 8.5 5RF bupropion HCl [Wellbutrin XL] 300 mg tablet extended release 24 hr 300 mg PO QAM Qty: 30 4RF Date of admission: 02/25/25 15:33 Primary Care Provider: PrimoChacorta Admitting Provider: Makenna Lopez Attending physician on admission: Makenna Lopez Condition: Stable
--- NOTE | 2025-02-27 11:26 | PM.DS ---
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 She had recently been discharged from [facility] (02/21/25) for EtOH withdrawal, nausea, vomiting, cirrhosis, and acute respiratory failure with hypoxia. On presentation, she was found to have mild anemia (Hgb 10.5), thrombocytopenia (Plt 90), hyperbilirubinemia (total bili 2.2, below her baseline), elevated AST (87), and ammonia 72. She was alert but mentally slowed, with slow speech and movement. Head CT and chest X-ray were unremarkable. She received lactulose in the ED and was admitted for management of hepatic encephalopathy. Hospital Course: Hepatic Encephalopathy: Ammonia 72 on admission, with mental status changes (slowed speech, mental fogginess). Treated with lactulose (titrated to 2-3 bowel movements/day) and rifaximin was added. Mental status improved; by discharge, she was alert and oriented x3, with resolution of encephalopathy symptoms. MELD score 26 (estimated 90-day mortality ?20%). GI referral recommended for ongoing management of cirrhosis and portal hypertension. Cirrhosis/Portal Hypertension: History of esophageal and rectal varices, prior GI bleeding, and chronic liver disease. No evidence of active GI bleeding during this admission. Platelets and H&H slightly above her baseline; monitored daily. No anticoagulation given due to bleeding risk; SCDs for DVT prophylaxis. Thrombocytopenia/Anemia: Platelets 90-87, Hgb 10.5, Hct 34.2. No evidence of active bleeding. Iron panel and stool occult blood ordered. Hypertension: Home antihypertensives (carvedilol, nifedipine) continued as tolerated; BP stable. Depression/Anxiety: Continued home medications (quetiapine, venlafaxine, bupropion, alprazolam). No acute psychiatric issues during admission. Other: No acute cardiopulmonary or neurologic findings. No evidence of infection or acute decompensation. Procedures None during this admission. Discharge Condition Alert and oriented x3, mental status at baseline. Ambulating, no acute distress. No evidence of active GI bleeding. Stable vital signs, afebrile. Tolerating oral intake. Discharge Medications Lactulose?20 gm PO TID (titrate to 2-3 soft bowel movements per day) Rifaximin?550 mg PO BID Carvedilol?6.25 mg PO BID Nifedipine ER?30 mg PO QAM Pantoprazole?20 mg PO daily Folic acid?1 mg PO daily Thiamine?100 mg PO daily Gabapentin?100 mg PO BID Bupropion XL?300 mg PO QAM Venlafaxine XR?75 mg PO BID Quetiapine?25 mg PO HS Alprazolam?0.5 mg PO BID PRN anxiety Albuterol inhaler?1 puff Q4H PRN SOB/wheezing Ondansetron?4 mg PO/IV Q4H PRN nausea Continue other home medications as appropriate. Discharge Instructions Hepatic Encephalopathy: Continue lactulose and rifaximin as prescribed. Titrate lactulose to maintain 2-3 soft bowel movements per day. Monitor for confusion, drowsiness, or changes in mental status. Cirrhosis/Portal Hypertension: Avoid NSAIDs and alcohol. Monitor for signs of GI bleeding (melena, hematemesis, rectal bleeding). Maintain sodium restriction if recommended by GI. Diet: Well-balanced, low-sodium diet as tolerated. Activity: Activity as tolerated. Use caution with ambulation if feeling weak. Follow-up: Gastroenterology: within 1-2 weeks for cirrhosis management and variceal surveillance. Primary Care: within 1-2 weeks. PT/OT: as needed for ongoing weakness. Care Coordination: Home health referral as requested. When to Seek Medical Attention: Worsening confusion, drowsiness, or inability to take medications. Signs of GI bleeding (vomiting blood, black/tarry stools, rectal bleeding). Severe abdominal pain, jaundice, fever, or shortness of breath. Summary Ms. Teixeira was admitted for hepatic encephalopathy in the setting of cirrhosis, with improvement in mental status following lactulose and rifaximin therapy. She is being discharged in stable condition, alert and oriented, with instructions to continue her medications and follow up with GI and primary care. She is to titrate lactulose to 2-3 bowel movements per day and monitor for recurrence of encephalopathy or GI bleeding. Time Spent with Patient Time attestation: Total time spent providing and/or coordinating discharge services: DS: Data Data Completed and Pending Labs on day of discharge: Labs from last 24 hours 02/27/25 04:29 WBC 5.4 RBC 3.80 L Hgb 9.8 L Hct 32.6 L MCV 85.8 MCH 25.8 L MCHC 30.1 L RDW 23.4 H Plt Count 85 L MPV TNP Immature Gran % (Auto) 0.6 H Neut % (Auto) 49.6 Lymph % (Auto) 28.5 [place] % (Auto) 16.9 H Eos % (Auto) 2.9 Baso % (Auto) 1.5 H Lymph # (Auto) 1.55 [place] # (Auto) 0.9 H Eos # (Auto) 0.2 Baso # (Auto) 0.1 Abs Immat Gran (auto) 0.03 Absolute Neuts (auto) 2.7 Absolute Nucleated RBC 0.000 Band Neutrophils % Not Reportable Nucleated RBC % 0.0 Platelet Estimate Decreased % Immature Plt Fraction 11.5 H Hypochromasia 1+ Anisocytosis 1+ Schistocytes None seen Sodium 137 Potassium 3.4 Chloride 109 H Carbon Dioxide 25 Anion Gap 3 L BUN 8 Creatinine 0.92 Estim Creat Clear Calc 73 Estimated GFR > 60 Glucose 77 Calcium 8.3 L Magnesium 2.2 Total Bilirubin 2.0 H AST 87 H ALT 34 Alkaline Phosphatase 150 H Total Protein 8.1 Albumin 2.9 L Discharge Plan Discharge Attending physician on discharge: Makenna Lopez Discharging Clinician: Makenna Lopez Anticipated Discharge Date/Time: 02/27/25 11:16 Patient Disposition: Home Activity: as tolerated Diet: as tolerated and regular Patient Instructions: Antibiotic Form Patient Language: German Stand Alone Forms: General Discharge Information Follow-up/Referrals: Lawrence,EDGAR Whatley [Primary Care Provider] Referral Note: F/u with PCP in 3-5 days Omkar Millan MD [Physician, Gastroenterology] Referral Note: F/u with GI in 1-2 weeks Discharge Medications: New lactulose 10 gram/15 mL Solution 20 g PO TID 30 Days Qty: 2700 1RF Rx Instructions: titrate to 2-3 bowel movements per day Xifaxan 550 mg Tablet 550 mg PO Q12HR 30 Days Qty: 60 1RF Continued thiamine HCl (vitamin B1) [Vitamin B-1] 100 mg Tablet 100 mg PO QAM Qty: 30 0RF spironolactone 25 mg Tablet 25 mg PO QAM Qty: 30 0RF folic acid 1 mg Tablet 1 mg PO DAILY Qty: 30 0RF alprazolam 0.5 mg tablet 0.5 mg PO BID PRN (Reason: anxiety) venlafaxine 75 mg capsule,extended release 24hr 75 mg PO BID quetiapine 25 mg tablet 25 mg PO HS metoclopramide HCl 5 mg tablet 5 mg PO PRN gabapentin 100 mg capsule 100 mg PO BID pantoprazole 20 mg tablet,delayed release (DR/EC) 20 mg PO DAILY nifedipine [Procardia XL] 30 mg Tablet Extended Release 24hr 30 mg PO QAM 30 Days Qty: 30 0RF carvedilol [Coreg] 6.25 mg Tablet 6.25 mg PO Q12HR 30 Days Qty: 60 0RF albuterol sulfate 90 mcg/actuation HFA aerosol inhaler 1 inh inhalation Q4H PRN (Reason: shortness of breath or wheezing) Qty: 8.5 5RF bupropion HCl [Wellbutrin XL] 300 mg tablet extended release 24 hr 300 mg PO QAM Qty: 30 4RF Date of admission: 02/25/25 15:33 Primary Care Provider: LawrenceChacorta Admitting Provider: Makenna Lopez Attending physician on admission: Makenna Lopez Condition: Stable
[2025-02-27 13:48] VITALS: BP 127/76; PULSE 74; RESP 17; TEMP 36.3; O2SAT 97
== END 2025-02-27 14:48 | disposition home health service (06) ==
LOC: ANHED 15:37 → ANH2MED 16:55
PROVIDERS: Family Medicine; Nurse Practitioner; Admitting Provider Internal Medicine; Emergency Provider Emergency Medicine; PCP Physician Assistant; Visit Provider Internal Medicine
DX: K76.82 Hepatic encephalopathy (principal); F32.1 Major depressive disorder, single episode, moderate; F41.9 Anxiety disorder, unspecified; D69.6 Thrombocytopenia, unspecified; D64.9 Anemia, unspecified; I10 Essential (primary) hypertension; R94.31 Abnormal electrocardiogram [ECG] [EKG]; K21.9 Gastro-esophageal reflux disease without esophagitis; M19.90 Unspecified osteoarthritis, unspecified site; K76.0 Fatty (change of) liver, not elsewhere classified; Z87.891 Personal history of nicotine dependence; Z14.8 Genetic carrier of other disease; Z98.82 Breast implant status
CPT/HCPCS: 36415; 70450; 71046; 80048; 80053; 81001; 82077; 82140; 82728; 83540; 83550; 83605; 83735; 83880; 84145; 84439; 84443; 84480; 84484; 85025; 85027; 85055; 85610; 85730; 93005; 97166; 99285; A9270; G0378; G0379; J1756; J7050